=== PATIENT | male | born 1955 | race Caucasian/White ===

== ENCOUNTER 2018-09-07 14:48 | Observation (INO) | payer OTHER ==
[2018-09-07] MEDS ORDERED: solu-MEDROL 125 MG IV ONE (14:50)
[2018-09-07] MEDS ORDERED: DUONEB 0.5-3 MG/3 ml Neb IH ONE ×4 (14:50→16:28)
[2018-09-07] MEDS ORDERED: solu-MEDROL 125 MG ONE (14:57)
[2018-09-07 15:03] LABS: BASOPHIL % 0.4 % (0.0-0.4); Basophil (Absolute #) 0.05 (0-0.4); Eosinophil % 13.4 % (0.00-5.0); Eosinophil (Absolute #) 1.77 (0-0.5); Granulocyte Absolute (ANC) 7.63 (1.4-6.9); Granulocytes % 57.6 % (36.0-66.0); Hematocrit 47.2 % (42-50); Hemoglobin 16.2 gm/dl (12.5-18.0); Lymphocyte (Absolute #) 2.96 (1.0-4.6); Lymphocytes % 22.3 % (24.0-44.0); Mean Cell Volume 91.5 fl (78-100); Mean Corpuscular Hemoglobin 31.4 pg (26-32); Mean Corpuscular Hgb Concent. 34.3 g/dl (32-36); Mean Platelet Volume 8.9 fl (6-9.5); Monocytes % 6.3 % (0.0-12.0); Platelet Count 438 K/mm3 (150-450); Red Blood Count 5.16 M/mm3 (4.1-5.6); Red Cell Distribution Width 13.8 % (11.5-14.0); White Blood Count 13.3 K/mm3 (4.0-10.5)
[2018-09-07 15:08] LABS: INR 0.92 (0.8-3.0); PROTIME 10.4 SECONDS (8.83-12.87)
--- NOTE | 2018-09-07 15:09 | ERPHSYRPT ---
- History of Present Illness Time Seen by Provider: 09/07/18 14:50 Source: patient Exam Limitations: no limitations Physician History: Pt started c/o productive cough, wheezing, chest pain, increasing SOB since yesterday, states, the SOB increased today, denies vomiting, diarrhea, fever, other complaints. Timing/Duration: yesterday Activities at Onset: none Severity of Dyspnea-Max: severe Severity of Dyspnea-Current: severe Possible Cause: occasional episodes Modifying Factors: Improves With: albuterol inhaler Associated Symptoms: constant, cough, chest pain/discomfort, lightheadedness, wheezing, productive cough Allergies/Adverse Reactions: No Known Drug Allergies Allergy (Unverified 12/27/13 19:42) Home Medications: Aspirin 81 mg PO QAM 12/27/13 [History] Diltiazem HCl [Taztia Xt] 120 mg PO QAM 12/27/13 [History] Metoprolol Tartrate 25 mg [Lopressor 25MG Tab] 25 mg PO BID 12/27/13 [ History] Hx Tetanus, Diphtheria Vaccination/Date Given: Yes Hx Influenza Vaccination/Date Given: Yes Hx Pneumococcal Vaccination/Date Given: No - Review of Systems Constitutional: No Symptoms Eyes: No Symptoms Ears, Nose, & Throat: No Symptoms Respiratory: Cough, Dyspnea Cardiac: Chest Pain, No Edema Abdominal/Gastrointestinal: Nausea Skin: No Symptoms Neurological: Dizziness All Other Systems: Reviewed and Negative - Past Medical History Pertinent Past Medical History: Yes Neurological History: No Pertinent History ENT History: No Pertinent History Cardiac History: Hypertension, Myocardial Infarction ([place]) Respiratory History: No Pertinent History Endocrine Medical History: No Pertinent History Musculoskeletal History: No Pertinent History GI Medical History: No Pertinent History History: No Pertinent History Psycho-Social History: No Pertinent History Male Reproductive Disorders: No Pertinent History - Past Surgical History Past Surgical History: Yes Neuro Surgical History: No Pertinent History Cardiac: CABG Respiratory: No Pertinent History Gastrointestinal: No Pertinent History Genitourinary: No Pertinent History Musculoskeletal: Orthopedic Surgery Male Surgical History: No Pertinent History Other Surgical History: bilateral ELBOW SURGERY, rt wrist surgery, back surgery , josseline in back - Social History Smoking Status: Current every day smoker Exposure to second hand smoke: Yes Drug Use: none Patient Lives Alone: No - Nursing Vital Signs Nursing Vital Signs: Initial Vital Signs Temperature 97.7 F 09/07/18 14:49 Pulse Rate 109 H 09/07/18 14:49 Respiratory Rate 20 09/07/18 14:49 Blood Pressure 173/113 09/07/18 14:49 O2 Sat by Pulse Oximetry 94 L 09/07/18 14:49 Pain Scale Pain Intensity 3 - Physical Exam General Appearance: mild distress Eye Exam: eyes nml inspection Ears, Nose, Throat Exam: normal pharynx Neck Exam: normal inspection, non-tender, supple, No carotid bruit, No JVD Respiratory Exam: diminished breath sounds (both base), rhonchi, wheezing ( diffuse, mod. severe, bilateral), No chest tenderness Cardiovascular/Chest Exam: normal heart sounds, normal peripheral pulses, tachycardia, No murmur, No edema, No JVD Abdominal/Gastrointestinal Exam: soft, normal bowel sounds, No tenderness, No distention, No mass, No guarding, No ecchymosis, No pulsatile mass, No organomegaly Neurologic Exam: alert, oriented x 3, cooperative, normal mood/affect Skin Exam: normal color, warm, dry, No rash, No petechiae, No cyanosis Lymphatic Exam: No adenopathy SpO2 Interpretation: normal O2 Delivery: Room Air - Course Nursing assessment & vital signs reviewed: Yes EKG Interpreted by Me: RATE (89/min), NORMAL AXIS, NORMAL INTERVALS, Non- specific ST Changes, Other (frequent PVC-s, RVH pattern) - Radiology Exams Chest X-ray Interpretation: Interpreted by me, Negative, Other (COPD, Emphysema) Ordered Tests: Active Orders 24 hr Category Date 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 Care 09/07/18 14:51 Active EKG-ER Only STAT Care 09/07/18 14:50 Active EKG-ER Only STAT Care 09/07/18 16:58 Active IV Insertion STAT Care 09/07/18 14:50 Active CHEST 2 VIEWS (PA AND LAT) Stat Exams 09/07/18 14:51 Completed CBC W DIFF Stat Lab 09/07/18 14:50 Completed CMP Stat Lab 09/07/18 14:50 Completed D-DIMER QUANTITATION Stat Lab 09/07/18 16:21 Completed Lactic Acid Stat Lab 09/07/18 14:50 Ordered MAGNESIUM Stat Lab 09/07/18 14:50 Completed NT PRO BNP Stat Lab 09/07/18 14:50 Completed PROTIME WITH INR Stat Lab 09/07/18 14:50 Completed PTT Stat Lab 09/07/18 14:50 Completed TROPONIN Q3H Lab 09/07/18 14:50 Completed TROPONIN Q3H Lab 09/07/18 17:02 Completed TROPONIN Q3H Lab 09/07/18 20:00 Ordered TROPONIN Q3H Lab 09/08/18 00:00 Ordered TROPONIN Q3H Lab 09/08/18 03:00 Ordered Peak Expiratory Flow Rate DAILY RT 09/07/18 15:30 Completed Respiratory Therapy Assessment DAILY RT 09/07/18 16:32 Active Medication Summary Discontinued Medications Generic Name Dose Route Start Last Admin Trade Name Freq PRN Reason Stop Dose Admin Albuterol/Ipratropium 3 ml 09/07/18 14:50 09/07/18 15:30 Duoneb 0.5-3 Mg/3 Ml Neb IH 09/07/18 14:51 3 ml STAT ONE Administration Albuterol/Ipratropium Confirm 09/07/18 15:32 Duoneb 0.5-3 Mg/3 Ml Neb Administered 09/07/18 15:33 Dose 3 ml IH .STK-MED ONE Albuterol/Ipratropium 3 ml 09/07/18 16:14 09/07/18 16:29 Duoneb 0.5-3 Mg/3 Ml Neb IH 09/07/18 16:15 3 ml STAT ONE Administration Albuterol/Ipratropium Confirm 09/07/18 16:28 Duoneb 0.5-3 Mg/3 Ml Neb Administered 09/07/18 16:29 Dose 3 ml IH .STK-MED ONE Fentanyl Citrate 75 mcg 09/07/18 17:07 09/07/18 17:15 Sublimaze 100 Mcg/2 Ml IV 09/07/18 17:08 75 mcg STAT ONE Administration Fentanyl Citrate Confirm 09/07/18 17:14 Sublimaze 100 Mcg/2 Ml Administered 09/07/18 17:15 Dose 100 mcg .ROUTE .STK-MED ONE Ketorolac Tromethamine 30 mg 09/07/18 16:14 09/07/18 16:28 Toradol 30 Mg Injection IV 09/07/18 16:15 30 mg STAT ONE Administration Ketorolac Tromethamine Confirm 09/07/18 16:26 Toradol 30 Mg Injection Administered 09/07/18 16:27 Dose 30 mg .ROUTE .STK-MED ONE Methylprednisolone Sodium Succinate 125 mg 09/07/18 14:50 09/07/18 15:02 Solu-Medrol 125 Mg IV 09/07/18 14:51 125 mg STAT ONE Administration Methylprednisolone Sodium Succinate Confirm 09/07/18 14:57 Solu-Medrol 125 Mg Administered 09/07/18 14:58 Dose 125 mg .ROUTE .STK-MED ONE Ondansetron HCl 4 mg 09/07/18 17:07 09/07/18 17:16 Zofran 4 Mg/2 Ml Vial IV 09/07/18 17:08 4 mg STAT ONE Administration Ondansetron HCl Confirm 09/07/18 17:14 Zofran 4 Mg/2 Ml Vial Administered 09/07/18 17:15 Dose 4 mg .ROUTE .STK-MED ONE Lab/Rad Data: Laboratory Result Diagrams 09/07/18 14:50 09/07/18 14:50 Laboratory Results 09/07/18 09/07/18 09/07/18 Range/Units 17:02 16:21 14:50 WBC (4.0-10.5) K/mm3 RBC (4.1-5.6) M/mm3 Hgb (12.5-18.0) gm/dl Hct (42-50) % MCV (78-100) fl MCH (26-32) pg MCHC (32-36) g/dl RDW (11.5-14.0) % Plt Count (150-450) K/mm3 MPV (6-9.5) fl Gran % (36.0-66.0) % Eos # (Auto) (0-0.5) Absolute Lymphs (auto) (1.0-4.6) Absolute Monos (auto) (0.0-1.3) Lymphocytes % (24.0-44.0) % Monocytes % (0.0-12.0) % Eosinophils % (0.00-5.0) % Basophils % (0.0-0.4) % Absolute Granulocytes (1.4-6.9) Basophils # (0-0.4) PT (8.83-12.87) SECONDS INR (0.8-3.0) APTT (24.1-36.1) SECONDS D-Dimer 481 (215-500) ng/mL Sodium (137-145) mmol/L Potassium (3.5-5.1) mmol/L Chloride (98-107) mmol/L Carbon Dioxide (22-30) mmol/L Anion Gap (5-15) MEQ/L BUN (9-20) mg/dL Creatinine (0.66-1.25) mg/dL Estimated GFR ML/MIN Glucose (74-106) mg/dL Calcium (8.4-10.2) mg/dL Magnesium (1.6-2.3) mg/dL Total Bilirubin (0.2-1.3) mg/dL AST (17-59) U/L ALT (0-50) U/L Alkaline Phosphatase (38-126) U/L Troponin I < 0.012 < 0.012 (0.000-0.034) ng/mL NT-Pro-B Natriuret Pep (0-900) pg/mL Serum Total Protein (6.3-8.2) g/dL Albumin (3.5-5.0) g/dL 09/07/18 09/07/18 09/07/18 Range/Units 14:50 14:50 14:50 WBC 13.3 H (4.0-10.5) K/mm3 RBC 5.16 (4.1-5.6) M/mm3 Hgb 16.2 (12.5-18.0) gm/dl Hct 47.2 (42-50) % MCV 91.5 (78-100) fl MCH 31.4 (26-32) pg MCHC 34.3 (32-36) g/dl RDW 13.8 (11.5-14.0) % Plt Count 438 (150-450) K/mm3 MPV 8.9 (6-9.5) fl Gran % 57.6 (36.0-66.0) % Eos # (Auto) 1.77 H (0-0.5) Absolute Lymphs (auto) 2.96 (1.0-4.6) Absolute Monos (auto) 0.84 (0.0-1.3) Lymphocytes % 22.3 L (24.0-44.0) % Monocytes % 6.3 (0.0-12.0) % Eosinophils % 13.4 H (0.00-5.0) % Basophils % 0.4 (0.0-0.4) % Absolute Granulocytes 7.63 H (1.4-6.9) Basophils # 0.05 (0-0.4) PT 10.4 (8.83-12.87) SECONDS INR 0.92 (0.8-3.0) APTT 33.3 (24.1-36.1) SECONDS D-Dimer (215-500) ng/mL Sodium 142 (137-145) mmol/L Potassium 4.6 (3.5-5.1) mmol/L Chloride 105 (98-107) mmol/L Carbon Dioxide 25 (22-30) mmol/L Anion Gap 17.2 H (5-15) MEQ/L BUN 20 (9-20) mg/dL Creatinine 1.00 (0.66-1.25) mg/dL Estimated GFR > 60.0 ML/MIN Glucose 76 (74-106) mg/dL Calcium 10.2 (8.4-10.2) mg/dL Magnesium 1.9 (1.6-2.3) mg/dL Total Bilirubin 0.50 (0.2-1.3) mg/dL AST 30 (17-59) U/L ALT 20 (0-50) U/L Alkaline Phosphatase 96 (38-126) U/L Troponin I (0.000-0.034) ng/mL NT-Pro-B Natriuret Pep 286 (0-900) pg/mL Serum Total Protein 8.3 H (6.3-8.2) g/dL Albumin 4.8 (3.5-5.0) g/dL - Progress Progress: improved Air Movement: good Progress Note: 09/07/18 18:09 Pt states, improved after Toradol, Fentanyl IV, afebrile, stable, no severe SOB or pain, rib pain upon coughing. We reviewed all his results, discussed with Dr Lopez, she agreed to admit him for observation, patient was informed and agreed. Blood Culture(s) Obtained: No Antibiotics given: No Discussed with : John Will see patient in: hospital (observation) Counseled pt/family regarding: lab results, diagnosis, rad results - Departure Departure Disposition: Observation Clinical Impression: COPD (chronic obstructive pulmonary disease) with acute bronchitis Chest pain Qualifiers: Chest pain type: unspecified Qualified Code(s): R07.9 - Chest pain, unspecified Condition: Stable Critical Care Time: No Referrals: JIA ZIMMERMAN [ACTIVE STAFF] - Instructions: Chronic Obstructive Pulmonary Disease
[2018-09-07 15:10] LABS: PTT 33.3 SECONDS (24.1-36.1)
[2018-09-07 15:22] LABS: ALBUMIN 4.8 g/dL (3.5-5.0); ALKALINE PHOSPHATASE 96 U/L (38-126); ANION GAP 17.2 MEQ/L (5-15); BLOOD UREA NITROGEN 20 mg/dL (9-20); CHLORIDE 105 mmol/L (98-107); Calcium 10.2 mg/dL (8.4-10.2); Carbon Dioxide 25 mmol/L (22-30); Glucose 76 mg/dL (74-106); MAGNESIUM 1.9 mg/dL (1.6-2.3); NT PRO BNP 286 pg/mL (0-900); Potassium 4.6 mmol/L (3.5-5.1); SGOT/AST 30 U/L (17-59); SGPT/ALT 20 U/L (0-50); SODIUM 142 mmol/L (137-145); Total Protein 8.3 g/dL (6.3-8.2)
[2018-09-07] MEDS ORDERED: TORAdol 30 mg Injection IV ONE (16:14)
--- NOTE | 2018-09-07 16:18 | XRAY ---
Indication: Cough and short of breath. Comparison: July 07, 2011. PA/lateral chest again hyperinflated and clear. Heart is not enlarged again with CABG surgery. Bony thorax intact again with mild degenerative changes. Impression: Stable nonacute hyperinflated chest with chronic features.
[2018-09-07] MEDS ORDERED: TORAdol 30 mg Injection ONE (16:26)
[2018-09-07] MEDS ORDERED: SUBLIMAZE 100 MCG/2 ML IV ONE (17:07)
[2018-09-07] MEDS ORDERED: Zofran 4 MG/2 ML VIAL IV ONE (17:07)
[2018-09-07] MEDS ORDERED: SUBLIMAZE 100 MCG/2 ML ONE (17:14)
[2018-09-07] MEDS ORDERED: Zofran 4 MG/2 ML VIAL ONE (17:14)
[2018-09-07] MEDS: PROVENTIL 2.5 MG/3 ML NEB IH SCH ×2 (19:39→23:22)
[2018-09-07] MEDS ORDERED: Zofran 4 MG/2 ML VIAL IV PRN (19:55)
[2018-09-07] MEDS: MORPHINE SULFATE 4 MG INJ IV PRN (20:04)
[2018-09-07] MEDS ORDERED: PROVENTIL COMMON CANISTER IH PRN (20:35)
[2018-09-07] MEDS: solu-MEDROL 125 MG IV SCH (23:04)
[2018-09-07] MEDS: Pepcid 20 MG PO SCH (23:04)
[2018-09-08 00:21] LABS: Lactic Acid 2.5 (0.4-2.0)
[2018-09-08] MEDS: MORPHINE SULFATE 4 MG INJ IV PRN (02:38)
[2018-09-08] MEDS: PROVENTIL 2.5 MG/3 ML NEB IH SCH ×6 (02:47→23:38)
[2018-09-08 05:12] LABS: Lactic Acid 2.2 (0.4-2.0)
[2018-09-08 05:25] LABS: Hematocrit 43.9 % (42-50); Hemoglobin 14.7 gm/dl (12.5-18.0); Mean Cell Volume 93.2 fl (78-100); Mean Corpuscular Hemoglobin 31.2 pg (26-32); Mean Corpuscular Hgb Concent. 33.5 g/dl (32-36); Mean Platelet Volume 9.2 fl (6-9.5); Platelet Count 423 K/mm3 (150-450); Red Blood Count 4.71 M/mm3 (4.1-5.6); Red Cell Distribution Width 13.7 % (11.5-14.0); White Blood Count 20.6 K/mm3 (4.0-10.5)
[2018-09-08 05:32] LABS: ANION GAP 16.5 MEQ/L (5-15); BLOOD UREA NITROGEN 28 mg/dL (9-20); CHLORIDE 104 mmol/L (98-107); Calcium 9.3 mg/dL (8.4-10.2); Carbon Dioxide 23 mmol/L (22-30); Creatinine 1 1.11 mg/dL (0.66-1.25); Glucose 188 mg/dL (74-106); Potassium 4.8 mmol/L (3.5-5.1); SODIUM 138 mmol/L (137-145)
[2018-09-08] MEDS: solu-MEDROL 125 MG IV SCH ×3 (06:02→19:03)
[2018-09-08] MEDS: NORCO 5/325 MG PO PRN ×2 (08:57→20:44)
--- NOTE | 2018-09-08 09:31 | PCM.HP ---
History of Present Illness - Chief Complaint Chief Complaint: COPD; Chest Pain History of Present Illness: is a 63 year old male pt of Dr. Schulz in [place] with PMHx COPD and CAD who came to ER c/o increasing SOB x 1d. Apparently has had increased cough and SOB for months, but it worsened yesterday. Has been seeing [employer] [employer] at Dr. Schulz' s office; was found to need supplemental O2 at home but has been waiting for that ([facility]). Pt has also been having R sided CP radiating to his back bilat, 12/28, intermittent. took nitro with some relief. Does have diaphoresis and palpitations with it; denies N/V. Worse with cough. Pt's troponins have been neg x 3. CXR was non acute. He was admitted on IV steroids and does feel better but is still c/o chest pain this morning that is 8 /10. His WBC were 13,000 initially but 20,000 this morning. Pt sees Dr. Herrera. Had CABG in the past and angioplasty on L leg. - Review of Systems Respiratory: Cough, Short Of Breath Cardiac: Chest Pain, Palpitations Psychological: No Anxiety, No Depression, No Suicidal Ideations All Other Systems: Reviewed and Negative Medications & Allergies Home Medications: Home Medication List Aspirin 81 mg PO QAM 12/27/13 [History Confirmed 09/07/18] Metoprolol Tartrate 25 mg [Lopressor 25MG Tab] 25 mg PO DAILY 12/27/13 [ History Confirmed 09/07/18] Albuterol Common Canister [Proventil Common Canister] 2 puffs IH Q4H PRN PRN 09/07/18 [History Confirmed 09/07/18] Budesonide/Formoterol Fumarate [Symbicort 160-4.5 Mcg Inhaler] 1 puff IH BID [History Confirmed 09/07/18] Clopidogrel Bisulfate [Plavix] 75 mg PO DAILY 09/07/18 [History Confirmed ] Losartan Potassium 25 mg PO DAILY 09/07/18 [History Confirmed 09/07/18] Tiotropium [place] [Spiriva Respimat] 1 puff IH BID 09/07/18 [History Confirmed 09/07/18] Allergies/Adverse Reactions: Allergies Allergy/AdvReac Type Severity Reaction Status Date / Time No Known Drug Allergies Allergy Unverified 09/07/18 21:26 - Past Medical History Past Medical History: Yes Neurological History: No Pertinent History ENT History: No Pertinent History Cardiac History: Hypertension, Myocardial Infarction ([place]) Respiratory History: No Pertinent History Endocrine Medical History: No Pertinent History Musculoskelatal History: No Pertinent History GI Medical History: No Pertinent History History: No Pertinent History Pyscho-Social History: No Pertinent History Male Reproductive Disorders: No Pertinent History - Past Surgical History Past Surgical History: Yes Neuro Surgical History: No Pertinent History Cardiac History: CABG Respiratory Surgery: No Pertinent History GI Surgical History: No Pertinent History Genitourinary Surgical Hx: No Pertinent History Musculskeletal Surgical Hx: Orthopedic Surgery Male Surgical History: No Pertinent History Other Surgical History: bilateral ELBOW SURGERY, rt wrist surgery, back surgery , josseline in back - Social History Smoking Status: Current every day smoker How long have you smoked: 45 years Exposure to second hand smoke: Yes Alcohol: Daily Drug Use: none - Physical Exam Vital Signs: Vital Signs - 24 hr Temp Pulse Resp BP Pulse Ox 09/08/18 08:00 98.3 F 93 H 18 141/75 90 L 09/08/18 07:52 89 18 96 09/08/18 03:56 97.4 F 90 18 131/84 96 09/08/18 03:54 110 H 18 92 L 09/08/18 00:00 98.2 F 83 19 140/80 95 09/07/18 23:22 90 18 94 L 09/07/18 21:00 97.7 F 92 H 20 143/87 95 09/07/18 20:37 92 H 20 94 L 09/07/18 18:06 18 143/87 95 09/07/18 17:40 55 L 22 156/83 09/07/18 16:50 55 L 20 156/83 09/07/18 16:32 67 16 95 09/07/18 16:07 70 16 140/114 95 09/07/18 15:40 95 H 18 96 09/07/18 14:49 97.7 F 109 H 20 173/113 95 Oxygen-Last 24 hours O2 Percentage 2 Liters = 28% O2 Percentage 2 Liters = 28% O2 Percentage 2 Liters = 28% O2 Percentage 2 Liters = 28% O2 Percentage 3 Liters = 32% General Appearance: no apparent distress, alert Neurologic Exam: oriented x 3, cooperative Eye Exam: eyes nml inspection Ears, Nose, Throat Exam: moist mucous membranes Respiratory Exam: diminished breath sounds (poor air exchange), prolonged expirations, No crackles/rales, No rhonchi, No wheezing Cardiovascular Exam: regular rate/rhythm, normal heart sounds, No murmur Gastrointestinal/Abdomen Exam: soft, normal bowel sounds, No tenderness, No distention, No mass, No guarding, No rebound Extremity Exam: normal inspection, No pedal edema, No swelling Skin Exam: normal color, warm, dry, No rash Results - Labs Lab/Micro Results: Lab Results-Last 24 Hours 09/07/18 09/07/18 09/07/18 Range/Units 14:50 14:50 14:50 WBC 13.3 H (4.0-10.5) K/mm3 RBC 5.16 (4.1-5.6) M/mm3 Hgb 16.2 (12.5-18.0) gm/dl Hct 47.2 (42-50) % MCV 91.5 (78-100) fl MCH 31.4 (26-32) pg MCHC 34.3 (32-36) g/dl RDW 13.8 (11.5-14.0) % Plt Count 438 (150-450) K/mm3 MPV 8.9 (6-9.5) fl Gran % 57.6 (36.0-66.0) % Eos # (Auto) 1.77 H (0-0.5) Absolute Lymphs (auto) 2.96 (1.0-4.6) Absolute Monos (auto) 0.84 (0.0-1.3) Lymphocytes % 22.3 L (24.0-44.0) % Monocytes % 6.3 (0.0-12.0) % Eosinophils % 13.4 H (0.00-5.0) % Basophils % 0.4 (0.0-0.4) % Absolute Granulocytes 7.63 H (1.4-6.9) Basophils # 0.05 (0-0.4) PT (8.83-12.87) SECONDS INR (0.8-3.0) APTT (24.1-36.1) SECONDS D-Dimer (215-500) ng/mL Sodium 142 (137-145) mmol/L Potassium 4.6 (3.5-5.1) mmol/L Chloride 105 (98-107) mmol/L Carbon Dioxide 25 (22-30) mmol/L Anion Gap 17.2 H (5-15) MEQ/L BUN 20 (9-20) mg/dL Creatinine 1.00 (0.66-1.25) mg/dL Estimated GFR > 60.0 ML/MIN Glucose 76 (74-106) mg/dL Lactic Acid 2.5 H (0.4-2.0) Calcium 10.2 (8.4-10.2) mg/dL Magnesium 1.9 (1.6-2.3) mg/dL Total Bilirubin 0.50 (0.2-1.3) mg/dL AST 30 (17-59) U/L ALT 20 (0-50) U/L Alkaline Phosphatase 96 (38-126) U/L Troponin I (0.000-0.034) ng/mL NT-Pro-B Natriuret Pep 286 (0-900) pg/mL Serum Total Protein 8.3 H (6.3-8.2) g/dL Albumin 4.8 (3.5-5.0) g/dL 09/07/18 09/07/18 09/07/18 Range/Units 14:50 14:50 16:21 WBC (4.0-10.5) K/mm3 RBC (4.1-5.6) M/mm3 Hgb (12.5-18.0) gm/dl Hct (42-50) % MCV (78-100) fl MCH (26-32) pg MCHC (32-36) g/dl RDW (11.5-14.0) % Plt Count (150-450) K/mm3 MPV (6-9.5) fl Gran % (36.0-66.0) % Eos # (Auto) (0-0.5) Absolute Lymphs (auto) (1.0-4.6) Absolute Monos (auto) (0.0-1.3) Lymphocytes % (24.0-44.0) % Monocytes % (0.0-12.0) % Eosinophils % (0.00-5.0) % Basophils % (0.0-0.4) % Absolute Granulocytes (1.4-6.9) Basophils # (0-0.4) PT 10.4 (8.83-12.87) SECONDS INR 0.92 (0.8-3.0) APTT 33.3 (24.1-36.1) SECONDS D-Dimer 481 (215-500) ng/mL Sodium (137-145) mmol/L Potassium (3.5-5.1) mmol/L Chloride (98-107) mmol/L Carbon Dioxide (22-30) mmol/L Anion Gap (5-15) MEQ/L BUN (9-20) mg/dL Creatinine (0.66-1.25) mg/dL Estimated GFR ML/MIN Glucose (74-106) mg/dL Lactic Acid (0.4-2.0) Calcium (8.4-10.2) mg/dL Magnesium (1.6-2.3) mg/dL Total Bilirubin (0.2-1.3) mg/dL AST (17-59) U/L ALT (0-50) U/L Alkaline Phosphatase (38-126) U/L Troponin I < 0.012 (0.000-0.034) ng/mL NT-Pro-B Natriuret Pep (0-900) pg/mL Serum Total Protein (6.3-8.2) g/dL Albumin (3.5-5.0) g/dL 09/07/18 09/07/18 09/08/18 Range/Units 17:02 20:17 05:00 WBC (4.0-10.5) K/mm3 RBC (4.1-5.6) M/mm3 Hgb (12.5-18.0) gm/dl Hct (42-50) % MCV (78-100) fl MCH (26-32) pg MCHC (32-36) g/dl RDW (11.5-14.0) % Plt Count (150-450) K/mm3 MPV (6-9.5) fl Gran % (36.0-66.0) % Eos # (Auto) (0-0.5) Absolute Lymphs (auto) (1.0-4.6) Absolute Monos (auto) (0.0-1.3) Lymphocytes % (24.0-44.0) % Monocytes % (0.0-12.0) % Eosinophils % (0.00-5.0) % Basophils % (0.0-0.4) % Absolute Granulocytes (1.4-6.9) Basophils # (0-0.4) PT (8.83-12.87) SECONDS INR (0.8-3.0) APTT (24.1-36.1) SECONDS D-Dimer (215-500) ng/mL Sodium (137-145) mmol/L Potassium (3.5-5.1) mmol/L Chloride (98-107) mmol/L Carbon Dioxide (22-30) mmol/L Anion Gap (5-15) MEQ/L BUN (9-20) mg/dL Creatinine (0.66-1.25) mg/dL Estimated GFR ML/MIN Glucose (74-106) mg/dL Lactic Acid 2.2 H (0.4-2.0) Calcium (8.4-10.2) mg/dL Magnesium (1.6-2.3) mg/dL Total Bilirubin (0.2-1.3) mg/dL AST (17-59) U/L ALT (0-50) U/L Alkaline Phosphatase (38-126) U/L Troponin I < 0.012 < 0.012 (0.000-0.034) ng/mL NT-Pro-B Natriuret Pep (0-900) pg/mL Serum Total Protein (6.3-8.2) g/dL Albumin (3.5-5.0) g/dL 09/08/18 09/08/18 Range/Units 05:07 05:07 WBC 20.6 H (4.0-10.5) K/mm3 RBC 4.71 (4.1-5.6) M/mm3 Hgb 14.7 (12.5-18.0) gm/dl Hct 43.9 (42-50) % MCV 93.2 (78-100) fl MCH 31.2 (26-32) pg MCHC 33.5 (32-36) g/dl RDW 13.7 (11.5-14.0) % Plt Count 423 (150-450) K/mm3 MPV 9.2 (6-9.5) fl Gran % (36.0-66.0) % Eos # (Auto) (0-0.5) Absolute Lymphs (auto) (1.0-4.6) Absolute Monos (auto) (0.0-1.3) Lymphocytes % (24.0-44.0) % Monocytes % (0.0-12.0) % Eosinophils % (0.00-5.0) % Basophils % (0.0-0.4) % Absolute Granulocytes (1.4-6.9) Basophils # (0-0.4) PT (8.83-12.87) SECONDS INR (0.8-3.0) APTT (24.1-36.1) SECONDS D-Dimer (215-500) ng/mL Sodium 138 (137-145) mmol/L Potassium 4.8 (3.5-5.1) mmol/L Chloride 104 (98-107) mmol/L Carbon Dioxide 23 (22-30) mmol/L Anion Gap 16.5 H (5-15) MEQ/L BUN 28 H (9-20) mg/dL Creatinine 1.11 (0.66-1.25) mg/dL Estimated GFR > 60.0 ML/MIN Glucose 188 H (74-106) mg/dL Lactic Acid (0.4-2.0) Calcium 9.3 (8.4-10.2) mg/dL Magnesium (1.6-2.3) mg/dL Total Bilirubin (0.2-1.3) mg/dL AST (17-59) U/L ALT (0-50) U/L Alkaline Phosphatase (38-126) U/L Troponin I (0.000-0.034) ng/mL NT-Pro-B Natriuret Pep (0-900) pg/mL Serum Total Protein (6.3-8.2) g/dL Albumin (3.5-5.0) g/dL - Radiology Impressions Radiology Exams & Impressions: Radiology Procedures Category Date Time Status CHEST 2 VIEWS (PA AND LAT) Stat Exams 09/07/18 14:51 Completed - Other Procedures and Tests Respiratory Therapy 09/07/18 15:30 Peak Expiratory Flow Rate DAILY 09/07/18 16:32 Respiratory Therapy Assessment DAILY 09/07/18 18:11 Oxygen Nasal Cannula 2 lpm Assessment/Plan (1) COPD exacerbation Current Visit: Yes Status: Acute Assessment & Plan: WIll add antibiotics. I advised he may need to stay several days. On IV steroid 80mg q6h. Code(s): J44.1 - CHRONIC OBSTRUCTIVE PULMONARY DISEASE W (ACUTE) EXACERBATION (2) CAD (coronary artery disease) Current Visit: Yes Status: Chronic Qualifiers: Coronary Disease-Associated Artery/Lesion type: bypass graft [place] vs. transplanted heart: [place] heart Associated angina: with unspecified angina Qualified Code(s): I25.709 - Atherosclerosis of coronary artery bypass graft(s) , unspecified, with unspecified angina pectoris Code(s): I25.10 - ATHSCL HEART DISEASE OF [place] CORONARY ARTERY W/O ANG PCTRS (3) Chest pain Current Visit: Yes Status: Acute Qualifiers: Chest pain type: unspecified Qualified Code(s): R07.9 - Chest pain, unspecified Assessment & Plan: likely related to COPD; continue troponins to r/o [place]. Code(s): R07.9 - CHEST PAIN, UNSPECIFIED
[2018-09-08] MEDS ORDERED: NON-FORMULARY ITEM (Aspirin [Aspirin] 81 MG) PO SCH (10:00)
[2018-09-08] MEDS: ECOTRIN 81 MG PO SCH (10:24)
[2018-09-08] MEDS: PLAVIX 75 MG Tablet PO SCH (10:24)
[2018-09-08] MEDS: Lopressor 25MG Tab PO SCH (10:24)
[2018-09-08] MEDS: Cozaar 50 MG PO SCH (10:24)
[2018-09-08] MEDS: Pepcid 20 MG PO SCH ×2 (10:24→21:40)
[2018-09-08] MEDS: Zithromax 500 MG/ 250 ML NaCl Premix 500 MG/250 ML IVPB IV SCH (10:25)
[2018-09-08] MEDS: ROCEPHIN 1 Gm-D5w 50 ml Bag** 1 G/50 ML IVPB IV SCH (10:25)
[2018-09-08] MEDS: ENOXAPARIN SODIUM SQ SCH (10:25)
[2018-09-08] MEDS: Advair Hfa 115/21 Common canister IH SCH (19:43)
[2018-09-08] MEDS: Spiriva 18 Mcg/Cap Inhaler IH SCH (19:45)
[2018-09-09] MEDS: solu-MEDROL 125 MG IV SCH ×3 (01:07→11:49)
[2018-09-09] MEDS: PROVENTIL 2.5 MG/3 ML NEB IH SCH ×4 (03:09→13:30)
[2018-09-09] MEDS: NORCO 5/325 MG PO PRN (08:30)
[2018-09-09] MEDS: ENOXAPARIN SODIUM SQ SCH (08:31)
[2018-09-09] MEDS: Pepcid 20 MG PO SCH (08:31)
[2018-09-09] MEDS: ECOTRIN 81 MG PO SCH (08:31)
[2018-09-09] MEDS: Cozaar 50 MG PO SCH (08:31)
[2018-09-09] MEDS: PLAVIX 75 MG Tablet PO SCH (08:31)
[2018-09-09] MEDS: Lopressor 25MG Tab PO SCH (08:32)
[2018-09-09] MEDS: ROCEPHIN 1 Gm-D5w 50 ml Bag** 1 G/50 ML IVPB IV SCH (09:35)
[2018-09-09] MEDS: Zithromax 500 MG/ 250 ML NaCl Premix 500 MG/250 ML IVPB IV SCH (10:35)
[2018-09-09] MEDS: Spiriva 18 Mcg/Cap Inhaler IH SCH (10:37)
[2018-09-09] MEDS: Advair Hfa 115/21 Common canister IH SCH (10:37)
[2018-09-09 12:36] VITALS: BP 144/78
--- NOTE | 2018-09-09 12:53 | PCM.DS ---
Discharge Summary Date of Admission: 09/07/18 18:23 Admitting Physician: KARSON HURST Primary Care Provider: PRIYANKA MCFARLAND Allergies Allergies No Known Drug Allergies Allergy (Unverified 09/07/18 21:26) Hospital Summary - Hospital Course Hospital Course: patient was admitted with cough, wheezing, shortness of breath and pleuritic chest wall pain. treated for copd exacerbation, has been qualified for home oxygen. appears to have advanced copd. - Vitals & Intake/Output Vital Signs: Vital Signs Temperature 97.7 F 09/09/18 12:35 Pulse Rate 80 09/09/18 12:35 Respiratory Rate 20 09/09/18 12:35 Blood Pressure 144/78 09/09/18 12:35 O2 Sat by Pulse Oximetry 96 09/09/18 12:35 Oxygen-Last Documented O2 Percentage 3 Liters = 32% Intake & Output: Intake & Output 09/07/18 09/08/18 09/09/18 09/10/18 11:59 11:59 11:59 11:59 Intake Total 1602 3518 Output Total 1500 Balance 1602 2018 Weight 66.8 kg 66.5 kg - Lab Result Diagrams: 09/08/18 05:07 09/08/18 05:07 - Radiology Exams Ordered Rad Exams-Entire Visit: Radiology Procedures Category Date Time Status CHEST 2 VIEWS (PA AND LAT) Stat Exams 09/07/18 14:51 Completed - Procedures and Test Procedures and Tests throughout Hospitalization: Therapy Orders & Screens 09/07/18 15:30 Peak Expiratory Flow Rate DAILY Comment: Reason For Exam: 09/07/18 16:32 Respiratory Therapy Assessment DAILY Comment: 09/07/18 18:11 Oxygen Nasal Cannula 2 lpm Comment: 09/07/18 23:29 RT Screen per Nursing Assess Comment: Protocol Order Physician Instructions: Greater than 3 points order RT Admission Screen Reason For Exam: Triggered on Admission Diagnosis: COPD; Chest Pain Diagnosis: COPD; Chest Pain Pneumonia: No Home O2: Yes: hasn't been delivered yet Asthma: No CHF: No Home CPAP/BIPAP: No Home Nebs/MDI: Yes Total Points: 10 Smoking Cessation Education Comment: Diagnosis: COPD; Chest Pain Smoking Status: Current every day smoker How long have you smoked: 45 years Have you smoked in the past 12 months: Yes Approximately how many cigarettes per day: 1 cigarette per day Do you dip or chew tobacco: No 09/08/18 19:00 Respiratory MDI BID Comment: Diagnosis: COPD; Chest Pain Discharge Exam General Appearance: no apparent distress, alert Respiratory Exam: prolonged expirations, wheezing (mild) Cardiovascular Exam: regular rate/rhythm, normal heart sounds Gastrointestinal/Abdomen Exam: soft, No tenderness, No mass Extremity Exam: normal inspection, normal range of motion Skin Exam: normal color, warm, dry Final Diagnosis/Problem List - Final Discharge Diagnosis/Problem (1) COPD exacerbation Current Visit: Yes Status: Acute Code(s): J44.1 - CHRONIC OBSTRUCTIVE PULMONARY DISEASE W (ACUTE) EXACERBATION (2) Chronic hypoxemic respiratory failure Current Visit: Yes Status: Acute Assessment & Plan: patient qualified for home oxygen during stay (3) Chest pain Current Visit: Yes Status: Acute Code(s): R07.9 - CHEST PAIN, UNSPECIFIED - Discharge Disposition: Home, Self-Care Condition: Stable Prescriptions: New Prednisone 20 mg [Deltasone 20 mg] 20 mg PO UD #18 tablet Levofloxacin [Levaquin] 500 mg PO DAILY #7 tablet Hydrocodone/APAP 5-325 Tab^^^ [[place] 5-325 Tablet^^^] 1 tab PO Q6HPRN PRN # 20 tablet MDD 6 PRN Reason: Pain Continue Metoprolol Tartrate 25 mg [Lopressor 25MG Tab] 25 mg PO DAILY Aspirin 81 mg PO QAM Budesonide/Formoterol Fumarate [Symbicort 160-4.5 Mcg Inhaler] 1 puff IH BID Tiotropium [place] [Spiriva Respimat] 1 puff IH BID Clopidogrel Bisulfate [Plavix] 75 mg PO DAILY Losartan Potassium 25 mg PO DAILY Albuterol Common Canister [Proventil Common Canister] 2 puffs IH Q4H PRN PRN PRN Reason: Shortness Of Breath/Wheezing Follow up with: PRIYANKA MCFARLAND [Primary Care Provider] - 1 Week
[2018-09-09 13:35] VITALS: PULSE 96; O2SAT 94
== END 2018-09-09 14:35 | disposition home or self-care (01) ==
LOC: ED 14:48 → MED SURG 18:23
PROVIDERS: ADMIT Family Medicine; ATTEND Family Medicine
DX: J44.1 Chronic obstructive pulmonary disease with (acute) exacerbation (principal); J96.11 Chronic respiratory failure with hypoxia; R07.9 Chest pain, unspecified; I25.10 Atherosclerotic heart disease of native coronary artery without angina pectoris; I10 Essential (primary) hypertension; Z79.01 Long term (current) use of anticoagulants; Z79.899 Other long term (current) drug therapy; Z95.1 Presence of aortocoronary bypass graft; I25.2 Old myocardial infarction; F17.200 Nicotine dependence, unspecified, uncomplicated
CPT/HCPCS: 36000; 36415; 71046; 80048; 80053; 83605; 83735; 83880; 84484; 85025; 85027; 85379; 85610; 85730; 93005; 93041; 93268; 94150; 94640; 94760; 96374; 96375; 99285; G0378; J0456; J0696; J1650; J1885; J2270; J2405; J2930; J3010; J7609; A9270-GY

== ENCOUNTER 2019-01-08 08:42 | Day surgery (SDC) | payer OTHER ==
--- NOTE | 2019-01-08 07:48 | HP ---
DATE OF SURGERY: 01/08/2019 HISTORY OF PRESENT ILLNESS: The patient is a 63 year-old with no prior colonoscopy. No bloody stools. No change in bowel movements. No pain. Family history negative for colon cancer. Some family history of heart disease and lung cancer. PAST MEDICAL HISTORY: Heart disease. Lung disease. Hypertension. PAST SURGICAL HISTORY: He had triple bypass in the past. He had wrist surgery, elbow surgery, back surgery. He had angioplasty in the past. MEDICATIONS: Losartan, metoprolol, baby aspirin, clopidogrel, Spiriva, Symbicort, Ventolin, Albuterol. ALLERGIES: NKDA. FAMILY HISTORY: Family history negative for colon cancer. Some family history of heart disease and lung cancer. REVIEW OF SYSTEMS: Fourteen systems reviewed pertinent for chronic heart and lung disease. He had myocardial infarction in the past. He had coronary artery bypass graft in the past. No chest pain or palpitations other systems negative or noncontributory as above and per preadmission questionnaire. No current chest pain or palpitations. PHYSICAL EXAMINATION: GENERAL: A chronically ill gentleman in no acute distress. HEENT: Sclerae nonicteric. NECK: No JVD. CHEST: Equal excursion, nonlabored breathing. CVS: Regular rate and rhythm. ABDOMEN: Soft. No peritoneal signs. EXTREMITIES: No significant edema. NEURO: Alert, moving extremities grossly symmetrically. No gross motor deficits noted. RECTAL: Deferred timed to endoscopy exam. IMPRESSION: Need for screening colonoscopy. I feel the patient is a candidate. He was shown the risk sheet, explained the procedure in detail but not limited to bleeding or infection, risk of bowel injury or perforation possibly requiring open procedure, risk of missed or nondiagnosis or incomplete exam possibly requiring barium enema, other studies or procedures, general risk of anesthesia or sedation, risk of bowel prep but not limited to. He understands and agrees to the planned procedure. As he lives in [place] he prefers to be scheduled at [facility], will proceed with outpatient screening colonoscopy.
[~2019-01-08 08:42] MED LIST: Lactated Ringers 1,000 ML IV ONE
[2019-01-08] MEDS: Lactated Ringers 1,000 ML IV SCH ×2 (09:23→10:57)
[2019-01-08] MEDS ORDERED: Lactated Ringers 1,000 ML IV ONE (10:54)
[2019-01-08] MEDS ORDERED: Ketamine HCl 50 MG/ML ONE (11:11)
[2019-01-08] MEDS ORDERED: DIPRIVAN 200 MG/20 ML IV ONE ×2 (11:11→11:26)
[2019-01-08 12:42] VITALS: O2SAT 99
[2019-01-08 12:45] VITALS: BP 149/90; PULSE 85
--- NOTE | 2019-01-08 12:53 | OP ---
SURGERY DATE/TIME: 01/08/2019 1118 PREOPERATIVE DIAGNOSIS: Screening colonoscopy. POSTOPERATIVE DIAGNOSES: 1) Diverticulosis. 2) Adequate but limited bowel prep. PROCEDURE: Colonoscopy to cecum with cold biopsy vague raised hyperplastic lesion versus normal variation of rectal mucosa. SURGEON: Dr. Jed Cruz. ANESTHESIA: MAC. ESTIMATED BLOOD LOSS: Minimal. INDICATIONS: As noted above. Risks and benefits explained in detail but not limited to and consent obtained. DESCRIPTION OF PROCEDURE AND FINDINGS: The patient is taken to the operating room. MAC anesthesia introduced. After official time out and no disagreement with planned procedure, digital rectal exam did not reveal any digitally palpable masses. Video colonoscope inserted and passed up through the tortuous colon around to the cecum. Appendiceal orifice and valve well visualized. Overall prep was adequate. There were several areas of liquidy semi-solid stool limiting the exam for very small lesions. This was suction irrigated as clear as possible but did slightly limit the exam although it was felt the prep was adequate enough that no large polyps, masses or lesions were missed but was limited for very tiny small lesions. The scope is slowly and carefully withdrawn. Again, suction irrigating out as much semi-solid stool as possible. There were no signs of any large polyps, masses or obstructing lesions. He had a tortuous colon. He did have some mild diverticulosis. Scope pulled back to the rectum. There was a vague slightly raised discolored area whether this was just normal variation of the mucosa versus early hyperplastic lesion biopsied with cold biopsy forceps. Good hemostasis noted. Otherwise there were no signs of any large polyps, masses or obstructing lesions. Should the path be benign given the quality of the prep, would suggest five year follow up colonoscope given the quality of the prep. Otherwise final recommendations pending final path. There was no family available to discuss the findings with.
== END 2019-01-08 11:35 | disposition home or self-care (01) ==
LOC: SDC 08:42
PROVIDERS: ATTEND Surgery
DX: Z12.11 Encounter for screening for malignant neoplasm of colon (principal); K57.30 Diverticulosis of large intestine without perforation or abscess without bleeding; K62.9 Disease of anus and rectum, unspecified; I10 Essential (primary) hypertension; Z86.79 Personal history of other diseases of the circulatory system; Z87.09 Personal history of other diseases of the respiratory system; Z79.899 Other long term (current) drug therapy
CPT/HCPCS: 88305; J2704

== ENCOUNTER 2019-01-22 14:52 | Observation (INO) | payer OTHER ==
[2019-01-22] MEDS ORDERED: BABY ASPIRIN 81 MG CHEW PO ONE (14:57)
--- NOTE | 2019-01-22 14:57 | ERPHSYRPT ---
<USAMA FORREST - Last Filed: 01/22/19 16:36> - History of Present Illness Time Seen by Provider: 01/22/19 14:57 Historian: patient Exam Limitations: no limitations Physician History: 63 y/o white male with h/o copd, cad with 3v cabg in 2010, presents with 2 day h /o nonradiating sharp stabbing substernal central cp with associated soa. pt has taken his baby asa and plavix Timing/Duration: day(s) (2) Activities at Onset: none Quality: sharpness, stabbing Location: substernal, central Chest Pain Radiation: no radiation Severity of Pain-Max: moderate Severity of Pain-Current: moderate Modifying Factors: Improves With: aspirin Associated Symptoms: No nausea, No vomiting, No diaphoresis, No syncope Prior Chest Pain/Cardiac Workup: echocardiography, heart attack Nitro Today/Relief: no nitro taken today Aspirin Treatment Today: provided at home Allergies/Adverse Reactions: No Known Drug Allergies Allergy (Verified 01/22/19 15:17) Home Medications: Metoprolol Tartrate 25 mg [Lopressor 25MG Tab] 25 mg PO DAILY 12/27/13 [ History] Albuterol Common Canister [Proventil Common Canister] 2 puffs IH Q4H PRN PRN 09/07/18 [History] Budesonide/Formoterol Fumarate [Symbicort 160-4.5 Mcg Inhaler] 1 puff IH BID [History] Losartan Potassium 25 mg PO DAILY 09/07/18 [History] Tiotropium [place] [Spiriva Respimat] 1 puff IH BID 09/07/18 [History] Albuterol 2.5 mg/3 ml Neb [Proventil 2.5 mg/3 ml Neb] 2.5 mg IH Q4H PRN PRN 12/06/18 [History] Hx Tetanus, Diphtheria Vaccination/Date Given: Yes Hx Influenza Vaccination/Date Given: Yes Hx Pneumococcal Vaccination/Date Given: No - Review of Systems Constitutional: No Symptoms Eyes: No Symptoms Ears, Nose, & Throat: No Symptoms Respiratory: Dyspnea (mild) Cardiac: Chest Pain Abdominal/Gastrointestinal: No Symptoms Genitourinary Symptoms: No Symptoms Musculoskeletal: No Symptoms Skin: No Symptoms Neurological: No Symptoms Psychological: No Symptoms Endocrine: No Symptoms Hematologic/Lymphatic: No Symptoms Immunological/Allergic: No Symptoms All Other Systems: Reviewed and Negative - Past Medical History Pertinent Past Medical History: Yes Neurological History: No Pertinent History ENT History: No Pertinent History Cardiac History: Coronary Artery Disease, Hypertension, Myocardial Infarction ( [place]) Respiratory History: COPD Endocrine Medical History: No Pertinent History Musculoskeletal History: No Pertinent History GI Medical History: No Pertinent History History: No Pertinent History Psycho-Social History: No Pertinent History Male Reproductive Disorders: No Pertinent History - Past Surgical History Past Surgical History: Yes Neuro Surgical History: No Pertinent History Cardiac: CABG, Cardiac Catheterization Respiratory: No Pertinent History Gastrointestinal: No Pertinent History Genitourinary: No Pertinent History Musculoskeletal: Orthopedic Surgery Male Surgical History: No Pertinent History Other Surgical History: bilateral ELBOW SURGERY-"nerves and tendons", rt wrist surgery plate and pins after fx., back surgery, josseline in back, triple bipass 2010 - Social History Smoking Status: Current every day smoker How long have you smoked: 45 years Exposure to second hand smoke: Yes Drug Use: none Patient Lives Alone: No - Nursing Vital Signs Nursing Vital Signs: Initial Vital Signs Temperature 97.6 F 01/22/19 14:53 Pulse Rate 100 H 01/22/19 14:53 Respiratory Rate 18 01/22/19 14:53 Blood Pressure 166/85 01/22/19 14:53 O2 Sat by Pulse Oximetry 98 01/22/19 14:53 Pain Scale Pain Intensity 6 - Physical Exam General Appearance: mild distress, alert, anxiety Eye Exam: PERRL/EOMI, eyes nml inspection Ears, Nose, Throat Exam: normal ENT inspection, moist mucous membranes Neck Exam: normal inspection, non-tender, supple, full range of motion Respiratory Exam: normal breath sounds, chest tenderness, lungs clear, airway intact, No respiratory distress Cardiovascular Exam: regular rate/rhythm, normal heart sounds, normal peripheral pulses Gastrointestinal/Abdomen Exam: soft, normal bowel sounds, No tenderness, No guarding Rectal Exam: not done Back Exam: normal inspection, normal range of motion, CVA tenderness Extremity Exam: normal inspection, normal range of motion, pelvis stable Neurologic Exam: alert, oriented x 3, cooperative, 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-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 nml as tested Skin Exam: normal color, warm, dry Lymphatic Exam: No adenopathy SpO2 Interpretation: normal O2 Delivery: Room Air Ordered Tests: Active Orders 24 hr Category Date Time Status Defensive Fire Control Systems Operator STAT Care 01/22/19 14:57 Active EKG-ER Only STAT Care 01/22/19 14:57 Active IV Insertion STAT Care 01/22/19 14:57 Active Pulse Oximetry (ED) STAT Care 01/22/19 14:57 Active CHEST 1 VIEW (PORTABLE) Stat Exams 01/22/19 16:39 Completed CBC W DIFF Stat Lab 01/22/19 15:10 Completed CMP Stat Lab 01/22/19 15:10 Completed D-DIMER QUANTITATION Stat Lab 01/22/19 15:10 Completed NT PRO BNP Stat Lab 01/22/19 15:10 Completed PROTIME WITH INR Stat Lab 01/22/19 15:10 Completed TROPONIN Q3H Lab 01/22/19 15:10 Completed TROPONIN Q3H Lab 01/22/19 18:25 Completed TROPONIN Q3H Lab 01/22/19 21:00 Ordered TROPONIN Q3H Lab 01/23/19 00:00 Ordered TROPONIN Q3H Lab 01/23/19 03:00 Ordered Medication Summary Discontinued Medications Generic Name Dose Route Start Last Admin Trade Name Freq PRN Reason Stop Dose Admin Aspirin 324 mg 01/22/19 14:57 01/22/19 15:15 Baby Aspirin 81 Mg Chew PO 01/22/19 14:58 324 mg STAT ONE Administration Aspirin Confirm 01/22/19 15:12 Baby Aspirin 81 Mg Chew Administered 01/22/19 15:13 Dose 243 mg .ROUTE .STK-MED ONE Morphine Sulfate 4 mg 01/22/19 15:04 01/22/19 15:14 Morphine Sulfate 4 Mg Inj IV 01/22/19 15:05 4 mg STAT ONE Administration Morphine Sulfate Confirm 01/22/19 15:12 Morphine Sulfate 4 Mg Inj Administered 01/22/19 15:13 Dose 4 mg .ROUTE .STK-MED ONE Morphine Sulfate Confirm 01/22/19 15:39 Morphine Sulfate 4 Mg Inj Administered 01/22/19 15:40 Dose 4 mg .ROUTE .STK-MED ONE Morphine Sulfate 4 mg 01/22/19 15:40 01/22/19 15:42 Morphine Sulfate 4 Mg Inj IV 01/22/19 15:41 4 mg STAT ONE Administration Nitroglycerin 0.4 mg 01/22/19 15:04 01/22/19 15:14 Nitrostat 0.4 Mg (Ed) SL 01/22/19 15:05 0.4 mg STAT ONE Administration Nitroglycerin Confirm 01/22/19 15:12 Nitrostat 0.4 Mg (Ed) Administered 01/22/19 15:13 Dose 0.4 mg SL .STK-MED ONE Lab/Rad Data: Laboratory Result Diagrams 01/22/19 15:10 01/22/19 15:10 Laboratory Results 01/22/19 01/22/19 01/22/19 Range/Units 18:25 15:10 15:10 WBC (4.0-10.5) K/mm3 RBC (4.1-5.6) M/mm3 Hgb (12.5-18.0) gm/dl Hct (42-50) % MCV (78-100) fl MCH (26-32) pg MCHC (32-36) g/dl RDW (11.5-14.0) % Plt Count (150-450) K/mm3 MPV (6-9.5) fl Gran % (36.0-66.0) % Eos # (Auto) (0-0.5) Absolute Lymphs (auto) (1.0-4.6) Absolute Monos (auto) (0.0-1.3) Lymphocytes % (24.0-44.0) % Monocytes % (0.0-12.0) % Eosinophils % (0.00-5.0) % Basophils % (0.0-0.4) % Absolute Granulocytes (1.4-6.9) Basophils # (0-0.4) PT 9.7 (8.83-12.87) SECONDS INR 0.86 (0.8-3.0) D-Dimer 373 (215-500) ng/mL Sodium (137-145) mmol/L Potassium (3.5-5.1) mmol/L Chloride (98-107) mmol/L Carbon Dioxide (22-30) mmol/L Anion Gap (5-15) MEQ/L BUN (9-20) mg/dL Creatinine (0.66-1.25) mg/dL Estimated GFR ML/MIN Glucose (74-106) mg/dL Calcium (8.4-10.2) mg/dL Total Bilirubin (0.2-1.3) mg/dL AST (17-59) U/L ALT (0-50) U/L Alkaline Phosphatase (38-126) U/L Troponin I < 0.012 < 0.012 (0.000-0.034) ng/mL NT-Pro-B Natriuret Pep (0-900) pg/mL Serum Total Protein (6.3-8.2) g/dL Albumin (3.5-5.0) g/dL 01/22/19 01/22/19 Range/Units 15:10 15:10 WBC 16.0 H (4.0-10.5) K/mm3 RBC 5.08 (4.1-5.6) M/mm3 Hgb 15.8 (12.5-18.0) gm/dl Hct 45.9 (42-50) % MCV 90.4 (78-100) fl MCH 31.1 (26-32) pg MCHC 34.4 (32-36) g/dl RDW 13.9 (11.5-14.0) % Plt Count 425 (150-450) K/mm3 MPV 9.0 (6-9.5) fl Gran % 73.0 H (36.0-66.0) % Eos # (Auto) 0.34 (0-0.5) Absolute Lymphs (auto) 2.87 (1.0-4.6) Absolute Monos (auto) 1.05 (0.0-1.3) Lymphocytes % 18.0 L (24.0-44.0) % Monocytes % 6.6 (0.0-12.0) % Eosinophils % 2.1 (0.00-5.0) % Basophils % 0.3 (0.0-0.4) % Absolute Granulocytes 11.67 H (1.4-6.9) Basophils # 0.05 (0-0.4) PT (8.83-12.87) SECONDS INR (0.8-3.0) D-Dimer (215-500) ng/mL Sodium 141 (137-145) mmol/L Potassium 4.3 (3.5-5.1) mmol/L Chloride 106 (98-107) mmol/L Carbon Dioxide 27 (22-30) mmol/L Anion Gap 12.7 (5-15) MEQ/L BUN 15 (9-20) mg/dL Creatinine 0.86 (0.66-1.25) mg/dL Estimated GFR > 60.0 ML/MIN Glucose 117 H (74-106) mg/dL Calcium 9.5 (8.4-10.2) mg/dL Total Bilirubin 0.40 (0.2-1.3) mg/dL AST 26 (17-59) U/L ALT 17 (0-50) U/L Alkaline Phosphatase 89 (38-126) U/L Troponin I (0.000-0.034) ng/mL NT-Pro-B Natriuret Pep 182 (0-900) pg/mL Serum Total Protein 8.0 (6.3-8.2) g/dL Albumin 4.4 (3.5-5.0) g/dL - Progress Progress: improved Air Movement: good Progress Note: 01/22/19 16:[address] martinez. reviewed pt hx, condition and pending lab xray studies with him. he accepts pt in transfer of care. Blood Culture(s) Obtained: No Antibiotics given: No - Departure Clinical Impression: Essential hypertension Chest pain Qualifiers: Chest pain type: unspecified Qualified Code(s): R07.9 - Chest pain, unspecified Leukocytosis, unspecified Qualifiers: Leukocytosis type: unspecified Qualified Code(s): D72.829 - Elevated white blood cell count, unspecified Condition: Fair Referrals: PRIYANKA MCFARLAND [Primary Care Provider] - <MILTON MARTINEZ - Last Filed: 01/22/19 20:04> - Course Nursing assessment & vital signs reviewed: Yes - Radiology Exams Chest X-ray Interpretation: No Pneumonia, No Pneumothorax, Nml Heart Size, No Infiltrates, Nml Mediastinum, Other (per radiologist interpretation: Chest remains clear. Heart enlarging and a CABG surgery. Bony thorax intact. No new /acute findings.) - Progress Progress Note: 01/22/19 20:00 Patient is still having chest pain, but has remained in sinus rhythm throughout his time in the emergency department. Discussed with : Silvino (@ 20:00, spoke with Dr Cueva, hospitalist. Dr Cueva accepted the patient for observation to [facility] to telemetry) - Departure Departure Disposition: Observation (to [facility] to telemetry) Critical Care Time: No
[2019-01-22] MEDS ORDERED: MORPHINE SULFATE 4 MG INJ IV ONE ×3 (15:04→20:00)
[2019-01-22] MEDS ORDERED: Nitrostat 0.4 MG (ED) SL ONE ×2 (15:04→15:12)
[2019-01-22] MEDS ORDERED: MORPHINE SULFATE 4 MG INJ ONE ×3 (15:12→20:02)
[2019-01-22] MEDS ORDERED: BABY ASPIRIN 81 MG CHEW ONE (15:12)
[2019-01-22 15:25] LABS: Absolute Neutrophil Ct (ANC) 11.67 (1.4-6.9); BASOPHIL % 0.3 % (0.0-0.4); Basophil (Absolute #) 0.05 (0-0.4); Eosinophil % 2.1 % (0.00-5.0); Eosinophil (Absolute #) 0.34 (0-0.5); Hematocrit 45.9 % (42-50); Hemoglobin 15.8 gm/dl (12.5-18.0); Lymphocyte (Absolute #) 2.87 (1.0-4.6); Mean Cell Volume 90.4 fl (78-100); Mean Corpuscular Hemoglobin 31.1 pg (26-32); Mean Corpuscular Hgb Concent. 34.4 g/dl (32-36); Monocyte (Absolute #) 1.05 (0.0-1.3); Monocytes % 6.6 % (0.0-12.0); Platelet Count 425 K/mm3 (150-450); Red Blood Count 5.08 M/mm3 (4.1-5.6); Red Cell Distribution Width 13.9 % (11.5-14.0)
[2019-01-22 15:27] LABS: INR 0.86 (0.8-3.0); PROTIME 9.7 SECONDS (8.83-12.87)
[2019-01-22 15:40] LABS: ALBUMIN 4.4 g/dL (3.5-5.0); ALKALINE PHOSPHATASE 89 U/L (38-126); ANION GAP 12.7 MEQ/L (5-15); BLOOD UREA NITROGEN 15 mg/dL (9-20); CHLORIDE 106 mmol/L (98-107); Calcium 9.5 mg/dL (8.4-10.2); Carbon Dioxide 27 mmol/L (22-30); Creatinine 1 0.86 mg/dL (0.66-1.25); Glucose 117 mg/dL (74-106); NT PRO BNP 182 pg/mL (0-900); Potassium 4.3 mmol/L (3.5-5.1); SGOT/AST 26 U/L (17-59); SGPT/ALT 17 U/L (0-50); SODIUM 141 mmol/L (137-145)
--- NOTE | 2019-01-22 17:17 | XRAY ---
Indication: Chest pain. Comparison: September 07, 2018. Portable chest remains clear. Heart is not enlarged again with CABG surgery. Bony thorax intact. No new/acute findings.
[2019-01-22] MEDS ORDERED: Zofran 4 MG/2 ML VIAL IV PRN (20:45)
[2019-01-22] MEDS ORDERED: TYLENOL 325 MG PO PRN (20:45)
[2019-01-22] MEDS: Sodium Chloride 0.9% 1000 ML 1,000 ML IV SCH (22:27)
[2019-01-22] MEDS: Pepcid 20 MG PO SCH (22:28)
[2019-01-22] MEDS ORDERED: APRESOLINE 20 MG/ML INJ IV PRN (23:34)
[2019-01-22] MEDS ORDERED: APRESOLINE 20 MG/ML INJ ONE (23:36)
[2019-01-22] MEDS: SUBLIMAZE 100 MCG/2 ML IV PRN (23:47)
[2019-01-23 02:44] LABS: Absolute Neutrophil Ct (ANC) 6.53 (1.4-6.9); BASOPHIL % 0.4 % (0.0-0.4); Basophil (Absolute #) 0.04 (0-0.4); Eosinophil % 3.5 % (0.00-5.0); Eosinophil (Absolute #) 0.38 (0-0.5); Hematocrit 44.3 % (42-50); Hemoglobin 14.9 gm/dl (12.5-18.0); Lymphocyte (Absolute #) 2.91 (1.0-4.6); Lymphocytes % 26.9 % (24.0-44.0); Mean Corpuscular Hemoglobin 30.6 pg (26-32); Mean Corpuscular Hgb Concent. 33.6 g/dl (32-36); Mean Platelet Volume 8.7 fl (6-9.5); Monocyte (Absolute #) 0.96 (0.0-1.3); Monocytes % 8.9 % (0.0-12.0); Neutrophil % 60.3 % (36.0-66.0); Platelet Count 364 K/mm3 (150-450); Red Blood Count 4.87 M/mm3 (4.1-5.6); White Blood Count 10.8 K/mm3 (4.0-10.5)
[2019-01-23 02:56] LABS: ANION GAP 11.9 MEQ/L (5-15); BLOOD UREA NITROGEN 19 mg/dL (9-20); CHLORIDE 110 mmol/L (98-107); Calcium 9.1 mg/dL (8.4-10.2); Carbon Dioxide 23 mmol/L (22-30); Creatinine 1 0.95 mg/dL (0.66-1.25); Glucose 102 mg/dL (74-106); SODIUM 141 mmol/L (137-145)
[2019-01-23] MEDS: SUBLIMAZE 100 MCG/2 ML IV PRN ×2 (02:57→08:23)
--- NOTE | 2019-01-23 09:12 | PCM.HP ---
History of Present Illness - Chief Complaint Chief Complaint: CP r/o History of Present Illness: is a 63 year old male pt of Dr. Schulz with CAD (CABG in 2010) and COPD who came to ER c/o about 1.5d of L sided chest pain. Pain was 10/10, burning and sharp, constant, worse with breathing. He did have SOB with it, some palpitations, no nausea, some diaphoresis. Pain meds in the hospital make it better. Pt sees Dr. Herrera, he thinks maybe last seen about 6 mo ago. He cannot remember his last stress test or echocardiogram. Pt has had increased cough recently and thinks he may have pulled a muscle in his chest. He is currently having 9/10 chest pain with some subjective SOB. Pt wears O2 at night. - Review of Systems Respiratory: Cough, Short Of Breath Cardiac: Chest Pain, Palpitations All Other Systems: Reviewed and Negative Medications & Allergies Home Medications: Home Medication List Metoprolol Tartrate 25 mg [Lopressor 25MG Tab] 25 mg PO DAILY 12/27/13 [ History Confirmed 01/22/19] Albuterol Common Canister [Proventil Common Canister] 2 puffs IH Q4H PRN PRN 09/07/18 [History Confirmed 01/22/19] Budesonide/Formoterol Fumarate [Symbicort 160-4.5 Mcg Inhaler] 1 puff IH BID [History Confirmed 01/22/19] Losartan Potassium 25 mg PO DAILY 09/07/18 [History Confirmed 01/22/19] Tiotropium [place] [Spiriva Respimat] 1 puff IH BID 09/07/18 [History Confirmed 01/22/19] Albuterol 2.5 mg/3 ml Neb [Proventil 2.5 mg/3 ml Neb] 2.5 mg IH Q4H PRN PRN 12/06/18 [History Confirmed 01/22/19] Aspirin 81 mg PO QAM #0 01/08/19 [Rx Confirmed 01/22/19] Clopidogrel Bisulfate [Plavix] 75 mg PO DAILY #0 01/08/19 [Rx Confirmed 01/22/19 ] Allergies/Adverse Reactions: Allergies Allergy/AdvReac Type Severity Reaction Status Date / Time No Known Drug Allergies Allergy Verified 01/22/19 15:17 - Past Medical History Past Medical History: Yes Neurological History: No Pertinent History ENT History: No Pertinent History Cardiac History: Coronary Artery Disease, Hypertension, Myocardial Infarction ( [place]) Respiratory History: COPD Endocrine Medical History: No Pertinent History Musculoskelatal History: No Pertinent History GI Medical History: No Pertinent History History: No Pertinent History Pyscho-Social History: No Pertinent History Male Reproductive Disorders: No Pertinent History - Past Surgical History Past Surgical History: Yes Neuro Surgical History: No Pertinent History Cardiac History: CABG, Cardiac Catheterization Respiratory Surgery: No Pertinent History GI Surgical History: No Pertinent History Genitourinary Surgical Hx: No Pertinent History Musculskeletal Surgical Hx: Orthopedic Surgery Male Surgical History: No Pertinent History Other Surgical History: bilateral ELBOW SURGERY-"nerves and tendons", rt wrist surgery plate and pins after fx., back surgery, josseline in back, triple bipass 2010 - Social History Smoking Status: Current every day smoker How long have you smoked: 45 years Exposure to second hand smoke: Yes Alcohol: Occasionally Drug Use: none - Physical Exam Vital Signs: Vital Signs - 24 hr Temp Pulse Pulse Resp BP Pulse Ox 01/23/19 08:12 98.1 F 107 H 18 157/96 97 01/23/19 05:12 96 H 18 144/85 96 01/23/19 02:18 95 H 158/89 01/23/19 00:00 98.5 F 93 H 18 186/107 96 01/22/19 22:47 98.9 F 52 L 20 167/100 96 01/22/19 22:34 98.9 F 52 L 20 167/100 96 01/22/19 20:40 83 18 175/113 97 01/22/19 19:44 70 24 170/101 97 01/22/19 17:23 94 H 16 192/120 96 01/22/19 16:42 94 H 18 167/107 98 01/22/19 16:26 96 01/22/19 15:52 89 18 151/98 95 01/22/19 14:53 97.6 F 103 H 100 H 18 166/85 96 General Appearance: no apparent distress, alert Neurologic Exam: oriented x 3, cooperative Eye Exam: eyes nml inspection Ears, Nose, Throat Exam: moist mucous membranes Neck Exam: normal inspection, non-tender, No lymphadenopathy Respiratory Exam: normal breath sounds, lungs clear, prolonged expirations, other (L chest is tender to palpation), No crackles/rales, No rhonchi, No wheezing Cardiovascular Exam: normal heart sounds, irregular, No murmur Gastrointestinal/Abdomen Exam: soft, normal bowel sounds, No tenderness, No distention, No mass, No guarding, No rebound Back Exam: normal inspection, No rash Extremity Exam: normal inspection, No pedal edema, No swelling Skin Exam: normal color, warm, dry, No rash Results - Labs Lab/Micro Results: Lab Results-Last 24 Hours 01/22/19 01/22/19 01/22/19 Range/Units 15:10 15:10 15:10 WBC 16.0 H (4.0-10.5) K/mm3 RBC 5.08 (4.1-5.6) M/mm3 Hgb 15.8 (12.5-18.0) gm/dl Hct 45.9 (42-50) % MCV 90.4 (78-100) fl MCH 31.1 (26-32) pg MCHC 34.4 (32-36) g/dl RDW 13.9 (11.5-14.0) % Plt Count 425 (150-450) K/mm3 MPV 9.0 (6-9.5) fl Gran % 73.0 H (36.0-66.0) % Eos # (Auto) 0.34 (0-0.5) Absolute Lymphs (auto) 2.87 (1.0-4.6) Absolute Monos (auto) 1.05 (0.0-1.3) Lymphocytes % 18.0 L (24.0-44.0) % Monocytes % 6.6 (0.0-12.0) % Eosinophils % 2.1 (0.00-5.0) % Basophils % 0.3 (0.0-0.4) % Absolute Granulocytes 11.67 H (1.4-6.9) Basophils # 0.05 (0-0.4) PT 9.7 (8.83-12.87) SECONDS INR 0.86 (0.8-3.0) D-Dimer 373 (215-500) ng/mL Sodium 141 (137-145) mmol/L Potassium 4.3 (3.5-5.1) mmol/L Chloride 106 (98-107) mmol/L Carbon Dioxide 27 (22-30) mmol/L Anion Gap 12.7 (5-15) MEQ/L BUN 15 (9-20) mg/dL Creatinine 0.86 (0.66-1.25) mg/dL Estimated GFR > 60.0 ML/MIN Glucose 117 H (74-106) mg/dL Calcium 9.5 (8.4-10.2) mg/dL Total Bilirubin 0.40 (0.2-1.3) mg/dL AST 26 (17-59) U/L ALT 17 (0-50) U/L Alkaline Phosphatase 89 (38-126) U/L Troponin I (0.000-0.034) ng/mL NT-Pro-B Natriuret Pep 182 (0-900) pg/mL Serum Total Protein 8.0 (6.3-8.2) g/dL Albumin 4.4 (3.5-5.0) g/dL 01/22/19 01/22/19 01/22/19 Range/Units 15:10 18:25 21:09 WBC (4.0-10.5) K/mm3 RBC (4.1-5.6) M/mm3 Hgb (12.5-18.0) gm/dl Hct (42-50) % MCV (78-100) fl MCH (26-32) pg MCHC (32-36) g/dl RDW (11.5-14.0) % Plt Count (150-450) K/mm3 MPV (6-9.5) fl Gran % (36.0-66.0) % Eos # (Auto) (0-0.5) Absolute Lymphs (auto) (1.0-4.6) Absolute Monos (auto) (0.0-1.3) Lymphocytes % (24.0-44.0) % Monocytes % (0.0-12.0) % Eosinophils % (0.00-5.0) % Basophils % (0.0-0.4) % Absolute Granulocytes (1.4-6.9) Basophils # (0-0.4) PT (8.83-12.87) SECONDS INR (0.8-3.0) D-Dimer (215-500) ng/mL Sodium (137-145) mmol/L Potassium (3.5-5.1) mmol/L Chloride (98-107) mmol/L Carbon Dioxide (22-30) mmol/L Anion Gap (5-15) MEQ/L BUN (9-20) mg/dL Creatinine (0.66-1.25) mg/dL Estimated GFR ML/MIN Glucose (74-106) mg/dL Calcium (8.4-10.2) mg/dL Total Bilirubin (0.2-1.3) mg/dL AST (17-59) U/L ALT (0-50) U/L Alkaline Phosphatase (38-126) U/L Troponin I < 0.012 < 0.012 < 0.012 (0.000-0.034) ng/mL NT-Pro-B Natriuret Pep (0-900) pg/mL Serum Total Protein (6.3-8.2) g/dL Albumin (3.5-5.0) g/dL 01/23/19 01/23/19 01/23/19 Range/Units 00:00 02:41 02:41 WBC 10.8 H (4.0-10.5) K/mm3 RBC 4.87 (4.1-5.6) M/mm3 Hgb 14.9 (12.5-18.0) gm/dl Hct 44.3 (42-50) % MCV 91.0 (78-100) fl MCH 30.6 (26-32) pg MCHC 33.6 (32-36) g/dl RDW 14.0 (11.5-14.0) % Plt Count 364 (150-450) K/mm3 MPV 8.7 (6-9.5) fl Gran % 60.3 (36.0-66.0) % Eos # (Auto) 0.38 (0-0.5) Absolute Lymphs (auto) 2.91 (1.0-4.6) Absolute Monos (auto) 0.96 (0.0-1.3) Lymphocytes % 26.9 (24.0-44.0) % Monocytes % 8.9 (0.0-12.0) % Eosinophils % 3.5 (0.00-5.0) % Basophils % 0.4 (0.0-0.4) % Absolute Granulocytes 6.53 (1.4-6.9) Basophils # 0.04 (0-0.4) PT (8.83-12.87) SECONDS INR (0.8-3.0) D-Dimer (215-500) ng/mL Sodium (137-145) mmol/L Potassium (3.5-5.1) mmol/L Chloride (98-107) mmol/L Carbon Dioxide (22-30) mmol/L Anion Gap (5-15) MEQ/L BUN (9-20) mg/dL Creatinine (0.66-1.25) mg/dL Estimated GFR ML/MIN Glucose (74-106) mg/dL Calcium (8.4-10.2) mg/dL Total Bilirubin (0.2-1.3) mg/dL AST (17-59) U/L ALT (0-50) U/L Alkaline Phosphatase (38-126) U/L Troponin I < 0.012 < 0.012 (0.000-0.034) ng/mL NT-Pro-B Natriuret Pep (0-900) pg/mL Serum Total Protein (6.3-8.2) g/dL Albumin (3.5-5.0) g/dL 01/23/19 Range/Units 02:41 WBC (4.0-10.5) K/mm3 RBC (4.1-5.6) M/mm3 Hgb (12.5-18.0) gm/dl Hct (42-50) % MCV (78-100) fl MCH (26-32) pg MCHC (32-36) g/dl RDW (11.5-14.0) % Plt Count (150-450) K/mm3 MPV (6-9.5) fl Gran % (36.0-66.0) % Eos # (Auto) (0-0.5) Absolute Lymphs (auto) (1.0-4.6) Absolute Monos (auto) (0.0-1.3) Lymphocytes % (24.0-44.0) % Monocytes % (0.0-12.0) % Eosinophils % (0.00-5.0) % Basophils % (0.0-0.4) % Absolute Granulocytes (1.4-6.9) Basophils # (0-0.4) PT (8.83-12.87) SECONDS INR (0.8-3.0) D-Dimer (215-500) ng/mL Sodium 141 (137-145) mmol/L Potassium 4.0 (3.5-5.1) mmol/L Chloride 110 H (98-107) mmol/L Carbon Dioxide 23 (22-30) mmol/L Anion Gap 11.9 (5-15) MEQ/L BUN 19 (9-20) mg/dL Creatinine 0.95 (0.66-1.25) mg/dL Estimated GFR > 60.0 ML/MIN Glucose 102 (74-106) mg/dL Calcium 9.1 (8.4-10.2) mg/dL Total Bilirubin (0.2-1.3) mg/dL AST (17-59) U/L ALT (0-50) U/L Alkaline Phosphatase (38-126) U/L Troponin I (0.000-0.034) ng/mL NT-Pro-B Natriuret Pep (0-900) pg/mL Serum Total Protein (6.3-8.2) g/dL Albumin (3.5-5.0) g/dL - Radiology Impressions Radiology Exams & Impressions: Radiology Procedures Category Date Time Status CHEST 1 VIEW (PORTABLE) Stat Exams 01/22/19 16:39 Completed - Other Procedures and Tests Respiratory Therapy 01/22/19 20:45 EKG Q8HX2 01/22/19 22:58 Smoking Cessation Education ONCE Assessment/Plan (1) Chest pain Current Visit: Yes Status: Acute Qualifiers: Chest pain type: unspecified Qualified Code(s): R07.9 - Chest pain, unspecified Assessment & Plan: His troponins have been negative x 5. EKG was nonacute, does have PVCs on all his EKGs. Would plan for pt to f/u with Dr. Herrera outpatient after this hospitalization. Pt will need stress test. Will do echo today. However, I suspect that this current chest pain is musculoskeletal. Will try lidoderm patch and will give dose of steroid po. Code(s): R07.9 - CHEST PAIN, UNSPECIFIED (2) COPD exacerbation Current Visit: No Status: Acute Assessment & Plan: Will start rocephin and zithromax. Code(s): J44.1 - CHRONIC OBSTRUCTIVE PULMONARY DISEASE W (ACUTE) EXACERBATION (3) Essential hypertension Current Visit: Yes Status: Chronic Assessment & Plan: Elevated BP here - will restart home meds and observe. He may need to stay overnight again to observe. Code(s): I10 - ESSENTIAL (PRIMARY) HYPERTENSION (4) Chronic hypoxemic respiratory failure Current Visit: No Status: Chronic (5) CAD (coronary artery disease) Current Visit: No Status: Chronic Qualifiers: Coronary Disease-Associated Artery/Lesion type: bypass graft [place] vs. transplanted heart: [place] heart Associated angina: with unspecified angina Qualified Code(s): I25.709 - Atherosclerosis of coronary artery bypass graft(s) , unspecified, with unspecified angina pectoris Code(s): I25.10 - ATHSCL HEART DISEASE OF [place] CORONARY ARTERY W/O ANG PCTRS
[2019-01-23] MEDS ORDERED: DELTASONE 20 MG PO ONE (09:16)
[2019-01-23] MEDS: Sodium Chloride 0.9% 1000 ML 1,000 ML IV SCH ×2 (09:21→21:18)
[2019-01-23] MEDS ORDERED: PROVENTIL COMMON CANISTER IH PRN (09:49)
[2019-01-23] MEDS ORDERED: PROVENTIL 2.5 MG/3 ML NEB IH PRN (09:49)
[2019-01-23] MEDS ORDERED: Cozaar 50 MG PO SCH (10:00)
[2019-01-23] MEDS ORDERED: Lidoderm Patch 5% TOP SCH (10:00)
[2019-01-23] MEDS ORDERED: Lopressor 25MG Tab PO SCH (10:00)
[2019-01-23] MEDS ORDERED: Advair Hfa 115/21 Common canister IH SCH (10:00)
[2019-01-23] MEDS ORDERED: PLAVIX 75 MG Tablet PO SCH (10:00)
[2019-01-23] MEDS ORDERED: ECOTRIN 81 MG PO SCH (10:00)
[2019-01-23] MEDS ORDERED: FLUZONE QUAD 2019-2020 SYRINGE IM ONE (10:00)
[2019-01-23] MEDS ORDERED: ROCEPHIN 1 Gm-D5w 50 ml Bag** 1 G/50 ML IVPB IV SCH (10:00)
[2019-01-23] MEDS ORDERED: NON-FORMULARY ITEM (Aspirin [Aspirin] 81 MG) PO SCH (10:00)
[2019-01-23] MEDS ORDERED: Zithromax 500 MG/ 250 ML NaCl Premix 500 MG/250 ML IVPB IV SCH (10:00)
[2019-01-23] MEDS ORDERED: TIOTROPIUM BROMIDE IH SCH (10:00)
[2019-01-23] MEDS ORDERED: ENOXAPARIN SODIUM SQ SCH (10:00)
[2019-01-23] MEDS ORDERED: NON-FORMULARY ITEM (Budesonide/Formoterol Fumarate [Symbicort 160-4.5 Mcg Inhaler] 1 PUFF) IH SCH (10:00)
[2019-01-23] MEDS: Advair Hfa 230/21 Mcg COMMON CANISTER IH SCH ×2 (10:45→19:55)
[2019-01-23] MEDS: Spiriva 18 Mcg/Cap Inhaler IH SCH (10:58)
[2019-01-23] MEDS: Pepcid 20 MG PO SCH ×2 (11:03→21:18)
[2019-01-24] MEDS: Spiriva 18 Mcg/Cap Inhaler IH SCH (07:24)
[2019-01-24] MEDS: Advair Hfa 230/21 Mcg COMMON CANISTER IH SCH (07:24)
[2019-01-24 07:56] VITALS: BP 140/82; PULSE 82; O2SAT 93
--- NOTE | 2019-01-24 08:59 | PCM.DS ---
Discharge Summary Date of Admission: 01/22/19 20:43 Admitting Physician: LEE HURD Primary Care Provider: PRIYANKA MCFARLAND Allergies Allergies No Known Drug Allergies Allergy (Verified 01/22/19 15:17) Hospital Summary - Hospital Course Hospital Course: patient has a known history of CAD with previous CABG, follows with Dr Herrera and sees Dr Mcfarland in [facility]. he was admitted with chest pain, worse with cough or deep inspiration, started 2-3 days prior to admission. sharp and stabbing nature, OH was ruled out. he has known copd and has nebulizer equipment at home. always has a cough and wheezing he states. treated for copd exacerbation with prednisone and abx, with improvement of symptoms. scheduled for OP stress test in 2 days and will f/u with Dr Herrera. - Vitals & Intake/Output Vital Signs: Vital Signs Temperature 97.6 F 01/24/19 07:55 Pulse Rate 82 01/24/19 07:55 Respiratory Rate 18 01/24/19 07:55 Blood Pressure 140/82 01/24/19 07:55 O2 Sat by Pulse Oximetry 93 L 01/24/19 07:55 Intake & Output: Intake & Output 01/21/19 01/22/19 01/23/19 01/24/19 11:59 11:59 11:59 11:59 Intake Total 1751 4090 Output Total 750 Balance 1001 4090 Weight 67.4 kg 99.7 kg - Lab Result Diagrams: 01/23/19 02:41 01/23/19 02:41 - Radiology Exams Ordered Rad Exams-Entire Visit: Radiology Procedures Category Date Time Status CHEST 1 VIEW (PORTABLE) Stat Exams 01/22/19 16:39 Completed ECHO W/2D AND DOPPLER [US] Routine Exams 01/23/19 11:44 Taken - Procedures and Test Procedures and Tests throughout Hospitalization: Therapy Orders & Screens 01/22/19 20:45 EKG Q8HX2 Comment: 01/23/19 09:14 STRESS TEST [Schedule Outpt Stress Test] Routine Comment: Diagnosis: CP r/o Schedule Outpt Stress Test: Cardiolyte Stress Test Cardiolite Stress Test: Cardiolite Lexiscan 01/23/19 11:36 Respiratory Therapy Assessment DAILY Comment: Diagnosis: CP r/o 01/23/19 11:42 Peak Expiratory Flow Rate ONCE Comment: Reason For Exam: Diagnosis: CP r/o Discharge Exam General Appearance: no apparent distress, alert Respiratory Exam: normal breath sounds, lungs clear, No respiratory distress Cardiovascular Exam: regular rate/rhythm, normal heart sounds, other ( sternotomy incision well healed scar) Gastrointestinal/Abdomen Exam: soft, No tenderness, No mass Extremity Exam: normal inspection, normal range of motion Skin Exam: normal color, warm, dry Final Diagnosis/Problem List - Final Discharge Diagnosis/Problem (1) Chest pain Current Visit: Yes Status: Acute Assessment & Plan: OH ruled out, seems pleuritic. should resolve with copd exac treatment. improved on current treatment. Code(s): R07.9 - CHEST PAIN, UNSPECIFIED (2) COPD exacerbation Current Visit: No Status: Acute Code(s): J44.1 - CHRONIC OBSTRUCTIVE PULMONARY DISEASE W (ACUTE) EXACERBATION (3) CAD (coronary artery disease) Current Visit: No Status: Chronic Code(s): I25.10 - ATHSCL HEART DISEASE OF [place] CORONARY ARTERY W/O ANG PCTRS (4) Chronic hypoxemic respiratory failure Current Visit: No Status: Chronic - Discharge Disposition: Home, Self-Care Condition: Good Prescriptions: New Losartan Potassium 50 mg [Cozaar 50 MG] 50 mg PO DAILY #30 tablet Prednisone 20 mg [Deltasone 20 mg] 20 mg PO UD #18 tablet Doxycycline Hyclate 100 mg PO BID #14 tablet Continue Metoprolol Tartrate 25 mg [Lopressor 25MG Tab] 25 mg PO DAILY Budesonide/Formoterol Fumarate [Symbicort 160-4.5 Mcg Inhaler] 1 puff IH BID Tiotropium [place] [Spiriva Respimat] 1 puff IH BID Albuterol Common Canister [Proventil Common Canister] 2 puffs IH Q4H PRN PRN PRN Reason: Shortness Of Breath/Wheezing Albuterol 2.5 mg/3 ml Neb [Proventil 2.5 mg/3 ml Neb] 2.5 mg IH Q4H PRN PRN PRN Reason: Shortness Of Breath Aspirin 81 mg PO QAM #0 Clopidogrel Bisulfate [Plavix] 75 mg PO DAILY #0 Discontinued Losartan Potassium 25 mg PO DAILY Follow up with: LEE HURD MD [ACTIVE STAFF] - 1 Week ANN MARIE HERRERA [ACTIVE STAFF] - 1 Week
[2019-01-24] MEDS ORDERED: FLUZONE QUAD 2019-2020 SYRINGE IM ONE (09:35)
== END 2019-01-24 10:03 | disposition home or self-care (01) ==
LOC: ED 14:52 → MED SURG 20:43
PROVIDERS: ADMIT Family Medicine; ATTEND Family Medicine
DX: R07.9 Chest pain, unspecified (principal); I25.10 Atherosclerotic heart disease of native coronary artery without angina pectoris; J44.1 Chronic obstructive pulmonary disease with (acute) exacerbation; J96.11 Chronic respiratory failure with hypoxia; I10 Essential (primary) hypertension; I25.2 Old myocardial infarction; F17.200 Nicotine dependence, unspecified, uncomplicated; Z79.01 Long term (current) use of anticoagulants; Z95.1 Presence of aortocoronary bypass graft; Z79.899 Other long term (current) drug therapy
CPT/HCPCS: 36000; 36415; 71045; 80048; 80053; 83880; 84484; 85025; 85379; 85610; 90686; 93005; 93041; 93306; 94150; 94640; 94760; 96374; 96376; 99285; J0360; J0456; J0696; J1650; J2270; J3010; A9270-GY

== ENCOUNTER 2019-02-13 16:09 | Emergency (ER) | payer OTHER ==
--- NOTE | 2019-02-13 16:26 | ERPHSYRPT ---
<USAMA FORREST - Last Filed: 02/13/19 19:07> - History of Present Illness Time Seen by Provider: 02/13/19 16:20 Historian: patient Exam Limitations: no limitations Patient Subjective Stated Complaint: Chest pain Triage Nursing Assessment: Patient ambulated into ED and transferred to bed per self. Patient complains of chest pain sharp dull all day. Patient's heart tones noted to be bounding and tachy. Patient's states his pain is in his chest and goes down left arm. Patient's lungs clear a/p isis. No edema noted. Physician History: 63 y/o white male with h/o cadz, copd, recurrent cp, and htn on metoprolol and losartan. he presents with central, sharp nonradiating cp. not resolved with ntg but now dull. pt took his medications today including plavix and asa. pt recently underwent a chemical stress test. no acute issue per pt. pt does have an appt with his foam cutting supervisor dr. veloz tomorrow for an echocardiogram. nuclear medicine report reveals ejection fraction decreased to 36% from 42%. no evidence of acute ischemic changes. Timing/Duration: today Activities at Onset: none Quality: dullness, sharpness Location: substernal, central Chest Pain Radiation: no radiation Severity of Pain-Max: mild Severity of Pain-Current: mild Associated Symptoms: No nausea, No vomiting, No palpitations, No abdominal pain , No shortness of breath, No cough, No diaphoresis, No syncope Prior Chest Pain/Cardiac Workup: stress test, recently seen/treated, recent hospitalization Nitro Today/Relief: 0.4 mg x 1, provided at home Aspirin Treatment Today: 81 mg x 1, provided at home Allergies/Adverse Reactions: No Known Drug Allergies Allergy (Verified 02/13/19 16:13) Home Medications: Metoprolol Tartrate 25 mg [Lopressor 25MG Tab] 25 mg PO DAILY 12/27/13 [ History] Albuterol Common Canister [Proventil Common Canister] 2 puffs IH Q4H PRN PRN 09/07/18 [History] Budesonide/Formoterol Fumarate [Symbicort 160-4.5 Mcg Inhaler] 1 puff IH BID [History] Tiotropium [place] [Spiriva Respimat] 1 puff IH BID 09/07/18 [History] Albuterol 2.5 mg/3 ml Neb [Proventil 2.5 mg/3 ml Neb] 2.5 mg IH Q4H PRN PRN 12/06/18 [History] Hx Tetanus, Diphtheria Vaccination/Date Given: Yes Hx Influenza Vaccination/Date Given: Yes Hx Pneumococcal Vaccination/Date Given: Yes Immunizations Up to Date: Yes - Review of Systems Constitutional: No Symptoms Eyes: No Symptoms Ears, Nose, & Throat: No Symptoms Respiratory: No Symptoms Cardiac: Chest Pain Abdominal/Gastrointestinal: No Symptoms Genitourinary Symptoms: No Symptoms Musculoskeletal: No Symptoms Skin: No Symptoms Neurological: No Symptoms Psychological: No Symptoms Endocrine: No Symptoms Hematologic/Lymphatic: No Symptoms Immunological/Allergic: No Symptoms All Other Systems: Reviewed and Negative - Past Medical History Pertinent Past Medical History: Yes Neurological History: No Pertinent History ENT History: No Pertinent History Cardiac History: Coronary Artery Disease, Hypertension, Myocardial Infarction ( [place]) Respiratory History: COPD Endocrine Medical History: No Pertinent History Musculoskeletal History: No Pertinent History GI Medical History: No Pertinent History History: No Pertinent History Psycho-Social History: No Pertinent History Male Reproductive Disorders: No Pertinent History - Past Surgical History Past Surgical History: Yes Neuro Surgical History: No Pertinent History Cardiac: CABG, Cardiac Catheterization Respiratory: No Pertinent History Gastrointestinal: No Pertinent History Genitourinary: No Pertinent History Musculoskeletal: Orthopedic Surgery Male Surgical History: No Pertinent History Other Surgical History: bilateral ELBOW SURGERY-"nerves and tendons", rt wrist surgery plate and pins after fx., back surgery, josseline in back, triple bipass 2010 - Social History Smoking Status: Current every day smoker How long have you smoked: years Exposure to second hand smoke: Yes Drug Use: none Patient Lives Alone: Yes - Nursing Vital Signs Nursing Vital Signs: Initial Vital Signs Temperature 98.1 F 02/13/19 16:13 Pulse Rate 108 H 02/13/19 16:13 Respiratory Rate 18 02/13/19 16:13 Blood Pressure 128/94 02/13/19 16:13 O2 Sat by Pulse Oximetry 98 02/13/19 16:13 Pain Scale Pain Intensity 5 - Physical Exam General Appearance: no apparent distress, alert, anxiety Eye Exam: PERRL/EOMI, eyes nml inspection Ears, Nose, Throat Exam: normal ENT inspection, moist mucous membranes Neck Exam: normal inspection, non-tender, supple, full range of motion Respiratory Exam: normal breath sounds, lungs clear, airway intact, No chest tenderness, No respiratory distress Cardiovascular Exam: regular rate/rhythm, normal heart sounds, normal peripheral pulses Gastrointestinal/Abdomen Exam: soft, normal bowel sounds, No tenderness Rectal Exam: not done Back Exam: normal inspection, normal range of motion, No CVA tenderness, No vertebral tenderness Extremity Exam: normal inspection, normal range of motion, pelvis stable Neurologic Exam: alert, oriented x 3, cooperative, piercing artist II-XII nml as tested Skin Exam: normal color, warm, dry Lymphatic Exam: No adenopathy SpO2 Interpretation: normal SpO2: 98 O2 Delivery: Room Air - Course EKG Interpreted by Me: RATE (115. ), Sinus Tach, NORMAL AXIS, NORMAL INTERVALS, NORMAL QRS, Other (when compared to ekg dated 01/23/19, new tachycardia) Ordered Tests: Active Orders 24 hr Category Date Time Status EKG-ER Only STAT Care 02/13/19 16:37 Active EKG-ER Only STAT Care 02/13/19 19:30 Active IV Insertion STAT Care 02/13/19 16:37 Active Pulse Oximetry (ED) STAT Care 02/13/19 16:37 Active CHEST 1 VIEW (PORTABLE) Stat Exams 02/13/19 18:48 Completed CBC W DIFF Stat Lab 02/13/19 16:30 Completed CMP Stat Lab 02/13/19 16:30 Completed PROTIME WITH INR Stat Lab 02/13/19 16:30 Completed TROPONIN Q3H Lab 02/13/19 16:30 Completed TROPONIN Q3H Lab 02/13/19 19:49 Completed Medication Summary Discontinued Medications Generic Name Dose Route Start Last Admin Trade Name Freq PRN Reason Stop Dose Admin Hydromorphone HCl 1 mg 02/13/19 20:33 02/13/19 20:39 Hydromorphone 1 Mg/Ml Ampule IV 02/13/19 20:34 1 mg STAT ONE Administration Hydromorphone HCl Confirm 02/13/19 20:37 Hydromorphone 1 Mg/Ml Ampule Administered 02/13/19 20:38 Dose 1 mg .ROUTE .STK-MED ONE Morphine Sulfate 4 mg 02/13/19 16:37 02/13/19 16:50 Morphine Sulfate 4 Mg Inj IV 02/13/19 16:38 4 mg STAT ONE Administration Morphine Sulfate Confirm 02/13/19 16:43 Morphine Sulfate 4 Mg Inj Administered 02/13/19 16:44 Dose 4 mg .ROUTE .STK-MED ONE Morphine Sulfate 4 mg 02/13/19 18:20 02/13/19 18:30 Morphine Sulfate 4 Mg Inj IV 02/13/19 18:21 4 mg STAT ONE Administration Morphine Sulfate Confirm 02/13/19 18:36 Morphine Sulfate 4 Mg Inj Administered 02/13/19 18:37 Dose 4 mg .ROUTE .STK-MED ONE Lab/Rad Data: Laboratory Result Diagrams 02/13/19 16:30 02/13/19 16:30 Laboratory Results 02/13/19 02/13/19 02/13/19 Range/Units 19:49 16:30 16:30 WBC (4.0-10.5) K/mm3 RBC (4.1-5.6) M/mm3 Hgb (12.5-18.0) gm/dl Hct (42-50) % MCV (78-100) fl MCH (26-32) pg MCHC (32-36) g/dl RDW (11.5-14.0) % Plt Count (150-450) K/mm3 MPV (6-9.5) fl Gran % (36.0-66.0) % Eos # (Auto) (0-0.5) Absolute Lymphs (auto) (1.0-4.6) Absolute Monos (auto) (0.0-1.3) Lymphocytes % (24.0-44.0) % Monocytes % (0.0-12.0) % Eosinophils % (0.00-5.0) % Basophils % (0.0-0.4) % Absolute Granulocytes (1.4-6.9) Basophils # (0-0.4) PT 10.5 (8.83-12.87) SECONDS INR 0.93 (0.8-3.0) Sodium (137-145) mmol/L Potassium (3.5-5.1) mmol/L Chloride (98-107) mmol/L Carbon Dioxide (22-30) mmol/L Anion Gap (5-15) MEQ/L BUN (9-20) mg/dL Creatinine (0.66-1.25) mg/dL Estimated GFR ML/MIN Glucose (74-106) mg/dL Calcium (8.4-10.2) mg/dL Total Bilirubin (0.2-1.3) mg/dL AST (17-59) U/L ALT (0-50) U/L Alkaline Phosphatase (38-126) U/L Troponin I < 0.012 < 0.012 (0.000-0.034) ng/mL Serum Total Protein (6.3-8.2) g/dL Albumin (3.5-5.0) g/dL 02/13/19 02/13/19 Range/Units 16:30 16:30 WBC 10.2 (4.0-10.5) K/mm3 RBC 5.07 (4.1-5.6) M/mm3 Hgb 15.9 (12.5-18.0) gm/dl Hct 45.1 (42-50) % MCV 89.0 (78-100) fl MCH 31.4 (26-32) pg MCHC 35.3 (32-36) g/dl RDW 13.9 (11.5-14.0) % Plt Count 499 H (150-450) K/mm3 MPV 9.4 (6-9.5) fl Gran % 60.7 (36.0-66.0) % Eos # (Auto) 0.44 (0-0.5) Absolute Lymphs (auto) 2.71 (1.0-4.6) Absolute Monos (auto) 0.80 (0.0-1.3) Lymphocytes % 26.6 (24.0-44.0) % Monocytes % 7.9 (0.0-12.0) % Eosinophils % 4.3 (0.00-5.0) % Basophils % 0.5 (0.0-0.4) % Absolute Granulocytes 6.19 (1.4-6.9) Basophils # 0.05 (0-0.4) PT (8.83-12.87) SECONDS INR (0.8-3.0) Sodium 143 (137-145) mmol/L Potassium 4.3 (3.5-5.1) mmol/L Chloride 106 (98-107) mmol/L Carbon Dioxide 25 (22-30) mmol/L Anion Gap 16.5 H (5-15) MEQ/L BUN 12 (9-20) mg/dL Creatinine 0.87 (0.66-1.25) mg/dL Estimated GFR > 60.0 ML/MIN Glucose 121 H (74-106) mg/dL Calcium 10.1 (8.4-10.2) mg/dL Total Bilirubin 0.40 (0.2-1.3) mg/dL AST 26 (17-59) U/L ALT 17 (0-50) U/L Alkaline Phosphatase 95 (38-126) U/L Troponin I (0.000-0.034) ng/mL Serum Total Protein 7.9 (6.3-8.2) g/dL Albumin 4.4 (3.5-5.0) g/dL - Progress Progress: improved Air Movement: good Progress Note: 02/13/19 18:38 pt states cp nearly resolved.. pain only in left shoulder. 02/13/19 19:06 transfer of care to dr. turner. i reviewed pt and pending tests with him. he accepts 02/13/19 19:07 - Departure Clinical Impression: Chest pain Qualifiers: Chest pain type: unspecified Qualified Code(s): R07.9 - Chest pain, unspecified Condition: Fair Referrals: SARAN SAHU NP [Primary Care Provider] - <ALICIA TURNER - Last Filed: 02/14/19 10:40> - Progress Progress Note: patient reevaluated. He states his left shoulder pain remained 8/10 in severity and is radiating down into the left hand at this time after multiple doses of morphine in his home nitroglycerin. He states this does feel similar to his previous heart attack. His new EKG has inverted the T wave in V3 leading to T-wave inversions in the entire anteroseptal precordial leads and otherwise remains without acute ST segment elevations or depressions concerning for ischemia. At this point he is high risk despite having a stress test 2 weeks ago. I have spoken with his foam cutting supervisor who agrees the patient should be transferred for admission overnight for additional monitoring, pain control , chest pain rule out and evaluation with echocardiogram in the morning. The patient agrees with this plan. He has now had one nitroglycerin home, 2 doses of morphine in the emergency department and one dose of Dilaudid for myself here without much relief. With the minor dynamic changes on EKG this is the safest plan. Patient remained hemodynamically stable during his time in the emergency department. 02/13/19 20:34 02/14/19 00:43 - Departure Departure Disposition: Transfer Critical Care Time: No
[2019-02-13] MEDS ORDERED: MORPHINE SULFATE 4 MG INJ IV ONE ×2 (16:37→18:20)
[2019-02-13] MEDS ORDERED: MORPHINE SULFATE 4 MG INJ ONE ×2 (16:43→18:36)
[2019-02-13 16:46] LABS: Absolute Neutrophil Ct (ANC) 6.19 (1.4-6.9); BASOPHIL % 0.5 % (0.0-0.4); Basophil (Absolute #) 0.05 (0-0.4); Eosinophil % 4.3 % (0.00-5.0); Eosinophil (Absolute #) 0.44 (0-0.5); Hematocrit 45.1 % (42-50); Hemoglobin 15.9 gm/dl (12.5-18.0); Lymphocyte (Absolute #) 2.71 (1.0-4.6); Lymphocytes % 26.6 % (24.0-44.0); Mean Corpuscular Hemoglobin 31.4 pg (26-32); Mean Corpuscular Hgb Concent. 35.3 g/dl (32-36); Mean Platelet Volume 9.4 fl (6-9.5); Monocytes % 7.9 % (0.0-12.0); Neutrophil % 60.7 % (36.0-66.0); Platelet Count 499 K/mm3 (150-450); Red Blood Count 5.07 M/mm3 (4.1-5.6); Red Cell Distribution Width 13.9 % (11.5-14.0); White Blood Count 10.2 K/mm3 (4.0-10.5)
[2019-02-13 16:48] LABS: INR 0.93 (0.8-3.0); PROTIME 10.5 SECONDS (8.83-12.87)
[2019-02-13 16:52] LABS: ALBUMIN 4.4 g/dL (3.5-5.0); ALKALINE PHOSPHATASE 95 U/L (38-126); ANION GAP 16.5 MEQ/L (5-15); BLOOD UREA NITROGEN 12 mg/dL (9-20); CHLORIDE 106 mmol/L (98-107); Calcium 10.1 mg/dL (8.4-10.2); Carbon Dioxide 25 mmol/L (22-30); Creatinine 1 0.87 mg/dL (0.66-1.25); Glucose 121 mg/dL (74-106); Potassium 4.3 mmol/L (3.5-5.1); SGOT/AST 26 U/L (17-59); SGPT/ALT 17 U/L (0-50); SODIUM 143 mmol/L (137-145); Total Protein 7.9 g/dL (6.3-8.2)
[2019-02-13] MEDS ORDERED: Hydromorphone 1 mg/ml Ampule IV ONE (20:33)
[2019-02-13] MEDS ORDERED: Hydromorphone 1 mg/ml Ampule ONE (20:37)
[2019-02-13 21:23] VITALS: BP 148/84; PULSE 80; O2SAT 97
--- NOTE | 2019-02-14 09:27 | XRAY ---
Indication: Left chest pain. Comparison: January 22, 2019. Portable chest again demonstrates minimal bibasilar fibrosis/scarring. No focal infiltrate, consolidation, or large effusion. Heart and mediastinal structures within normal limits again with CABG surgery. Bony thorax intact. Impression: Nonacute chest with chronic features.
== END 2019-02-13 21:35 | disposition short-term general hospital (02) ==
LOC: ED 16:09
DX: R07.89 Other chest pain (principal); J44.9 Chronic obstructive pulmonary disease, unspecified; I10 Essential (primary) hypertension; Z79.899 Other long term (current) drug therapy; I25.2 Old myocardial infarction
CPT/HCPCS: 36000; 36415; 71045; 80053; 84484; 85025; 85610; 93005; 94760; 96374; 96375; 96376; 99285; J1170; J2270

== ENCOUNTER 2019-05-14 11:31 | Observation (INO) | payer OTHER ==
[2019-05-14] MEDS ORDERED: TORAdol 30 mg Injection IV ONE (11:45)
[2019-05-14] MEDS ORDERED: TYLENOL 325 MG PO STA (11:47)
[2019-05-14] MEDS ORDERED: DECADRON 10MG INJ. IV ONE (11:48)
[2019-05-14] MEDS ORDERED: DECADRON 10MG INJ. ONE (11:51)
[2019-05-14] MEDS ORDERED: TORAdol 30 mg Injection ONE (11:51)
[2019-05-14] MEDS ORDERED: TYLENOL 325 MG ONE (11:51)
--- NOTE | 2019-05-14 11:55 | ERPHSYRPT ---
- History of Present Illness Time Seen by Provider: 05/14/19 11:40 Source: patient Exam Limitations: no limitations Patient Subjective Stated Complaint: back pain Triage Nursing Assessment: Patient brought back to ED via w/c and transferred self to bed. Patient A+O X3. Patient's skin pink, warm and dry. Patient complains of back pain that radiates down left down after lifting a washer yesterday. Patient complains of pain 10/10 constant sharp pain. No visible injuries or brusing noted. Physician History: Patient is a 64-year-old male who presents to our ED with complaints of back pain. Patient has a history of chronic back pain as well as back surgery. Patient reports that yesterday he was lifting a washer when he developed acute onset low back pain. Pain immediately radiated to his left lower extremity. No associated bowel bladder dysfunction. No saddle anesthesia. Pain tends to radiate down his left lower extremity. Pain described as an ache. Pain worse with movement and palpation. Pain improved with rest. No blunt trauma. No lower extremity numbness weakness or tingling. Patient voices no other complaints at this time. Timing/Duration: yesterday Method of Injury: lifting Quality: radiating, aching Back Pain Location: lumbar spine Back Pain Radiation: feet Severity of Pain-Max: severe Severity of Pain-Current: severe Modifying Factors: Improves With: movement Associated Symptoms: lower back pain, No fever, No sweating, No urinary incontinence, No loss of bowel control, No nausea, No vomiting, No problems urinating, No dizziness, No numbness in legs/feet, No muscle spasms Previous symptoms: same symptoms as today Allergies/Adverse Reactions: No Known Drug Allergies Allergy (Verified 05/14/19 11:40) Home Medications: Metoprolol Tartrate 25 mg [Lopressor 25MG Tab] 25 mg PO DAILY 12/27/13 [ History] Albuterol Common Canister [Ventolin Common Canister] 2 puffs IH Q4H PRN PRN 09/07/18 [History] Budesonide/Formoterol Fumarate [Symbicort 160-4.5 Mcg Inhaler] 1 puff IH BID [History] Tiotropium [employer] [place] [Spiriva Respimat] 1 puff IH BID 09/07/18 [History] Albuterol 2.5 mg/3 ml Neb [Proventil 2.5 mg/3 ml Neb] 2.5 mg IH Q4H PRN PRN 12/06/18 [History] Hx Tetanus, Diphtheria Vaccination/Date Given: No Hx Influenza Vaccination/Date Given: Yes Hx Pneumococcal Vaccination/Date Given: Yes Immunizations Up to Date: Yes - Review of Systems Constitutional: No Fever, No Chills Eyes: No Symptoms Ears, Nose, & Throat: No Symptoms Respiratory: No Symptoms, No Cough, No Dyspnea Cardiac: No Symptoms, No Chest Pain, No Edema, No Syncope Abdominal/Gastrointestinal: No Symptoms, No Abdominal Pain, No Nausea, No Vomiting, No Diarrhea Genitourinary Symptoms: No Symptoms, No Dysuria Musculoskeletal: Back Pain, No Neck Pain, No Joint Redness, No Joint Pain Skin: No Symptoms, No Rash Neurological: No Symptoms, No Dizziness, No Focal Weakness, No Sensory Changes Psychological: No Symptoms Endocrine: No Symptoms All Other Systems: Reviewed and Negative - Past Medical History Pertinent Past Medical History: Yes Neurological History: No Pertinent History ENT History: No Pertinent History Cardiac History: Coronary Artery Disease, Hypertension, Myocardial Infarction ( [place]) Respiratory History: COPD Endocrine Medical History: No Pertinent History Musculoskeletal History: No Pertinent History GI Medical History: No Pertinent History History: No Pertinent History Psycho-Social History: No Pertinent History Male Reproductive Disorders: No Pertinent History - Past Surgical History Past Surgical History: Yes Neuro Surgical History: No Pertinent History Cardiac: CABG, Cardiac Catheterization Respiratory: No Pertinent History Gastrointestinal: No Pertinent History Genitourinary: No Pertinent History Musculoskeletal: Orthopedic Surgery Male Surgical History: No Pertinent History Other Surgical History: bilateral ELBOW SURGERY-"nerves and tendons", rt wrist surgery plate and pins after fx., back surgery, josseline in back, triple bipass 2010 - Social History Smoking Status: Former smoker How long have you smoked: years Exposure to second hand smoke: Yes Drug Use: none Patient Lives Alone: Yes - Nursing Vital Signs Nursing Vital Signs: Initial Vital Signs Temperature 97.9 F 05/14/19 11:41 Pulse Rate 71 05/14/19 11:41 Respiratory Rate 05/14/19 11:41 Blood Pressure 176/137 05/14/19 11:41 O2 Sat by Pulse Oximetry 97 05/14/19 11:41 Pain Scale Pain Intensity 7 - Physical Exam General Appearance: no apparent distress, mild distress (Patient appears uncomfortable due to low back pain.), alert Eye Exam: PERRL/EOMI, eyes nml inspection Ears, Nose, Throat Exam: normal ENT inspection Neck Exam: normal inspection, non-tender, supple, full range of motion, No meningismus, No midline tenderness Respiratory Exam: normal breath sounds, lungs clear, No respiratory distress Cardiovascular Exam: regular rate/rhythm, normal heart sounds Gastrointestinal Exam: soft, No tenderness, No mass Back Exam: muscle spasm, No normal range of motion, No CVA tenderness, No vertebral tenderness Extremity Exam: normal inspection, normal range of motion, No calf tenderness, No pedal edema Neurologic Exam: alert, oriented x 3, cooperative, safety and health manager II-XII nml as tested, normal mood/affect, nml station & gait, sensation nml, No motor deficits Skin Exam: normal color, warm, dry, No rash SpO2 Interpretation: normal SpO2: 97 O2 Delivery: Room Air - Radiology Exams L-Spine X-ray Interpretation: Teleradiologist Report (Chronic changes. No new acute findings.) Ordered Tests: Active Orders 24 hr Category Date Time Status IV Insertion STAT Care 05/14/19 11:47 Active LUMBAR LIMITED (2 OR 3 VIEWS) Stat Exams 05/14/19 12:14 Completed Transfer Order Routine Transfer 05/14/19 Ordered Medication Summary Discontinued Medications Generic Name Dose Route Start Last Admin Trade Name Freq PRN Reason Stop Dose Admin Acetaminophen 975 mg 05/14/19 11:47 05/14/19 11:52 Tylenol 325 Mg PO 05/14/19 11:48 975 mg STAT STA Administration Acetaminophen Confirm 05/14/19 11:51 Tylenol 325 Mg Administered 05/14/19 11:52 Dose 975 mg .ROUTE .STK-MED ONE Dexamethasone Sodium Phosphate 10 mg 05/14/19 11:48 05/14/19 11:54 Decadron 10mg Inj. IV 05/14/19 11:49 10 mg STAT ONE Administration Dexamethasone Sodium Phosphate Confirm 05/14/19 11:51 Decadron 10mg Inj. Administered 05/14/19 11:52 Dose 10 mg .ROUTE .STK-MED ONE Hydromorphone HCl 0.5 mg 05/14/19 14:31 05/14/19 14:44 Hydromorphone 1 Mg/Ml Ampule IV 05/14/19 14:32 0.5 mg STAT ONE Administration Hydromorphone HCl Confirm 05/14/19 14:39 Hydromorphone 1 Mg/Ml Ampule Administered 05/14/19 14:40 Dose 1 mg .ROUTE .STK-MED ONE Ketorolac Tromethamine 30 mg 05/14/19 11:45 05/14/19 11:54 Toradol 30 Mg Injection IV 05/14/19 11:46 30 mg STAT ONE Administration Ketorolac Tromethamine Confirm 05/14/19 11:51 Toradol 30 Mg Injection Administered 05/14/19 11:52 Dose 30 mg .ROUTE .STK-MED ONE Morphine Sulfate 4 mg 05/14/19 12:28 05/14/19 12:30 Morphine Sulfate 4 Mg Inj IV 05/14/19 12:29 4 mg STAT ONE Administration Morphine Sulfate Confirm 05/14/19 12:29 Morphine Sulfate 4 Mg Inj Administered 05/14/19 12:30 Dose 4 mg .ROUTE .STK-MED ONE - Progress Progress Note: 05/14/19 15:13 Patient reassessed. Pain improved somewhat but not resolved. Patient still uncomfortable. Dose of Dilaudid ordered. Case discussed with Dr. Mckeon covering Dr. Solano who accepts admission to observation. Per Dr. Mckeon patient to have 300 mg of Neurontin every 6 hours as well as Robaxin 500 mg every 6 hours. Patient will have a contrast MRI per Dr. Mckeon request. Plan of care discussed with patient. He agrees to admission to [facility] for further evaluation and treatment. Discussed with : Jeffrey Will see patient in: hospital (observation) Counseled pt/family regarding: lab results, diagnosis, rad results - Departure Departure Disposition: Observation Clinical Impression: Back pain, Sciatica, Lumbosacral strain Condition: Stable Critical Care Time: No Referrals: SARAN SAHU, [employer] [Primary Care Provider] -
[2019-05-14] MEDS ORDERED: MORPHINE SULFATE 4 MG INJ IV ONE (12:28)
[2019-05-14] MEDS ORDERED: MORPHINE SULFATE 4 MG INJ ONE (12:29)
--- NOTE | 2019-05-14 12:29 | XRAY ---
Indication: Low back pain. Comparison: CT lumbar spine December 27, 2013. 3 views of the lumbar spine unchanged again demonstrating L4-S1 fusion with intact bilateral posterior hardware, T12-L2 endplate spurring, T12-L3/L5-S1 disc space narrowing, and dextrorotoscoliosis centered at the thoracolumbar junction. No new/acute findings.
[2019-05-14] MEDS ORDERED: Hydromorphone 1 mg/ml Ampule IV ONE (14:31)
[2019-05-14] MEDS ORDERED: Hydromorphone 1 mg/ml Ampule ONE (14:39)
[2019-05-14] MEDS: Robaxin 500 MG PO PRN ×2 (16:25→22:46)
[2019-05-14] MEDS ORDERED: PROVENTIL 2.5 MG/3 ML NEB IH PRN (16:35)
[2019-05-14] MEDS ORDERED: NEURONTIN 300 MG PO SCH (17:00)
[2019-05-14] MEDS ORDERED: NEURONTIN 300 MG PO ONE (17:48)
[2019-05-14] MEDS: DILAUDID 2 MG INJECTION IV ONE (18:11)
[2019-05-14 18:26] LABS: Absolute Neutrophil Ct (ANC) 9.08 (1.4-6.9); BASOPHIL % 0.1 % (0.0-0.4); Basophil (Absolute #) 0.01 (0-0.4); Eosinophil % 0.1 % (0.00-5.0); Eosinophil (Absolute #) 0.01 (0-0.5); Hematocrit 43.5 % (42-50); Hemoglobin 14.5 gm/dl (12.5-18.0); Lymphocyte (Absolute #) 0.47 (1.0-4.6); Lymphocytes % 4.9 % (24.0-44.0); Mean Cell Volume 90.8 fl (78-100); Mean Corpuscular Hemoglobin 30.3 pg (26-32); Mean Corpuscular Hgb Concent. 33.3 g/dl (32-36); Mean Platelet Volume 9.5 fl (7.5-11.0); Monocyte (Absolute #) 0.06 (0.0-1.3); Monocytes % 0.6 % (0.0-12.0); Neutrophil % 94.3 % (36.0-66.0); Platelet Count 357 K/mm3 (150-450); Red Blood Count 4.79 M/mm3 (4.1-5.6); Red Cell Distribution Width 13.5 % (11.5-14.0); White Blood Count 9.6 K/mm3 (4.0-10.5)
[2019-05-14 19:04] LABS: ALBUMIN 4.3 g/dL (3.5-5.0); ALKALINE PHOSPHATASE 99 U/L (38-126); ANION GAP 11.4 MEQ/L (5-15); BLOOD UREA NITROGEN 14 mg/dL (9-20); CHLORIDE 106 mmol/L (98-107); Calcium 9.4 mg/dL (8.4-10.2); Carbon Dioxide 25 mmol/L (22-30); Creatinine 1 0.93 mg/dL (0.66-1.25); SGOT/AST 25 U/L (17-59); SGPT/ALT 14 U/L (0-50); SODIUM 139 mmol/L (137-145); TSH, 3RD Generation 0.232 mIU/L (0.47-4.68); Total Protein 7.7 g/dL (6.3-8.2)
[2019-05-14] MEDS: PROVENTIL 2.5 MG/3 ML NEB IH SCH (19:19)
[2019-05-14] MEDS: Advair Hfa 115/21 Common canister IH SCH (19:20)
[2019-05-14] MEDS: DILAUDID 2 MG INJECTION IV PRN (22:18)
[2019-05-14] MEDS ORDERED: Tums EX 750 MG PO PRN (22:31)
[2019-05-15] MEDS: NEURONTIN 300 MG PO SCH ×7 (00:01→23:35)
[2019-05-15] MEDS ORDERED: Spiriva 18 Mcg/Cap Inhaler IH ONE (01:02)
[2019-05-15] MEDS: PROVENTIL 2.5 MG/3 ML NEB IH SCH ×4 (01:06→18:55)
[2019-05-15] MEDS: DILAUDID 2 MG INJECTION IV PRN ×4 (04:42→23:36)
[2019-05-15 05:11] LABS: Appearance SLIGHTLY CLOUDY (CLEAR); Bilirubin NEGATIVE (NEGATIVE); Blood NEGATIVE Ery/ul (0-5); Glucose 150 mg/dL (NEGATIVE); Ketones NEGATIVE (NEGATIVE); Leukocyte Esterase NEGATIVE (NEGATIVE); Mucus SLIGHT /HPF (NEGATIVE); Nitrite NEGATIVE (NEGATIVE); Protein,Urine Dip 100 (Negative); Specific Gravity 1.027 (1.005-1.025); Urobilinogen NEGATIVE mg/dL (0-1)
[2019-05-15 05:50] LABS: Slide Review 1 YES
[2019-05-15] MEDS ORDERED: Tums EX 750 MG PO PRN (06:52)
[2019-05-15] MEDS: Advair Hfa 115/21 Common canister IH SCH ×2 (07:01→18:57)
[2019-05-15] MEDS ORDERED: VENTOLIN COMMON CANISTER IH PRN (07:02)
[2019-05-15] MEDS ORDERED: Nitrostat 0.4 MG Tablet SL PRN (07:02)
[2019-05-15] MEDS: Spiriva 18 Mcg/Cap Inhaler IH SCH (07:03)
[2019-05-15] MEDS: Ranexa 500 MG PO SCH ×2 (09:38→21:26)
[2019-05-15] MEDS: Cozaar 50 MG PO SCH (09:38)
[2019-05-15] MEDS: ECOTRIN 81 MG PO SCH (09:39)
[2019-05-15] MEDS: Robaxin 500 MG PO PRN ×2 (09:39→21:26)
[2019-05-15] MEDS: Lopressor 25MG Tab PO SCH (09:40)
[2019-05-15] MEDS: PLAVIX 75 MG Tablet PO SCH (09:41)
[2019-05-15] MEDS ORDERED: NON-FORMULARY ITEM (Budesonide/Formoterol Fumarate [Symbicort 160-4.5 Mcg Inhaler] 1 PUFF) IH SCH (10:00)
[2019-05-15] MEDS ORDERED: NON-FORMULARY ITEM (Aspirin [Aspirin] 81 MG) PO SCH (10:00)
[2019-05-15] MEDS: OXYCODONE-ACETAMINOPHEN 10-325 PO PRN (11:46)
[2019-05-15] MEDS: DILAUDID 2 MG INJECTION IV ONE (13:30)
--- NOTE | 2019-05-15 15:30 | XRAY ---
Indication: Low back pain. Lifting injury. Sagittal and axial MRI lumbar spine performed using pre-and post T1 and T2 weighted sequences. 14 cc Dotarem contrast used. Comparison: None Lumbar radiograph one day earlier documents 5 lumbar vertebral segments. Sagittal MRI images demonstrates normal lumbar lordosis with mild double curvature scoliosis. Mild multilevel degenerative disc desiccation signal with T12-L3/L5-S1 disc space narrowing. Minimal anterior L1-L2 opposing endplate degenerative discogenic signal changes, Modic type II. Bilateral posterior L4-S1 pedicle screws/hardware produces ferromagnetic artifact. No acute fracture, subluxation, or abnormal bone marrow signal. Conus medullaris terminates at the thoracolumbar junction. Sagittal images demonstrates left T12-L1 foraminal stenosis due to broad-based disc bulge. No focal central disc herniation or spinal canal stenosis. Axial images at the L1-L2 level demonstrates minimal annular disc bulge greater towards the left minimally effacing the thecal sac and producing left foraminal narrowing. No central disc herniation or canal stenosis. Facets are symmetric. At the L2-L3 level, there is also minimal annular disc bulge greater towards the left minimally effacing the thecal sac. Finding also produces foraminal narrowing left greater than right. No central disc herniation or canal stenosis. Moderate bilateral degenerative facet hypertrophy, left greater than right further effaces the thecal sac. Remaining L3-L4-L5-S1 levels negative for disc herniation, spinal canal, or foraminal stenosis. Mild/moderate bilateral degenerative facet hypertrophy. Postcontrast images are negative for abnormal enhancing intra or extra-axial mass/lesion. No abnormal bone marrow enhancement either. Impression: 1. T12-L3 degenerative disc disease detailed level by level. 2. Negative disc herniation or spinal canal stenosis. 3. L4-S1 posterior fusion surgery with ferromagnetic artifact from spinal hardware. 4. Negative contrasted exam. 5. Incidental double curvature scoliosis.
[2019-05-15] MEDS: Nicoderm CQ 21 MG TOP SCH (17:39)
--- NOTE | 2019-05-15 19:51 | PCM.HP ---
History of Present Illness - Chief Complaint Chief Complaint: acute back pain History of Present Illness: is a 64 year old male who presented to ER with severe LBP radiating into left leg and sole of foot with left leg weakness. Chronic LBP S/P remote Lumbar fusion surgery(?1990) at [facility]. States acute pain started the day after he moved a washing machine. - Review of Systems Eyes: No Symptoms Ears, Nose, & Throat: No Symptoms Respiratory: Other (smoker 1/2ppd or less trying to quit) Cardiac: Chest Pain Abdominal/Gastrointestinal: No Symptoms Genitourinary Symptoms: No Symptoms Musculoskeletal: Back Pain (see HPI) Skin: No Symptoms Neurological: Gait Changes, Parasthesia (left leg and foot/toes), Other ( headache, dizziness or seizures) Psychological: No Symptoms Endocrine: No Symptoms Hematologic/Lymphatic: No Symptoms Medications & Allergies Home Medications: Home Medication List Metoprolol Tartrate 25 mg [Lopressor 25MG Tab] 25 mg PO DAILY 12/27/13 [ History Confirmed 05/14/19] Albuterol Common Canister [Ventolin Common Canister] 2 puffs IH Q4H PRN PRN 09/07/18 [History Confirmed 05/14/19] Budesonide/Formoterol Fumarate [Symbicort 160-4.5 Mcg Inhaler] 1 puff IH BID [History Confirmed 05/14/19] Tiotropium [place] [Spiriva Respimat] 1 puff IH QAM 09/07/18 [History Confirmed 05/14/19] Albuterol 2.5 mg/3 ml Neb [Proventil 2.5 mg/3 ml Neb] 2.5 mg IH Q4H PRN PRN 12/06/18 [History Confirmed 05/14/19] Aspirin 81 mg PO QAM #0 01/08/19 [Rx Confirmed 05/14/19] Clopidogrel Bisulfate [Plavix] 75 mg PO DAILY #0 01/08/19 [Rx Confirmed 05/14/19 ] Losartan Potassium 50 mg PO DAILY 05/14/19 [History Confirmed 05/14/19] Nitroglycerin 0.4 mg PO Q5MIN PRN MR X 3 PRN 05/14/19 [History Confirmed ] Ranolazine [Ranolazine ER] 500 mg PO BID 05/14/19 [History Confirmed 05/14/19] Allergies/Adverse Reactions: Allergies Allergy/AdvReac Type Severity Reaction Status Date / Time No Known Drug Allergies Allergy Verified 05/14/19 11:40 - Past Medical History Past Medical History: Yes Neurological History: No Pertinent History ENT History: No Pertinent History Cardiac History: Arrhythmia, Coronary Artery Disease, Hypertension, Myocardial Infarction ([place]) Respiratory History: COPD, Emphysema Endocrine Medical History: No Pertinent History Musculoskelatal History: Degenerative Disk Disease (lumbar fusion 1990) GI Medical History: No Pertinent History History: No Pertinent History Pyscho-Social History: No Pertinent History Male Reproductive Disorders: No Pertinent History - Past Surgical History Past Surgical History: Yes Neuro Surgical History: No Pertinent History Cardiac History: CABG, Cardiac Catheterization, Vascular Surgery Respiratory Surgery: No Pertinent History GI Surgical History: No Pertinent History Genitourinary Surgical Hx: No Pertinent History Musculskeletal Surgical Hx: Orthopedic Surgery Male Surgical History: No Pertinent History Other Surgical History: bilateral ELBOW SURGERY-"nerves and tendons", rt wrist surgery plate and pins after fx., back surgery, josseline in back, triple bipass 2010 ; angioplasty left leg - Social History Smoking Status: Current every day smoker (<1/2 ppd) How long have you smoked: years Exposure to second hand smoke: No Alcohol: Occasionally Drug Use: none - Physical Exam Vital Signs: Vital Signs - 24 hr Temp Pulse Resp BP Pulse Ox 05/15/19 18:59 71 19 95 05/15/19 16:00 98.3 F 83 18 128/84 96 05/15/19 11:50 90 18 138/74 94 L 05/15/19 07:26 98.1 F 99 H 18 139/80 96 05/15/19 07:00 99 H 20 96 05/15/19 04:00 97.4 F 90 18 158/97 97 05/15/19 01:06 97 H 22 96 05/15/19 00:00 97.6 F 101 H 18 142/81 96 General Appearance: moderate distress, thin Neurologic Exam: alert, oriented x 3, cooperative, motor weakness (left zle), abnormal gait (due to pain and weakness LLE) Eye Exam: PERRL/EOMI, eyes nml inspection Ears, Nose, Throat Exam: normal ENT inspection Neck Exam: normal inspection Respiratory Exam: diminished breath sounds (bases,no rales no ronchi no wheeze) Cardiovascular Exam: regular rate/rhythm (with ectopy) Gastrointestinal/Abdomen Exam: soft, normal bowel sounds Rectal Exam: deferred Back Exam: decreased range of motion, muscle spasm, other (pelvic tilt with compensatory "S" curve.) Extremity Exam: other (no edema or cyanosis) Skin Exam: normal color, warm, dry Results - Labs Lab/Micro Results: Lab Results-Last 24 Hours 05/14/19 05/14/19 05/15/19 Range/Units 18:00 Unknown 05:00 Thyroxine (T4) 5.62 (5.53-10.96) ug/dL Urine Color YELLOW (YELLOW) Urine Appearance SLIGHTLY CLOUDY (CLEAR) Urine pH 6.0 (5-6) Ur Specific [place] 1.027 (1.005-1.025) Urine Protein 100 (Negative) Urine Ketones NEGATIVE (NEGATIVE) Urine Blood NEGATIVE (0-5) Cirilo/ul Urine Nitrite NEGATIVE (NEGATIVE) Urine Bilirubin NEGATIVE (NEGATIVE) Urine Urobilinogen NEGATIVE (0-1) mg/dL Ur Leukocyte Esterase NEGATIVE (NEGATIVE) Urine WBC (Auto) 3-5 (0-5) /HPF Urine RBC (Auto) NONE (0-2) /HPF Urine Mucus (Auto) SLIGHT (NEGATIVE) /HPF Urine Culture Reflexed NO (NO) Urine Glucose 150 (NEGATIVE) mg/dL Slides for Path Review YES - Radiology Impressions Radiology Exams & Impressions: Radiology Procedures Category Date Time Status LUMBAR LIMITED (2 OR 3 VIEWS) Stat Exams 05/14/19 12:14 Completed MRI L-SPINE WITH CONTRAST [MRI] Stat Exams 05/15/19 15:42 Completed - Other Procedures and Tests Respiratory Therapy 05/14/19 19:30 Peak Expiratory Flow Rate ONCE 05/15/19 07:00 Respiratory Therapy Assessment DAILY Assessment/Plan (1) Sciatica Current Visit: Yes Status: Acute Qualifiers: Laterality: left Qualified Code(s): M54.32 - Sciatica, left side Code(s): M54.30 - SCIATICA, UNSPECIFIED SIDE (2) Lumbosacral strain Current Visit: Yes Status: Acute Assessment & Plan: moved a washing machine day prior to onset of acute pain Code(s): S39.012A - STRAIN OF MUSCLE, FASCIA AND TENDON OF LOWER BACK, INIT (3) History of lumbar fusion Current Visit: Yes Status: Acute Assessment & Plan: 1990 Code(s): Z98.1 - ARTHRODESIS STATUS (4) CAD (coronary artery disease) Current Visit: Yes Status: Acute Assessment & Plan: followed by Dr Herrera Code(s): I25.10 - ATHSCL HEART DISEASE OF [place] CORONARY ARTERY W/O ANG PCTRS (5) Hyperthyroidism determined by thyroid function test Current Visit: Yes Status: Acute Assessment & Plan: new diagnosis this admission Code(s): E05.90 - THYROTOXICOSIS, UNSP WITHOUT THYROTOXIC CRISIS OR STORM; R94.6 - ABNORMAL RESULTS OF THYROID FUNCTION STUDIES (6) COPD (chronic obstructive pulmonary disease) Current Visit: Yes Status: Acute
[2019-05-16] MEDS: PROVENTIL 2.5 MG/3 ML NEB IH SCH ×4 (05:02→19:09)
[2019-05-16] MEDS: NEURONTIN 300 MG PO SCH ×3 (06:01→16:50)
[2019-05-16] MEDS: Spiriva 18 Mcg/Cap Inhaler IH SCH (07:16)
[2019-05-16] MEDS: Advair Hfa 115/21 Common canister IH SCH ×2 (07:17→19:10)
[2019-05-16] MEDS: DILAUDID 2 MG INJECTION IV PRN ×3 (07:30→19:59)
--- NOTE | 2019-05-16 08:18 | CONS ---
CONSULT DATE: 05/15/2019 BRIEF HISTORY: This is a 64 year-old male with history of coronary artery disease status post previous coronary artery bypass surgery and also history of peripheral vascular disease who was seen because of PVC's. The patient was admitted for back pain apparently after lifting a washing machine. While being monitored was noted to have PVC's some in bigeminy. His TSH is mildly depressed. He currently denies any chest pains. No significant shortness of breath. He has had previous myocardial infarction involving the left anterior descending. CARDIAC RISK FACTORS: Negative for diabetes. History of hypertension. He smokes. He has hyperlipidemia. FAMILY HISTORY: Positive for coronary artery disease. Father from heart attack at age 47. PAST SURGICAL HISTORY: Coronary artery bypass surgery. Elbow surgery. Back surgery. CURRENT MEDICATIONS: Albuterol inhaler, aspirin, Plavix, Advair, Neurontin, losartan, Ranexa, Spiriva, metoprolol. REVIEW OF SYSTEMS: BOOK AUTHOR: No history of stroke or seizures. RESPIRATORY: He has intermittent coughing spells and also history of pneumonia. GI: He has history of peptic ulcer disorder with intermittent heartburn. : Negative for dysuria or hematuria. PERIPHERAL VASCULAR: He has history of intermittent claudication of the left leg and has had intervention to the left iliac artery. MUSCULOSKELETAL: He has some degenerative joint disorder. HEMATOLOGY: No blood dyscrasia. ENDOCRINE: His TSH is depressed. 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 He is and has two children. PHYSICAL EXAMINATION: His blood pressure is 142/81 with heart rate 90, respirations about 14. GENERAL: The patient is a middle aged male who is alert, oriented, who is not in any form of distress. HEENT: Unremarkable. NECK: No significant JVD or carotid bruit. CHEST: The breath sounds are clear. He has a well healed sternotomy scar. CARDIAC: Heart tones are normal. There is audible rub. The rhythm is regular. ABDOMEN: Soft with normal bowel sounds. No bruit. EXTREMITIES: No edema with decreased distal pulses on the left side. LAB DATA AND DIAGNOSTIC TESTS: The rhythm strip showed normal sinus rhythm with some PVC's. Laboratory data: CBC showed hemoglobin 14.5, PLT 357,000. The creatinine is 0.93. Serum electrolytes are normal. TSH 0.23. ASSESSMENT AND PLAN: The patient is known to have: 1) Coronary artery disease status post previous coronary artery bypass surgery currently angina free. Continue medical therapy. 2) PVC's that is chronic. No sustained tachyarrhythmia. 3) Hypertension. 4) Continued tobacco usage. The patient has been counseled several times to quit smoking. 5) Hyperlipidemia. Continue with statin therapy. 6) Peripheral vascular disease. 7) Acute lumbar pain.
[2019-05-16 08:46] LABS: Prostate Specific Antigen 2.14 ng/mL (<=4.50)
[2019-05-16] MEDS: Cozaar 50 MG PO SCH (09:42)
[2019-05-16] MEDS: ECOTRIN 81 MG PO SCH (09:42)
[2019-05-16] MEDS: Lopressor 25MG Tab PO SCH (09:42)
[2019-05-16] MEDS: Ranexa 500 MG PO SCH ×2 (09:42→21:19)
[2019-05-16] MEDS: PLAVIX 75 MG Tablet PO SCH (09:42)
--- NOTE | 2019-05-16 16:34 | XRAY ---
Indication: Left side weakness 4 days. Multiple contiguous axial images obtained through the head without contrast. Comparison: None Normal appearing brain parenchyma, ventricles, and bony calvarium. Visualized paranasal sinuses and mastoid air cells are clear. Impression: Normal CT head without contrast exam.
--- NOTE | 2019-05-16 16:48 | PCM.NOTE ---
Date and Time: 05/16/19 1640 Patient has been walking with difficulty since admission,states he took a shower and pain worsened to 10/10 left buttock into leg like a stocking down leg and into sole of left foot.He denies any other weakness in extremities.States he feels very unsteady even when using cane . He is left handed but on exam today he has weakness in left jigman and arm. He is unaware of TIAs or stroke in the past.Denies any new symptoms.Percocet is giving releif of pain down to a 2-3 level if laying still. .Is having some anxiety from not smoking, due to change nicotene patch. Has been on Wellbutrin in the past for smoke cessation and it helped. Subjective Assessment: see note written in date/time section Objective Exam General Appearance: mild distress, anxiety (mild) Neurologic Exam: alert, oriented x 3, cooperative, entry specialists II-XII nml as tested, motor deficits (left side dominant - jigman left=4/5,right=5/5,unable to maintain left arm outstreched against pressure,strength right UE=5/5), motor weakness ( LLE), abnormal gait (due to pain and weakness left leg and foot), other (speech is clear and mentation is normal) Skin Exam: normal color, warm, dry Eye Exam: PERRL, EOMI, eyes nml inspection Respiratory Exam: normal breath sounds Cardiovascular Exam: normal heart sounds (regular,rate 92) Back Exam: muscle spasm, other (see MRI lumbar spine reviewed with patient) OBJECTIVE DATA Vital Signs: Vital Signs - 24 hr Temp Pulse Resp BP Pulse Ox 05/16/19 16:00 98.1 F 58 L 18 108/56 97 05/16/19 12:30 72 18 95 05/16/19 12:00 97.9 F 70 18 126/76 95 05/16/19 08:00 98.2 F 86 18 136/92 96 05/16/19 07:22 59 L 18 96 05/16/19 04:00 97.7 F 95 H 18 143/86 97 05/16/19 00:00 97.7 F 85 19 128/75 96 05/15/19 20:00 97.7 F 60 18 134/71 96 05/15/19 18:59 71 19 95 Pain Assessment - Last Documented Pain Intensity 8 Pain Scale Used 0-10 Pain Scale Intake and Output: Intake & Output 05/14/19 05/15/19 05/16/19 05/17/19 11:59 11:59 11:59 11:59 Intake Total 1999 2019 480 Output Total 500 Balance 1500 2019 480 Weight 68.039 kg 67.4 kg Lab Results: Lab Results-Last 24 Hours 05/14/19 05/15/19 Range/Units 18:00 04:45 Prostate Specific Ag 2.14 (<=4.50) ng/mL Free PSA 14 % Thyroid Peroxidase Ab 0.4 (0.0-9.0) IU/mL Radiology Exams: Radiology Procedures Category Date Time Status HEAD WITHOUT CONTRAST [CT] Routine Exams 05/16/19 16:20 Completed MRI L-SPINE WITH CONTRAST [MRI] Stat Exams 05/15/19 15:42 Completed Multi-Disciplinary Progress Notes: Multi-Disciplinary Progress Notes 05/16/19 09:47 Physical Therapy Note by Dhara Guajardo SUBJECTIVE: PATIENT REPORTS CONTINUED PAIN LOW BACK AND INTO LEFT LE. STATES GOING TO SCHEDULE CONSULT WITH DR. TENORIO. HAS ALREADY BEEN UP AND WALKED IN HIS ROOM (TO DOOR AND BACK 10X). PAIN WITH STANDING BUT ABLE TO WALK WITH USE OF SBQC THOUGH STILL FEELS SHAKY. TREATMENT: PERFORMED EXERCISES FOR CORE STABILIZATION IN SUPINE. PERFORMED 7 REPS PPT, PPT WITH MARCHING, PPT WITH ALTERNATE ARMS, PPT WITH HEEL SLIDE, AND ISOMETRIC HIP ADDUCTION IN HOOKLYING. NOTED MOST INCREASE PAIN WITH HEEL SLIDE WHEN LEFT HIP IN FULL EXTENSION. THIS WOULD BE CONSISTENT WITH NEURAL TENSION INVOLVING UPPER LUMBAR NERVE ROOTS L1-3. OFFERED TO GET UP AND WALK BUT PATIENT STATES HAS ALREADY DONE THAT AND IS TIRED. ALSO OFFERED TO GET ICE PACK BUT DECLINED. PROVIDED PATIENT WITH WRITTEN, ILLUSTRATED HOME EXERCISES. Initialized on 05/16/19 09:47 - END OF NOTE 05/15/19 17:45 Physical Therapy Note by Christine Ball PT. REPORTS CONT. L LBP AND PN L POSTERIOR LE TO FOOT. STATES PN INCREASE W/ WB ON L LE. FAMILY BROUGHT PT A SBQC WHICH HE HAS USED BEFORE. ADJUSTED CANE TO FIT PROPERLY AND GAIT WAS MORE STABLE W/ USE OF A.D. PT. PERFORMED STANDING / X 5 TO ADDRESS DISC BULGING. ALSO PERFORMED PPTS. PT. RECEIVED MANUAL HAMSTRING AND PIRIFORMIS STRETCHING WELL. PN NOTED W/ PIRIFORMIS STRETCH. PT ADVISED TO PERFORM PPTS AND STANDING / IN ROOM. ALSO ADVISED TO USE CALL LIGHT WHEN HE GETS UP D/T EFFECT OF PN MEDS AND L LE PN POSSIBLY CAUSING GAIT INSTABILITY. CHRISTINE BALL, PT Initialized on 05/15/19 17:45 - END OF NOTE Assessment/Plan (1) Sciatica Current Visit: Yes Status: Acute Qualifiers: Laterality: left Qualified Code(s): M54.32 - Sciatica, left side Code(s): M54.30 - SCIATICA, UNSPECIFIED SIDE (2) Lumbosacral strain Current Visit: Yes Status: Acute Code(s): S39.012A - STRAIN OF MUSCLE, FASCIA AND TENDON OF LOWER BACK, INIT (3) History of lumbar fusion Current Visit: Yes Status: Acute Code(s): Z98.1 - ARTHRODESIS STATUS (4) CAD (coronary artery disease) Current Visit: Yes Status: Chronic Qualifiers: Coronary Disease-Associated Artery/Lesion type: bypass graft Associated angina: without angina Code(s): I25.10 - ATHSCL HEART DISEASE OF [place] CORONARY ARTERY W/O ANG PCTRS (5) Hyperthyroidism determined by thyroid function test Current Visit: Yes Status: Acute Assessment & Plan: tachycardia mild,PVCs-multiple Code(s): E05.90 - THYROTOXICOSIS, UNSP WITHOUT THYROTOXIC CRISIS OR STORM; R94.6 - ABNORMAL RESULTS OF THYROID FUNCTION STUDIES (6) COPD (chronic obstructive pulmonary disease) Current Visit: Yes Status: Acute (7) Current every day smoker Current Visit: Yes Status: Acute Assessment & Plan: is on nicotene patch still anxious,restart Wellbutrin Code(s): F17.200 - NICOTINE DEPENDENCE, UNSPECIFIED, UNCOMPLICATED
[2019-05-16] MEDS: OXYCODONE-ACETAMINOPHEN 10-325 PO PRN (16:49)
[2019-05-16] MEDS: Nicoderm CQ 21 MG TOP SCH (16:50)
[2019-05-16] MEDS: Robaxin 500 MG PO PRN (21:19)
[2019-05-17] MEDS: NEURONTIN 300 MG PO SCH ×4 (00:14→17:36)
[2019-05-17] MEDS: PROVENTIL 2.5 MG/3 ML NEB IH SCH ×3 (00:49→12:58)
[2019-05-17] MEDS: Advair Hfa 115/21 Common canister IH SCH (06:36)
[2019-05-17] MEDS: Spiriva 18 Mcg/Cap Inhaler IH SCH (06:37)
[2019-05-17] MEDS: DILAUDID 2 MG INJECTION IV PRN ×3 (07:25→17:39)
--- NOTE | 2019-05-17 09:02 | PCM.NOTE ---
Date and Time: 05/17/19 0857 Subjective Assessment: Pt wasn't having pain when lying in bed but when he got up to the bathroom he had 7/10 pain. Gets numbness in L great toe with plantar flexion. 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 hip flexion 3/5 on L, 5/5 on R) Skin Exam: normal color, warm, dry, No rash Eye Exam: eyes nml inspection Ears, Nose, Throat Exam: moist mucous membranes Neck Exam: normal inspection Respiratory Exam: normal breath sounds, lungs clear, No crackles/rales, No rhonchi, No wheezing Cardiovascular Exam: normal heart sounds, irregular, No murmur Gastrointestinal/Abdomen Exam: soft, normal bowel sounds, No tenderness, No distention, No mass, No guarding, No rebound Extremity Exam: No pedal edema, No swelling OBJECTIVE DATA Vital Signs: Vital Signs - 24 hr Temp Pulse Resp BP Pulse Ox 05/17/19 06:47 98.5 F 72 18 132/83 94 L 05/17/19 06:38 82 18 94 L 05/17/19 04:00 98.0 F 86 19 135/80 98 05/17/19 00:49 98 H 16 94 L 05/16/19 23:49 98.1 F 92 H 17 125/61 98 05/16/19 20:00 97.9 F 84 18 120/66 97 05/16/19 19:11 89 18 94 L 05/16/19 16:00 98.1 F 58 L 18 108/56 97 05/16/19 12:30 72 18 95 05/16/19 12:00 97.9 F 70 18 126/76 95 Pain Assessment - Last Documented Pain Intensity 5 Pain Scale Used 0-10 Pain Scale Intake and Output: Intake & Output 05/14/19 05/15/19 05/16/19 05/17/19 11:59 11:59 11:59 11:59 Intake Total 1999 2019 1879 Output Total 500 Balance 1500 2019 1879 Weight 68.039 kg 67.4 kg Lab Results: Lab Results-Last 24 Hours 05/15/19 Range/Units 04:45 Thyroid Peroxidase Ab 0.4 (0.0-9.0) IU/mL Radiology Exams: Radiology Procedures Category Date Time Status HEAD WITHOUT CONTRAST [CT] Routine Exams 05/16/19 16:20 Completed MRI BRAIN W & W/O CONTRAST [MRI] Routine Exams 05/17/19 07:54 Ordered MRI L-SPINE WITH CONTRAST [MRI] Stat Exams 05/15/19 15:42 Completed Multi-Disciplinary Progress Notes: Multi-Disciplinary Progress Notes 05/16/19 09:47 Physical Therapy Note by Dhara Guajardo SUBJECTIVE: PATIENT REPORTS CONTINUED PAIN LOW BACK AND INTO LEFT LE. STATES GOING TO SCHEDULE CONSULT WITH DR. TENORIO. HAS ALREADY BEEN UP AND WALKED IN HIS ROOM (TO DOOR AND BACK 10X). PAIN WITH STANDING BUT ABLE TO WALK WITH USE OF SBQC THOUGH STILL FEELS SHAKY. TREATMENT: PERFORMED EXERCISES FOR CORE STABILIZATION IN SUPINE. PERFORMED 7 REPS PPT, PPT WITH MARCHING, PPT WITH ALTERNATE ARMS, PPT WITH HEEL SLIDE, AND ISOMETRIC HIP ADDUCTION IN HOOKLYING. NOTED MOST INCREASE PAIN WITH HEEL SLIDE WHEN LEFT HIP IN FULL EXTENSION. THIS WOULD BE CONSISTENT WITH NEURAL TENSION INVOLVING UPPER LUMBAR NERVE ROOTS L1-3. OFFERED TO GET UP AND WALK BUT PATIENT STATES HAS ALREADY DONE THAT AND IS TIRED. ALSO OFFERED TO GET ICE PACK BUT DECLINED. PROVIDED PATIENT WITH WRITTEN, ILLUSTRATED HOME EXERCISES. Initialized on 05/16/19 09:47 - END OF NOTE Assessment/Plan (1) Sciatica Current Visit: Yes Status: Acute Qualifiers: Laterality: left Qualified Code(s): M54.32 - Sciatica, left side Assessment & Plan: Improved. He has f/u scheduled in [address] Kumar; his information has already been faxed to neurosurgery for f/u with them. Code(s): M54.30 - SCIATICA, UNSPECIFIED SIDE (2) Lumbosacral strain Current Visit: Yes Status: Acute Code(s): S39.012A - STRAIN OF MUSCLE, FASCIA AND TENDON OF LOWER BACK, INIT (3) Hyperthyroidism determined by thyroid function test Current Visit: Yes Status: Acute Code(s): E05.90 - THYROTOXICOSIS, UNSP WITHOUT THYROTOXIC CRISIS OR STORM; R94.6 - ABNORMAL RESULTS OF THYROID FUNCTION STUDIES (4) CAD (coronary artery disease) Current Visit: Yes Status: Chronic Qualifiers: Coronary Disease-Associated Artery/Lesion type: bypass graft Associated angina: without angina Assessment & Plan: has f/u with Dr. Herrera. Code(s): I25.10 - ATHSCL HEART DISEASE OF [place] CORONARY ARTERY W/O ANG PCTRS (5) COPD (chronic obstructive pulmonary disease) Current Visit: Yes Status: Acute
--- NOTE | 2019-05-17 10:12 | XRAY ---
Exam: MRI of the brain without and with 10 ML's of IV contrast (Dotarem). Comparison: CT of the head without IV contrast from 05/16/2019. Indication: 64-year-old male with left-sided weakness for 4 days. Technique: Multiplanar, multisequence MRI images of the brain were obtained without and with IV contrast, per routine. Findings: The ventricles appear of unremarkable size and configuration. No focal mass effect or midline shift is seen. There is no evidence of acute intracranial hemorrhage or abnormal extra-axial fluid collection. No abnormal enhancing mass lesions are seen on the postcontrast imaging sequences. Flow voids within the major arteries of the [place] appear unremarkable. There is some tortuosity of the basilar artery. There is some subtle periventricular and subcortical white matter changes, likely due to mild chronic microvascular disease. The diffusion weighted images reveal no focal areas of restricted diffusion to suggest an acute or subacute infarct. The cortical sulci appear unremarkable. The visualized sinuses, orbits, and mastoids appear unremarkable. Impression: 1. I see no focal areas of restricted diffusion on the diffusion-weighted diffusion-weighted images to suggest an acute or subacute infarct. 2. Incidental minor chronic microvascular ischemic changes are seen. 3. No other acute intracranial process is seen.
[2019-05-17] MEDS: Lopressor 25MG Tab PO SCH (10:36)
[2019-05-17] MEDS: Ranexa 500 MG PO SCH (10:36)
[2019-05-17] MEDS: Cozaar 50 MG PO SCH (10:36)
[2019-05-17] MEDS: ECOTRIN 81 MG PO SCH (10:36)
[2019-05-17] MEDS: PLAVIX 75 MG Tablet PO SCH (10:36)
[2019-05-17 15:43] VITALS: BP 144/85; PULSE 82; O2SAT 96
--- NOTE | 2019-05-17 17:13 | PCM.DS ---
Discharge Summary Date of Admission: 05/14/19 15:28 Admitting Physician: LIVE KUMAR DO Consults: Consults on Case 05/15/19 09:25 Consult Cardiology ROUTINE 05/16/19 16:20 Tele-Health Consult ROUTINE Primary Care Provider: SARAN SAHU Allergies Allergies No Known Drug Allergies Allergy (Verified 05/14/19 11:40) Hospital Summary - Hospital Course Hospital Course: Pt is a 64 yo male with CAD who was admitted with low back pain radiating down to the L foot. Had back surgery >20 yrs ago. His imaging was negative for acute change. He did have an UE and LE weakness and teleneurology was consulted. They suggested MRI of the brain, which was nonacute. His back pain has improved with less radiation to the foot and his UE weakness appears to have resolved. His insurance benefit stops covering his hospitalization this afternoon, so he will be discharged to home on percocet 10mg 1 po TID #21 no refills (INSPECT appropriate today 05/17/19). His information has been faxed to neurosurgery so he can f/u with them. Dr. Herrera was consulted during this stay and will see the pt in f/u. Pt has appt with Dr. Kumar in 1 week. - Vitals & Intake/Output Vital Signs: Vital Signs Temperature 98.4 F 05/17/19 15:42 Pulse Rate 82 05/17/19 15:42 Respiratory Rate 18 05/17/19 15:42 Blood Pressure 144/85 05/17/19 15:42 O2 Sat by Pulse Oximetry 96 05/17/19 15:42 Intake & Output: Intake & Output 05/15/19 05/16/19 05/17/19 05/18/19 11:59 11:59 11:59 11:59 Intake Total 1999 2019 2420 960 Output Total 500 Balance 1499 2019 2419 960 Weight 67.4 kg - Lab Result Diagrams: 05/14/19 18:00 05/14/19 18:00 - Radiology Exams Ordered Rad Exams-Entire Visit: Radiology Procedures Category Date Time Status HEAD WITHOUT CONTRAST [CT] Routine Exams 05/16/19 16:20 Completed MRI BRAIN W & W/O CONTRAST [MRI] Routine Exams 05/17/19 07:54 Completed - Procedures and Test Procedures and Tests throughout Hospitalization: Therapy Orders & Screens 05/14/19 16:37 Oxygen NASAL CANNULA 3 lpm Comment: Diagnosis: acute back pain 05/14/19 18:21 OT Screen per Nursing Assess ONCE Comment: Protocol Order Physician Instructions: Greater than 3 points order OT Admission Screening Reason For Exam: Triggered on Admission Diagnosis: acute back pain Open Wound/Cellutlitis/Pressure Ulcers: No Acute Fx/ORIF/Change in wt bearing status: Yes: severe LLE weakness Severe MUSCULOSKELETAL pain: Yes: LLE ADL Dysfunction: Yes Acute CVA w/Hemiparesis/Hemiplegia: No Decreased Functional Mobility/Strength: No Sprain/Strain: No Acute Post-op Mobility Dysfunction: No Total Points: 13 RT Screen per Nursing Assess ONCE Comment: Protocol Order Physician Instructions: Greater than 3 points order RT Admission Screen Reason For Exam: Triggered on Admission Diagnosis: acute back pain Diagnosis: acute back pain Pneumonia: No Home O2: Yes Asthma: No CHF: No Home CPAP/BIPAP: No Home Nebs/MDI: Yes Total Points: 10 05/14/19 19:30 Peak Expiratory Flow Rate ONCE Comment: Reason For Exam: Diagnosis: acute back pain 05/15/19 07:00 Respiratory Therapy Assessment DAILY Comment: Diagnosis: acute back pain 05/15/19 09:42 PT Eval & Treat (MD Order) ROUTINE Reason for Eval:: ACUTE BACK PAIN Diagnosis: acute back pain 05/17/19 09:04 EKG ROUTINE Comment: arrhythmia on auscultation Diagnosis: acute back pain Discharge Exam General Appearance: no apparent distress, alert, other (exam done this morning) Neurologic Exam: oriented x 3, cooperative, normal mood/affect, other (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: 3/5 on L, 5/5 on R) Eye Exam: eyes nml inspection Ears, Nose, Throat Exam: moist mucous membranes Neck Exam: normal inspection Respiratory Exam: normal breath sounds, lungs clear, No respiratory distress, No crackles/rales, No rhonchi, No wheezing Cardiovascular Exam: normal heart sounds, irregular, No murmur Gastrointestinal/Abdomen Exam: soft, normal bowel sounds, No tenderness, No distention, No mass, No guarding, No rebound Extremity Exam: normal inspection, No swelling, No tenderness Skin Exam: normal color, warm, dry, No rash Final Diagnosis/Problem List - Final Discharge Diagnosis/Problem (1) Sciatica Current Visit: Yes Status: Acute Assessment & Plan: f/u with neurosurgery and Dr. Baird. Home on percocet TID prn #21 no rf. Code(s): M54.30 - SCIATICA, UNSPECIFIED SIDE (2) Lumbosacral strain Current Visit: Yes Status: Acute Code(s): S39.012A - STRAIN OF MUSCLE, FASCIA AND TENDON OF LOWER BACK, INIT (3) Hyperthyroidism determined by thyroid function test Current Visit: Yes Status: Acute Code(s): E05.90 - THYROTOXICOSIS, UNSP WITHOUT THYROTOXIC CRISIS OR STORM; R94.6 - ABNORMAL RESULTS OF THYROID FUNCTION STUDIES (4) CAD (coronary artery disease) Current Visit: Yes Status: Chronic Assessment & Plan: f/u with Dr. Herrera. Code(s): I25.10 - ATHSCL HEART DISEASE OF [place] CORONARY ARTERY W/O ANG PCTRS (5) COPD (chronic obstructive pulmonary disease) Current Visit: Yes Status: Acute (6) Arrhythmia Current Visit: Yes Status: Acute Assessment & Plan: on exam this morning; PVCs on EKG. Code(s): I49.9 - CARDIAC ARRHYTHMIA, UNSPECIFIED - Discharge Disposition: Home, Self-Care Condition: Stable Prescriptions: New [place]apentin [Neurontin] 600 mg PO Q6H #30 tablet Nicotine 21 mg [Nicoderm CQ 21 MG] 21 mg TOP Q24H #7 patch Oxycodone / APAP 10/325 mg [Oxycodone-Acetaminophen 10-325] 1 tab PO TID PRN PRN #21 tablet MDD 3 PRN Reason: Pain Methocarbamol 500 mg [Robaxin 500 MG] 500 mg PO QID PRN PRN #28 tablet PRN Reason: Muscle Spasms Bupropion HCl 150 mg Sr [Wellbutrin SR 150 MG] 75 mg PO BID #14 tablet.sa Continue Metoprolol Tartrate 25 mg [Lopressor 25MG Tab] 25 mg PO DAILY Budesonide/Formoterol Fumarate [Symbicort 160-4.5 Mcg Inhaler] 1 puff IH BID Tiotropium [place] [Spiriva Respimat] 1 puff IH QAM Albuterol Common Canister [Ventolin Common Canister] 2 puffs IH Q4H PRN PRN PRN Reason: Shortness Of Breath/Wheezing Albuterol 2.5 mg/3 ml Neb [Proventil 2.5 mg/3 ml Neb] 2.5 mg IH Q4H PRN PRN PRN Reason: Shortness Of Breath Aspirin 81 mg PO QAM #0 Clopidogrel Bisulfate [Plavix] 75 mg PO DAILY #0 Nitroglycerin 0.4 mg PO Q5MIN PRN MR X 3 PRN PRN Reason: angina Ranolazine [Ranolazine ER] 500 mg PO BID Losartan Potassium 50 mg PO DAILY Additional Instructions: DR TENORIO'S OFFICE WILL CONTACT PATIENT AFTER RECORDS ARE RECEIVED. Follow up with: ANN MARIE HERRERA [ACTIVE STAFF] - 06/01/19 1:45 pm HARPER TENORIO [NON-STAFF PHY W/O PRIVILEGES] - 1 Week LIVE KUMAR DO [ACTIVE STAFF] - 05/25/19 1:40 pm
[2019-05-17] MEDS: Nicoderm CQ 21 MG TOP SCH (17:37)
[2019-05-17] MEDS ORDERED: Wellbutrin SR 150 MG PO SCH (22:00)
== END 2019-05-17 18:10 | disposition home or self-care (01) ==
LOC: ED 11:31 → MED SURG 15:28
PROVIDERS: ADMIT Family Medicine; ATTEND Family Medicine
DX: M54.40 Lumbago with sciatica, unspecified side (principal); R53.1 Weakness; I25.10 Atherosclerotic heart disease of native coronary artery without angina pectoris; I10 Essential (primary) hypertension; E78.5 Hyperlipidemia, unspecified; I49.3 Ventricular premature depolarization; Z72.0 Tobacco use; Z98.1 Arthrodesis status; R20.2 Paresthesia of skin; I73.9 Peripheral vascular disease, unspecified; S39.012A Strain of muscle, fascia and tendon of lower back, initial encounter; E05.90 Thyrotoxicosis, unspecified without thyrotoxic crisis or storm; J44.9 Chronic obstructive pulmonary disease, unspecified; I49.9 Cardiac arrhythmia, unspecified; I25.2 Old myocardial infarction; Z79.899 Other long term (current) drug therapy; Z79.01 Long term (current) use of anticoagulants; Z95.1 Presence of aortocoronary bypass graft
CPT/HCPCS: 36000; 36415; 70450; 70553; 72100; 72149; 80053; 81001; 82607; 84153; 84154; 84436; 84443; 85025; 85652; 86376; 93005; 93268; 94150; 94640; 94760; 94762; 96374; 96375; 97014; 97110; 97161; 99285; G0378; Q3014; J1100; J1170; J1885; J2270; J7609; A9270-GY; G0283-GP

== ENCOUNTER 2019-06-30 12:38 | Emergency (ER) | payer OTHER ==
[2019-06-30] MEDS ORDERED: Norflex 60 MG/2 ML IM ONE (12:51)
[2019-06-30] MEDS ORDERED: TORAdol 30 mg Injection IM ONE (12:51)
[2019-06-30 13:00] VITALS: BP 174/96; PULSE 101; O2SAT 100
[2019-06-30] MEDS ORDERED: TORAdol 30 mg Injection ONE (13:01)
[2019-06-30] MEDS ORDERED: Norflex 60 MG/2 ML ONE (13:01)
--- NOTE | 2019-06-30 13:09 | ERPHSYRPT ---
- History of Present Illness Time Seen by Provider: 06/30/19 13:06 Source: patient Patient Subjective Stated Complaint: back pain Triage Nursing Assessment: Patient brought back to ED via w/c and transferred self to bed. Patient A+O x3. Patient's skin pink, warm and dry. Patient complains of left sided back pain that occasional goes down left leg. Patient states pain is constant aching with intermittent sharp pain 10/10. Patient denies injury to area. Patient has hx of chronic back pain. No visible injuries or bruising noted. Physician History: back pain since yesterday. Patient complains of left sided back pain that occasional goes down left leg. Patient states pain is constant aching with intermittent sharp pain 10/10. Patient denies injury to area. Patient has hx of chronic back pain. No visible injuries or bruising noted. Timing/Duration: yesterday Method of Injury: unknown Quality: radiating Back Pain Location: lumbar spine Back Pain Radiation: lower legs Severity of Pain-Max: severe Severity of Pain-Current: severe Modifying Factors: Improves With: nothing Associated Symptoms: denies symptoms Previous symptoms: same symptoms as today Allergies/Adverse Reactions: No Known Drug Allergies Allergy (Verified 06/30/19 12:51) Home Medications: Metoprolol Tartrate 25 mg [Lopressor 25MG Tab] 25 mg PO DAILY 12/27/13 [ History] Albuterol Common Canister [Ventolin Common Canister] 2 puffs IH Q4H PRN PRN 09/07/18 [History] Budesonide/Formoterol Fumarate [Symbicort 160-4.5 Mcg Inhaler] 1 puff IH BID [History] Tiotropium [place] [Spiriva Respimat] 1 puff IH QAM 09/07/18 [History] Albuterol 2.5 mg/3 ml Neb [Proventil 2.5 mg/3 ml Neb] 2.5 mg IH Q4H PRN PRN 12/06/18 [History] Losartan Potassium 50 mg PO DAILY 05/14/19 [History] Nitroglycerin 0.4 mg PO Q5MIN PRN MR X 3 PRN 05/14/19 [History] Ranolazine [Ranolazine ER] 500 mg PO BID 05/14/19 [History] Hx Tetanus, Diphtheria Vaccination/Date Given: No Hx Influenza Vaccination/Date Given: Yes Hx Pneumococcal Vaccination/Date Given: Yes Immunizations Up to Date: Yes Travel Risk - International Travel Have you traveled outside of the country in past 3 weeks: No Have you or anyone close to you been diagnosed with or: No Do your reside in a community with a known COVID-19 case?: Yes If Yes where:: [facility] - Coronavirus Screening Has patient experienced Coronavirus symptoms: No - Review of Systems Constitutional: No Fever, No Chills Eyes: No Symptoms Ears, Nose, & Throat: No Symptoms Respiratory: No Cough, No Dyspnea Cardiac: No Chest Pain, No Edema, No Syncope Abdominal/Gastrointestinal: No Abdominal Pain, No Nausea, No Vomiting, No Diarrhea Genitourinary Symptoms: No Dysuria Musculoskeletal: Back Pain, No Neck Pain Skin: No Rash Neurological: No Dizziness, No Focal Weakness, No Sensory Changes Psychological: No Symptoms Endocrine: No Symptoms All Other Systems: Reviewed and Negative - Past Medical History Pertinent Past Medical History: Yes Neurological History: No Pertinent History ENT History: No Pertinent History Cardiac History: Arrhythmia, Coronary Artery Disease, Hypertension, Myocardial Infarction ([place]) Respiratory History: COPD, Emphysema Endocrine Medical History: No Pertinent History Musculoskeletal History: Degenerative Disk Disease GI Medical History: No Pertinent History History: No Pertinent History Psycho-Social History: No Pertinent History Male Reproductive Disorders: No Pertinent History - Past Surgical History Past Surgical History: Yes Neuro Surgical History: No Pertinent History Cardiac: CABG, Cardiac Catheterization, Vascular Surgery Respiratory: No Pertinent History Gastrointestinal: No Pertinent History Genitourinary: No Pertinent History Musculoskeletal: Orthopedic Surgery Male Surgical History: No Pertinent History Other Surgical History: bilateral ELBOW SURGERY-"nerves and tendons", rt wrist surgery plate and pins after fx., back surgery, josseline in back, triple bipass 2010 ; angioplasty left leg - Social History Smoking Status: Former smoker How long have you smoked: years Exposure to second hand smoke: No Drug Use: none Patient Lives Alone: Yes - Nursing Vital Signs Nursing Vital Signs: Initial Vital Signs Temperature 98.0 F 06/30/19 12:51 Pulse Rate 101 H 06/30/19 12:51 Respiratory Rate 18 06/30/19 12:51 Blood Pressure 174/96 06/30/19 12:51 O2 Sat by Pulse Oximetry 100 06/30/19 12:51 Pain Scale Pain Intensity 10 - Physical Exam General Appearance: no apparent distress, alert Eye Exam: PERRL/EOMI, eyes nml inspection Neck Exam: normal inspection, non-tender, supple, full range of motion, No meningismus, No midline tenderness Respiratory Exam: normal breath sounds, lungs clear, No respiratory distress Cardiovascular Exam: regular rate/rhythm, normal heart sounds Gastrointestinal Exam: soft, No tenderness, No mass Extremity Exam: normal inspection, normal range of motion, No calf tenderness, No pedal edema Neurologic Exam: alert, oriented x 3, cooperative, protection officer II-XII nml as tested, normal mood/affect, nml station & gait, sensation nml, No motor deficits Skin Exam: normal color, warm, dry, No rash SpO2: 100 - Course Nursing assessment & vital signs reviewed: Yes - Radiology Exams L-Spine X-ray Interpretation: Reviewed by me, Negative Ordered Tests: Active Orders 24 hr Category Date Time Status LUMBAR COMPLETE (MIN 4 VIEWS) Stat Exams 06/30/19 12:51 Taken Medication Summary Discontinued Medications Generic Name Dose Route Start Last Admin Trade Name Sary PRN Reason Stop Dose Admin Ketorolac Tromethamine 60 mg 06/30/19 12:51 06/30/19 13:02 Toradol 30 Mg Injection IM 06/30/19 12:52 60 mg STAT ONE Administration Ketorolac Tromethamine Confirm 06/30/19 13:01 Toradol 30 Mg Injection Administered 06/30/19 13:02 Dose 60 mg .ROUTE .STK-MED ONE Orphenadrine Citrate 60 mg 06/30/19 12:51 06/30/19 13:02 Norflex 60 Mg/2 Ml IM 06/30/19 12:52 60 mg STAT ONE Administration Orphenadrine Citrate Confirm 06/30/19 13:01 Norflex 60 Mg/2 Ml Administered 06/30/19 13:02 Dose 60 mg .ROUTE .STK-MED ONE - Progress Progress: improved, pain not gone completely Counseled pt/family regarding: diagnosis, need for follow-up, rad results - Departure Departure Disposition: Home Clinical Impression: Lumbosacral strain Qualifiers: Encounter type: initial encounter Qualified Code(s): S39.012A - Strain of muscle, fascia and tendon of lower back, initial encounter Sciatica Qualifiers: Laterality: left Qualified Code(s): M54.32 - Sciatica, left side Condition: Stable Critical Care Time: No Referrals: SARAN SAHU, [employer] [Primary Care Provider] - Instructions: Sciatica (DC), Low Back Pain (DC) Additional Instructions: Discharge/Care Plan OBED MARK was seen on 06/30/19 in the Emergency Room. The patient was counseled regarding Diagnosis,Lab results, Imaging studies, need for follow up and when to return to the Emergency Room. Prescriptions given: Discharge Note I have spoken with the patient and/or caregivers. I have explained the patient' s condition, diagnosis and treatment plan based on the information available to me at this time. I have answered the patient's and/or caregiver's questions and addressed any concerns. The patient and/or caregivers have as good understanding of the patient's diagnosis, condition and treatment plan as can be expected at this point. The vital signs have been stable. The patient's condition is stable and appropriate for discharge from the emergency department. The patient will pursue further outpatient evaluation with the primary care physician or other designated or consulting physician as outlined in the discharge instructions. The patient and/or caregivers are agreeable to this plan of care and follow-up instructions have been explained in detail. The patient and/or caregivers have received these instruction. The patient/and or caregivers are aware that any significant change in condition or worsening of symptoms should prompt an immediate return to this or the closest emergency department or call 911. OBED MARK was seen on 06/30/19 n the Emergency Room. At that time you were treated for an emergent condition, during your visit Laboratory, Radiology and/or other procedures may have been ordered. It is very important that you follow-up with your Primary Care Physician SARAN SAHU within the next 24-48 hours to review your Emergency Room visit and the final results of testing that was ordered. Some test results such as Urine Cultures, Blood Cultures, and other cultures if ordered will not be finalized for 24-48 hours. If you do not have a Primary Care Provider please call the medical records department at [phone] ext [phone] to obtain a copy of your results or you may sign into our patient portal to obtain these results by visiting us @ [email or web address] and completing the following steps: 1. Click on the Patient Portal link 2. Click the Patient Self Enrollment Link to complete the enrollment form and entering your 3. Once the enrollment form is completed you will receive an email with a temporary ID and password at the email address you provided. 4. Next choose a user name and password. Your user name must be at least 4 characters long and your password must be at least 4 characters long. 5. Choose a security question from the list and provide your answer to the question. If you already have signed into the Health Portal you may access your Health Care Information 11/10 by the following steps: 1. Login to our website @ [email or web address] 2. Enter your original user name and password. FAQS The [facility] Health Portal is an online tool that contains your Lab Results, Radiology Reports, Visit History, Discharge Instructions and Health Summary Lab and Radiology Results will not be available for 72 hours on the portal. The Portal is a secure site, passwords are encryted and URLs are re-written so they cannot be copied and pasted. You and authorized family members are the only ones who can access your Portal. Also there is a timeout feature that protects your information if you leave the Portal page open. If you have technical difficulty please use the Contact Us link on the page this will allow you to submit any questions you have regarding the Portal or you may contact the Medical Record Department at [phone] ext [phone]. Prescriptions: Naproxen 375 mg [Naprosyn 375 mg] 375 mg PO Q8H #30 tablet Orphenadrine Citrate 100 mg [Norflex 100 MG Tablet] 100 mg PO BID #20 tab
--- NOTE | 2019-06-30 20:32 | XRAY ---
Indication: Low back pain. No known injury. Comparison: May 14, 2019. 5 view lumbar spine unchanged demonstrating L4-S1 fusion with intact bilateral posterior hardware, T12-L2 endplate spurring, T12-L3/L5/S1 disc space narrowing, dextrorotoscoliosis, and mild scattered vascular calcifications. No new/acute findings.
== END 2019-06-30 13:35 | disposition home or self-care (01) ==
LOC: ED 12:38
DX: S39.012A Strain of muscle, fascia and tendon of lower back, initial encounter (principal); M54.32 Sciatica, left side
CPT/HCPCS: 72110; 96372; 99284; J1885; J2360

== ENCOUNTER 2019-08-16 15:40 | Emergency (ER) | payer OTHER ==
--- NOTE | 2019-08-16 16:09 | ERPHSYRPT ---
- History of Present Illness Time Seen by Provider: 08/16/19 15:55 Source: patient, family Exam Limitations: no limitations Patient Subjective Stated Complaint: Pt states that he woke up this morning and stood up and his right leg gave out and he has pain in the lower right back just aove his buttock, the pain radiates all the way down his right leg Triage Nursing Assessment: Pt drove himself to the ER but states that he does have a friend that will come and get him, pt appears to be in significant pain and is unable to get comfortable and is leaning more to the left while sitting in the bed, hypertensive, has a hx of back pain but this is new per the pt, pulses normal, pt rates pain as 10/10, denies any injury Physician History: This is a 64-year-old white male who has chronic back pain issues. He has had surgeries in the past and has metal in his spine. Patient does not have a pain specialist. He is not on any pain medication at this time. Patient did not have an injury. Patient complains of waking up this morning and having pain in his back and his right leg gave out. Patient has a history of recurrent sciatica. Usually is on the left side but today his symptoms were the same but on the right side. Patient has no chest pain is not short of breath. She has no known drug allergies. Patient states that he does have a ride home. Patient states that he has not recently done any excessive activity lifting or work. Timing/Duration: today Method of Injury: other (No injury) Quality: radiating, sharp, stabbing (Right lower back) Back Pain Location: lumbar spine Back Pain Radiation: buttocks, upper legs Severity of Pain-Max: moderate Severity of Pain-Current: moderate Modifying Factors: Improves With: movement Associated Symptoms: lower back pain, muscle spasms, No urinary incontinence, No loss of bowel control, No problems urinating, No numbness in legs/feet, No weakness, No sensory/motor loss, No tingling in legs/feet Previous symptoms: same symptoms as today Allergies/Adverse Reactions: No Known Drug Allergies Allergy (Verified 08/16/19 15:52) Home Medications: Metoprolol Tartrate 25 mg [Lopressor 25MG Tab] 25 mg PO DAILY 12/27/13 [ History] Albuterol Common Canister [Ventolin Common Canister] 2 puffs IH Q4H PRN PRN 09/07/18 [History] Budesonide/Formoterol Fumarate [Symbicort 160-4.5 Mcg Inhaler] 1 puff IH BID [History] Tiotropium [place] [Spiriva Respimat] 1 puff IH QAM 09/07/18 [History] Albuterol 2.5 mg/3 ml Neb [Proventil 2.5 mg/3 ml Neb] 2.5 mg IH Q4H PRN PRN 12/06/18 [History] Losartan Potassium 50 mg PO DAILY 05/14/19 [History] Nitroglycerin 0.4 mg PO Q5MIN PRN MR X 3 PRN 05/14/19 [History] Ranolazine [Ranolazine ER] 500 mg PO BID 05/14/19 [History] Hx Tetanus, Diphtheria Vaccination/Date Given: No Hx Influenza Vaccination/Date Given: Yes Hx Pneumococcal Vaccination/Date Given: Yes Travel Risk - International Travel Have you traveled outside of the country in past 3 weeks: No Have you or anyone close to you been diagnosed with or: No Do your reside in a community with a known COVID-19 case?: Yes If Yes where:: lane - Coronavirus Screening Has patient experienced Coronavirus symptoms: No - Review of Systems Constitutional: No Symptoms Eyes: No Symptoms Ears, Nose, & Throat: No Symptoms Respiratory: No Symptoms Cardiac: No Symptoms Abdominal/Gastrointestinal: No Symptoms Genitourinary Symptoms: No Symptoms Musculoskeletal: Back Pain, No Injury Skin: No Symptoms Neurological: No Symptoms, No Parasthesia Psychological: No Symptoms Endocrine: No Symptoms Hematologic/Lymphatic: No Symptoms Immunological/Allergic: No Symptoms All Other Systems: Reviewed and Negative - Past Medical History Pertinent Past Medical History: Yes Neurological History: No Pertinent History ENT History: No Pertinent History Cardiac History: Arrhythmia, Coronary Artery Disease, Hypertension, Myocardial Infarction ([place]) Respiratory History: COPD, Emphysema Endocrine Medical History: No Pertinent History Musculoskeletal History: Degenerative Disk Disease GI Medical History: No Pertinent History History: No Pertinent History Psycho-Social History: No Pertinent History Male Reproductive Disorders: No Pertinent History - Past Surgical History Past Surgical History: Yes Neuro Surgical History: No Pertinent History Cardiac: CABG, Cardiac Catheterization, Vascular Surgery Respiratory: No Pertinent History Gastrointestinal: No Pertinent History Genitourinary: No Pertinent History Musculoskeletal: Orthopedic Surgery Male Surgical History: No Pertinent History Other Surgical History: bilateral ELBOW SURGERY-"nerves and tendons", rt wrist surgery plate and pins after fx., back surgery, josseline in back, triple bipass 2010 ; angioplasty left leg - Social History Smoking Status: Current every day smoker How long have you smoked: years Exposure to second hand smoke: Yes Drug Use: none Patient Lives Alone: Yes - Nursing Vital Signs Nursing Vital Signs: Initial Vital Signs Temperature 97.7 F 08/16/19 15:44 Pulse Rate 108 H 08/16/19 15:44 Blood Pressure 178/113 08/16/19 15:44 O2 Sat by Pulse Oximetry 97 08/16/19 15:44 Pain Scale Pain Intensity [Right Lower 10 Posterior Distal Back] Pain Intensity 10 - Physical Exam General Appearance: mild distress, alert, anxiety, thin Eye Exam: PERRL/EOMI, eyes nml inspection Ears, Nose, Throat Exam: normal ENT inspection, moist mucous membranes Neck Exam: normal inspection, non-tender, supple, full range of motion Respiratory Exam: normal breath sounds, lungs clear, airway intact, No chest tenderness, No respiratory distress Cardiovascular Exam: regular rate/rhythm, normal heart sounds, normal peripheral pulses Gastrointestinal Exam: soft, normal bowel sounds, No tenderness Rectal Exam: not done Back Exam: normal inspection, decreased range of motion, muscle spasm, No CVA tenderness, No vertebral tenderness Extremity Exam: normal inspection, normal range of motion, pelvis stable Neurologic Exam: alert, oriented x 3, cooperative, accounting tutor II-XII nml as tested, normal mood/affect, nml cerebellar function, sensation nml Skin Exam: normal color, warm, dry Lymphatic Exam: No adenopathy SpO2 Interpretation: normal SpO2: 97 O2 Delivery: Room Air - Course Nursing assessment & vital signs reviewed: Yes - Progress Progress: unchanged Counseled pt/family regarding: diagnosis, need for follow-up - Departure Departure Disposition: Home Clinical Impression: Back pain, Sciatica Condition: Stable Critical Care Time: No Referrals: SARAN SAHU NP [Primary Care Provider] - Additional Instructions: Follow-up with your primary care doctor for further pain management issues Prescriptions: Carisoprodol 350 mg [Soma 350 mg] 350 mg PO Q8H PRN PRN #10 tablet PRN Reason: Muscle Spasms Oxycodone HCl/Acetaminophen [Percocet 5-325 mg Tablet] 1 each PO Q8H PRN PRN # 10 tablet MDD 3 PRN Reason: Pain Prednisone 10 mg [Deltasone 10 mg] 10 mg PO TID #12 tablet
[2019-08-16] MEDS ORDERED: Hydromorphone 1 mg/ml Ampule IM ONE (16:12)
[2019-08-16] MEDS ORDERED: ZOFRAN ODT 4 MG PO ONE (16:12)
[2019-08-16] MEDS ORDERED: solu-MEDROL 125 MG IM ONE (16:13)
[2019-08-16] MEDS ORDERED: ZOFRAN ODT 4 MG ONE (16:17)
[2019-08-16] MEDS ORDERED: Hydromorphone 1 mg/ml Ampule ONE (16:18)
[2019-08-16] MEDS ORDERED: solu-MEDROL 125 MG ONE (16:18)
[2019-08-16 16:53] VITALS: BP 178/84; PULSE 89; O2SAT 98
== END 2019-08-16 16:53 | disposition home or self-care (01) ==
LOC: ED 15:40
DX: M54.41 Lumbago with sciatica, right side (principal); M62.830 Muscle spasm of back; I25.810 Atherosclerosis of coronary artery bypass graft(s) without angina pectoris; I10 Essential (primary) hypertension; I25.2 Old myocardial infarction; J44.9 Chronic obstructive pulmonary disease, unspecified; Z72.0 Tobacco use
CPT/HCPCS: 96372; 99284; J1170; J2930; Q0162

== ENCOUNTER 2019-11-03 21:50 | Emergency (ER) | payer OTHER ==
[2019-11-03] MEDS ORDERED: MORPHINE SULFATE 4 MG INJ ONE (22:25)
[2019-11-03] MEDS ORDERED: Zofran 4 MG/2 ML VIAL ONE (22:25)
[2019-11-03] MEDS ORDERED: Zofran 4 MG/2 ML VIAL IV ONE (22:28)
[2019-11-03] MEDS ORDERED: MORPHINE SULFATE 4 MG INJ IV ONE (22:28)
--- NOTE | 2019-11-03 22:36 | ERPHSYRPT ---
- History of Present Illness Time Seen by Provider: 11/03/19 22:20 Source: patient Exam Limitations: no limitations Patient Subjective Stated Complaint: c/o lt groin pain, status post angioplasty on 11/01/19 Triage Nursing Assessment: c/o lt groin pain, status post angioplasty on 11/01/19. Pt has small rash noted to insertion area of lt groin, small knot noted. Pt rates pain a 10 on 0-10 scale. pt has good pedal pulses bilat. Few expiratory wheezes noted ant. Physician History: 64 years old male with history of coronary artery disease status post CABG, hypertension, hyperlipidemia, COPD, peripheral vascular disease with recent bilateral lower extremity stenting at [facility] presented in the ER with severe sharp shooting pain left groin at area of wire insertion with this small swelling around. Pain is aggravated with movements at hip and palpation and no significant relieving factors. He is not taking anything for pain. He denies any pain on the right groin. Patient reports earlier there was more swelling and redness which is improved now. Denies any discoloration of left lower extremity, cold clamminess or pain in left leg/foot Timing/Duration: today, gradual onset, worse Severity: severe Modifying Factors: Improves With: movement Associated Symptoms: rash Allergies/Adverse Reactions: No Known Drug Allergies Allergy (Verified 11/03/19 22:05) Home Medications: Metoprolol Tartrate 25 mg [Lopressor 25MG Tab] 25 mg PO DAILY 12/27/13 [History] Albuterol Common Canister [Ventolin Common Canister] 2 puffs IH Q4H PRN PRN 09/07/18 [History] Budesonide/Formoterol Fumarate [Symbicort 160-4.5 Mcg Inhaler] 1 puff IH BID 09/07/18 [History] Albuterol 2.5 mg/3 ml Neb [Proventil 2.5 mg/3 ml Neb] 2.5 mg IH Q4H PRN PRN 12/06/18 [History] Losartan Potassium 50 mg PO DAILY 05/14/19 [History] Nitroglycerin 0.4 mg PO Q5MIN PRN MR X 3 PRN 05/14/19 [History] Ranolazine [Ranolazine ER] 500 mg PO BID 05/14/19 [History] Potassium Chloride 10 meq PO DAILY 11/03/19 [History] Hx Tetanus, Diphtheria Vaccination/Date Given: Yes Hx Influenza Vaccination/Date Given: Yes Hx Pneumococcal Vaccination/Date Given: Yes Immunizations Up to Date: Yes Travel Risk - International Travel Have you traveled outside of the country in past 3 weeks: No - Coronavirus Screening Are you exhibiting any of the following symptoms?: No - Review of Systems Constitutional: No Symptoms Eyes: No Symptoms Ears, Nose, & Throat: No Symptoms Respiratory: No Symptoms Cardiac: No Symptoms Abdominal/Gastrointestinal: No Symptoms Genitourinary Symptoms: No Symptoms Skin: Rash, Skin Lesions Neurological: No Symptoms Psychological: No Symptoms Endocrine: No Symptoms Hematologic/Lymphatic: No Symptoms Immunological/Allergic: No Symptoms - Past Medical History Pertinent Past Medical History: Yes Neurological History: No Pertinent History ENT History: No Pertinent History Cardiac History: Arrhythmia, Coronary Artery Disease, Hypertension, Myocardial Infarction ([place]) Respiratory History: COPD, Emphysema Endocrine Medical History: No Pertinent History Musculoskeletal History: Degenerative Disk Disease GI Medical History: No Pertinent History History: No Pertinent History Psycho-Social History: No Pertinent History Male Reproductive Disorders: No Pertinent History - Past Surgical History Past Surgical History: Yes Neuro Surgical History: No Pertinent History Cardiac: CABG, Cardiac Catheterization, Vascular Surgery Respiratory: No Pertinent History Gastrointestinal: No Pertinent History Genitourinary: No Pertinent History Musculoskeletal: Orthopedic Surgery Male Surgical History: No Pertinent History Other Surgical History: bilateral ELBOW SURGERY-"nerves and tendons", rt wrist surgery plate and pins after fx., back surgery, josseline in back, triple bipass 2010; angioplasty left leg x3, stents to rt leg. - Social History Smoking Status: Current every day smoker How long have you smoked: 45 yrs Exposure to second hand smoke: Yes Drug Use: none Patient Lives Alone: Yes - Nursing Vital Signs Nursing Vital Signs: Initial Vital Signs Temperature 98.2 F 11/03/19 21:56 Pulse Rate 114 H 11/03/19 21:56 Respiratory Rate 22 11/03/19 21:56 Blood Pressure 129/113 11/03/19 21:56 O2 Sat by Pulse Oximetry 98 11/03/19 21:56 Pain Scale Pain Intensity 10 - Physical Exam General Appearance: mild distress, alert Eye Exam: eyes nml inspection Ears, Nose, Throat Exam: normal ENT inspection Neck Exam: normal inspection, supple, full range of motion Respiratory Exam: wheezing Cardiovascular Exam: normal heart sounds, tachycardia Gastrointestinal/Abdomen Exam: soft, normal bowel sounds Male Genitalia Exam: normal genitalia, other (Left groin at area of wire insertion 1 cm knot/swelling firm, no increased temperature. Tender to touch. No fluctuation. No pulsatile mass. Bilateral dorsalis pedis well palpable. Normal /symmetrical temperature with cap refill less than 3 seconds.) Back Exam: normal inspection Extremity Exam: normal inspection, normal range of motion, pelvis stable Neurologic Exam: alert, oriented x 3, cooperative Skin Exam: normal color SpO2 Interpretation: normal SpO2: 98 O2 Delivery: Room Air Ordered Tests: Medication Summary Discontinued Medications Generic Name Dose Route Start Last Admin Trade Name Sary PRN Reason Stop Dose Admin Morphine Sulfate Confirm 11/03/19 22:25 Morphine Sulfate 4 Mg Inj Administered 11/03/19 22:26 Dose 4 mg .ROUTE .STK-MED ONE Morphine Sulfate 4 mg 11/03/19 22:28 11/03/19 22:33 Morphine Sulfate 4 Mg Inj IV 11/03/19 22:29 4 mg STAT ONE Administration Ondansetron HCl Confirm 11/03/19 22:25 Zofran 4 Mg/2 Ml Vial Administered 11/03/19 22:26 Dose 4 mg .ROUTE .STK-MED ONE Ondansetron HCl 4 mg 11/03/19 22:28 11/03/19 22:33 Zofran 4 Mg/2 Ml Vial IV 11/03/19 22:29 4 mg STAT ONE Administration - Progress Progress: improved Progress Note: 64 years old is evaluated for severe pain in the left groin at the area of wire insertion. I did not appreciate any pulsatile mass, fluctuating/abscess but does have 1 cm not which could be a small hematoma collection underneath it. No swelling or redness around. Good pulse distally. Good cap refill. Do not think needs ultrasound or any other work-up. Does not have fever or chills. No hernia appreciated. Patient is given morphine and on reevaluation his pain is better. I would give him some pain medications like [place] to go home and recommended outpatient follow-up with his primary batteryman who did intervention. Discussed signs symptoms of worsening needing return to ER which he seems understanding. 11/03/19 22:47 Counseled pt/family regarding: diagnosis, need for follow-up - Departure Departure Disposition: Home Clinical Impression: Postoperative pain, acute, groin Qualifiers: Laterality: left Qualified Code(s): R10.32 - Left lower quadrant pain Condition: Stable Critical Care Time: No Referrals: LIVE HARVEY DO [Primary Care Provider] - Follow Up with PCP/3 days Additional Instructions: Follow-up with your primary batteryman who put stents in legs in 2 days. Take pain medications as needed. Return to ER for increasing pain swelling redness, pain in the left lower extremity, numbness, color change or coldness, fever or chills. Prescriptions: Hydrocodone/APAP 5-325 Tab^^^ [[place] 5-325 Tablet^^^] 1 tab PO Q6HPRN PRN #10 tablet MDD 6 PRN Reason: Pain
[2019-11-03] MEDS ORDERED: OXYCODONE-ACETAMINOPHEN 10-325 PO STA (23:06)
[2019-11-03] MEDS ORDERED: OXYCODONE-ACETAMINOPHEN 10-325 ONE (23:10)
[2019-11-03 23:19] VITALS: BP 151/106; PULSE 103; O2SAT 96
== END 2019-11-03 23:31 | disposition home or self-care (01) ==
LOC: ED 21:50
DX: R10.32 Left lower quadrant pain (principal); I25.10 Atherosclerotic heart disease of native coronary artery without angina pectoris; I10 Essential (primary) hypertension; J44.9 Chronic obstructive pulmonary disease, unspecified; I73.9 Peripheral vascular disease, unspecified; Z79.899 Other long term (current) drug therapy; Z95.1 Presence of aortocoronary bypass graft; Z98.61 Coronary angioplasty status
CPT/HCPCS: 36000; 96374; 96375; 99284; J2270; J2405; A9270-GY

== ENCOUNTER 2020-04-24 11:38 | Observation (INO) | payer OTHER ==
--- NOTE | 2020-04-24 12:00 | ERPHSYRPT ---
- History of Present Illness Time Seen by Provider: 04/24/20 11:50 Source: patient Exam Limitations: no limitations Patient Subjective Stated Complaint: cough, fever Triage Nursing Assessment: pt to ED c/o cough and fever x couple days. states temp was 101 lat night and has had no medication to treat fevers. reports pain in chest after coughing 12/28. states "usually I get pna and it just hits me out of nowhere, I dont normally have symptoms." denies COVID exposure. temp on arrival 98.4 orally. lung sounds clear and eeual bilaterally, heart sounds clear. Physician History: Patient is a 64-year-old male presents to our emergency department for evaluation of cough and fever. Symptoms started 2 days ago. Patient states he had a temperature of 101 at home. However he did not take any antipyretics. Patient states he is experiencing some substernal chest pain. Pain worse with cough. Pain rated 10 out of 10. No associated nausea or vomiting. He is mildly diaphoretic. No diarrhea. No rash. Symptoms are mild to moderate in intensity. No specific worsening improving factors. Patient voices no other co mplaints or concerns at this time. Timing/Duration: yesterday (2 days) Severity: moderate Modifying Factors: Improves With: nothing Associated Symptoms: cough, fever Allergies/Adverse Reactions: No Known Drug Allergies Allergy (Verified 04/24/20 11:53) Home Medications: Metoprolol Tartrate 25 mg [Lopressor 25MG Tab] 25 mg PO DAILY 12/27/13 [History] Albuterol Common Canister [Ventolin Common Canister] 2 puffs IH Q4H PRN PRN 09/07/18 [History] Budesonide/Formoterol Fumarate [Symbicort 160-4.5 Mcg Inhaler] 1 puff IH BID 09/07/18 [History] Albuterol 2.5 mg/3 ml Neb [Proventil 2.5 mg/3 ml Neb] 2.5 mg IH Q4H PRN PRN 12/06/18 [History] Losartan Potassium 50 mg PO DAILY 05/14/19 [History] Nitroglycerin 0.4 mg PO Q5MIN PRN MR X 3 PRN 05/14/19 [History] Ranolazine [Ranolazine ER] 500 mg PO BID 05/14/19 [History] Potassium Chloride 10 meq PO DAILY 11/03/19 [History] Hx Tetanus, Diphtheria Vaccination/Date Given: Yes Hx Influenza Vaccination/Date Given: Yes Hx Pneumococcal Vaccination/Date Given: Yes Immunizations Up to Date: Yes Travel Risk - International Travel Have you traveled outside of the country in past 3 weeks: No - Coronavirus Screening Are you exhibiting any of the following symptoms?: Yes Symptoms: Fever, Cough: New Onset Close contact with a COVID-19 positive Pt in past 14-21 Days: No - Review of Systems Constitutional: No Symptoms, No Fever, No Chills Eyes: No Symptoms Ears, Nose, & Throat: No Symptoms Respiratory: No Symptoms, No Cough, No Dyspnea Cardiac: No Symptoms, No Chest Pain, No Edema, No Syncope Abdominal/Gastrointestinal: No Symptoms, No Abdominal Pain, No Nausea, No Vomiting, No Diarrhea Genitourinary Symptoms: No Symptoms, No Dysuria Musculoskeletal: No Symptoms, No Back Pain, No Neck Pain Skin: No Symptoms, No Rash Neurological: No Symptoms, No Dizziness, No Focal Weakness, No Sensory Changes Psychological: No Symptoms Endocrine: No Symptoms Hematologic/Lymphatic: No Symptoms Immunological/Allergic: No Symptoms All Other Systems: Reviewed and Negative - Past Medical History Pertinent Past Medical History: Yes Neurological History: No Pertinent History ENT History: No Pertinent History Cardiac History: Arrhythmia, Coronary Artery Disease, Hypertension, Myocardial Infarction ([place]) Respiratory History: COPD, Emphysema Endocrine Medical History: No Pertinent History Musculoskeletal History: Degenerative Disk Disease GI Medical History: No Pertinent History History: No Pertinent History Psycho-Social History: No Pertinent History Male Reproductive Disorders: No Pertinent History - Past Surgical History Past Surgical History: Yes Neuro Surgical History: No Pertinent History Cardiac: CABG, Cardiac Catheterization, Vascular Surgery Respiratory: No Pertinent History Gastrointestinal: No Pertinent History Genitourinary: No Pertinent History Musculoskeletal: Orthopedic Surgery Male Surgical History: No Pertinent History Other Surgical History: bilateral ELBOW SURGERY-"nerves and tendons", rt wrist surgery plate and pins after fx., back surgery, josseline in back, triple bipass 2010; angioplasty left leg x3, stents to rt leg. - Social History Smoking Status: Current every day smoker How long have you smoked: 45 yrs Exposure to second hand smoke: Yes Drug Use: none Patient Lives Alone: Yes - Nursing Vital Signs Nursing Vital Signs: Initial Vital Signs Temperature 98.4 F 04/24/20 11:45 Pulse Rate 98 H 04/24/20 11:45 Respiratory Rate 19 04/24/20 11:45 Blood Pressure 205/102 04/24/20 11:45 O2 Sat by Pulse Oximetry 98 04/24/20 11:45 Pain Scale Pain Intensity 8 - Physical Exam General Appearance: no apparent distress, alert, other (Patient mildly diaphoretic.) Eye Exam: PERRL/EOMI, eyes nml inspection Ears, Nose, Throat Exam: normal ENT inspection, TMs normal, pharynx normal, moist mucous membranes Neck Exam: normal inspection, non-tender, supple, full range of motion Respiratory Exam: normal breath sounds, lungs clear, No respiratory distress Cardiovascular Exam: regular rate/rhythm, normal heart sounds, normal peripheral pulses Gastrointestinal/Abdomen Exam: soft, normal bowel sounds, No tenderness, No mass Back Exam: normal inspection, normal range of motion, No CVA tenderness, No wili tebral tenderness Extremity Exam: normal inspection, normal range of motion, pelvis stable Neurologic Exam: alert, oriented x 3, cooperative, normal mood/affect, nml cerebellar function, nml station & gait, sensation nml, No motor deficits Skin Exam: normal color, warm, dry, No rash Lymphatic Exam: No adenopathy SpO2 Interpretation: normal SpO2: 98 O2 Delivery: Room Air - Course Nursing assessment & vital signs reviewed: Yes EKG Interpreted by Me: RATE (100), Sinus Rhythm, NORMAL AXIS, NORMAL INTERVALS - Radiology Exams Chest X-ray Interpretation: Teleradiologist Report (Minimal bilateral fibro sis/scarring. Lungs are otherwise clear. Bony thorax intact.) - CT Exams Chest CT Interpretation: Tele-radiologist Report (Negative pulmonary embolus. Again pulmonary emphysema and CABG surgery changes observed. No new or acute cardiopulmonary abnormalities.) Ordered Tests: Active Orders 24 hr Category Date Time Status Oracle Architect STAT Care 04/24/20 12:01 Active EKG-ER Only STAT Care 04/24/20 12:00 Active IV Insertion STAT Care 04/24/20 12:00 Active Pulse Oximetry (ED) STAT Care 04/24/20 12:00 Active CHEST 1 VIEW (PORTABLE) Stat Exams 04/24/20 12:01 Completed CHEST WITH CONTRAST [CT] Stat Exams 04/24/20 12:47 Completed CBC W DIFF Stat Lab 04/24/20 12:10 Completed CMP Stat Lab 04/24/20 12:10 Completed D-DIMER QUANTITATIVE Stat Lab 04/24/20 12:10 Completed INFLUENZA A+B JUANA Stat Lab 04/24/20 14:15 Received Lactic Acid Stat Lab 04/24/20 12:00 Completed MAGNESIUM Stat Lab 04/24/20 12:10 Completed NT PRO BNP Stat Lab 04/24/20 12:10 Completed TROPONIN Q3H Lab 04/24/20 12:10 Completed TROPONIN Q3H Lab 04/24/20 15:15 Ordered TROPONIN Q3H Lab 04/24/20 18:15 Ordered TROPONIN Q3H Lab 04/24/20 21:15 Ordered TROPONIN Q3H Lab 04/25/20 00:15 Ordered UA W/RFX UR CULTURE Stat Lab 04/24/20 12:01 Completed Transfer Order Routine Transfer 04/24/20 Ordered Medication Summary Discontinued Medications Generic Name Dose Route Start Last Admin Trade Name Freq PRN Reason Stop Dose Admin Aspirin 324 mg 04/24/20 14:25 Baby Aspirin 81 Mg Chew PO 04/24/20 14:26 STAT ONE Morphine Sulfate 2 mg 04/24/20 13:03 04/24/20 13:18 Morphine Sulfate 2 Mg Inj IV 04/24/20 13:04 2 mg STAT ONE Administration Morphine Sulfate Confirm 04/24/20 13:15 Morphine Sulfate 2 Mg Inj Administered 04/24/20 13:16 Dose 2 mg .ROUTE .STK-MED ONE Morphine Sulfate 2 mg 04/24/20 14:25 Morphine Sulfate 2 Mg Inj IV 04/24/20 14:26 STAT ONE Ondansetron HCl 4 mg 04/24/20 13:03 04/24/20 13:17 Zofran 4 Mg/2 Ml Vial IV 04/24/20 13:04 4 mg STAT ONE Administration Ondansetron HCl Confirm 04/24/20 13:15 Zofran 4 Mg/2 Ml Vial Administered 04/24/20 13:16 Dose 4 mg .ROUTE .STK-MED ONE Lab/Rad Data: Laboratory Result Diagrams 04/24/20 12:10 04/24/20 12:10 Laboratory Results 04/24/20 04/24/20 04/24/20 Range/Units 12:37 12:10 12:10 WBC (4.0-10.5) K/mm3 RBC (4.1-5.6) M/mm3 Hgb (12.5-18.0) gm/dl Hct (42-50) % MCV (78-100) fl MCH (26-32) pg MCHC (32-36) g/dl RDW (11.5-14.0) % Plt Count (150-450) K/mm3 MPV (7.5-11.0) fl Gran % (36.0-66.0) % Eos # (Auto) (0-0.5) Absolute Lymphs (auto) (1.0-4.6) Absolute Monos (auto) (0.0-1.3) Lymphocytes % (24.0-44.0) % Monocytes % (0.0-12.0) % Eosinophils % (0.00-5.0) % Basophils % (0.0-0.4) % Absolute Granulocytes (1.4-6.9) Basophils # (0-0.4) D-Dimer 547 H* (215-500) ng/mL Sodium (137-145) mmol/L Potassium (3.5-5.1) mmol/L Chloride (98-107) mmol/L Carbon Dioxide (22-30) mmol/L Anion Gap (5-15) MEQ/L BUN (9-20) mg/dL Creatinine (0.66-1.25) mg/dL Estimated GFR ML/MIN Glucose (74-106) mg/dL Lactic Acid (0.4-2.0) Calcium (8.4-10.2) mg/dL Magnesium (1.6-2.3) mg/dL Total Bilirubin (0.2-1.3) mg/dL AST (17-59) U/L ALT (0-50) U/L Alkaline Phosphatase (38-126) U/L Troponin I < 0.012 (0.000-0.034) ng/mL NT-Pro-B Natriuret Pep (0-900) pg/mL Serum Total Protein (6.3-8.2) g/dL Albumin (3.5-5.0) g/dL Urine Color (YELLOW) Urine Appearance (CLEAR) Urine pH (5-6) Ur Specific [place] (1.005-1.025) Urine Protein (Negative) Urine Ketones (NEGATIVE) Urine Blood (0-5) Cirilo/ul Urine Nitrite (NEGATIVE) Urine Bilirubin (NEGATIVE) Urine Urobilinogen (0-1) mg/dL Ur Leukocyte Esterase (NEGATIVE) Urine WBC (Auto) (0-5) /HPF Urine RBC (Auto) (0-2) /HPF U Epithel Cells (Auto) (FEW) /HPF Urine Bacteria (Auto) (NEGATIVE) /HPF Urine Culture Reflexed (NO) Urine Glucose (NEGATIVE) mg/dL SARS-CoV-2 (PCR) NEGATIVE (NEGATIVE) 04/24/20 04/24/20 04/24/20 Range/Units 12:10 12:10 12:01 WBC 11.4 H (4.0-10.5) K/mm3 RBC 5.29 (4.1-5.6) M/mm3 Hgb 15.8 (12.5-18.0) gm/dl Hct 47.6 (42-50) % MCV 90.0 (78-100) fl MCH 29.9 (26-32) pg MCHC 33.2 (32-36) g/dl RDW 14.2 H (11.5-14.0) % Plt Count 470 H (150-450) K/mm3 MPV 9.0 (7.5-11.0) fl Gran % 65.0 (36.0-66.0) % Eos # (Auto) 1.12 H (0-0.5) Absolute Lymphs (auto) 1.88 (1.0-4.6) Absolute Monos (auto) 0.95 (0.0-1.3) Lymphocytes % 16.5 L (24.0-44.0) % Monocytes % 8.3 (0.0-12.0) % Eosinophils % 9.8 H (0.00-5.0) % Basophils % 0.4 (0.0-0.4) % Absolute Granulocytes 7.42 H (1.4-6.9) Basophils # 0.04 (0-0.4) D-Dimer (215-500) ng/mL Sodium 138 (137-145) mmol/L Potassium 4.4 (3.5-5.1) mmol/L Chloride 103 (98-107) mmol/L Carbon Dioxide 29 (22-30) mmol/L Anion Gap 10.8 (5-15) MEQ/L BUN 14 (9-20) mg/dL Creatinine 1.07 (0.66-1.25) mg/dL Estimated GFR > 60.0 ML/MIN Glucose 115 H (74-106) mg/dL Lactic Acid (0.4-2.0) Calcium 9.8 (8.4-10.2) mg/dL Magnesium 1.9 (1.6-2.3) mg/dL Total Bilirubin 0.60 (0.2-1.3) mg/dL AST 20 (17-59) U/L ALT 14 (0-50) U/L Alkaline Phosphatase 127 H (38-126) U/L Troponin I (0.000-0.034) ng/mL NT-Pro-B Natriuret Pep 137 (0-900) pg/mL Serum Total Protein 8.1 (6.3-8.2) g/dL Albumin 4.4 (3.5-5.0) g/dL Urine Color STRAW (YELLOW) Urine Appearance CLEAR (CLEAR) Urine pH 7.0 (5-6) Ur Specific [place] 1.008 (1.005-1.025) Urine Protein NEGATIVE (Negative) Urine Ketones NEGATIVE (NEGATIVE) Urine Blood NEGATIVE (0-5) Cirilo/ul Urine Nitrite NEGATIVE (NEGATIVE) Urine Bilirubin NEGATIVE (NEGATIVE) Urine Urobilinogen NEGATIVE (0-1) mg/dL Ur Leukocyte Esterase NEGATIVE (NEGATIVE) Urine WBC (Auto) NONE (0-5) /HPF Urine RBC (Auto) NONE (0-2) /HPF U Epithel Cells (Auto) NONE (FEW) /HPF Urine Bacteria (Auto) NONE (NEGATIVE) /HPF Urine Culture Reflexed NO (NO) Urine Glucose NEGATIVE (NEGATIVE) mg/dL SARS-CoV-2 (PCR) (NEGATIVE) 04/24/20 Range/Units 12:00 WBC (4.0-10.5) K/mm3 RBC (4.1-5.6) M/mm3 Hgb (12.5-18.0) gm/dl Hct (42-50) % MCV (78-100) fl MCH (26-32) pg MCHC (32-36) g/dl RDW (11.5-14.0) % Plt Count (150-450) K/mm3 MPV (7.5-11.0) fl Gran % (36.0-66.0) % Eos # (Auto) (0-0.5) Absolute Lymphs (auto) (1.0-4.6) Absolute Monos (auto) (0.0-1.3) Lymphocytes % (24.0-44.0) % Monocytes % (0.0-12.0) % Eosinophils % (0.00-5.0) % Basophils % (0.0-0.4) % Absolute Granulocytes (1.4-6.9) Basophils # (0-0.4) D-Dimer (215-500) ng/mL Sodium (137-145) mmol/L Potassium (3.5-5.1) mmol/L Chloride (98-107) mmol/L Carbon Dioxide (22-30) mmol/L Anion Gap (5-15) MEQ/L BUN (9-20) mg/dL Creatinine (0.66-1.25) mg/dL Estimated GFR ML/MIN Glucose (74-106) mg/dL Lactic Acid 1.4 (0.4-2.0) Calcium (8.4-10.2) mg/dL Magnesium (1.6-2.3) mg/dL Total Bilirubin (0.2-1.3) mg/dL AST (17-59) U/L ALT (0-50) U/L Alkaline Phosphatase (38-126) U/L Troponin I (0.000-0.034) ng/mL NT-Pro-B Natriuret Pep (0-900) pg/mL Serum Total Protein (6.3-8.2) g/dL Albumin (3.5-5.0) g/dL Urine Color (YELLOW) Urine Appearance (CLEAR) Urine pH (5-6) Ur Specific [place] (1.005-1.025) Urine Protein (Negative) Urine Ketones (NEGATIVE) Urine Blood (0-5) Cirilo/ul Urine Nitrite (NEGATIVE) Urine Bilirubin (NEGATIVE) Urine Urobilinogen (0-1) mg/dL Ur Leukocyte Esterase (NEGATIVE) Urine WBC (Auto) (0-5) /HPF Urine RBC (Auto) (0-2) /HPF U Epithel Cells (Auto) (FEW) /HPF Urine Bacteria (Auto) (NEGATIVE) /HPF Urine Culture Reflexed (NO) Urine Glucose (NEGATIVE) mg/dL SARS-CoV-2 (PCR) (NEGATIVE) - Progress Progress: improved Progress Note: 04/24/20 14:29 Patient reassessed. Pain improved. Vitals stable. Initial troponin negative. D-dimer positive. CTA chest negative for PE. Patient states that chest pain worse with exertion. In light of patient's history of CABG we will admit for cardiac rule out. Case discussed with Dr. Biard covering Dr. Mckeon. Dr. Baird accepts admission to observation. Plan of care discussed with patient. He agrees to admission to [facility] for further evaluation and treatment. Patient voices no other complaints concerns at this time. Patient received a dose of aspirin and nitroglycerin paste from our ED. 04/24/20 14:30 Discussed with .: Eboni Will see patient in: hospital (observation) Counseled pt/family regarding: lab results, diagnosis, rad results - Departure Departure Disposition: In-patient Admission Clinical Impression: ACS (acute coronary syndrome), Chest pain, SOB (shortness of breath), Thrombocytosis Condition: Stable Critical Care Time: No Referrals: LIVE HARVEY DO [Primary Care Provider] -
[2020-04-24 12:21] LABS: Absolute Neutrophil Ct (ANC) 7.42 (1.4-6.9); BASOPHIL % 0.4 % (0.0-0.4); Basophil (Absolute #) 0.04 (0-0.4); Eosinophil % 9.8 % (0.00-5.0); Eosinophil (Absolute #) 1.12 (0-0.5); Hematocrit 47.6 % (42-50); Hemoglobin 15.8 gm/dl (12.5-18.0); Lymphocyte (Absolute #) 1.88 (1.0-4.6); Lymphocytes % 16.5 % (24.0-44.0); Mean Corpuscular Hemoglobin 29.9 pg (26-32); Mean Corpuscular Hgb Concent. 33.2 g/dl (32-36); Monocyte (Absolute #) 0.95 (0.0-1.3); Monocytes % 8.3 % (0.0-12.0); Platelet Count 470 K/mm3 (150-450); Red Blood Count 5.29 M/mm3 (4.1-5.6); Red Cell Distribution Width 14.2 % (11.5-14.0); White Blood Count 11.4 K/mm3 (4.0-10.5)
--- NOTE | 2020-04-24 12:27 | XRAY ---
Indication: Chest pain. Short of breath. Comparison: February 13, 2019. Portable chest unchanged again demonstrating minimal scattered bilateral fibrosis/scarring and CABG surgery. Remaining heart and lungs unremarkable. Bony thorax intact. No new/acute findings.
[2020-04-24 12:32] LABS: ALBUMIN 4.4 g/dL (3.5-5.0); ALKALINE PHOSPHATASE 127 U/L (38-126); ANION GAP 10.8 MEQ/L (5-15); BLOOD UREA NITROGEN 14 mg/dL (9-20); CHLORIDE 103 mmol/L (98-107); Calcium 9.8 mg/dL (8.4-10.2); Carbon Dioxide 29 mmol/L (22-30); Creatinine 1 1.07 mg/dL (0.66-1.25); EST GLOMERULAR FILTRATION RATE > 60.0 ML/MIN; Glucose 115 mg/dL (74-106); MAGNESIUM 1.9 mg/dL (1.6-2.3); NT PRO BNP 137 pg/mL (0-900); Potassium 4.4 mmol/L (3.5-5.1); SGOT/AST 20 U/L (17-59); SGPT/ALT 14 U/L (0-50); SODIUM 138 mmol/L (137-145); Total Protein 8.1 g/dL (6.3-8.2)
[2020-04-24 13:00] LABS: Appearance CLEAR (CLEAR); Bilirubin NEGATIVE (NEGATIVE); Blood NEGATIVE Ery/ul (0-5); Glucose NEGATIVE (NEGATIVE); Ketones NEGATIVE (NEGATIVE); Leukocyte Esterase NEGATIVE (NEGATIVE); Nitrite NEGATIVE (NEGATIVE); Protein,Urine Dip NEGATIVE (Negative); Specific Gravity 1.008 (1.005-1.025); Urobilinogen NEGATIVE mg/dL (0-1)
[2020-04-24] MEDS ORDERED: MORPHINE SULFATE 2 MG INJ IV ONE ×2 (13:03→14:25)
[2020-04-24] MEDS ORDERED: Zofran 4 MG/2 ML VIAL IV ONE (13:03)
[2020-04-24] MEDS ORDERED: Zofran 4 MG/2 ML VIAL ONE (13:15)
[2020-04-24] MEDS ORDERED: MORPHINE SULFATE 2 MG INJ ONE ×2 (13:15→14:31)
--- NOTE | 2020-04-24 13:31 | XRAY ---
Indication: Short of breath, chest pain, and elevated d-dimer. Multiple contiguous axial images obtained through the chest using 80 cc Isovue 370 contrast and PE protocol. Comparison: December 27, 2013. There is good opacification of the pulmonary arteries to include the lobar and segmental branches. No pulmonary embolus. Heart is not enlarged again with CABG surgery. Aorta is normal in course and caliber. No pathologic mediastinal/hilar lymphadenopathy. Lungs again demonstrates mild diffuse pulmonary emphysema with minimal scattered bilateral fibrosis/scarring. No suspicious pulmonary mass, infiltrate, or effusion. Bony thorax intact again with mild degenerative changes throughout the spine and sternotomy wires. Limited upper abdomen including adrenal glands are unremarkable. Impression: 1. Negative pulmonary embolus. 2. Again pulmonary emphysema and CABG surgery. 3. No new or acute cardiopulmonary abnormalities.
[2020-04-24] MEDS ORDERED: BABY ASPIRIN 81 MG CHEW PO ONE (14:25)
[2020-04-24] MEDS ORDERED: NITRO-BID 2% UD PACKETS TOP ONE (14:26)
[2020-04-24] MEDS ORDERED: NITRO-BID 2% UD PACKETS ONE (14:30)
[2020-04-24] MEDS ORDERED: BABY ASPIRIN 81 MG CHEW ONE (14:30)
[2020-04-24 14:49] LABS: INFLUENZA A NEGATIVE (NEGATIVE); INFLUENZA B NEGATIVE (NEGATIVE)
[2020-04-24] MEDS ORDERED: TYLENOL 325 MG PO PRN (15:19)
[2020-04-24] MEDS ORDERED: Zofran 4 MG/2 ML VIAL IV PRN (15:19)
[2020-04-24] MEDS ORDERED: MILK OF MAGNESIA 30 ML PO PRN (15:19)
[2020-04-24] MEDS ORDERED: MAALOX ES 30 ML UNIT DOSE PO PRN (15:19)
[2020-04-24] MEDS ORDERED: Senokot-S Tablet PO PRN (15:19)
[2020-04-24] MEDS ORDERED: Nitrostat 0.4 MG Tablet SL PRN (16:40)
[2020-04-24] MEDS ORDERED: NON-FORMULARY ITEM (Gabapentin [Gabapentin] 600 MG) PO SCH (17:00)
[2020-04-24] MEDS: MORPHINE SULFATE 4 MG INJ IV PRN ×2 (17:08→21:01)
[2020-04-24] MEDS: NEURONTIN 300 MG PO SCH ×2 (17:12→21:01)
[2020-04-24] MEDS: Nicoderm CQ 21 MG TOP SCH (17:14)
[2020-04-24] MEDS: Advair Hfa 115/21 Common canister IH SCH (19:59)
[2020-04-24] MEDS: PROVENTIL 2.5 MG/3 ML NEB IH SCH (19:59)
[2020-04-24] MEDS: Ranexa 500 MG PO SCH (21:01)
[2020-04-25 00:59] LABS: Risk Ratio 4.7
[2020-04-25] MEDS: MORPHINE SULFATE 4 MG INJ IV PRN ×3 (05:09→13:40)
[2020-04-25] MEDS: Sodium Chloride 0.9% 10 ML FLUSH Syringe IV SCH ×3 (05:10→22:11)
[2020-04-25] MEDS: PROVENTIL 2.5 MG/3 ML NEB IH SCH ×4 (05:44→18:37)
[2020-04-25] MEDS: Advair Hfa 115/21 Common canister IH SCH ×2 (06:16→18:37)
[2020-04-25] MEDS: Spiriva 18 Mcg/Cap Inhaler IH SCH (06:21)
[2020-04-25] MEDS: Ranexa 500 MG PO SCH ×2 (09:20→22:05)
[2020-04-25] MEDS: NEURONTIN 300 MG PO SCH ×4 (09:21→22:05)
[2020-04-25] MEDS ORDERED: ECOTRIN 81 MG PO SCH (10:00)
[2020-04-25] MEDS ORDERED: PLAVIX 75 MG Tablet PO SCH (10:00)
[2020-04-25] MEDS ORDERED: NON-FORMULARY ITEM (Aspirin [Aspirin] 81 MG) PO SCH (10:00)
[2020-04-25] MEDS ORDERED: NON-FORMULARY ITEM (Potassium Chloride [Potassium Chloride] 10 MEQ) PO SCH (10:00)
[2020-04-25] MEDS ORDERED: Cozaar 50 MG PO SCH (10:00)
[2020-04-25] MEDS ORDERED: Klor Con 10 MEQ PO SCH (10:00)
[2020-04-25] MEDS ORDERED: Wellbutrin SR 150 MG PO SCH (10:00)
[2020-04-25] MEDS ORDERED: Lopressor 25MG Tab PO SCH (10:00)
--- NOTE | 2020-04-25 14:11 | PCM.HP ---
History of Present Illness - Chief Complaint Chief Complaint: ACS History of Present Illness: is a 64 year old male. Patient presented to ER with chest pain 12/28 and has had fever and cough productive of cream colored mucus. Medications & Allergies Home Medications: Home Medication List Metoprolol Tartrate 25 mg [Lopressor 25MG Tab] 25 mg PO DAILY 12/27/13 [History Confirmed 04/24/20] Albuterol Common Canister [Ventolin Common Canister] 2 puffs IH Q4H PRN PRN 09/07/18 [History Confirmed 04/24/20] Budesonide/Formoterol Fumarate [Symbicort 160-4.5 Mcg Inhaler] 1 puff IH BID 09/07/18 [History Confirmed 04/24/20] Albuterol 2.5 mg/3 ml Neb [Proventil 2.5 mg/3 ml Neb] 2.5 mg IH UD 12/06/18 [History Confirmed 04/24/20] Aspirin 81 mg PO QAM #0 01/08/19 [Rx Confirmed 04/24/20] Clopidogrel Bisulfate [Plavix] 75 mg PO DAILY #0 01/08/19 [Rx Confirmed 04/24/20] Losartan Potassium 50 mg PO DAILY 05/14/19 [History Confirmed 04/24/20] Nitroglycerin 0.4 mg PO Q5MIN PRN MR X 3 PRN 05/14/19 [History Confirmed 04/24/20] Ranolazine [Ranolazine ER] 500 mg PO BID 05/14/19 [History Confirmed 04/24/20] Nicotine 21 mg [Nicoderm CQ 21 MG] 21 mg TOP Q24H #7 patch 05/17/19 [Rx Confirmed 04/24/20] Potassium Chloride 10 meq PO DAILY 11/03/19 [History Confirmed 04/24/20] Albuterol/Ipratropium 3ml Neb* [DUONEB 0.5-3 MG/3 ml Neb] 3 ml IH QID 04/24/20 [History Confirmed 04/24/20] Bupropion HCl 150 mg Sr [Wellbutrin SR 150 MG] 150 mg PO DAILY 04/24/20 [History Confirmed 04/24/20] Fluticasone/Vilanterol [Breo Ellipta 100-25 Mcg INH] 2 puff IH QAM 04/24/20 [History Confirmed 04/24/20] Gabapentin 600 mg PO QID 04/24/20 [History Confirmed 04/24/20] Allergies/Adverse Reactions: Allergies Allergy/AdvReac Type Severity Reaction Status Date / Time No Known Drug Allergies Allergy Verified 04/24/20 11:53 - Past Medical History Past Medical History: Yes Neurological History: No Pertinent History ENT History: No Pertinent History Cardiac History: Arrhythmia, Coronary Artery Disease, Hypertension, Myocardial Infarction ([place]) Respiratory History: COPD, Emphysema, Pneumonia Endocrine Medical History: No Pertinent History Musculoskelatal History: Degenerative Disk Disease GI Medical History: No Pertinent History History: No Pertinent History Pyscho-Social History: No Pertinent History Male Reproductive Disorders: No Pertinent History - Past Surgical History Past Surgical History: Yes Neuro Surgical History: No Pertinent History Cardiac History: CABG, Cardiac Catheterization, Vascular Surgery Respiratory Surgery: No Pertinent History GI Surgical History: No Pertinent History Genitourinary Surgical Hx: No Pertinent History Musculskeletal Surgical Hx: Orthopedic Surgery Male Surgical History: No Pertinent History Other Surgical History: bilateral ELBOW SURGERY-"nerves and tendons", rt wrist surgery plate and pins after fx., back surgery, josseline in back, triple bipass 2010; angioplasty left leg x3, stents to rt leg. - Social History Smoking Status: Current every day smoker How long have you smoked: "About 45" Exposure to second hand smoke: Yes Alcohol: Daily Drug Use: none - Physical Exam Vital Signs: Vital Signs - 24 hr Temp Pulse Resp BP Pulse Ox 04/25/20 13:26 84 18 94 L 04/25/20 12:00 98.4 F 82 14 156/88 95 04/25/20 09:30 93 L 04/25/20 07:54 97.9 F 89 18 142/93 94 L 04/25/20 06:45 89 18 96 04/25/20 04:00 97.7 F 89 18 132/84 91 L 04/24/20 23:50 98.4 F 90 18 138/89 94 L 04/24/20 20:00 78 18 92 L 04/24/20 18:48 98.3 F 79 18 147/79 95 04/24/20 16:23 98.7 F 70 15 162/96 96 04/24/20 16:20 68 18 93 L 04/24/20 14:31 98 Oxygen-Last 24 hours Oxygen Flowrate (L/min)-RT 3 Results - Labs Lab/Micro Results: Lab Results-Last 24 Hours 04/24/20 04/24/20 04/24/20 Range/Units 14:15 15:22 18:10 Troponin I < 0.012 < 0.012 (0.000-0.034) ng/mL Triglycerides (30-150) mg/dL Cholesterol (50-200) mg/dL LDL Cholesterol (30-100) mg/dL HDL Cholesterol (40-60) mg/dL Heart Disease Risk Ratio Influenza Type A Ag NEGATIVE (NEGATIVE) Influenza Type B Ag NEGATIVE (NEGATIVE) 04/24/20 04/25/20 04/25/20 Range/Units 21:20 00:30 00:30 Troponin I < 0.012 < 0.012 (0.000-0.034) ng/mL Triglycerides 191 H (30-150) mg/dL Cholesterol 197 (50-200) mg/dL LDL Cholesterol 111 H (30-100) mg/dL HDL Cholesterol 42 (40-60) mg/dL Heart Disease Risk Ratio 4.7 Influenza Type A Ag (NEGATIVE) Influenza Type B Ag (NEGATIVE) - Radiology Impressions Radiology Exams & Impressions: Radiology Procedures Category Date Time Status CHEST 1 VIEW (PORTABLE) Stat Exams 04/24/20 12:01 Completed CHEST WITH CONTRAST [CT] Stat Exams 04/24/20 12:47 Completed - Other Procedures and Tests Respiratory Therapy 04/24/20 16:19 Respiratory Therapy Assessment DAILY 04/24/20 16:20 Oxygen NASAL CANNULA 3 lpm 04/26/20 05:00 EKG ONCE 04/27/20 05:00 EKG ONCE
[2020-04-25] MEDS ORDERED: Zithromax 500 MG/ 250 ML NaCl Premix 500 MG/250 ML IVPB IV SCH (17:00)
[2020-04-25] MEDS: solu-MEDROL 125 MG IV SCH ×2 (17:28→22:05)
[2020-04-25] MEDS: Nicoderm CQ 21 MG TOP SCH (17:29)
[2020-04-25] MEDS: Norco 10/325 MG Tablet PO PRN ×2 (17:34→22:05)
[2020-04-26] MEDS: PROVENTIL 2.5 MG/3 ML NEB IH SCH ×2 (00:32→06:27)
[2020-04-26] MEDS ORDERED: PROVENTIL 2.5 MG/3 ML NEB IH PRN (00:38)
[2020-04-26] MEDS: Norco 10/325 MG Tablet PO PRN ×2 (02:06→06:10)
[2020-04-26] MEDS: solu-MEDROL 125 MG IV SCH (05:15)
[2020-04-26] MEDS: Sodium Chloride 0.9% 10 ML FLUSH Syringe IV SCH (05:16)
[2020-04-26 06:16] LABS: ALBUMIN 4.5 g/dL (3.5-5.0); ALKALINE PHOSPHATASE 122 U/L (38-126); ANION GAP 14.1 MEQ/L (5-15); BLOOD UREA NITROGEN 23 mg/dL (9-20); CHLORIDE 100 mmol/L (98-107); Carbon Dioxide 25 mmol/L (22-30); Creatinine 1 1.16 mg/dL (0.66-1.25); EST GLOMERULAR FILTRATION RATE > 60.0 ML/MIN; Glucose 195 mg/dL (74-106); Potassium 4.9 mmol/L (3.5-5.1); SGOT/AST 24 U/L (17-59); SGPT/ALT 16 U/L (0-50); SODIUM 134 mmol/L (137-145); Total Protein 8.2 g/dL (6.3-8.2)
[2020-04-26] MEDS: Advair Hfa 115/21 Common canister IH SCH (06:29)
[2020-04-26] MEDS: Spiriva 18 Mcg/Cap Inhaler IH SCH (06:30)
[2020-04-26 06:40] VITALS: O2SAT 89
[2020-04-26 07:32] VITALS: BP 123/82; PULSE 94
--- NOTE | 2020-04-26 08:30 | PCM.DS ---
Discharge Summary Date of Admission: 04/24/20 15:15 Admitting Physician: FRANCOISE DE LA ROSA MD Primary Care Provider: LIVE HARVEY DO Allergies Allergies No Known Drug Allergies Allergy (Verified 04/24/20 11:53) Hospital Summary - Hospital Course Hospital Course: Pt is 64 yo male pt admitted through ER for SOB, COPD exacerbation. Has been on IV zithromax and steroids (80mg q8h). Is feeling much better today. Has been up walking. Has been on 3L NC most of the day; at home he's on oxygen mainly at night. Will discharge to home to finish 2 more days of zithromax and also po steroid. F/u wtih pcp in 1 wk. - Vitals & Intake/Output Vital Signs: Vital Signs Temperature 97.7 F 04/26/20 07:32 Pulse Rate 94 H 04/26/20 07:32 Respiratory Rate 26 H 04/26/20 07:32 Blood Pressure 123/82 04/26/20 07:32 O2 Sat by Pulse Oximetry 89 L 04/26/20 07:32 Intake & Output: Intake & Output 04/23/20 04/24/20 04/25/20 04/26/20 11:59 11:59 11:59 11:59 Intake Total 0 733 Balance 0 733 Weight 70.08 kg 69.5 kg 71 kg - Lab Result Diagrams: 04/24/20 12:10 04/26/20 05:30 Lab Results-Last 24 Hrs: Lab Results-Last 24 Hours 04/26/20 Range/Units 05:30 Sodium 134 L (137-145) mmol/L Potassium 4.9 (3.5-5.1) mmol/L Chloride 100 (98-107) mmol/L Carbon Dioxide 25 (22-30) mmol/L Anion Gap 14.1 (5-15) MEQ/L BUN 23 H (9-20) mg/dL Creatinine 1.16 (0.66-1.25) mg/dL Estimated GFR > 60.0 ML/MIN Glucose 195 H (74-106) mg/dL Calcium 10.0 (8.4-10.2) mg/dL Total Bilirubin 0.30 (0.2-1.3) mg/dL AST 24 (17-59) U/L ALT 16 (0-50) U/L Alkaline Phosphatase 122 (38-126) U/L Serum Total Protein 8.2 (6.3-8.2) g/dL Albumin 4.5 (3.5-5.0) g/dL - Radiology Exams Ordered Rad Exams-Entire Visit: Radiology Procedures Category Date Time Status CHEST 1 VIEW (PORTABLE) Stat Exams 04/24/20 12:01 Completed CHEST WITH CONTRAST [CT] Stat Exams 04/24/20 12:47 Completed - Procedures and Test Procedures and Tests throughout Hospitalization: Therapy Orders & Screens 04/24/20 15:19 EKG Q8HX2,QAMX3,PRN Comment: 04/24/20 16:19 Respiratory Therapy Assessment DAILY Comment: Diagnosis: ACS 04/24/20 16:20 Oxygen NASAL CANNULA 3 lpm Comment: Diagnosis: ACS 04/24/20 16:38 RT Screen per Nursing Assess ONCE Comment: Protocol Order Physician Instructions: Greater than 3 points order RT Admission Screen Reason For Exam: Triggered on Admission Diagnosis: ACS Diagnosis: ACS Home O2: Yes Asthma: No CHF: No Home CPAP/BIPAP: No Home Nebs/MDI: Yes Total Points: 10 Smoking Cessation Education ONCE Comment: Diagnosis: ACS Smoking Status: Current every day smoker How long have you smoked: "About 45" Have you smoked in the past 12 months: Yes Approximately how many cigarettes per day: 3 Do you dip or chew tobacco: No If,Former Smoker,when did you quit: one week ago 04/24/20 20:51 EKG ONCE Comment: Diagnosis: ACS 04/25/20 05:00 EKG ONCE Comment: Diagnosis: ACS 04/26/20 05:00 EKG ONCE Comment: Diagnosis: ACS 04/27/20 05:00 EKG ONCE Comment: Diagnosis: ACS Discharge Exam General Appearance: no apparent distress, alert (eating breakfast) Neurologic Exam: oriented x 3, cooperative, normal mood/affect Eye Exam: eyes nml inspection Neck Exam: normal inspection, non-tender, No lymphadenopathy Respiratory Exam: lungs clear, diminished breath sounds (good air exchange), No crackles/rales, No rhonchi, No wheezing Cardiovascular Exam: regular rate/rhythm, normal heart sounds, No murmur Gastrointestinal/Abdomen Exam: soft, normal bowel sounds, No tenderness, No distention, No mass, No guarding, No rebound Extremity Exam: normal inspection, No pedal edema, No swelling Skin Exam: normal color, warm, dry, No rash Final Diagnosis/Problem List - Final Discharge Diagnosis/Problem (1) COPD exacerbation Current Visit: No Status: Acute Assessment & Plan: Doing much better. Home on po zithromax and steroid. f/u with PCP in 1 wk. Code(s): J44.1 - CHRONIC OBSTRUCTIVE PULMONARY DISEASE W (ACUTE) EXACERBATION (2) Chronic hypoxemic respiratory failure Current Visit: No Status: Chronic - Discharge Disposition: Home, Self-Care Condition: Good Prescriptions: New Prednisone 20 mg [Deltasone 20 mg] 20 mg PO DAILY 7 Days #17 tablet Azithromycin 250 mg [Zithromax 250 MG TABLET] 250 mg PO DAILY #3 tablet Continue Metoprolol Tartrate 25 mg [Lopressor 25MG Tab] 25 mg PO DAILY Budesonide/Formoterol Fumarate [Symbicort 160-4.5 Mcg Inhaler] 1 puff IH BID Albuterol Common Canister [Ventolin Common Canister] 2 puffs IH Q4H PRN PRN PRN Reason: Shortness Of Breath/Wheezing Albuterol 2.5 mg/3 ml Neb [Proventil 2.5 mg/3 ml Neb] 2.5 mg IH UD Aspirin 81 mg PO QAM #0 Clopidogrel Bisulfate [Plavix] 75 mg PO DAILY #0 Nitroglycerin 0.4 mg PO Q5MIN PRN MR X 3 PRN PRN Reason: angina Ranolazine [Ranolazine ER] 500 mg PO BID Losartan Potassium 50 mg PO DAILY Nicotine 21 mg [Nicoderm CQ 21 MG] 21 mg TOP Q24H #7 patch Potassium Chloride 10 meq PO DAILY Fluticasone/Vilanterol [Breo Ellipta 100-25 Mcg INH] 2 puff IH QAM Albuterol/Ipratropium 3ml Neb* [DUONEB 0.5-3 MG/3 ml Neb] 3 ml IH QID Bupropion HCl 150 mg Sr [Wellbutrin SR 150 MG] 150 mg PO DAILY Gabapentin 600 mg PO QID Instructions: Chest Pain That Is Not Caused by the Heart (DC) Follow up with: LIVE HARVEY DO [Primary Care Provider] -
[2020-04-26] MEDS ORDERED: Zithromax 500 MG/ 250 ML NaCl Premix 500 MG/250 ML IVPB IV SCH (10:00)
== END 2020-04-26 08:46 | disposition home or self-care (01) ==
LOC: ED 11:38 → MED SURG 15:15
PROVIDERS: ADMIT Family Medicine; ATTEND Family Medicine
DX: J44.1 Chronic obstructive pulmonary disease with (acute) exacerbation (principal); J96.11 Chronic respiratory failure with hypoxia; R50.9 Fever, unspecified; R07.9 Chest pain, unspecified; Z79.899 Other long term (current) drug therapy; I10 Essential (primary) hypertension; Z95.1 Presence of aortocoronary bypass graft; Z79.01 Long term (current) use of anticoagulants; Z86.79 Personal history of other diseases of the circulatory system
CPT/HCPCS: 36000; 36415; 71045; 71260; 80053; 80061; 81001; 83605; 83721; 83735; 83880; 84484; 85025; 85379; 87400; 93005; 93041; 93268; 94640; 94760; 96374; 96375; 96376; 99285; G0378; U0003; J0456; J2270; J2405; J2930; J7609; A9270-GY

== ENCOUNTER 2020-05-21 10:42 | Day surgery (SDC) | payer OTHER ==
[2020-05-21] MEDS ORDERED: Depo-Medrol 40 MG/ML IM ONE (10:43)
[2020-05-21] MEDS ORDERED: LIDOCAINE HCL 2% 100 MG/5 ML IJ ONE (10:43)
[2020-05-21] MEDS ORDERED: Ketamine HCl 50 MG/ML ONE (13:09)
[2020-05-21] MEDS ORDERED: DIPRIVAN 200 MG/20 ML IV ONE (13:09)
[2020-05-21] MEDS ORDERED: Lactated Ringers 1,000 ML IV ONE (15:05)
--- NOTE | 2020-05-21 15:12 | XRAY ---
Indication: Bilateral L4-S1 MBB. Intraoperative fluoroscopy provided for 27 seconds. 3 digital spot images submitted for interpretation demonstrates posterior needle tips projecting over the expected left and right L4-S1 nerve roots. Correlate with intraoperative findings/report. Incidental bilateral L4-S1 posterior spinal fusion hardware.
--- NOTE | 2020-05-21 15:27 | XRAY ---
27 seconds fluoroscopy time in surgery for bilateral L4-S1 MBB.
== END 2020-05-21 13:37 | disposition home or self-care (01) ==
LOC: SDC-PAIN 10:42
PROVIDERS: ATTEND Psychiatry & Neurology Pain Medicine
DX: M47.816 Spondylosis without myelopathy or radiculopathy, lumbar region (principal); I10 Essential (primary) hypertension; I25.10 Atherosclerotic heart disease of native coronary artery without angina pectoris; J44.9 Chronic obstructive pulmonary disease, unspecified; M19.90 Unspecified osteoarthritis, unspecified site; G47.30 Sleep apnea, unspecified; M41.9 Scoliosis, unspecified; Z79.899 Other long term (current) drug therapy
CPT/HCPCS: 64493; 64494; 72020; 77002; J1030; J2704

== ENCOUNTER 2020-07-02 10:30 | Day surgery (SDC) | payer OTHER ==
[2020-07-02] MEDS ORDERED: BUPIVACAINE 0.5% VIAL IJ ONE (10:31)
[2020-07-02] MEDS ORDERED: DIPRIVAN 200 MG/20 ML IV ONE (13:00)
--- NOTE | 2020-07-02 13:39 | XRAY ---
Indication: Bilateral L4-S1 MBB. Intraoperative fluoroscopy provided for 14 seconds. Single digital spot image submitted for interpretation demonstrates posterior needle tips projecting over the expected left and right L4-S1 nerve roots. Correlate with intraoperative findings/report. Incidental bilateral posterior L4-S1 fusion hardware.
--- NOTE | 2020-07-02 13:52 | XRAY ---
14 seconds fluoroscopy time in surgery for bilateral L4-S1 MBB.
[2020-07-02] MEDS ORDERED: Lactated Ringers 1,000 ML IV ONE (16:11)
== END 2020-07-02 13:25 | disposition home or self-care (01) ==
LOC: SDC-PAIN 10:30
PROVIDERS: ATTEND Psychiatry & Neurology Pain Medicine
DX: M47.816 Spondylosis without myelopathy or radiculopathy, lumbar region (principal); I10 Essential (primary) hypertension; J44.9 Chronic obstructive pulmonary disease, unspecified; G47.30 Sleep apnea, unspecified; Z79.899 Other long term (current) drug therapy
CPT/HCPCS: 64493; 64494; 72100; 77002; J2704

== ENCOUNTER 2020-12-31 12:58 | Day surgery (SDC) | payer OTHER ==
[2020-12-31] MEDS ORDERED: Depo-Medrol 40 MG/ML IM ONE (12:59)
[2020-12-31] MEDS ORDERED: BUPIVACAINE 0.5% VIAL IJ ONE (12:59)
[2020-12-31] MEDS ORDERED: DIPRIVAN 200 MG/20 ML IV ONE (14:49)
--- NOTE | 2020-12-31 15:15 | XRAY ---
Indication: Left SI joint injection. Intraoperative fluoroscopy provided for 13 seconds. 2 digital spot images submitted for interpretation demonstrates posterior needle tip projecting over the inferior left SI joint. Correlate with intraoperative findings/report. Incidental partially visualized posterior lumbosacral junction spinal fusion hardware.
[2020-12-31] MEDS ORDERED: Lactated Ringers 1,000 ML IV ONE (15:29)
--- NOTE | 2020-12-31 17:02 | XRAY ---
13 seconds fluoroscopy time in surgery for injection of the left SI joint.
== END 2020-12-31 15:20 | disposition home or self-care (01) ==
LOC: SDC-PAIN 12:58
PROVIDERS: ATTEND Psychiatry & Neurology Pain Medicine
DX: M46.1 Sacroiliitis, not elsewhere classified (principal); Z79.899 Other long term (current) drug therapy
CPT/HCPCS: 27096; 72020; 77002; J1030; J2704; G0260

== ENCOUNTER 2021-02-11 09:31 | Observation (INO) | payer OTHER ==
[2021-02-11] MEDS ORDERED: DUONEB 0.5-3 MG/3 ml Neb IH ONE ×2 (09:50→10:01)
[2021-02-11] MEDS ORDERED: solu-MEDROL 125 MG, Sterile H2O 10 ml 2 ML IV ONE ×2 (09:50)
[2021-02-11] MEDS ORDERED: Zofran 4 MG/2 ML VIAL IV ONE (09:51)
[2021-02-11] MEDS ORDERED: MORPHINE SULFATE 4 MG INJ IV ONE ×2 (09:51→13:19)
[2021-02-11] MEDS ORDERED: BABY ASPIRIN 81 MG CHEW PO ONE (09:51)
[2021-02-11] MEDS ORDERED: Zofran 4 MG/2 ML VIAL ONE (09:54)
[2021-02-11] MEDS ORDERED: MORPHINE SULFATE 4 MG INJ ONE ×2 (09:54→12:10)
[2021-02-11] MEDS ORDERED: BABY ASPIRIN 81 MG CHEW ONE (09:54)
[2021-02-11] MEDS ORDERED: solu-MEDROL ONE (09:54)
[2021-02-11 10:12] LABS: Absolute Neutrophil Ct (ANC) 5.04 (1.4-6.9); BASOPHIL % 0.3 % (0.0-0.4); Basophil (Absolute #) 0.03 (0-0.4); Eosinophil (Absolute #) 0.83 (0-0.5); Hematocrit 46.8 % (42-50); Hemoglobin 15.4 gm/dl (12.5-18.0); Lymphocyte (Absolute #) 2.29 (1.0-4.6); Lymphocytes % 24.9 % (24.0-44.0); Mean Cell Volume 91.4 fl (78-100); Mean Corpuscular Hemoglobin 30.1 pg (26-32); Mean Corpuscular Hgb Concent. 32.9 g/dl (32-36); Mean Platelet Volume 8.8 fl (7.5-11.0); Monocytes % 10.9 % (0.0-12.0); Neutrophil % 54.9 % (36.0-66.0); Platelet Count 471 K/mm3 (150-450); Red Blood Count 5.12 M/mm3 (4.1-5.6); Red Cell Distribution Width 14.6 % (11.5-14.0); White Blood Count 9.2 K/mm3 (4.0-10.5)
[2021-02-11 10:29] LABS: ALBUMIN 4.5 g/dL (3.5-5.0); ALKALINE PHOSPHATASE 103 U/L (38-126); ANION GAP 16.2 MEQ/L (5-15); BLOOD UREA NITROGEN 15 mg/dL (9-20); CHLORIDE 103 mmol/L (98-107); Calcium 10.3 mg/dL (8.4-10.2); Carbon Dioxide 26 mmol/L (22-30); Creatinine 1 1.05 mg/dL (0.66-1.25); EST GLOMERULAR FILTRATION RATE > 60.0 ML/MIN; Glucose 97 mg/dL (74-106); MAGNESIUM 1.8 mg/dL (1.6-2.3); NT PRO BNP 133 pg/mL (0-900); Potassium 5.1 mmol/L (3.5-5.1); SGOT/AST 23 U/L (17-59); SGPT/ALT 13 U/L (0-50); SODIUM 141 mmol/L (137-145); Total Protein 7.6 g/dL (6.3-8.2)
--- NOTE | 2021-02-11 10:38 | XRAY ---
Indication: Short of breath. Comparison: April 24, 2020. Portable chest again demonstrates pulmonary emphysema without focal infiltrate, consolidation, or large effusion. Heart not enlarged again with CABG. Bony thorax intact again with mild osteopenia and degenerative changes. Impression: Continued nonacute chest with chronic features.
--- NOTE | 2021-02-11 10:43 | ERPHSYRPT ---
- History of Present Illness Time Seen by Provider: 02/11/21 09:50 Source: patient Exam Limitations: no limitations Patient Subjective Stated Complaint: pt here for increase sob with cough, productive yellow sputum, no fever, staes "MY left lung hurts" no fever Triage Nursing Assessment: pt alert, resp labored with excertion, has forceful cough, face mask in place, no edema noted. Physician History: 65 years old male with history of coronary artery disease status post CABG, chronic respiratory failure from COPD on 1 L at nighttime, tobacco abuse, hypertension, hyperlipidemia presented in the ER with chief complaint of worsening shortness of breath and cough productive of clear to yellow sputum moderate in amount for the last 4 days. Patient reports since last night he is having some pain in the left chest and it hurts to take a deep breath. Has been using oxygen and neb treatments at home with no significant relief. Patient has in mild to moderate distress on presentation with oxygen saturation in low 90s, placed on 5 L, feeling better and saturation is around 96%. Patient has taken 2 nitros this morning for left-sided chest pain but still having some discomfort. Timing/Duration: day(s) (4), gradual onset, worse Activities at Onset: activity, rest Severity of Dyspnea-Max: moderate Severity of Dyspnea-Current: moderate Possible Cause: unknown cause Modifying Factors: Improves With: oxygen. Worsens With: coughing, deep breath, exertion Associated Symptoms: cough, chest pain/discomfort, wheezing, painful breathing, productive cough, tightness, No edema, No fever Allergies/Adverse Reactions: No Known Drug Allergies Allergy (Verified 02/11/21 09:49) Home Medications: Metoprolol Tartrate 25 mg [Lopressor 25MG Tab] 25 mg PO DAILY 12/27/13 [History] Albuterol Common Canister [Ventolin Common Canister] 2 puffs IH Q4H PRN PRN 09/07/18 [History] Budesonide/Formoterol Fumarate [Symbicort 160-4.5 Mcg Inhaler] 1 puff IH BID 09/07/18 [History] Albuterol 2.5 mg/3 ml Neb [Proventil 2.5 mg/3 ml Neb] 2.5 mg IH UD 12/06/18 [History] Losartan Potassium 50 mg PO DAILY 05/14/19 [History] Nitroglycerin 0.4 mg PO Q5MIN PRN MR X 3 PRN 05/14/19 [History] Ranolazine [Ranolazine ER] 500 mg PO BID 05/14/19 [History] Potassium Chloride 10 meq PO DAILY 11/03/19 [History] Albuterol/Ipratropium 3ml Neb* [DUONEB 0.5-3 MG/3 ml Neb] 3 ml IH QID 04/24/20 [History] Bupropion HCl 150 mg Sr [Wellbutrin SR 150 MG] 150 mg PO DAILY 04/24/20 [History] Fluticasone/Vilanterol [Breo Ellipta 100-25 Mcg INH] 2 puff IH QAM 04/24/20 [History] Gabapentin 600 mg PO QID 04/24/20 [History] Hx Tetanus, Diphtheria Vaccination/Date Given: Yes Hx Influenza Vaccination/Date Given: Yes Hx Pneumococcal Vaccination/Date Given: Yes Immunizations Up to Date: Yes Travel Risk - International Travel Have you traveled outside of the country in past 3 weeks: No - Coronavirus Screening Are you exhibiting any of the following symptoms?: Yes Symptoms: Shortness of Breath Close contact with a COVID-19 positive Pt in past 14-21 Days: No - Vaccine Status Have you recieved a Covid-19 vaccination: Yes Mobile Designer: Moderna - Vaccination Dates Date of 2cond Vaccination (if applicable): ? Dates if Unknown: ? - Review of Systems Constitutional: No Symptoms Eyes: No Symptoms Ears, Nose, & Throat: No Symptoms Respiratory: Cough, Dyspnea, Dyspnea on Exertion (ANDRADE), Wheezing Cardiac: Chest Pain Abdominal/Gastrointestinal: No Symptoms Genitourinary Symptoms: No Symptoms Musculoskeletal: No Symptoms Neurological: No Symptoms Psychological: No Symptoms Endocrine: No Symptoms Hematologic/Lymphatic: No Symptoms Immunological/Allergic: No Symptoms - Past Medical History Pertinent Past Medical History: Yes Neurological History: No Pertinent History ENT History: No Pertinent History Cardiac History: Arrhythmia, Coronary Artery Disease, Hypertension, Myocardial Infarction ([place]) Respiratory History: COPD, Emphysema, Pneumonia Endocrine Medical History: No Pertinent History Musculoskeletal History: Degenerative Disk Disease GI Medical History: No Pertinent History History: No Pertinent History Psycho-Social History: No Pertinent History Male Reproductive Disorders: No Pertinent History - Past Surgical History Past Surgical History: Yes Neuro Surgical History: No Pertinent History Cardiac: CABG, Cardiac Catheterization, Vascular Surgery Respiratory: No Pertinent History Gastrointestinal: No Pertinent History Genitourinary: No Pertinent History Musculoskeletal: Orthopedic Surgery Male Surgical History: No Pertinent History Other Surgical History: bilateral ELBOW SURGERY-"nerves and tendons", rt wrist surgery plate and pins after fx., back surgery, josseline in back, triple bipass 2010; angioplasty left leg x3, stents to rt leg. - Social History Smoking Status: Current every day smoker How long have you smoked: "About 45" Exposure to second hand smoke: Yes Drug Use: none Patient Lives Alone: No - Nursing Vital Signs Nursing Vital Signs: Initial Vital Signs Temperature 98.2 F 02/11/21 09:31 Pulse Rate 109 H 02/11/21 09:31 Respiratory Rate 24 02/11/21 09:31 Blood Pressure 150/96 02/11/21 09:31 O2 Sat by Pulse Oximetry 97 02/11/21 09:31 Pain Scale Pain Intensity 8 - Physical Exam General Appearance: mild distress, alert, anxiety Eye Exam: PERRL/EOMI, eyes nml inspection Ears, Nose, Throat Exam: hearing grossly normal, pharyngeal erythema Neck Exam: normal inspection, supple, full range of motion Respiratory Exam: diminished breath sounds, accessory muscle use, rhonchi, wheezing Cardiovascular/Chest Exam: normal heart sounds, tachycardia Abdominal/Gastrointestinal Exam: soft, normal bowel sounds, No tenderness Extremity Exam: non-tender, normal range of motion, normal inspection Neurologic Exam: alert, oriented x 3, cooperative Skin Exam: normal color SpO2 Interpretation: O2 applied SpO2: 97 O2 Delivery: Nasal Cannula (5L) - Course EKG Interpreted by Me: RATE (100), Sinus Rhythm, NORMAL AXIS, NORMAL INTERVALS, Non-specific ST Changes, Other (Second EKG time 12:37 PM. Rate 95, sinus rhythm, nonspecific ST and T wave changes. Normal intervals. Normal axis.) Ordered Tests: Active Orders 24 hr Category Date Time Status CBC W DIFF AM.LAB Lab 02/12/21 05:50 Completed CMP AM.LAB Lab 02/12/21 05:50 Completed TROPONIN Q3H Lab 02/11/21 19:20 Completed TROPONIN Q3H Lab 02/11/21 22:52 Completed Medication Summary Discontinued Medications Generic Name Dose Route Start Last Admin Trade Name Freq PRN Reason Stop Dose Admin Acetaminophen 650 mg 02/11/21 15:59 Acetaminophen 325 Mg Tablet PO 03/13/21 15:58 Q4H PRN PRN PAIN AND/OR FEVER Albuterol Sulfate 2 puff 02/11/21 20:40 Albuterol Common Canister Inhaler 03/13/21 20:39 Q4H PRN PRN SHORTNESS OF BREATH/WHEEZING Albuterol/Ipratropium 3 ml 02/11/21 09:50 02/11/21 10:03 Ipratropium/Albuterol Sulfate 3 Ml Ampul.Neb IH 02/11/21 09:51 3 ml STAT ONE Administration Albuterol/Ipratropium Confirm 02/11/21 10:01 Ipratropium/Albuterol Sulfate 3 Ml Ampul.Neb Administered 02/11/21 10:02 Dose 3 ml IH .STK-MED ONE Albuterol/Ipratropium 3 ml 02/11/21 19:00 02/11/21 18:55 Ipratropium/Albuterol Sulfate 3 Ml Ampul.Neb 03/13/21 18:59 3 ml Q6HRT DOLLY Administration Albuterol/Ipratropium 3 ml 02/11/21 23:00 02/12/21 14:19 Ipratropium/Albuterol Sulfate 3 Ml Ampul.Neb 03/13/21 22:59 3 ml Q4HRT DOLLY Administration Aspirin 324 mg 02/11/21 09:51 02/11/21 10:02 Aspirin 81 Mg Tab.Chew PO 02/11/21 09:52 324 mg STAT ONE Administration Aspirin Confirm 02/11/21 09:54 Aspirin 81 Mg Tab.Chew Administered 02/11/21 09:55 Dose 324 mg .ROUTE .STK-MED ONE Aspirin 81 mg 02/12/21 10:00 02/12/21 11:03 Aspirin 81 Mg Tablet.Ec PO 03/14/21 09:59 81 mg QAM DOLLY Administration Bupropion HCl 150 mg 02/12/21 10:00 02/12/21 11:03 Bupropion Hcl 150 Mg Tablet Sr PO 03/14/21 09:59 150 mg DAILY DOLLY Administration Clopidogrel Bisulfate 75 mg 02/12/21 10:00 02/12/21 11:02 Clopidogrel Bisulfate 75 Mg Tablet PO 03/14/21 09:59 75 mg DAILY DOLLY Administration Methylprednisolone Sodium 0 mg 02/11/21 09:50 02/11/21 10:01 Succinate 125 mg/ Sterile IV 02/11/21 09:51 125 mg Water 2 ml STAT ONE Administration Methylprednisolone Sodium 0 mg 02/11/21 18:00 02/12/21 11:05 Succinate 60 mg/ Sterile Water IV 03/13/21 17:59 Not Given 2 ml Q6HT DOLLY Enoxaparin Sodium 40 mg 02/12/21 10:00 02/12/21 09:06 Enoxaparin Sodium 40 Mg/0.4 Ml Syringe SQ 03/14/21 09:59 40 mg DAILY DOLLY Administration Famotidine 20 mg 02/12/21 10:00 02/12/21 09:07 Famotidine 20 Mg/1 Vial IV 03/14/21 09:59 20 mg DAILY DOLLY Administration Fentanyl Citrate 50 mcg 02/11/21 15:33 02/11/21 15:36 Fentanyl Citrate 100 Mcg/2 Ml* Vial IV 02/11/21 15:34 50 mcg STAT ONE Administration Fentanyl Citrate Confirm 02/11/21 15:35 Fentanyl Citrate 100 Mcg/2 Ml* Vial Administered 02/11/21 15:36 Dose 100 mcg .ROUTE .STK-MED ONE Gabapentin 600 mg 02/11/21 22:00 02/12/21 14:32 Gabapentin 300 Mg Capsule PO 03/13/21 21:59 600 mg QID DOLLY Administration Hydromorphone HCl 1 mg 02/12/21 08:35 02/12/21 16:39 Hydromorphone 1 Mg/1ml Inj 1 Mg/Ml Syringe IV 02/17/21 08:34 1 mg Q4H PRN PRN Administration PAIN Hydromorphone HCl 1 mg 02/12/21 10:16 02/12/21 10:28 Hydromorphone 1 Mg/1ml Inj 1 Mg/Ml Syringe IV 02/12/21 10:17 1 mg STAT ONE Administration Hydromorphone HCl 1 mg 02/12/21 14:56 02/12/21 14:59 Hydromorphone 1 Mg/1ml Inj 1 Mg/Ml Syringe IV 02/12/21 14:57 1 mg STAT ONE Administration Ceftriaxone Sodium/Dextrose 2 g in 50 mls @ 100 mls/hr 02/11/21 12:06 02/11/21 13:17 Rocephin 2 Gm-D5w 50ml Bag IV 02/11/21 12:35 Infused STAT STA Infusion Ceftriaxone Sodium/Dextrose Confirm 02/11/21 12:44 Rocephin 2 Gm-D5w 50ml Bag Administered 02/11/21 12:45 Dose 2 g in 50 mls @ ud IV .STK-MED ONE Azithromycin 500 mg in 250 mls @ 250 mls/hr 02/11/21 13:08 02/11/21 13:11 Zithromax 500 Mg/ 250 Ml Nacl Premix IV 02/11/21 14:07 250 mls/hr STAT ONE Administration Azithromycin Confirm 02/11/21 13:09 Zithromax 500 Mg/ 250 Ml Nacl Premix Administered 02/11/21 13:10 Dose 500 mg in 250 mls @ ud IV .STK-MED ONE Azithromycin 500 mg in 250 mls @ 250 mls/hr 02/12/21 10:00 02/12/21 09:09 Zithromax 500 Mg/ 250 Ml Nacl Premix IV 03/14/21 09:59 250 mls/hr Q24H10 DOLLY Administration Ceftriaxone Sodium/Dextrose 1 g in 50 mls @ 100 mls/hr 02/12/21 10:00 02/12/21 09:09 Rocephin 1 Gm-D5w 50 Ml Bag IV 02/15/21 09:59 100 mls/hr Q24H10 DOLLY Administration Ketorolac Tromethamine 30 mg 02/11/21 14:26 02/11/21 14:28 Ketorolac Tromethamine 30 Mg/Ml Inj IV 02/11/21 14:27 30 mg STAT ONE Administration Ketorolac Tromethamine Confirm 02/11/21 14:28 Ketorolac Tromethamine 30 Mg/Ml Inj Administered 02/11/21 14:29 Dose 30 mg .ROUTE .STK-MED ONE Ketorolac Tromethamine 30 mg 02/12/21 10:23 02/12/21 10:28 Ketorolac Tromethamine 30 Mg/Ml Inj IV 02/17/21 10:22 30 mg Q8H PRN PRN Administration PAIN Losartan Potassium 50 mg 02/12/21 10:00 02/12/21 11:03 Losartan Potassium 50 Mg Tablet PO 03/14/21 09:59 50 mg DAILY DOLLY Administration Magnesium Hydroxide 45 ml 02/12/21 11:00 02/12/21 10:42 Mag Hydrx/Alum Hyd/Simeth/Lido 45 Ml Bottle PO 02/12/21 11:01 45 ml STAT ONE Administration Methylprednisolone Sodium Succinate Confirm 02/11/21 09:54 Methylprednis Sod Succ 125 Mg/2 Ml Vial Administered 02/11/21 09:55 Dose 125 mg .ROUTE .STK-MED ONE Methylprednisolone Sodium Succinate Confirm 02/12/21 00:49 Methylprednis Sod Succ 125 Mg/2 Ml Vial Administered 02/12/21 00:50 Dose 125 mg .ROUTE .STK-MED ONE Metoprolol Tartrate 25 mg 02/12/21 10:00 02/12/21 11:03 Metoprolol Tartrate 25 Mg Tab PO 03/14/21 09:59 25 mg DAILY DOLLY Administration Morphine Sulfate 4 mg 02/11/21 09:51 02/11/21 10:01 Morphine Sulfate 4 Mg/Ml Injection IV 02/11/21 09:52 4 mg STAT ONE Administration Morphine Sulfate Confirm 02/11/21 09:54 Morphine Sulfate 4 Mg/Ml Injection Administered 02/11/21 09:55 Dose 4 mg .ROUTE .STK-MED ONE Morphine Sulfate Confirm 02/11/21 12:10 Morphine Sulfate 4 Mg/Ml Injection Administered 02/11/21 12:11 Dose 4 mg .ROUTE .STK-MED ONE Morphine Sulfate 4 mg 02/11/21 13:19 02/11/21 12:30 Morphine Sulfate 4 Mg/Ml Injection IV 02/11/21 13:20 4 mg STAT ONE Administration Morphine Sulfate 4 mg 02/11/21 15:59 02/12/21 08:19 Morphine Sulfate 4 Mg/Ml Injection IV 02/16/21 15:58 4 mg Q4H PRN PRN Administration PAIN Nitroglycerin Confirm 02/11/21 12:44 Nitroglycerin 1 Gm Packet Administered 02/11/21 12:45 Dose 1 gm .ROUTE .STK-MED ONE Nitroglycerin 1 gm 02/11/21 12:46 02/11/21 12:46 Nitroglycerin 1 Gm Packet TOP 02/11/21 12:47 1 gm STAT ONE Administration Nitroglycerin Confirm 02/12/21 08:18 Nitroglycerin 0.4 Mg Tablet Bottle Administered 02/12/21 08:19 Dose 0.4 mg SL .STK-MED ONE Nitroglycerin 0.4 mg 02/12/21 08:20 02/12/21 12:52 Nitroglycerin 0.4 Mg Tablet Bottle SL 03/14/21 08:19 0.4 mg Q5MIN PRN MR X 3 PRN Administration CHEST PAIN Ondansetron HCl 4 mg 02/11/21 09:51 02/11/21 10:01 Ondansetron Hcl 4 Mg/2 Ml Vial IV 02/11/21 09:52 4 mg STAT ONE Administration Ondansetron HCl Confirm 02/11/21 09:54 Ondansetron Hcl 4 Mg/2 Ml Vial Administered 02/11/21 09:55 Dose 4 mg .ROUTE .STK-MED ONE Ondansetron HCl 4 mg 02/11/21 15:59 02/12/21 16:17 Ondansetron Hcl 4 Mg/2 Ml Vial IV 03/13/21 15:58 4 mg Q6H PRN PRN Administration NAUSEA/VOMITING Pantoprazole Sodium 40 mg 02/12/21 10:00 02/12/21 09:07 Pantoprazole 40 Mg Vial IV 03/14/21 09:59 40 mg Q24H10 DOLLY Administration Potassium Chloride 10 meq 02/12/21 10:00 02/12/21 11:03 Potassium Chloride 10 Meq Tablet PO 03/14/21 09:59 10 meq DAILY DOLLY Administration Prednisone 60 mg 02/12/21 10:00 02/12/21 09:06 Prednisone 20 Mg Tablet PO 03/14/21 09:59 60 mg DAILY DOLLY Administration Ranolazine 500 mg 02/11/21 22:00 02/12/21 09:07 Ranolazine 500 Mg Tab.Sr.12h PO 03/13/21 21:59 500 mg Q12HT DOLLY Administration Fluticasone/Salmeterol 2 puff 02/11/21 19:00 02/12/21 06:50 Fluticasone/Salmeterol Common Canister IH 03/13/21 18:59 2 puff BIDRT DOLLY Administration Lab/Rad Data: Laboratory Result Diagrams 02/11/21 09:55 02/11/21 12:55 Laboratory Results 02/11/21 02/11/21 02/11/21 Range/Units 14:28 12:55 12:55 WBC (4.0-10.5) K/mm3 RBC (4.1-5.6) M/mm3 Hgb (12.5-18.0) gm/dl Hct (42-50) % MCV (78-100) fl MCH (26-32) pg MCHC (32-36) g/dl RDW (11.5-14.0) % Plt Count (150-450) K/mm3 MPV (7.5-11.0) fl Gran % (36.0-66.0) % Eos # (Auto) (0-0.5) Absolute Lymphs (auto) (1.0-4.6) Absolute Monos (auto) (0.0-1.3) Lymphocytes % (24.0-44.0) % Monocytes % (0.0-12.0) % Eosinophils % (0.00-5.0) % Basophils % (0.0-0.4) % Absolute Granulocytes (1.4-6.9) Basophils # (0-0.4) D-Dimer (215-500) ng/mL Sodium 138 (137-145) mmol/L Potassium 4.9 (3.5-5.1) mmol/L Chloride 101 (98-107) mmol/L Carbon Dioxide 26 (22-30) mmol/L Anion Gap 16.2 H (5-15) MEQ/L BUN 15 (9-20) mg/dL Creatinine 1.03 (0.66-1.25) mg/dL Estimated GFR > 60.0 ML/MIN Glucose 107 H (74-106) mg/dL Lactic Acid (0.4-2.0) Calcium 9.8 (8.4-10.2) mg/dL Magnesium (1.6-2.3) mg/dL Total Bilirubin (0.2-1.3) mg/dL AST (17-59) U/L ALT (0-50) U/L Alkaline Phosphatase (38-126) U/L Troponin I 0.027 (0.000-0.034) ng/mL NT-Pro-B Natriuret Pep (0-900) pg/mL Serum Total Protein (6.3-8.2) g/dL Albumin (3.5-5.0) g/dL Influenza Type A Ag NEGATIVE (NEGATIVE) Influenza Type B Ag NEGATIVE (NEGATIVE) RSV (PCR) NEGATIVE (Negative) SARS-CoV-2 (PCR) NEGATIVE (NEGATIVE) 02/11/21 02/11/21 02/11/21 Range/Units 12:13 09:55 09:55 WBC (4.0-10.5) K/mm3 RBC (4.1-5.6) M/mm3 Hgb (12.5-18.0) gm/dl Hct (42-50) % MCV (78-100) fl MCH (26-32) pg MCHC (32-36) g/dl RDW (11.5-14.0) % Plt Count (150-450) K/mm3 MPV (7.5-11.0) fl Gran % (36.0-66.0) % Eos # (Auto) (0-0.5) Absolute Lymphs (auto) (1.0-4.6) Absolute Monos (auto) (0.0-1.3) Lymphocytes % (24.0-44.0) % Monocytes % (0.0-12.0) % Eosinophils % (0.00-5.0) % Basophils % (0.0-0.4) % Absolute Granulocytes (1.4-6.9) Basophils # (0-0.4) D-Dimer 555 H* (215-500) ng/mL Sodium (137-145) mmol/L Potassium (3.5-5.1) mmol/L Chloride (98-107) mmol/L Carbon Dioxide (22-30) mmol/L Anion Gap (5-15) MEQ/L BUN (9-20) mg/dL Creatinine (0.66-1.25) mg/dL Estimated GFR ML/MIN Glucose (74-106) mg/dL Lactic Acid 1.8 (0.4-2.0) Calcium (8.4-10.2) mg/dL Magnesium (1.6-2.3) mg/dL Total Bilirubin (0.2-1.3) mg/dL AST (17-59) U/L ALT (0-50) U/L Alkaline Phosphatase (38-126) U/L Troponin I 0.043 H* (0.000-0.034) ng/mL NT-Pro-B Natriuret Pep (0-900) pg/mL Serum Total Protein (6.3-8.2) g/dL Albumin (3.5-5.0) g/dL Influenza Type A Ag (NEGATIVE) Influenza Type B Ag (NEGATIVE) RSV (PCR) (Negative) SARS-CoV-2 (PCR) (NEGATIVE) 02/11/21 02/11/21 02/11/21 Range/Units 09:55 09:55 09:50 WBC 9.2 (4.0-10.5) K/mm3 RBC 5.12 (4.1-5.6) M/mm3 Hgb 15.4 (12.5-18.0) gm/dl Hct 46.8 (42-50) % MCV 91.4 (78-100) fl MCH 30.1 (26-32) pg MCHC 32.9 (32-36) g/dl RDW 14.6 H (11.5-14.0) % Plt Count 471 H (150-450) K/mm3 MPV 8.8 (7.5-11.0) fl Gran % 54.9 (36.0-66.0) % Eos # (Auto) 0.83 H (0-0.5) Absolute Lymphs (auto) 2.29 (1.0-4.6) Absolute Monos (auto) 1.00 (0.0-1.3) Lymphocytes % 24.9 (24.0-44.0) % Monocytes % 10.9 (0.0-12.0) % Eosinophils % 9.0 H (0.00-5.0) % Basophils % 0.3 (0.0-0.4) % Absolute Granulocytes 5.04 (1.4-6.9) Basophils # 0.03 (0-0.4) D-Dimer (215-500) ng/mL Sodium 141 (137-145) mmol/L Potassium 5.1 (3.5-5.1) mmol/L Chloride 103 (98-107) mmol/L Carbon Dioxide 26 (22-30) mmol/L Anion Gap 16.2 H (5-15) MEQ/L BUN 15 (9-20) mg/dL Creatinine 1.05 (0.66-1.25) mg/dL Estimated GFR > 60.0 ML/MIN Glucose 97 (74-106) mg/dL Lactic Acid 1.9 (0.4-2.0) Calcium 10.3 H (8.4-10.2) mg/dL Magnesium 1.8 (1.6-2.3) mg/dL Total Bilirubin 0.70 (0.2-1.3) mg/dL AST 23 (17-59) U/L ALT 13 (0-50) U/L Alkaline Phosphatase 103 (38-126) U/L Troponin I (0.000-0.034) ng/mL NT-Pro-B Natriuret Pep 133 (0-900) pg/mL Serum Total Protein 7.6 (6.3-8.2) g/dL Albumin 4.5 (3.5-5.0) g/dL Influenza Type A Ag (NEGATIVE) Influenza Type B Ag (NEGATIVE) RSV (PCR) (Negative) SARS-CoV-2 (PCR) (NEGATIVE) - Progress Progress: improved Air Movement: good Progress Note: 02/11/21 12:07 65 years old is evaluated for chest pain shortness of breath with worsening cough. Patient was in mild to moderate distress on presentation, initially placed on 5 L and later on on 2.5 L and feeling much better after receiving Solu-Medrol and DuoNeb along with symptomatic treatment for chest pain. EKG did not show any acute ST elevations. Initial troponins mildly elevated 0.043 and also has mild elevation in D-dimer is 555. Elevated troponin could be respiratory related. His chest pain is almost gone. I have discussed with Dr. Villagran, reviewed history, work-up and recommended obtaining second troponin and if improving patient can be kept in here otherwise needs to go to high level of care with cardiology services. 02/11/21 14:12 Second troponin is improved 0.027. Repeat EKG is negative as well. I believe patient has COPD exacerbation and is being admitted. Blood Culture(s) Obtained: Yes Antibiotics given: Yes Discussed with : Caden Will see patient in: hospital (observation) Counseled pt/family regarding: lab results, diagnosis, rad results, smoking c essation - Departure Departure Disposition: Observation Clinical Impression: COPD exacerbation, Precordial chest pain Condition: Stable Critical Care Time: Yes Critical Care Time(excluding separately billable procedures): Critical 30-74 mins
[2021-02-11] MEDS ORDERED: ZITHROMAX IV*** 0 MG in Sodium Chloride 0.9% 250 ML 250 ML IV ONE (12:06)
[2021-02-11] MEDS ORDERED: ROCEPHIN 2 Gm-D5w 50ML BAG** 2 G/50 ML IVPB IV STA (12:06)
[2021-02-11] MEDS ORDERED: ROCEPHIN 2 Gm-D5w 50ML BAG** 2 G/50 ML IVPB IV ONE (12:44)
[2021-02-11] MEDS ORDERED: NITRO-BID 2% UD PACKETS ONE (12:44)
[2021-02-11] MEDS ORDERED: NITRO-BID 2% UD PACKETS TOP ONE (12:46)
--- NOTE | 2021-02-11 12:51 | XRAY ---
Indication: Left chest pain and short of breath. Elevated d-dimer. Multiple contiguous axial images obtained through the chest using 100 cc Isovue 370 contrast and PE protocol. Comparison: April 24, 2020. There is good opacification of the pulmonary arteries to include the lobar and segmental branches. No pulmonary embolus. Heart not enlarged again with CABG surgery. Aorta is mildly arteriosclerotic without aneurysm/dissection. No pathologic mediastinal/hilar lymphadenopathy. Lungs again demonstrates a diffuse pulmonary emphysema with minimal scattered fibrosis/scarring. New bibasilar dependent atelectasis. No infiltrate or effusion. Bony thorax intact again with mild degenerative changes throughout the spine and sternotomy wires. Limited upper abdomen unremarkable. Impression: 1. Continued negative pulmonary embolus. No acute cardiopulmonary abnormalities. 2. Incidental bibasilar dependent atelectasis, pulmonary emphysema, and chronic bony findings.
[2021-02-11] MEDS ORDERED: Zithromax 500 MG/ 250 ML NaCl Premix 500 MG/250 ML IVPB IV ONE ×2 (13:08→13:09)
[2021-02-11 13:33] LABS: ANION GAP 16.2 MEQ/L (5-15); BLOOD UREA NITROGEN 15 mg/dL (9-20); CHLORIDE 101 mmol/L (98-107); Calcium 9.8 mg/dL (8.4-10.2); Carbon Dioxide 26 mmol/L (22-30); Creatinine 1 1.03 mg/dL (0.66-1.25); EST GLOMERULAR FILTRATION RATE > 60.0 ML/MIN; Glucose 107 mg/dL (74-106); Potassium 4.9 mmol/L (3.5-5.1); SODIUM 138 mmol/L (137-145)
[2021-02-11] MEDS ORDERED: TORAdol 30 mg Injection IV ONE (14:26)
[2021-02-11] MEDS ORDERED: TORAdol 30 mg Injection ONE (14:28)
[2021-02-11 15:21] LABS: INFLUENZA A NEGATIVE (NEGATIVE); INFLUENZA B NEGATIVE (NEGATIVE); RESPIRATORY SYNCTIAL VIRUS NEGATIVE (Negative); SARS-CoV-2 Xpert Express NEGATIVE (NEGATIVE)
[2021-02-11] MEDS ORDERED: SUBLIMAZE 100 MCG/2 ML IV ONE (15:33)
[2021-02-11] MEDS ORDERED: SUBLIMAZE 100 MCG/2 ML ONE (15:35)
[2021-02-11] MEDS ORDERED: Zofran 4 MG/2 ML VIAL IV PRN (15:59)
[2021-02-11] MEDS ORDERED: TYLENOL 325 MG PO PRN (15:59)
[2021-02-11] MEDS: MORPHINE SULFATE 4 MG INJ IV PRN (18:53)
[2021-02-11] MEDS: solu-MEDROL 60 MG, Sterile H2O 10 ml 2 ML IV SCH ×2 (18:57)
[2021-02-11] MEDS ORDERED: DUONEB 0.5-3 MG/3 ml Neb IH SCH (19:00)
[2021-02-11] MEDS: Advair Hfa 230/21 Mcg COMMON CANISTER IH SCH (19:05)
[2021-02-11] MEDS ORDERED: VENTOLIN COMMON CANISTER IH PRN (20:40)
[2021-02-11] MEDS: Ranexa 500 MG PO SCH (20:59)
[2021-02-11] MEDS: NEURONTIN 300 MG PO SCH (20:59)
[2021-02-11] MEDS: DUONEB 0.5-3 MG/3 ml Neb IH SCH (23:18)
[2021-02-12] MEDS ORDERED: solu-MEDROL ONE (00:49)
[2021-02-12] MEDS: solu-MEDROL 60 MG, Sterile H2O 10 ml 2 ML IV SCH ×4 (00:50→11:05)
[2021-02-12] MEDS: MORPHINE SULFATE 4 MG INJ IV PRN ×2 (02:17→08:19)
[2021-02-12] MEDS: DUONEB 0.5-3 MG/3 ml Neb IH SCH ×4 (03:29→14:19)
[2021-02-12 06:00] LABS: Absolute Neutrophil Ct (ANC) 27.21 (1.4-6.9); BASOPHIL % 0.1 % (0.0-0.4); Basophil (Absolute #) 0.02 (0-0.4); Eosinophil (Absolute #) 0 (0-0.5); Hematocrit 44.4 % (42-50); Hemoglobin 14.6 gm/dl (12.5-18.0); Lymphocyte (Absolute #) 1.03 (1.0-4.6); Lymphocytes % 3.6 % (24.0-44.0); Mean Cell Volume 91.9 fl (78-100); Mean Corpuscular Hemoglobin 30.2 pg (26-32); Mean Corpuscular Hgb Concent. 32.9 g/dl (32-36); Mean Platelet Volume 8.8 fl (7.5-11.0); Monocyte (Absolute #) 0.39 (0.0-1.3); Monocytes % 1.4 % (0.0-12.0); Neutrophil % 94.9 % (36.0-66.0); Platelet Count 486 K/mm3 (150-450); Red Blood Count 4.83 M/mm3 (4.1-5.6); Red Cell Distribution Width 14.2 % (11.5-14.0)
[2021-02-12 06:06] LABS: White Blood Count 28.7 K/mm3 (4.0-10.5)
[2021-02-12 06:24] LABS: ALKALINE PHOSPHATASE 97 U/L (38-126); ANION GAP 16.6 MEQ/L (5-15); BLOOD UREA NITROGEN 31 mg/dL (9-20); CHLORIDE 101 mmol/L (98-107); Calcium 9.7 mg/dL (8.4-10.2); Carbon Dioxide 23 mmol/L (22-30); EST GLOMERULAR FILTRATION RATE > 60.0 ML/MIN; Glucose 189 mg/dL (74-106); Potassium 5.8 mmol/L (3.5-5.1); SGOT/AST 22 U/L (17-59); SGPT/ALT 15 U/L (0-50); SODIUM 135 mmol/L (137-145)
[2021-02-12] MEDS: Advair Hfa 230/21 Mcg COMMON CANISTER IH SCH (06:50)
[2021-02-12 07:39] LABS: BAND 7 % (0.0-2.0); Lymphocytes 8 % (24-44); Monocyte 2 % (0.0-12.0); Neutrophils 83 % (36.-66.); Total Cells Counted 100
[2021-02-12 07:40] LABS: Platelet Estimate NORMAL (NORMAL)
[2021-02-12] MEDS ORDERED: Nitrostat 0.4 MG Tablet SL ONE (08:18)
[2021-02-12] MEDS: Nitrostat 0.4 MG Tablet SL PRN ×6 (08:21→12:52)
[2021-02-12] MEDS: NEURONTIN 300 MG PO SCH ×2 (09:06→14:32)
[2021-02-12] MEDS: Hydromorphone 1 mg/ml Injection IV PRN ×3 (09:07→16:39)
[2021-02-12] MEDS: Ranexa 500 MG PO SCH (09:07)
[2021-02-12] MEDS ORDERED: PROVENTIL 2.5 MG/3 ML NEB IH SCH (09:30)
[2021-02-12] MEDS ORDERED: DELTASONE 20 MG PO SCH (10:00)
[2021-02-12] MEDS ORDERED: ECOTRIN 81 MG PO SCH (10:00)
[2021-02-12] MEDS ORDERED: ENOXAPARIN SODIUM SQ SCH (10:00)
[2021-02-12] MEDS ORDERED: PROTONIX 40 MG IV IV SCH (10:00)
[2021-02-12] MEDS ORDERED: NON-FORMULARY ITEM (Aspirin [Aspirin] 81 MG Tablet) PO SCH (10:00)
[2021-02-12] MEDS ORDERED: PLAVIX 75 MG Tablet PO SCH (10:00)
[2021-02-12] MEDS ORDERED: NON-FORMULARY ITEM (Fluticasone/Vilanterol [Breo Ellipta 100-25 Mcg Inh] 1 EACH Blst.W.Dev IH SCH (10:00)
[2021-02-12] MEDS ORDERED: NON-FORMULARY ITEM (Potassium Chloride [Potassium Chloride] 10 MEQ Tab.Er.Prt) PO SCH (10:00)
[2021-02-12] MEDS ORDERED: Zithromax 500 MG/ 250 ML NaCl Premix 500 MG/250 ML IVPB IV SCH (10:00)
[2021-02-12] MEDS ORDERED: Pepcid 20 MG VIAL IV SCH (10:00)
[2021-02-12] MEDS ORDERED: Klor Con 10 MEQ PO SCH (10:00)
[2021-02-12] MEDS ORDERED: Wellbutrin SR 150 MG PO SCH (10:00)
[2021-02-12] MEDS ORDERED: Cozaar 50 MG PO SCH (10:00)
[2021-02-12] MEDS ORDERED: Lopressor 25MG Tab PO SCH (10:00)
[2021-02-12] MEDS ORDERED: ROCEPHIN 1 Gm-D5w 50 ml Bag** 1 G/50 ML IVPB IV SCH (10:00)
[2021-02-12] MEDS ORDERED: Hydromorphone 1 mg/ml Injection IV ONE ×2 (10:16→14:56)
[2021-02-12] MEDS ORDERED: TORAdol 30 mg Injection IV PRN (10:23)
[2021-02-12] MEDS ORDERED: GI COCKTAIL 45 ML (Maalox/Lidocaine) PO ONE (11:00)
--- NOTE | 2021-02-12 15:35 | PCM.DS ---
Discharge Summary Date of Admission: 02/11/21 15:48 Admitting Physician: TREVOR CABRALES Primary Care Provider: LIVE HARVEY DO Allergies Allergies No Known Drug Allergies Allergy (Verified 02/11/21 09:49) Hospital Summary - Hospital Course Hospital Course: patient was seen and rounded on by Dr Cabrales this morning, he was admitted on 02/11 with cough, shortness of breath and chest pain. He has a history of CAD and PAD, had CABG with Dr Mathew x 3 vessels in 2012 and stent in RLE and bypass to left lower extremity. He has had crushing, substernal chest pain today. has been sharp and pleuritic since admission but now has a constant heaviness in the center of his chest. no improvement with nitro, he responds to dilaudid but pain recurs. troponin was negative this am but now elevated. - Vitals & Intake/Output Vital Signs: Vital Signs Temperature 98.9 F 02/12/21 15:13 Pulse Rate 100 H 02/12/21 15:13 Respiratory Rate 18 02/12/21 15:13 Blood Pressure 152/90 02/12/21 15:13 O2 Sat by Pulse Oximetry 99 02/12/21 15:13 Intake & Output: Intake & Output 02/10/21 02/11/21 02/12/21 02/13/21 11:59 11:59 11:59 11:59 Intake Total 600 500 Output Total 250 Balance 600 250 Weight 65.9 kg 65.9 kg - Lab Result Diagrams: 02/12/21 05:50 02/12/21 05:50 Lab Results-Last 24 Hrs: Lab Results-Last 24 Hours 02/11/21 02/11/21 02/11/21 Range/Units 16:20 19:20 22:52 WBC (4.0-10.5) K/mm3 RBC (4.1-5.6) M/mm3 Hgb (12.5-18.0) gm/dl Hct (42-50) % MCV (78-100) fl MCH (26-32) pg MCHC (32-36) g/dl RDW (11.5-14.0) % Plt Count (150-450) K/mm3 MPV (7.5-11.0) fl Gran % (36.0-66.0) % Eos # (Auto) (0-0.5) Absolute Lymphs (auto) (1.0-4.6) Absolute Monos (auto) (0.0-1.3) Lymphocytes % (24.0-44.0) % Monocytes % (0.0-12.0) % Eosinophils % (0.00-5.0) % Basophils % (0.0-0.4) % Absolute Granulocytes (1.4-6.9) Segmented Neutrophils (36.-66.) % Band Neutrophils (0.0-2.0) % Lymphocytes (Manual) (24-44) % Monocytes (Manual) (0.0-12.0) % Basophils # (0-0.4) Platelet Estimate (NORMAL) RBC Morphology Sodium (137-145) mmol/L Potassium (3.5-5.1) mmol/L Chloride (98-107) mmol/L Carbon Dioxide (22-30) mmol/L Anion Gap (5-15) MEQ/L BUN (9-20) mg/dL Creatinine (0.66-1.25) mg/dL Estimated GFR ML/MIN Glucose (74-106) mg/dL Calcium (8.4-10.2) mg/dL Total Bilirubin (0.2-1.3) mg/dL AST (17-59) U/L ALT (0-50) U/L Alkaline Phosphatase (38-126) U/L Troponin I 0.026 0.018 < 0.012 (0.000-0.034) ng/mL Serum Total Protein (6.3-8.2) g/dL Albumin (3.5-5.0) g/dL Slides for Path Review 02/12/21 02/12/21 02/12/21 Range/Units 05:50 05:50 08:28 WBC 28.7 H* (4.0-10.5) K/mm3 RBC 4.83 (4.1-5.6) M/mm3 Hgb 14.6 (12.5-18.0) gm/dl Hct 44.4 (42-50) % MCV 91.9 (78-100) fl MCH 30.2 (26-32) pg MCHC 32.9 (32-36) g/dl RDW 14.2 H (11.5-14.0) % Plt Count 486 H (150-450) K/mm3 MPV 8.8 (7.5-11.0) fl Gran % 94.9 H (36.0-66.0) % Eos # (Auto) 0 (0-0.5) Absolute Lymphs (auto) 1.03 (1.0-4.6) Absolute Monos (auto) 0.39 (0.0-1.3) Lymphocytes % 3.6 L (24.0-44.0) % Monocytes % 1.4 (0.0-12.0) % Eosinophils % 0.0 (0.00-5.0) % Basophils % 0.1 (0.0-0.4) % Absolute Granulocytes 27.21 H (1.4-6.9) Segmented Neutrophils 83 H (36.-66.) % Band Neutrophils 7 H (0.0-2.0) % Lymphocytes (Manual) 8 L (24-44) % Monocytes (Manual) 2 (0.0-12.0) % Basophils # 0.02 (0-0.4) Platelet Estimate NORMAL (NORMAL) RBC Morphology NORMAL Sodium 135 L (137-145) mmol/L Potassium 5.8 H (3.5-5.1) mmol/L Chloride 101 (98-107) mmol/L Carbon Dioxide 23 (22-30) mmol/L Anion Gap 16.6 H (5-15) MEQ/L BUN 31 H (9-20) mg/dL Creatinine 1.10 (0.66-1.25) mg/dL Estimated GFR > 60.0 ML/MIN Glucose 189 H (74-106) mg/dL Calcium 9.7 (8.4-10.2) mg/dL Total Bilirubin 0.40 (0.2-1.3) mg/dL AST 22 (17-59) U/L ALT 15 (0-50) U/L Alkaline Phosphatase 97 (38-126) U/L Troponin I < 0.012 (0.000-0.034) ng/mL Serum Total Protein 7.0 (6.3-8.2) g/dL Albumin 4.0 (3.5-5.0) g/dL Slides for Path Review BREWMASTER 02/12/21 02/12/21 Range/Units 11:50 13:50 WBC (4.0-10.5) K/mm3 RBC (4.1-5.6) M/mm3 Hgb (12.5-18.0) gm/dl Hct (42-50) % MCV (78-100) fl MCH (26-32) pg MCHC (32-36) g/dl RDW (11.5-14.0) % Plt Count (150-450) K/mm3 MPV (7.5-11.0) fl Gran % (36.0-66.0) % Eos # (Auto) (0-0.5) Absolute Lymphs (auto) (1.0-4.6) Absolute Monos (auto) (0.0-1.3) Lymphocytes % (24.0-44.0) % Monocytes % (0.0-12.0) % Eosinophils % (0.00-5.0) % Basophils % (0.0-0.4) % Absolute Granulocytes (1.4-6.9) Segmented Neutrophils (36.-66.) % Band Neutrophils (0.0-2.0) % Lymphocytes (Manual) (24-44) % Monocytes (Manual) (0.0-12.0) % Basophils # (0-0.4) Platelet Estimate (NORMAL) RBC Morphology Sodium (137-145) mmol/L Potassium (3.5-5.1) mmol/L Chloride (98-107) mmol/L Carbon Dioxide (22-30) mmol/L Anion Gap (5-15) MEQ/L BUN (9-20) mg/dL Creatinine (0.66-1.25) mg/dL Estimated GFR ML/MIN Glucose (74-106) mg/dL Calcium (8.4-10.2) mg/dL Total Bilirubin (0.2-1.3) mg/dL AST (17-59) U/L ALT (0-50) U/L Alkaline Phosphatase (38-126) U/L Troponin I 0.112 H* 0.615 H* (0.000-0.034) ng/mL Serum Total Protein (6.3-8.2) g/dL Albumin (3.5-5.0) g/dL Slides for Path Review - Radiology Exams Ordered Rad Exams-Entire Visit: Radiology Procedures Category Date Time Status CHEST 1 VIEW (PORTABLE) Stat Exams 02/11/21 09:50 Completed CHEST 1 VIEW (PORTABLE) Stat Exams 02/12/21 08:39 Taken CHEST WITH CONTRAST [CT] Stat Exams 02/11/21 11:27 Completed - Procedures and Test Procedures and Tests throughout Hospitalization: Therapy Orders & Screens 02/11/21 10:21 Respiratory Therapy Assessment DAILY Comment: 02/11/21 15:59 Oxygen Nasal Cannula 2 lpm Comment: 02/11/21 18:47 RT Screen per Nursing Assess ONCE Comment: Protocol Order Physician Instructions: Greater than 3 points order RT Admission Screen Reason For Exam: Triggered on Admission Diagnosis: COPD EXAC Diagnosis: COPD EXAC Pneumonia: No Home O2: Yes Asthma: No CHF: No Home CPAP/BIPAP: No Home Nebs/MDI: Yes Total Points: 10 Smoking Cessation Education ONCE Comment: Diagnosis: COPD EXAC Smoking Status: Current every day smoker How long have you smoked: "About 45" Have you smoked in the past 12 months: Yes Approximately how many cigarettes per day: 1/2 ppd Do you dip or chew tobacco: No If,Former Smoker,when did you quit: one week ago 02/11/21 20:43 Respiratory Therapy Assessment DAILY Comment: Diagnosis: COPD EXAC 02/12/21 08:26 EKG ONCE Comment: Diagnosis: COPD EXAC 02/12/21 13:26 EKG ONCE Comment: Diagnosis: COPD EXAC Discharge Exam General Appearance: no apparent distress, alert Respiratory Exam: diminished breath sounds, prolonged expirations Cardiovascular Exam: regular rate/rhythm, normal heart sounds Gastrointestinal/Abdomen Exam: soft, No tenderness, No mass Extremity Exam: normal inspection, normal range of motion Skin Exam: normal color, warm, dry Final Diagnosis/Problem List - Final Discharge Diagnosis/Problem (1) Non-ST elevated myocardial infarction Current Visit: Yes Status: Acute Assessment & Plan: Dr Herrera updated with initial positive troponin then significant increase in last draw, he states if we wish to transfer to contact [facility] hospitalist service. Dr Jacinto Farias accepted patient in transfer at 15:49 to ar [facility]gressive care bed at [facility]. Code(s): I21.4 - NON-ST ELEVATION (NSTEMI) MYOCARDIAL INFARCTION (2) COPD exacerbation Current Visit: Yes Status: Acute Code(s): J44.1 - CHRONIC OBSTRUCTIVE PULMONARY DISEASE W (ACUTE) EXACERBATION - Discharge Disposition: [facility] Condition: Stable Prescriptions: No Action Metoprolol Tartrate 25 mg [Lopressor 25MG Tab] 25 mg PO DAILY Budesonide/Formoterol Fumarate [Symbicort 160-4.5 Mcg Inhaler] 1 puff IH BID Albuterol Common Canister [Ventolin Common Canister] 2 puffs IH Q4H PRN PRN PRN Reason: Shortness Of Breath/Wheezing Albuterol 2.5 mg/3 ml Neb [Proventil 2.5 mg/3 ml Neb] 2.5 mg IH UD Aspirin 81 mg PO QAM #0 Clopidogrel Bisulfate [Plavix] 75 mg PO DAILY #0 Nitroglycerin 0.4 mg PO Q5MIN PRN MR X 3 PRN PRN Reason: angina Ranolazine [Ranolazine ER] 500 mg PO BID Losartan Potassium 50 mg PO DAILY Potassium Chloride 10 meq PO DAILY Fluticasone/Vilanterol [Breo Ellipta 100-25 Mcg INH] 2 puff IH QAM Albuterol/Ipratropium 3ml Neb* [DUONEB 0.5-3 MG/3 ml Neb] 3 ml IH QID Bupropion HCl 150 mg Sr [Wellbutrin SR 150 MG] 150 mg PO DAILY Gabapentin 600 mg PO QID Follow up with: LIVE HARVEY DO [Primary Care Provider] -
[2021-02-12 16:04] VITALS: BP 185/83; PULSE 103
--- NOTE | 2021-02-12 19:08 | XRAY ---
Indication: Chest pain. Comparison: One day earlier. Portable chest less inflated with new minimal bibasilar subsegmental atelectasis. Remaining lungs clear with stable pulmonary emphysema. Heart not enlarged again with CABG. Comment: Preliminary interpretation made by [facility]. No critical discrepancy.
[2021-02-12 20:16] VITALS: O2SAT 97
== END 2021-02-12 16:55 | disposition short-term general hospital (02) ==
LOC: ED 09:31 → MED SURG 15:48
PROVIDERS: ADMIT Family Medicine; ATTEND Family Medicine
DX: I21.4 Non-ST elevation (NSTEMI) myocardial infarction (principal); J44.1 Chronic obstructive pulmonary disease with (acute) exacerbation; R77.8 Other specified abnormalities of plasma proteins; I25.10 Atherosclerotic heart disease of native coronary artery without angina pectoris; I10 Essential (primary) hypertension; I25.2 Old myocardial infarction; F17.200 Nicotine dependence, unspecified, uncomplicated; Z79.899 Other long term (current) drug therapy; Z20.828 Contact with and (suspected) exposure to other viral communicable diseases
CPT/HCPCS: 0241U; 36000; 36415; 71045; 71260; 80048; 80053; 83605; 83735; 83880; 84484; 85025; 85379; 87040; 93005; 93268; 94640; 94760; 96374; 96375; 96376; 99285; 99291; G0378; J0456; J0696; J1170; J1650; J1885; J2270; J2405; J2930; J3010; A9270-GY

== ENCOUNTER 2021-03-05 09:27 | Day surgery (SDC) | payer OTHER ==
[2021-03-05] MEDS ORDERED: BUPIVACAINE 0.5% VIAL IJ ONE (09:28)
[2021-03-05] MEDS ORDERED: Depo-Medrol 40 MG/ML IM ONE (09:28)
[2021-03-05] MEDS ORDERED: DIPRIVAN 200 MG/20 ML IV ONE (11:08)
[2021-03-05] MEDS ORDERED: Lactated Ringers 1,000 ML IV ONE (11:48)
--- NOTE | 2021-03-05 13:38 | XRAY ---
Indication: Left hip injection. Intraoperative fluoroscopy provided for 16 seconds. Single digital spot image submitted for interpretation demonstrates needle tip lateral to the left femur neck. Small amount of contrast injected for needle tip placement. Correlate with intraoperative findings/report.
--- NOTE | 2021-03-05 14:25 | XRAY ---
16 seconds fluoroscopy time in surgery for intra-articular injection of the left hip.
== END 2021-03-05 11:50 | disposition home or self-care (01) ==
LOC: SDC-PAIN 09:27
PROVIDERS: ATTEND Psychiatry & Neurology Pain Medicine
DX: M16.12 Unilateral primary osteoarthritis, left hip (principal); I10 Essential (primary) hypertension
CPT/HCPCS: 20610; 73501; 77002; J1030; J2704; Q9966

== ENCOUNTER 2021-04-29 09:52 | Day surgery (SDC) | payer OTHER ==
[2021-04-29] MEDS ORDERED: BUPIVACAINE 0.5% VIAL IJ ONE (09:53)
[2021-04-29] MEDS ORDERED: Depo-Medrol 40 MG/ML IM ONE (09:53)
[2021-04-29] MEDS ORDERED: DIPRIVAN 200 MG/20 ML IV ONE (12:30)
[2021-04-29] MEDS ORDERED: Lactated Ringers 1,000 ML IV ONE (13:20)
--- NOTE | 2021-04-29 13:32 | XRAY ---
Indication: Left SI joint injection. Intraoperative fluoroscopy provided for 12 seconds. 2 digital spot image submitted for interpretation demonstrate posterior needle tip projecting over the inferior left SI joint. Correlate with intraoperative findings/report. Incidental partially visualized lumbosacral junction fusion hardware.
--- NOTE | 2021-04-29 13:34 | XRAY ---
Indication: Left hip injection. Intraoperative fluoroscopy provided for 20 seconds. Single digital spot image obtained prone submitted for interpretation demonstrate needle tip lateral to the left femur neck. Small amount of contrast injected for needle tip placement. Correlate with intraoperative findings/report.
--- NOTE | 2021-04-29 14:25 | XRAY ---
20 seconds fluoroscopy time in surgery for intra-articular injection of the left hip.
--- NOTE | 2021-04-29 14:35 | XRAY ---
12 seconds fluoroscopy time in surgery for injection of the left SI joint.
== END 2021-04-29 13:00 | disposition home or self-care (01) ==
LOC: SDC-PAIN 09:52
PROVIDERS: ATTEND Psychiatry & Neurology Pain Medicine
DX: M46.1 Sacroiliitis, not elsewhere classified (principal); M16.12 Unilateral primary osteoarthritis, left hip; I10 Essential (primary) hypertension; I25.10 Atherosclerotic heart disease of native coronary artery without angina pectoris; Z79.899 Other long term (current) drug therapy
CPT/HCPCS: 20610; 27096; 72020; 73501; 77002; J1030; J2704; Q9966; G0260

== ENCOUNTER 2022-02-16 18:29 | Observation (INO) | payer OTHER ==
[2022-02-16] MEDS ORDERED: PROVENTIL 2.5 MG/3 ML NEB IH ONE ×2 (19:24→19:40)
[2022-02-16] MEDS ORDERED: solu-MEDROL 125 MG, Sterile H2O 10 ml 2 ML IV ONE ×2 (19:24)
[2022-02-16] MEDS ORDERED: ROCEPHIN 2 Gm-D5w 50ML BAG** 2 G/50 ML IVPB IV STA (19:27)
[2022-02-16] MEDS ORDERED: Zithromax 500 MG/ 250 ML NaCl Premix 500 MG/250 ML IVPB IV STA (19:29)
[2022-02-16] MEDS ORDERED: Sterile H2O 10 ml IJ ONE (19:30)
[2022-02-16] MEDS ORDERED: solu-MEDROL ONE (19:31)
--- NOTE | 2022-02-16 19:34 | ERPHSYRPT ---
- History of Present Illness Time Seen by Provider: 02/16/22 19:31 Source: patient Exam Limitations: no limitations Patient Subjective Stated Complaint: pt here for sob, productive coarse cough thick sputum. skin w/d/p. no edema noted Triage Nursing Assessment: pt alert, resp easy, has coarse cough, skin w/d/p, no edma noted Physician History: Patient is a 66-year-old male with history of COPD current smoker presents to our ED for evaluation of shortness of breath and a productive cough. Symptoms have been progressive over the past day. Patient in mild respiratory distress at this time. Patient denies fever. Symptoms are progressive. Symptoms are moderate in intensity. No specific worsening improving factors. Patient voices no other complaints concerns at this time. Portions of this note were created with voice recognition technology. There may be grammatical, spelling, punctuation or sound alike errors Timing/Duration: yesterday Severity: moderate Modifying Factors: Improves With: nothing Associated Symptoms: shortness of breath, cough, No syncope, No seizure Allergies/Adverse Reactions: No Known Drug Allergies Allergy (Verified 02/16/22 19:11) Home Medications: Metoprolol Tartrate 25 mg [Lopressor 25MG Tab] 25 mg PO DAILY 12/27/13 [History] Albuterol Common Canister [Ventolin Common Canister] 2 puffs IH Q4H PRN PRN 09/07/18 [History] Budesonide/Formoterol Fumarate [Symbicort 160-4.5 Mcg Inhaler] 1 puff IH BID [History] Albuterol 2.5 mg/3 ml Neb [Proventil 2.5 mg/3 ml Neb] 2.5 mg IH UD 12/06/18 [History] Losartan Potassium 50 mg PO DAILY 05/14/19 [History] Nitroglycerin 0.4 mg PO Q5MIN PRN MR X 3 PRN 05/14/19 [History] Ranolazine [Ranolazine ER] 500 mg PO BID 05/14/19 [History] Potassium Chloride 10 meq PO DAILY 11/03/19 [History] Albuterol/Ipratropium 3ml Neb* [DUONEB 0.5-3 MG/3 ml Neb] 3 ml IH QID 04/24/20 [History] Bupropion HCl 150 mg Sr [Wellbutrin SR 150 MG] 150 mg PO DAILY 04/24/20 [History] Fluticasone/Vilanterol [Breo Ellipta 100-25 Mcg INH] 2 puff IH QAM 04/24/20 [History] Gabapentin 600 mg PO QID 04/24/20 [History] Hx Tetanus, Diphtheria Vaccination/Date Given: Yes Hx Influenza Vaccination/Date Given: Yes Hx Pneumococcal Vaccination/Date Given: Yes Immunizations Up to Date: Yes Travel Risk - International Travel Have you traveled outside of the country in past 3 weeks: No - Coronavirus Screening Are you exhibiting any of the following symptoms?: Yes Symptoms: Cough: New Onset, Shortness of Breath Close contact with a COVID-19 positive Pt in past 14-21 Days: No - Vaccine Status Have you recieved a Covid-19 vaccination: Yes Video Intern: Moderna - Vaccination Dates Date of 2cond Vaccination (if applicable): ? Dates if Unknown: ? - Review of Systems Constitutional: No Symptoms, No Fever, No Chills Eyes: No Symptoms Ears, Nose, & Throat: No Symptoms Respiratory: No Symptoms, No Cough, No Dyspnea Cardiac: No Symptoms, No Chest Pain, No Edema, No Syncope Abdominal/Gastrointestinal: No Symptoms, No Abdominal Pain, No Nausea, No Vomiting, No Diarrhea Genitourinary Symptoms: No Symptoms, No Dysuria Musculoskeletal: No Symptoms, No Back Pain, No Neck Pain Skin: No Symptoms, No Rash Neurological: No Symptoms, No Dizziness, No Focal Weakness, No Sensory Changes Psychological: No Symptoms Endocrine: No Symptoms Hematologic/Lymphatic: No Symptoms Immunological/Allergic: No Symptoms All Other Systems: Reviewed and Negative - Past Medical History Pertinent Past Medical History: Yes Neurological History: No Pertinent History ENT History: No Pertinent History Cardiac History: Arrhythmia, Coronary Artery Disease, Hypertension, Myocardial Infarction (NH) Respiratory History: COPD, Emphysema, Pneumonia Endocrine Medical History: No Pertinent History Musculoskeletal History: Degenerative Disk Disease GI Medical History: No Pertinent History History: No Pertinent History Psycho-Social History: No Pertinent History Male Reproductive Disorders: No Pertinent History - Past Surgical History Past Surgical History: Yes Neuro Surgical History: No Pertinent History Cardiac: CABG, Cardiac Catheterization, Vascular Surgery Respiratory: No Pertinent History Gastrointestinal: No Pertinent History Genitourinary: No Pertinent History Musculoskeletal: Orthopedic Surgery Male Surgical History: No Pertinent History Other Surgical History: bilateral ELBOW SURGERY-"nerves and tendons", rt wrist surgery plate and pins after fx., back surgery, josseline in back, triple bipass 2010; angioplasty left leg x3, stents to rt leg. - Social History Smoking Status: Current every day smoker How long have you smoked: "About 45" Exposure to second hand smoke: Yes Drug Use: none Patient Lives Alone: Yes - Nursing Vital Signs Nursing Vital Signs: Initial Vital Signs Temperature 97.6 F 02/16/22 19:00 Pulse Rate 122 H 02/16/22 19:00 Respiratory Rate 24 02/16/22 19:00 Blood Pressure 165/93 02/16/22 19:00 O2 Sat by Pulse Oximetry 94 L 02/16/22 19:00 Pain Scale Pain Intensity 8 - Physical Exam General Appearance: no apparent distress, alert Eye Exam: PERRL/EOMI, eyes nml inspection Ears, Nose, Throat Exam: normal ENT inspection, TMs normal, pharynx normal, moist mucous membranes Neck Exam: normal inspection, non-tender, supple, full range of motion Respiratory Exam: airway intact, diminished breath sounds, rhonchi, wheezing, No respiratory distress Cardiovascular Exam: regular rate/rhythm, normal heart sounds, normal peripheral pulses Gastrointestinal/Abdomen Exam: soft, normal bowel sounds, No tenderness, No mass Back Exam: normal inspection, normal range of motion, No CVA tenderness, No vertebral tenderness Extremity Exam: normal inspection, normal range of motion, pelvis stable Neurologic Exam: alert, oriented x 3, cooperative, normal mood/affect, nml cerebellar function, nml station & gait, sensation nml, No motor deficits Skin Exam: normal color, warm, dry, No rash Lymphatic Exam: No adenopathy SpO2 Interpretation: normal SpO2: 94 O2 Delivery: Room Air - Course Nursing assessment & vital signs reviewed: Yes EKG Interpreted by Me: RATE (90), Sinus Rhythm, NORMAL AXIS, NORMAL INTERVALS - Radiology Exams Chest X-ray Interpretation: Interpreted by me (Hyperinflated lungs. No consolidation or infiltrate. Sternotomy wires normal cardiac silhouette) - CT Exams Chest CT Interpretation: Tele-radiologist Report (No pulmonary embolus. No aortic dissection. Lungs show emphysematous changes. Small hiatal hernia. Overall heart size not enlarged left ventricle appears diffusely thickened.'s minimal peribronchial thickening in the lung bases bilaterally.) Ordered Tests: Active Orders 24 hr Category Date Time Status Mechanical Car Checker STAT Care 02/16/22 19:25 Active EKG-ER Only STAT Care 02/16/22 19:24 Active IV Insertion STAT Care 02/16/22 19:24 Active Pulse Oximetry (ED) STAT Care 02/16/22 19:24 Active CHEST 1 VIEW (PORTABLE) Stat Exams 02/16/22 19:18 Taken CHEST WITH CONTRAST [CT] Stat Exams 02/16/22 20:22 Taken BLOOD CULTURE Stat Lab 02/16/22 19:45 Received CBC W DIFF Stat Lab 02/16/22 19:30 Completed CMP Stat Lab 02/16/22 19:30 Completed D-DIMER QUANTITATIVE Stat Lab 02/16/22 19:30 Completed NT PRO BNP Stat Lab 02/16/22 19:30 Completed TROPONIN Q4H Lab 02/16/22 19:30 Completed TROPONIN Q4H Lab 02/16/22 23:30 Ordered TROPONIN Q4H Lab 02/17/22 03:30 Ordered Respiratory Therapy Assessment DAILY RT 02/16/22 19:48 Active Transfer Order Routine Transfer 02/16/22 Ordered Medication Summary Discontinued Medications Generic Name Dose Route Start Last Admin Trade Name Freq PRN Reason Stop Dose Admin Albuterol Sulfate 2.5 mg 02/16/22 19:24 02/16/22 19:45 Albuterol Sulfate 2.5 Mg/3 Ml Neb IH 02/16/22 19:25 2.5 mg STAT ONE Administration Albuterol Sulfate Confirm 02/16/22 19:40 Albuterol Sulfate 2.5 Mg/3 Ml Neb Administered 02/16/22 19:41 Dose 2.5 mg IH .STK-MED ONE Methylprednisolone Sodium 0 mg 02/16/22 19:24 02/16/22 19:33 Succinate 125 mg/ Sterile IV 02/16/22 19:25 125 mg Water 2 ml STAT ONE Administration Ceftriaxone Sodium/Dextrose 2 g in 50 mls @ 100 mls/hr 02/16/22 19:27 02/16/22 21:33 Rocephin 2 Gm-D5w 50ml Bag IV 02/16/22 19:56 Infused STAT STA Infusion Azithromycin 500 mg in 250 mls @ 250 mls/hr 02/16/22 19:29 02/16/22 20:58 Zithromax 500 Mg/ 250 Ml Nacl Premix IV 02/16/22 20:28 250 mls/hr STAT STA 250 mls/hr Administration Ceftriaxone Sodium/Dextrose Confirm 02/16/22 19:54 Rocephin 2 Gm-D5w 50ml Bag Administered 02/16/22 19:55 Dose 2 g in 50 mls @ ud IV .STK-MED ONE Azithromycin Confirm 02/16/22 20:54 Zithromax 500 Mg/ 250 Ml Nacl Premix Administered 02/16/22 20:55 Dose 500 mg in 250 mls @ ud IV .STK-MED ONE Ketorolac Tromethamine 30 mg 02/16/22 19:38 02/16/22 19:56 Ketorolac Tromethamine 30 Mg/Ml Inj IV 02/16/22 19:39 30 mg STAT ONE Administration Ketorolac Tromethamine Confirm 02/16/22 19:54 Ketorolac Tromethamine 30 Mg/Ml Inj Administered 02/16/22 19:55 Dose 30 mg .ROUTE .STK-MED ONE Methylprednisolone Sodium Succinate Confirm 02/16/22 19:31 Methylprednis Sod Succ 125 Mg/2 Ml Vial Administered 02/16/22 19:32 Dose 125 mg .ROUTE .STK-MED ONE Sterile Water Confirm 02/16/22 19:30 Water For Injection,Sterile 10 Ml Vial Administered 02/16/22 19:31 Dose 10 ml IJ .STK-MED ONE Lab/Rad Data: Laboratory Result Diagrams 02/16/22 19:30 02/16/22 19:30 Laboratory Results 02/16/22 02/16/22 02/16/22 Range/Units 19:30 19:30 19:30 WBC (4.0-10.5) x10^3/uL RBC (4.1-5.6) x10^6/uL Hgb (12.5-18.0) g/dL Hct (42-50) % MCV (78-100) fL MCH (26-32) pg MCHC (32-36) g/dL RDW (11.5-14.0) % Plt Count (150-450) x10^3/uL MPV (7.5-11.0) fL Gran % (36.0-66.0) % Immature Gran % (Auto) (0.00-0.4) % Nucleat RBC Rel Count (0.00-0.1) % Eos # (Auto) (0-0.5) x10^3/uL Immature Gran # (Auto) (0.00-0.03) x10^3u/L Absolute Lymphs (auto) (1.0-4.6) x10^3/uL Absolute Monos (auto) (0.0-1.3) x10^3/uL Absolute Nucleated RBC (0.00-0.01) x10^3u/L Lymphocytes % (24.0-44.0) % Monocytes % (0.0-12.0) % Eosinophils % (0.00-5.0) % Basophils % (0.0-0.4) % Absolute Granulocytes (1.4-6.9) x10^3/uL Basophils # (0-0.4) x10^3/uL D-Dimer 0.64 H* (0.0-0.50) mg/L Sodium 139 (137-145) mmol/L Potassium 3.9 (3.5-5.1) mmol/L Chloride 105 (98-107) mmol/L Carbon Dioxide 23 (22-30) mmol/L Anion Gap 15.6 H (5-15) MEQ/L BUN 13 (9-20) mg/dL Creatinine 1.06 (0.66-1.25) mg/dL Estimated GFR > 60.0 ML/MIN Glucose 99 (74-106) mg/dL Calcium 9.2 (8.4-10.2) mg/dL Total Bilirubin 0.70 (0.2-1.3) mg/dL AST 25 (17-59) U/L ALT 16 (0-50) U/L Alkaline Phosphatase 134 H (38-126) U/L Troponin I < 0.012 (0.000-0.034) ng/mL NT-Pro-B Natriuret Pep 149 (0-900) pg/mL Serum Total Protein 8.4 H (6.3-8.2) g/dL Albumin 4.6 (3.5-5.0) g/dL Influenza Type A Ag (NEGATIVE) Influenza Type B Ag (NEGATIVE) RSV (PCR) (Negative) SARS-CoV-2 (PCR) (NEGATIVE) 02/16/22 02/16/22 Range/Units 19:30 19:25 WBC 11.7 H (4.0-10.5) x10^3/uL RBC 5.19 (4.1-5.6) x10^6/uL Hgb 15.9 (12.5-18.0) g/dL Hct 46.0 (42-50) % MCV 88.6 (78-100) fL MCH 30.6 (26-32) pg MCHC 34.6 (32-36) g/dL RDW 13.3 (11.5-14.0) % Plt Count 443 (150-450) x10^3/uL MPV 8.9 (7.5-11.0) fL Gran % 64.7 (36.0-66.0) % Immature Gran % (Auto) 0.3 (0.00-0.4) % Nucleat RBC Rel Count 0.0 (0.00-0.1) % Eos # (Auto) 0.72 H (0-0.5) x10^3/uL Immature Gran # (Auto) 0.04 H (0.00-0.03) x10^3u/L Absolute Lymphs (auto) 2.40 (1.0-4.6) x10^3/uL Absolute Monos (auto) 0.88 (0.0-1.3) x10^3/uL Absolute Nucleated RBC 0.00 (0.00-0.01) x10^3u/L Lymphocytes % 20.5 L (24.0-44.0) % Monocytes % 7.5 (0.0-12.0) % Eosinophils % 6.1 H (0.00-5.0) % Basophils % 0.9 (0.0-0.4) % Absolute Granulocytes 7.57 H (1.4-6.9) x10^3/uL Basophils # 0.10 (0-0.4) x10^3/uL D-Dimer (0.0-0.50) mg/L Sodium (137-145) mmol/L Potassium (3.5-5.1) mmol/L Chloride (98-107) mmol/L Carbon Dioxide (22-30) mmol/L Anion Gap (5-15) MEQ/L BUN (9-20) mg/dL Creatinine (0.66-1.25) mg/dL Estimated GFR ML/MIN Glucose (74-106) mg/dL Calcium (8.4-10.2) mg/dL Total Bilirubin (0.2-1.3) mg/dL AST (17-59) U/L ALT (0-50) U/L Alkaline Phosphatase (38-126) U/L Troponin I (0.000-0.034) ng/mL NT-Pro-B Natriuret Pep (0-900) pg/mL Serum Total Protein (6.3-8.2) g/dL Albumin (3.5-5.0) g/dL Influenza Type A Ag NEGATIVE (NEGATIVE) Influenza Type B Ag NEGATIVE (NEGATIVE) RSV (PCR) NEGATIVE (Negative) SARS-CoV-2 (PCR) NEGATIVE (NEGATIVE) - Progress Progress: improved Progress Note: Patient reassessed. He is breathing much easier now. D-dimer positive. CTA negative for PE. Chest x-ray negative for acute findings. Chronic features observed. COVID test negative. Provide of patient's ongoing symptoms will admit for COPD exacerbation. Case discussed with Dr. Perez who excepts admission to observation. Plan of care discussed with patient. He agrees to admission [facility] for further evaluation and treatment. Portions of this note were created with voice recognition technology. There may be grammatical, spelling, punctuation or sound alike errors 02/16/22 21:45 Discussed with DrHmia: Sowmya Will see patient in: hospital (observation) Counseled pt/family regarding: lab results - Departure Departure Disposition: Observation Clinical Impression: Leukocytosis, Elevated d-dimer, COPD exacerbation, Respiratory distress, Chest pain, Hiatal hernia, Lung disease, emphysema Condition: Stable Critical Care Time: No Referrals: LIVE HARVEY, [Primary Care Provider] - Follow up/PCP as directed Instructions: Chronic Obstructive Pulmonary Disease
[2022-02-16] MEDS ORDERED: TORAdol 30 mg Injection IV ONE (19:38)
[2022-02-16 19:53] LABS: Absolute Neutrophil Ct (ANC) 7.57 x10^3/uL (1.4-6.9); Eosinophil % 6.1 % (0.00-5.0); Eosinophil (Absolute #) 0.72 x10^3/uL (0-0.5); Hemoglobin 15.9 g/dL (12.5-18.0); Lymphocytes % 20.5 % (24.0-44.0); Mean Cell Volume 88.6 fL (78-100); Mean Corpuscular Hemoglobin 30.6 pg (26-32); Mean Corpuscular Hgb Concent. 34.6 g/dL (32-36); Mean Platelet Volume 8.9 fL (7.5-11.0); Monocyte (Absolute #) 0.88 x10^3/uL (0.0-1.3); Monocytes % 7.5 % (0.0-12.0); Neutrophil % 64.7 % (36.0-66.0); Platelet Count 443 x10^3/uL (150-450); Red Blood Count 5.19 x10^6/uL (4.1-5.6); Red Cell Distribution Width 13.3 % (11.5-14.0); White Blood Count 11.7 x10^3/uL (4.0-10.5)
[2022-02-16] MEDS ORDERED: ROCEPHIN 2 Gm-D5w 50ML BAG** 2 G/50 ML IVPB IV ONE (19:54)
[2022-02-16] MEDS ORDERED: TORAdol 30 mg Injection ONE (19:54)
[2022-02-16 20:05] LABS: INFLUENZA A NEGATIVE (NEGATIVE); INFLUENZA B NEGATIVE (NEGATIVE); RESPIRATORY SYNCTIAL VIRUS NEGATIVE (Negative); SARS-CoV-2 Xpert Express NEGATIVE (NEGATIVE)
[2022-02-16 20:14] LABS: ALBUMIN 4.6 g/dL (3.5-5.0); ALKALINE PHOSPHATASE 134 U/L (38-126); ANION GAP 15.6 MEQ/L (5-15); BLOOD UREA NITROGEN 13 mg/dL (9-20); CHLORIDE 105 mmol/L (98-107); Calcium 9.2 mg/dL (8.4-10.2); Carbon Dioxide 23 mmol/L (22-30); Creatinine 1 1.06 mg/dL (0.66-1.25); EST GLOMERULAR FILTRATION RATE > 60.0 ML/MIN; Glucose 99 mg/dL (74-106); NT PRO BNP 149 pg/mL (0-900); Potassium 3.9 mmol/L (3.5-5.1); SGOT/AST 25 U/L (17-59); SGPT/ALT 16 U/L (0-50); SODIUM 139 mmol/L (137-145); Total Protein 8.4 g/dL (6.3-8.2)
[2022-02-16] MEDS ORDERED: Zithromax 500 MG/ 250 ML NaCl Premix 500 MG/250 ML IVPB IV ONE (20:54)
[2022-02-16] MEDS: PROVENTIL 2.5 MG/3 ML NEB IH SCH (22:57)
[2022-02-16] MEDS ORDERED: Ranexa 500 MG PO ONE (23:16)
[2022-02-16] MEDS ORDERED: NEURONTIN PO ONE (23:17)
[2022-02-16] MEDS ORDERED: NORCO 5/325 MG ONE (23:19)
[2022-02-16] MEDS ORDERED: NORCO 5/325 MG PO PRN (23:29)
[2022-02-17] MEDS ORDERED: Sterile H2O 10 ml IJ ONE (01:51)
[2022-02-17] MEDS ORDERED: solu-MEDROL ONE ×2 (01:51→05:19)
[2022-02-17] MEDS: solu-MEDROL 60 MG, Sterile H2O 10 ml 2 ML IV SCH ×4 (01:53→06:14)
[2022-02-17] MEDS: PROVENTIL 2.5 MG/3 ML NEB IH SCH ×2 (02:43→06:55)
[2022-02-17 04:00] LABS: Hemoglobin 14.7 g/dL (12.5-18.0); Mean Cell Volume 89.4 fL (78-100); Mean Corpuscular Hemoglobin 29.9 pg (26-32); Mean Corpuscular Hgb Concent. 33.4 g/dL (32-36); Mean Platelet Volume 8.9 fL (7.5-11.0); Platelet Count 413 x10^3/uL (150-450); Red Blood Count 4.92 x10^6/uL (4.1-5.6); Red Cell Distribution Width 13.6 % (11.5-14.0); White Blood Count 7.7 x10^3/uL (4.0-10.5)
[2022-02-17 04:16] LABS: ALBUMIN 4.2 g/dL (3.5-5.0); ALKALINE PHOSPHATASE 112 U/L (38-126); ANION GAP 13.7 MEQ/L (5-15); BLOOD UREA NITROGEN 21 mg/dL (9-20); CHLORIDE 106 mmol/L (98-107); Carbon Dioxide 22 mmol/L (22-30); EST GLOMERULAR FILTRATION RATE > 60.0 ML/MIN; Glucose 209 mg/dL (74-106); Potassium 4.2 mmol/L (3.5-5.1); SGOT/AST 25 U/L (17-59); SGPT/ALT 18 U/L (0-50); SODIUM 137 mmol/L (137-145); Total Protein 7.6 g/dL (6.3-8.2)
[2022-02-17 04:19] VITALS: PULSE 97
[2022-02-17 07:30] VITALS: BP 148/75; O2SAT 92
--- NOTE | 2022-02-17 09:37 | XRAY ---
Exam: AP upright portable chest film from 02/16/2022. Comparison: AP upright portable chest film from 02/12/2021. Indication: 66-year-old male with cough. Findings: The metallic necklace encircles the base of the patient's neck. The lung strong appear mildly hyperinflated consistent with an element of COPD. Correlate clinically. The heart size is normal. There is evidence of prior CABG. In addition, I see a cardiac stent projected over the upper left aspect of the heart, as well as adjacent to the superior lateral margin of the aortic knob. No abnormal lymphadenopathy is seen. The prior atelectatic changes at the lung bases have largely resolved. There is a subtle opacity at the lateral left lung base overlying the anterior margin of the left fifth rib which probably relates to the patient's left nipple. No air space infiltrates, vascular congestion, pneumothorax, or pleural fluid is seen. There is mild convexity of the spine to the right of midline near the thoracolumbar junction of the lower margin of the radiograph representing no change. No acute osseous process is seen. Impression: 1. Evidence of prior cardiovascular surgery consistent with CABG. A couple stents are seen to the left of midline as well. 2. Hyperinflated chest consistent with an element of COPD. 3. Prior mild bibasilar subsegmental atelectasis has essentially resolved. 4. No other acute cardiopulmonary disease is seen.
--- NOTE | 2022-02-17 10:17 | XRAY ---
Exam: CT Chest PE protocol from 02/16/2022. CTDI: 23.68 mGy Comparison: CT of the chest with IV contrast from 04/24/2020. Indication: 66-year-old male with elevated d-dimer 0.64; respiratory distress;? Pneumonia; cough and mid chest pain; history of COPD. Technique: Post IV contrast axial images were obtained through the chest using the PE protocol. Automated injection using 100 cc of Isovue 370 contrast was utilized. Reconstructed coronal and sagittal images were created and reviewed. Findings: CT of the chest is performed with IV contrast utilizing a pulmonary embolism protocol. No CT evidence for pulmonary embolism, thoracic aortic aneurysm, or aortic dissection is seen. The heart size is within normal limits without pericardial effusion. However, I note some apparent concentric left ventricular wall hypertrophy. Correlate clinically regarding hypertension. Further evaluation with an echocardiogram, if not already performed, may be helpful. There is evidence of prior CABG and midline sternotomy. No abnormal mediastinal or perihilar lymphadenopathy is seen. No abnormal axillary lymphadenopathy is seen. I note some apparent secretions within the distal thoracic esophageal lumen which may relate to gastroesophageal reflux or delayed esophageal clearance. There is a small stable hiatal hernia. I see some emphysematous changes throughout the lungs. Scant linear atelectasis is seen at the posterior medial right lung base and in the left posterior lung sulcus. There appear to be some intraluminal secretions within the right lower lung bronchus extending into the posterior medial right lower lobe. Although present on the previous study, I believe this has decreased as compared to 02/11/2021. The remainder of the lungs reveal no suspicious air space infiltrates, pulmonary nodules, pneumothorax, or pleural effusion. Most of the thyroid gland has been included on this study except for the most superior aspect. Of that seen, no abnormality is detected. The upper abdomen reveals no significant abnormality of the adrenal glands. No other gross upper abdominal abnormality is seen of that included on this exam. Degenerative changes are again seen within the spine, as well as some convexity of the thoracolumbar junction toward the right. An acute compression fracture or other aggressive bone lesion is not seen. Impression: 1. I see no evidence of acute pulmonary embolus or thoracic aortic dissection. 2. Although the heart size is normal, there appears to be some concentric thickening of the left ventricular myocardium. This may indicate some left ventricular wall hypertrophy. Correlate clinically regarding hypertension. Echocardiogram, if not already performed, may be helpful. 3. Emphysematous changes are again seen throughout the lungs representing no change. Minimal bibasilar linear atelectasis/scarring is seen. 4. There appear to be some secretions within the right lower lobe bronchus which have decreased but not completely cleared since the prior CT study from 02/11/2021. 5. Small hiatal hernia. There is also some intraluminal mottled density within the distal esophageal lumen which could relate to GERD or delayed esophageal clearance.
[2022-02-17] MEDS ORDERED: ROCEPHIN 1 Gm-D5w 50 ml Bag** 1 G/50 ML IVPB IV SCH (22:00)
[2022-02-17] MEDS ORDERED: Zithromax 500 MG/ 250 ML NaCl Premix 500 MG/250 ML IVPB IV SCH (22:00)
[2022-02-17] MEDS ORDERED: NEURONTIN PO ONE (23:15)
--- NOTE | 2022-03-08 18:22 | PCM.SSS ---
History of Present Illness - Chief Complaint Chief Complaint: COPD exacerbation Date: 02/17/22 History of Present Illness: is a 66 year old male. Pt. presented to ER with increasing sob and productive cough for the past several days. pt. with elevated d-dimer and leukocytosis was placed in observation for more aggressive management and further evaluation. - Review of Systems Constitutional: No Fever, No Chills Eyes: No Symptoms Ears, Nose, & Throat: No Symptoms Respiratory: Cough, Short Of Breath, Wheezing Cardiac: No Chest Pain, No Edema, No Syncope Abdominal/Gastrointestinal: No Abdominal Pain, No Nausea, No Vomiting, No Diarrhea Genitourinary Symptoms: No Dysuria Musculoskeletal: No Back Pain, No Neck Pain Skin: No Rash Neurological: No Dizziness, No Focal Weakness, No Sensory Changes Psychological: No Symptoms Endocrine: No Symptoms Hematologic/Lymphatic: No Symptoms Immunological/Allergic: No Symptoms Medications & Allergies Home Medications: Home Medication List Metoprolol Tartrate 25 mg [Lopressor 25MG Tab] 25 mg PO DAILY 12/27/13 [History Confirmed 02/16/22] Albuterol Common Canister [Ventolin Common Canister] 2 puffs IH Q4H PRN PRN 09/07/18 [History Confirmed 02/16/22] Budesonide/Formoterol Fumarate [Symbicort 160-4.5 Mcg Inhaler] 1 puff IH BID 09/07/18 [History Confirmed 02/16/22] Albuterol 2.5 mg/3 ml Neb [Proventil 2.5 mg/3 ml Neb] 2.5 mg IH UD 12/06/18 [History Confirmed 02/16/22] Aspirin 81 mg PO QAM #0 01/08/19 [Rx Confirmed 02/16/22] Clopidogrel Bisulfate [Plavix] 75 mg PO DAILY #0 01/08/19 [Rx Confirmed 02/16/22] Losartan Potassium 50 mg PO DAILY 05/14/19 [History Confirmed 02/16/22] Nitroglycerin 0.4 mg PO Q5MIN PRN MR X 3 PRN 05/14/19 [History Confirmed 02/16/22] Ranolazine [Ranolazine ER] 500 mg PO BID 05/14/19 [History Confirmed 02/16/22] Potassium Chloride 10 meq PO DAILY 11/03/19 [History Confirmed 02/16/22] Albuterol/Ipratropium 3ml Neb* [DUONEB 0.5-3 MG/3 ml Neb] 3 ml IH QID 04/24/20 [History Confirmed 02/16/22] Bupropion HCl 150 mg Sr [Wellbutrin SR 150 MG] 150 mg PO DAILY 04/24/20 [History Confirmed 02/16/22] Fluticasone/Vilanterol [Breo Ellipta 100-25 Mcg INH] 2 puff IH QAM 04/24/20 [History Confirmed 02/16/22] Gabapentin 600 mg PO QID 04/24/20 [History Confirmed 02/16/22] Amox Tr/Potass Clav. 875 mg [Augmentin 875-125 Tablet] 875 mg PO BID 10 Days #20 tablet 02/17/22 [Rx] Azithromycin [Azithromycin 250 mg Pack] 250 mg PO UD #1 packet 02/17/22 [Rx] Prednisone 10 mg [Deltasone 10 mg] 10 mg PO DAILY 4 Days #4 tablet 02/17/22 [Rx] Prednisone 20 mg [Deltasone 20 mg] 20 mg PO DAILY 10 Days #18 tablet 02/17/22 [Rx] Allergies/Adverse Reactions: Allergies Allergy/AdvReac Type Severity Reaction Status Date / Time No Known Drug Allergies Allergy Verified 02/16/22 19:11 - Past Medical History Past Medical History: Yes Neurological History: No Pertinent History ENT History: No Pertinent History Cardiac History: Arrhythmia, Coronary Artery Disease, Hypertension, Myocardial Infarction ([place]) Respiratory History: COPD, Emphysema, Pneumonia Endocrine Medical History: No Pertinent History Musculoskelatal History: Degenerative Disk Disease GI Medical History: No Pertinent History History: No Pertinent History Pyscho-Social History: No Pertinent History Male Reproductive Disorders: No Pertinent History - Past Surgical History Past Surgical History: Yes Neuro Surgical History: No Pertinent History Cardiac History: CABG, Cardiac Catheterization, Vascular Surgery Respiratory Surgery: No Pertinent History GI Surgical History: No Pertinent History Genitourinary Surgical Hx: No Pertinent History Musculskeletal Surgical Hx: Orthopedic Surgery Male Surgical History: No Pertinent History Other Surgical History: bilateral ELBOW SURGERY-"nerves and tendons", rt wrist surgery plate and pins after fx., back surgery, josseline in back, triple bipass 2010; angioplasty left leg x3, stents to rt leg. - Social History Smoking Status: Current every day smoker How long have you smoked: "About 45" Exposure to second hand smoke: Yes Alcohol: Weekly, Daily Drug Use: none - Physical Exam General Appearance: no apparent distress, alert Neurologic Exam: alert, oriented x 3, cooperative, normal mood/affect, nml cerebellar function, nml station & gait, sensation nml, No motor deficits Eye Exam: PERRL/EOMI, eyes nml inspection Ears, Nose, Throat Exam: normal ENT inspection, TMs normal, pharynx normal, moist mucous membranes Neck Exam: normal inspection, non-tender, supple, full range of motion Respiratory Exam: normal breath sounds, lungs clear, prolonged expirations, No respiratory distress Cardiovascular Exam: regular rate/rhythm, normal heart sounds, normal peripheral pulses Gastrointestinal/Abdomen Exam: soft, normal bowel sounds, No tenderness, No mass Back Exam: normal inspection, normal range of motion, No CVA tenderness, No vertebral tenderness Extremity Exam: normal inspection, normal range of motion, pelvis stable Skin Exam: normal color, warm, dry, No rash Lymphatic Exam: No adenopathy Results - Labs Lab/Micro Results: Microbiology 02/16/22 19:45 Blood Culture Gram Stain - Final Blood Not Reportable Blood Culture - Final NO GROWTH 02/16/22 19:35 Blood Culture Gram Stain - Final Blood Not Reportable Blood Culture - Final NO GROWTH Assessment/Plan (1) COPD (chronic obstructive pulmonary disease) with acute bronchitis Status: Acute Code(s): J44.0 - CHR OBSTRUCTIVE PULMON DISEASE WITH (ACUTE) LOWER RESP INFCT; J20.9 - ACUTE BRONCHITIS, UNSPECIFIED (2) COPD exacerbation Status: Acute Code(s): J44.1 - CHRONIC OBSTRUCTIVE PULMONARY DISEASE W (ACUTE) EXACERBATION (3) Chest pain Status: Acute Code(s): R07.9 - CHEST PAIN, UNSPECIFIED (4) Elevated d-dimer Status: Acute Code(s): R79.89 - OTHER SPECIFIED ABNORMAL FINDINGS OF BLOOD CHEMISTRY Hospital Summary - Hospital Course Hospital Course: Pt. admitted and rapidly responded to treatment and felt much better and ready for discharge to home the following am. - Vitals & Intake/Output Vital Signs: Vital Signs Temperature 97.3 F 02/17/22 07:28 Pulse Rate 97 H 02/17/22 07:28 Respiratory Rate 17 02/17/22 07:28 Blood Pressure 148/75 02/17/22 07:28 O2 Sat by Pulse Oximetry 92 L 02/17/22 07:28 - Lab Result Diagrams: 02/17/22 03:53 02/17/22 03:53 Micro Results-Entire Visit: Microbiology 02/16/22 19:45 Blood Culture Gram Stain - Final Blood Not Reportable Blood Culture - Final NO GROWTH 02/16/22 19:35 Blood Culture Gram Stain - Final Blood Not Reportable Blood Culture - Final NO GROWTH - Procedures and Test Procedures and Tests throughout Hospitalization: Therapy Orders & Screens 02/16/22 19:48 Respiratory Therapy Assessment DAILY Comment: 02/16/22 22:58 Oxygen Nasal Cannula 2 lpm Comment: 2L at night Diagnosis: COPD exacerbation - Discharge Discharge Date: 02/17/22 Disposition: Home, Self-Care Condition: Stable Prescriptions: New Amox Tr/Potass Clav. 875 mg [Augmentin 875-125 Tablet] 875 mg PO BID 10 Days #20 tablet Azithromycin [Azithromycin 250 mg Pack] 250 mg PO UD #1 packet Prednisone 10 mg [Deltasone 10 mg] 10 mg PO DAILY 4 Days #4 tablet Prednisone 20 mg [Deltasone 20 mg] 20 mg PO DAILY 10 Days #18 tablet Continue Metoprolol Tartrate 25 mg [Lopressor 25MG Tab] 25 mg PO DAILY Budesonide/Formoterol Fumarate [Symbicort 160-4.5 Mcg Inhaler] 1 puff IH BID Albuterol Common Canister [Ventolin Common Canister] 2 puffs IH Q4H PRN PRN PRN Reason: Shortness Of Breath/Wheezing Albuterol 2.5 mg/3 ml Neb [Proventil 2.5 mg/3 ml Neb] 2.5 mg IH UD Aspirin 81 mg PO QAM #0 Clopidogrel Bisulfate [Plavix] 75 mg PO DAILY #0 Nitroglycerin 0.4 mg PO Q5MIN PRN MR X 3 PRN PRN Reason: angina Ranolazine [Ranolazine ER] 500 mg PO BID Losartan Potassium 50 mg PO DAILY Potassium Chloride 10 meq PO DAILY Fluticasone/Vilanterol [Breo Ellipta 100-25 Mcg INH] 2 puff IH QAM Albuterol/Ipratropium 3ml Neb* [DUONEB 0.5-3 MG/3 ml Neb] 3 ml IH QID Bupropion HCl 150 mg Sr [Wellbutrin SR 150 MG] 150 mg PO DAILY Gabapentin 600 mg PO QID Instructions: Chronic Obstructive Pulmonary Disease (COPD), Including Emphysema Additional Instructions: PT NOTIFED TO FOLLOW UP WITH DR HARVEY TUESDAY AT 1:30 PM Follow up with: LIVE HARVEY DO [Primary Care Provider] - 02/22/22 1:30 pm
== END 2022-02-17 09:54 | disposition home or self-care (01) ==
LOC: ED 18:29 → MED SURG 22:27
PROVIDERS: ADMIT Family Medicine; ATTEND Family Medicine
DX: J20.9 Acute bronchitis, unspecified (principal); J44.1 Chronic obstructive pulmonary disease with (acute) exacerbation; I10 Essential (primary) hypertension; R07.9 Chest pain, unspecified; R79.89 Other specified abnormal findings of blood chemistry; I25.10 Atherosclerotic heart disease of native coronary artery without angina pectoris; Z79.899 Other long term (current) drug therapy; Z20.828 Contact with and (suspected) exposure to other viral communicable diseases; Z72.0 Tobacco use
CPT/HCPCS: 0241U; 36000; 36415; 71045; 71260; 80053; 83880; 84484; 85025; 85027; 85379; 87040; 93005; 93268; 94640; 94760; 96365; 96367; 96374; 96375; 99285; G0378; J0456; J0696; J1885; J2930; J7609; A9270-GY

== ENCOUNTER 2022-05-03 19:46 | Emergency (ER) | payer MEDICAID, OTHER ==
[2022-05-03] MEDS ORDERED: TORAdol 30 mg Injection IM ONE (20:15)
[2022-05-03] MEDS ORDERED: TYLENOL 325 MG PO ONE (20:16)
[2022-05-03] MEDS ORDERED: TORAdol 30 mg Injection ONE (20:17)
[2022-05-03] MEDS ORDERED: TYLENOL 325 MG ONE (20:18)
--- NOTE | 2022-05-03 20:25 | ERPHSYRPT ---
- History of Present Illness Time Seen by Provider: 05/03/22 20:00 Source: patient Patient Subjective Stated Complaint: pt states "I had a corn on my foot and I was picking out it and now it just hurts" Triage Nursing Assessment: pt presents to ED via wheelchair, pt transferred to bed by self from wheelchair, pt here for a "wound" on the 5th digit of R foot, pt has seen Dr. Kumar in March for his wound and was prescribed bactrim and mupirocin ointment which patient has seen completed, pt also was given a referral to see Dr. Lipscomb but has not seen him yet, pt rating 10/10 pain, pt has not taken anything for pain at this time, Physician History: Patient is a 66-year-old male presents to our ED for evaluation of a "painful corn" at the lateral aspect of the fifth toe. Patient has had this lesion for at least a month. No trauma patient was treated with a course of Bactrim. Patient completed his course late March. Patient has been taking his gabapentin but states is not helping his pain. He has not taken any other analgesics. Patient currently scheduled to see Dr. Lipscomb of podiatry next week. Patient states he was picking at the lesion. Patient removed an overlying scab which triggered the intense pain. Pain described as a sharp sensation that is localized. No radiation. No associated fever. No inguinal or popliteal lymphadenopathy. Patient voices no other complaints or concerns at this time. Portions of this note were created with voice recognition technology. There may be grammatical, spelling, punctuation or sound alike errors Timing/Duration: today Severity: moderate Modifying Factors: Improves With: other Associated Symptoms: denies symptoms Allergies/Adverse Reactions: No Known Drug Allergies Allergy (Verified 05/03/22 19:56) Home Medications: Metoprolol Tartrate 25 mg [Lopressor 25MG Tab] 25 mg PO DAILY 12/27/13 [History] Albuterol Common Canister [Ventolin Common Canister] 2 puffs IH Q4H PRN PRN 09/07/18 [History] Budesonide/Formoterol Fumarate [Symbicort 160-4.5 Mcg Inhaler] 1 puff IH BID 09/07/18 [History] Albuterol 2.5 mg/3 ml Neb [Proventil 2.5 mg/3 ml Neb] 2.5 mg IH UD 12/06/18 [History] Losartan Potassium 50 mg PO DAILY 05/14/19 [History] Nitroglycerin 0.4 mg PO Q5MIN PRN MR X 3 PRN 05/14/19 [History] Ranolazine [Ranolazine ER] 500 mg PO BID 05/14/19 [History] Potassium Chloride 10 meq PO DAILY 11/03/19 [History] Albuterol/Ipratropium 3ml Neb* [DUONEB 0.5-3 MG/3 ml Neb] 3 ml IH QID 04/24/20 [History] Bupropion HCl 150 mg Sr [Wellbutrin SR 150 MG] 150 mg PO DAILY 04/24/20 [History] Fluticasone/Vilanterol [Breo Ellipta 100-25 Mcg INH] 2 puff IH QAM 04/24/20 [History] Gabapentin 600 mg PO QID 04/24/20 [History] Hx Tetanus, Diphtheria Vaccination/Date Given: Yes Hx Influenza Vaccination/Date Given: Yes Hx Pneumococcal Vaccination/Date Given: Yes Immunizations Up to Date: Yes Travel Risk - International Travel Have you traveled outside of the country in past 3 weeks: No - Coronavirus Screening Are you exhibiting any of the following symptoms?: No Close contact with a COVID-19 positive Pt in past 14-21 Days: No - Vaccine Status Have you recieved a Covid-19 vaccination: Yes Chronometer Adjuster: Moderna - Vaccination Dates Date of 2cond Vaccination (if applicable): unkn - Review of Systems Constitutional: No Symptoms, No Fever, No Chills Eyes: No Symptoms Ears, Nose, & Throat: No Symptoms Respiratory: No Symptoms, No Cough, No Dyspnea Cardiac: No Symptoms, No Chest Pain, No Edema, No Syncope Abdominal/Gastrointestinal: No Symptoms, No Abdominal Pain, No Nausea, No Vomiting, No Diarrhea Genitourinary Symptoms: No Symptoms, No Dysuria Musculoskeletal: No Symptoms, No Back Pain, No Neck Pain Skin: No Symptoms, No Rash Neurological: No Symptoms, No Dizziness, No Focal Weakness, No Sensory Changes Psychological: No Symptoms Endocrine: No Symptoms Hematologic/Lymphatic: No Symptoms Immunological/Allergic: No Symptoms All Other Systems: Reviewed and Negative - Past Medical History Pertinent Past Medical History: Yes Neurological History: No Pertinent History ENT History: No Pertinent History Cardiac History: Arrhythmia, Coronary Artery Disease, Hypertension, Myocardial Infarction ([place]) Respiratory History: COPD, Emphysema, Pneumonia Endocrine Medical History: No Pertinent History Musculoskeletal History: Degenerative Disk Disease GI Medical History: No Pertinent History History: No Pertinent History Psycho-Social History: No Pertinent History Male Reproductive Disorders: No Pertinent History - Past Surgical History Past Surgical History: Yes Neuro Surgical History: No Pertinent History Cardiac: CABG, Cardiac Catheterization, Vascular Surgery Respiratory: No Pertinent History Gastrointestinal: No Pertinent History Genitourinary: No Pertinent History Musculoskeletal: Orthopedic Surgery Male Surgical History: No Pertinent History Other Surgical History: bilateral ELBOW SURGERY-"nerves and tendons", rt wrist surgery plate and pins after fx., back surgery, josseline in back, triple bipass 2010; angioplasty left leg x3, stents to rt leg. - Social History Smoking Status: Current every day smoker How long have you smoked: "About 45" Exposure to second hand smoke: Yes Drug Use: none Patient Lives Alone: No - Nursing Vital Signs Nursing Vital Signs: Initial Vital Signs Temperature 98.7 F 05/03/22 19:57 Pulse Rate 105 H 05/03/22 19:57 Respiratory Rate 18 05/03/22 19:57 Blood Pressure 158/103 05/03/22 19:57 O2 Sat by Pulse Oximetry 98 05/03/22 19:57 Pain Scale Pain Intensity 10 - Physical Exam General Appearance: no apparent distress, alert Eye Exam: PERRL/EOMI, eyes nml inspection Ears, Nose, Throat Exam: normal ENT inspection, TMs normal, pharynx normal, moist mucous membranes Neck Exam: normal inspection, non-tender, supple, full range of motion Respiratory Exam: normal breath sounds, lungs clear, airway intact, No respiratory distress Cardiovascular Exam: regular rate/rhythm, normal heart sounds, normal peripheral pulses Gastrointestinal/Abdomen Exam: soft, normal bowel sounds, No tenderness, No mass Back Exam: normal inspection, normal range of motion, No CVA tenderness, No vertebral tenderness Extremity Exam: normal inspection, normal range of motion, pelvis stable, other (There is a small lesion approximately 5 x 5 mm at the lateral aspect of the fifth digit. No open or draining lesions. No cellulitis. No lymphangitis. Involved digit neurovascular tact distally. Compartments are soft. Cap refill less than 2 seconds.) Neurologic Exam: alert, oriented x 3, cooperative, normal mood/affect, nml cerebellar function, nml station & gait, sensation nml, No motor deficits Skin Exam: normal color, warm, dry, No rash Lymphatic Exam: No adenopathy SpO2 Interpretation: normal SpO2: 98 O2 Delivery: Room Air - Course Nursing assessment & vital signs reviewed: Yes Ordered Tests: Medication Summary Discontinued Medications Generic Name Dose Route Start Last Admin Trade Name Sary PRN Reason Stop Dose Admin Acetaminophen 975 mg 05/03/22 20:16 Acetaminophen 325 Mg Tablet PO 05/03/22 20:17 STAT ONE Ketorolac Tromethamine 30 mg 05/03/22 20:15 Ketorolac Tromethamine 30 Mg/Ml Inj IM 05/03/22 20:16 STAT ONE - Progress Progress: improved Progress Note: Patient is a 66-year-old male presents to our ED for evaluation of painful lesion to fifth digit. Patient's primary care doctor is currently managing this lesion. Patient completed a course of antibiotics and currently on gabapentin for pain control. Otherwise has not taken any other pain medications. Pain occurred as result of patient picking at the lesion and removing an overlying scab. Patient has a referral to podiatry but has yet to see podiatry. Physical exam shows a lesion. No associated infection. No lymphangitis. Patient's complaint is acute. Complexity of complaint is low. No significant comorbidities to complicate patient's current presentation. Diagnosis made based on history and physical. No imaging or specialty studies ordered. Patient received a dose of Toradol IM and a dose of oral acetaminophen. Patient reassessed. Pain improved. 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 Level of EM service provided was straightforward. Complexity of problems addressed is low. Complexity of data reviewed is not applicable in this case. Time spent during discharge approximately 5 minutes. Discharge diagnoses toe pain and toe lesion. Patient voices no other complaints or concerns at this time. Portions of this note were created with voice recognition technology. There may be grammatical, spelling, punctuation or sound alike errors 05/03/22 20:29 05/03/22 20:35 Counseled pt/family regarding: diagnosis, need for follow-up Medical Desision Making - Diagnostic Testing Diagnostic Testing: Diagnostic tests were ordered,analyzed, and reviewed by me and used in my medical decision making for this patient. Radiologic studies (if ordered) were read by me initially then discussed with the radiologist . - Departure Departure Disposition: Home Clinical Impression: Toe pain, Toe lesion Condition: Stable Critical Care Time: No Referrals: LIVE KUMAR DO [Primary Care Provider] - Follow up/PCP as directed Additional Instructions: Discharge/Care Plan JASOBED RILEY was seen on 05/03/22 in the Emergency Room. The patient was counseled regarding Diagnosis,Lab results, Imaging studies, need for follow up and when to return to the Emergency Room. Prescriptions given: Discharge Note I have spoken with the patient and/or caregivers. I have explained the patient's condition, diagnosis and treatment plan based on the information available to me at this time. I have answered the patient's and/or caregiver's questions and addressed any concerns. The patient and/or caregivers have as good understanding of the patient's diagnosis, condition and treatment plan as can be expected at this point. The vital signs have been stable. The patient's condition is stable and appropriate for discharge from the emergency department. The patient will pursue further outpatient evaluation with the primary care physician or other designated or consulting physician as outlined in the discharge instructions. The patient and/or caregivers are agreeable to this plan of care and follow-up instructions have been explained in detail. The patient and/or caregivers have received these instruction. The patient/and or caregivers are aware that any significant change in condition or worsening of symptoms should prompt an immediate return to this or the closest emergency department or call 911.
[2022-05-03 20:53] VITALS: BP 153/96; PULSE 98; O2SAT 97
== END 2022-05-03 20:53 | disposition home or self-care (01) ==
LOC: ED 19:46
DX: L98.9 Disorder of the skin and subcutaneous tissue, unspecified (principal); M79.674 Pain in right toe(s); I10 Essential (primary) hypertension; Z79.899 Other long term (current) drug therapy; Z72.0 Tobacco use
CPT/HCPCS: 96372; 99283; J1885; A9270-GY

== ENCOUNTER 2022-05-25 10:40 | Day surgery (SDC) | payer MEDICARE ==
[~2022-05-25 10:40] MED LIST changes: -Lactated Ringers 1,000 ML IV ONE; +Marcaine Mpf 0.5% Vial 30 Ml ONE; +XYLOCAINE 1% HCL 20 ML MDV ONE
[2022-05-25] MEDS ORDERED: Lactated Ringers 1,000 ML IV SCH (11:00)
[2022-05-25] MEDS ORDERED: CEFAZOLIN 2 GM-D5W BAG** 2 GM/50 ML ML IV SCH (11:00)
[2022-05-25] MEDS ORDERED: Lactated Ringers 1,000 ML IV ONE (11:05)
[2022-05-25] MEDS ORDERED: CEFAZOLIN 2 GM-D5W BAG** 2 GM/50 ML ML IV ONE (11:05)
[2022-05-25 11:48] LABS: Hematocrit 46.9 % (42-50); Hemoglobin 15.5 g/dL (12.5-18.0); Mean Cell Volume 89.3 fL (78-100); Mean Corpuscular Hemoglobin 29.5 pg (26-32); Mean Platelet Volume 8.4 fL (7.5-11.0); Platelet Count 461 x10^3/uL (150-450); Red Blood Count 5.25 x10^6/uL (4.1-5.6); Red Cell Distribution Width 14.5 % (11.5-14.0); White Blood Count 9.7 x10^3/uL (4.0-10.5)
[2022-05-25] MEDS: TRANDATE 20 MG/4 ML SYRINGE IV PRN ×2 (11:50→12:01)
[2022-05-25 11:57] LABS: ALBUMIN 4.4 g/dL (3.5-5.0); ALKALINE PHOSPHATASE 128 U/L (38-126); BLOOD UREA NITROGEN 18 mg/dL (9-20); CHLORIDE 102 mmol/L (98-107); Calcium 9.2 mg/dL (8.4-10.2); Carbon Dioxide 26 mmol/L (22-30); Creatinine 1 1.04 mg/dL (0.66-1.25); EST GLOMERULAR FILTRATION RATE > 60.0 ML/MIN; Glucose 108 mg/dL (74-106); Potassium 4.2 mmol/L (3.5-5.1); SGOT/AST 24 U/L (17-59); SGPT/ALT 18 U/L (0-50); Total Protein 7.9 g/dL (6.3-8.2)
[2022-05-25 11:59] LABS: SODIUM 137 mmol/L (137-145)
[2022-05-25 12:02] LABS: ANION GAP 13.2 MEQ/L (5-15)
[2022-05-25] MEDS ORDERED: Versed 2 MG/2 ML Injection ONE (14:38)
[2022-05-25] MEDS ORDERED: DIPRIVAN 200 MG/20 ML IV ONE ×3 (14:38→15:05)
[2022-05-25] MEDS ORDERED: MORPHINE SULFATE 10 MG/ML ONE (14:44)
[2022-05-25 16:20] VITALS: BP 113/72; PULSE 71; O2SAT 98
--- NOTE | 2022-05-25 16:45 | XRAY ---
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 Intraoperative fluoroscopy provided for 7 seconds. 4 digital spot images submitted for interpretation demonstrates 5th toe amputation and resection head 5th metatarsal. Correlate with intraoperative findings/report.
--- NOTE | 2022-05-26 09:30 | OP ---
SURGERY DATE/TIME: 05/25/2022 1435 PREOPERATIVE DIAGNOSES: 1) Peripheral vascular disease right foot. 2) Gangrene right fifth digit. 3) Pain right foot. POSTOPERATIVE DIAGNOSES: 1) Peripheral vascular disease right foot. 2) Gangrene right fifth digit. 3) Pain right foot. PROCEDURE: Amputation fifth digit along with partial metatarsal resection. SURGEON: Ruel Garibay DPM. DIRECTOR COST: None. ANESTHESIA: Monitored anesthesia care with preoperative local block. HEMOSTASIS: Pressure dressing. ESTIMATED BLOOD LOSS: Minimal. INJECTABLES: 30 cc of a 1:1 mixture of 1% lidocaine plain and 0.5% bupivacaine plain injected in a mini-Caballero block-type fashion. INDICATION FOR SURGERY: Clark is a very pleasant 67-year-old male who presented to my service with discoloration of his fifth digit and an infection that led directly to the level of bone. The patient has been having pain associated with this for approximately three weeks. He does not remember any specific injury but based on the location this is likely due to a new pair of shoes, based on location this is due to irritation from shoe gear that developed a callous over this area and turned into a wound secondary to his peripheral vascular disease. The patient has an extensive history of intervention of vascular to the bilateral lower extremities with stent placement to the right lower extremity of which is interest. At this time he recently did have some vascular studies demonstrating restricted blood flow however sufficient enough for healing of the amputation. Attempts were made from the conservative modality considering patient's gangrene is not extensive including pentoxifylline and Nitro paste. However, the patient's pain has not been alleviated. The patient has opted to proceed with amputation to the digit. The patient understands that there are no guarantees based on the findings that we will not proceed further at a later date to remove more of his foot secondary to his severely restricted blood flow. Most of the studies that were demonstrated show the blood flow at the dorsal aspect of the foot however do not demonstrate the flow to the toes. Doppler was used in the office and demonstrated very minimal indications of blood flow to the fifth metatarsal past the fifth metatarsal head. At this time the patient understands all risks, complications and benefits of surgical intervention including but not limited to infection, hematoma, seroma, possibility of delayed skin healing and possibility of nonskin healing, possibility need for surgical intervention at a later date and possible failure of surgical intervention. The patient has had plenty of time to ask questions which were answered to the patient's apparent satisfaction. It is with that we decided to proceed. DESCRIPTION OF PROCEDURE AND FINDINGS: The patient is brought into the OR and placed and placed on the OR table in the supine position. At this time monitored anesthesia care was administered until the patient was sedated. At that time a block was performed at the fifth metatarsal consisting of 30 cc of a 1:1 mixture of 1% lidocaine plain and 0.5% bupivacaine plain injected in a mini-Caballero block-type fashion. At this time attention was directed to the right foot after having been prepped and draped in the typical sterile fashion. A lateral racket incision was made extending past the fifth metatarsal head and coming around the fifth digit. From that standpoint the fifth digit was disarticulated. An 18 mm blade on the sagittal saw was then utilized to resect the metatarsal head this was cleansed with copious amounts of sterile saline. 4-0 Monocryl was then utilized to coapt the subcutaneous skin edges and 3-0 Nylon was utilized in a simple interrupted-type fashion the skin edges. Dressing consisting of Betadine, Adaptic, 4x4, Kerlix and ROSELIA were then applied to the right foot with minimal compression. The patient then was reversed from anesthesia and returned to the postoperative anesthesia care unit with vital signs stable and vascular status intact. The patient handled the anesthesia as well as the procedure without significant complication. Postoperative orders as indicated in the patient's discharge chart.
== END 2022-05-25 16:31 | disposition home or self-care (01) ==
LOC: SDC 10:40
PROVIDERS: ATTEND Podiatrist Foot & Ankle Surgery
DX: I73.9 Peripheral vascular disease, unspecified (principal); M79.671 Pain in right foot
CPT/HCPCS: 36415; 73630; 76000; 80053; 85027; J0690; J2250; J2270; J2704

== ENCOUNTER 2022-06-16 07:42 | Emergency (ER) | payer MEDICARE ==
[2022-06-16 07:59] VITALS: PULSE 104
--- NOTE | 2022-06-16 07:59 | ERPHSYRPT ---
- History of Present Illness Time Seen by Provider: 06/16/22 07:59 Source: patient Exam Limitations: no limitations Physician History: This is a 67-year-old white male patient who woke up this morning with right side posterior paraspinous and posterior right side trapezius muscle pain. He is never had anything like this before. He denies chest pain. He denies shortn ess of breath. He does have a cardiac history with cardiac stents and is taking Plavix. He does have chronic back pain issues. He did not suffer any acute trauma. He has not had a fever or cough. Patient went to bed last night feeling fine and woke up with the symptoms. Timing/Duration: today Severity: moderate Modifying Factors: Improves With: movement Associated Symptoms: denies symptoms Allergies/Adverse Reactions: No Known Drug Allergies Allergy (Verified 06/16/22 07:59) Home Medications: Metoprolol Tartrate 25 mg [Lopressor 25MG Tab] 50 mg PO DAILY 12/27/13 [History] Albuterol Common Canister [Ventolin Common Canister] 2 puffs IH Q4H PRN PRN 09/07/18 [History] Budesonide/Formoterol Fumarate [Symbicort 160-4.5 Mcg Inhaler] 1 puff IH BID 09/07/18 [History] Losartan Potassium 50 mg PO DAILY 05/14/19 [History] Nitroglycerin 0.4 mg PO Q5MIN PRN MR X 3 PRN 05/14/19 [History] Ranolazine [Ranolazine ER] 500 mg PO BID 05/14/19 [History] Bupropion HCl 150 mg Sr [Wellbutrin SR 150 MG] 150 mg PO DAILY 04/24/20 [History] Gabapentin 600 mg PO QID 04/24/20 [History] Amlodipine Besylate 5 mg [Norvasc 5 mg] 10 mg PO DAILY 05/20/22 [History] Atorvastatin Calcium 80 mg PO DAILY 05/20/22 [History] Ezetimibe 10 mg [Zetia 10 MG] 10 mg PO HS 05/20/22 [History] Ipratropium Beaver 0.5 mg [Atrovent 0.5MG NEBULE] 1 vial IH QID PRN 05/20/22 [History] Isosorbide Mononitrate [Isosorbide Mononitrate ER] 30 mg PO DAILY 05/20/22 [History] Mupirocin [Bactroban OINTMENT] 1 applic TOP TID 05/20/22 [History] Tiotropium Beaver [Spiriva Respimat] 2 puffs IH DAILY 05/20/22 [History] Hx Tetanus, Diphtheria Vaccination/Date Given: Yes Hx Influenza Vaccination/Date Given: Yes Hx Pneumococcal Vaccination/Date Given: Yes Travel Risk - International Travel Have you traveled outside of the country in past 3 weeks: No - Coronavirus Screening Are you exhibiting any of the following symptoms?: No Close contact with a COVID-19 positive Pt in past 14-21 Days: No - Vaccine Status Have you recieved a Covid-19 vaccination: Yes 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 - Vaccination Dates Date of 2cond Vaccination (if applicable): unkn - Review of Systems Constitutional: No Symptoms Eyes: No Symptoms Ears, Nose, & Throat: No Symptoms Respiratory: No Symptoms Cardiac: No Symptoms Abdominal/Gastrointestinal: No Symptoms Genitourinary Symptoms: No Symptoms Musculoskeletal: Neck Pain (Right posterior paraspinous muscle and posterior right trapezius muscle pain) Skin: No Symptoms Neurological: No Symptoms Psychological: No Symptoms Endocrine: No Symptoms Hematologic/Lymphatic: No Symptoms Immunological/Allergic: No Symptoms All Other Systems: Reviewed and Negative - Past Medical History Pertinent Past Medical History: Yes Neurological History: No Pertinent History ENT History: No Pertinent History Cardiac History: Arrhythmia, Coronary Artery Disease, High Cholesterol, Hypertension, Myocardial Infarction ([place]) Respiratory History: COPD, Emphysema, Pneumonia Endocrine Medical History: No Pertinent History Musculoskeletal History: Degenerative Disk Disease GI Medical History: No Pertinent History History: No Pertinent History Psycho-Social History: No Pertinent History Male Reproductive Disorders: No Pertinent History Other Medical History: oxygen at home. - Past Surgical History Past Surgical History: Yes Neuro Surgical History: No Pertinent History Cardiac: CABG, Cardiac Catheterization, Vascular Surgery Respiratory: No Pertinent History Gastrointestinal: No Pertinent History Genitourinary: No Pertinent History Musculoskeletal: Orthopedic Surgery Male Surgical History: No Pertinent History Other Surgical History: bilateral ELBOW SURGERY-"nerves and tendons", rt wrist surgery plate and pins after fx., back surgery, josseline in back, triple bipass 2010; angioplasty left leg x3, stents to rt leg. - Social History Smoking Status: Current every day smoker How long have you smoked: age 15 Exposure to second hand smoke: Yes Drug Use: none Patient Lives Alone: No - Nursing Vital Signs Nursing Vital Signs: Initial Vital Signs Temperature 97.2 F 06/16/22 07:49 Pulse Rate 104 H 06/16/22 07:49 Blood Pressure 216/122 06/16/22 07:49 O2 Sat by Pulse Oximetry 96 06/16/22 07:49 Pain Scale Pain Intensity 8 - Physical Exam General Appearance: no apparent distress, alert, anxiety Eye Exam: PERRL/EOMI, eyes nml inspection Ears, Nose, Throat Exam: normal ENT inspection, moist mucous membranes Neck Exam: limited range of motion (Secondary to pain in the distribution of the right posterior paraspinous muscle and right posterior trapezius muscle.) Respiratory Exam: normal breath sounds, lungs clear, airway intact, No chest tenderness, No respiratory distress Cardiovascular Exam: regular rate/rhythm, normal heart sounds, normal peripheral pulses Gastrointestinal/Abdomen Exam: soft, normal bowel sounds, No tenderness Rectal Exam: not done Back Exam: normal inspection, normal range of motion, No CVA tenderness, No vertebral tenderness Extremity Exam: normal inspection, normal range of motion, pelvis stable Neurologic Exam: alert, oriented x 3, cooperative, family court justice II-XII nml as tested, normal mood/affect, nml cerebellar function, nml station & gait, sensation nml Skin Exam: normal color, warm, dry Lymphatic Exam: No adenopathy SpO2 Interpretation: normal O2 Delivery: Room Air - Course Nursing assessment & vital signs reviewed: Yes EKG Interpreted by Me: RATE ([id number]), Sinus Tach, Left [place] Deviation, NORMAL INTERVALS, NORMAL QRS, NORMAL ST-T, Other (No acute ischemic changes on today's twelve-lead EKG) Ordered Tests: Active Orders 24 hr Category Date Time Status Forensic Identification Specialist STAT Care 06/16/22 08:05 Active EKG-ER Only STAT Care 06/16/22 08:04 Active Pulse Oximetry (ED) STAT Care 06/16/22 08:04 Active BMP Stat Lab 06/16/22 08:13 Completed CBC W DIFF Stat Lab 06/16/22 08:13 Completed MAG [MAGNESIUM] Stat Lab 06/16/22 08:13 Completed TROPONIN Q4H Lab 06/16/22 08:13 Completed TROPONIN Q4H Lab 06/16/22 08:23 Received TROPONIN Q4H Lab 06/16/22 12:15 Ordered Medication Summary Discontinued Medications Generic Name Dose Route Start Last Admin Trade Name Sary PRBoogie Reason Stop Dose Admin Morphine Sulfate 4 mg 06/16/22 08:06 06/16/22 08:12 Morphine Sulfate 4 Mg/Ml Injection IM 06/16/22 08:07 4 mg STAT ONE Administration Morphine Sulfate Confirm 06/16/22 08:10 Morphine Sulfate 4 Mg/Ml Injection Administered 06/16/22 08:11 Dose 4 mg .ROUTE .STK-MED ONE Ondansetron HCl 4 mg 06/16/22 08:05 06/16/22 08:12 Zofran 4 Mg/Udtablet Orally Disintegrating PO 06/16/22 08:06 4 mg STAT ONE Administration Ondansetron HCl Confirm 06/16/22 08:10 Zofran 4 Mg/Udtablet Orally Disintegrating Administered 06/16/22 08:11 Dose 4 mg .ROUTE .STK-MED ONE Orphenadrine Citrate 60 mg 06/16/22 08:06 06/16/22 08:11 Orphenadrine Citrate 60 Mg/2 Ml Vial IM 06/16/22 08:07 60 mg STAT ONE Administration Orphenadrine Citrate Confirm 06/16/22 08:10 Orphenadrine Citrate 60 Mg/2 Ml Vial Administered 06/16/22 08:11 Dose 60 mg .ROUTE .STK-MED ONE Lab/Rad Data: Laboratory Result Diagrams 06/16/22 08:13 06/16/22 08:13 Laboratory Results 06/16/22 06/16/22 06/16/22 Range/Units 08:13 08:13 08:13 WBC (4.0-10.5) x10^3/uL RBC (4.1-5.6) x10^6/uL Hgb (12.5-18.0) g/dL Hct (42-50) % MCV (78-100) fL MCH (26-32) pg MCHC (32-36) g/dL RDW (11.5-14.0) % Plt Count (150-450) x10^3/uL MPV (7.5-11.0) fL Gran % (36.0-66.0) % Immature Gran % (Auto) (0.00-0.4) % Nucleat RBC Rel Count (0.00-0.1) % Eos # (Auto) (0-0.5) x10^3/uL Immature Gran # (Auto) (0.00-0.03) x10^3u/L Absolute Lymphs (auto) (1.0-4.6) x10^3/uL Absolute Monos (auto) (0.0-1.3) x10^3/uL Absolute Nucleated RBC (0.00-0.01) x10^3u/L Lymphocytes % (24.0-44.0) % Monocytes % (0.0-12.0) % Eosinophils % (0.00-5.0) % Basophils % (0.0-0.4) % Absolute Granulocytes (1.4-6.9) x10^3/uL Basophils # (0-0.4) x10^3/uL Sodium 140 (137-145) mmol/L Potassium 4.5 (3.5-5.1) mmol/L Chloride 104 (98-107) mmol/L Carbon Dioxide 25 (22-30) mmol/L Anion Gap 15.7 H (5-15) MEQ/L BUN 17 (9-20) mg/dL Creatinine 1.10 (0.66-1.25) mg/dL Estimated GFR > 60.0 ML/MIN Glucose 106 (74-106) mg/dL Calcium 9.4 (8.4-10.2) mg/dL Magnesium 2.1 (1.6-2.3) mg/dL Troponin I < 0.012 (0.000-0.034) ng/mL 06/16/22 Range/Units 08:13 WBC 15.2 H (4.0-10.5) x10^3/uL RBC 5.06 (4.1-5.6) x10^6/uL Hgb 15.1 (12.5-18.0) g/dL Hct 45.4 (42-50) % MCV 89.7 (78-100) fL MCH 29.8 (26-32) pg MCHC 33.3 (32-36) g/dL RDW 13.9 (11.5-14.0) % Plt Count 458 H (150-450) x10^3/uL MPV 8.5 (7.5-11.0) fL Gran % 80.5 H (36.0-66.0) % Immature Gran % (Auto) 0.3 (0.00-0.4) % Nucleat RBC Rel Count 0.0 (0.00-0.1) % Eos # (Auto) 0.24 (0-0.5) x10^3/uL Immature Gran # (Auto) 0.05 H (0.00-0.03) x10^3u/L Absolute Lymphs (auto) 1.60 (1.0-4.6) x10^3/uL Absolute Monos (auto) 1.03 (0.0-1.3) x10^3/uL Absolute Nucleated RBC 0.00 (0.00-0.01) x10^3u/L Lymphocytes % 10.5 L (24.0-44.0) % Monocytes % 6.8 (0.0-12.0) % Eosinophils % 1.6 (0.00-5.0) % Basophils % 0.3 (0.0-0.4) % Absolute Granulocytes 12.21 H (1.4-6.9) x10^3/uL Basophils # 0.04 (0-0.4) x10^3/uL Sodium (137-145) mmol/L Potassium (3.5-5.1) mmol/L Chloride (98-107) mmol/L Carbon Dioxide (22-30) mmol/L Anion Gap (5-15) MEQ/L BUN (9-20) mg/dL Creatinine (0.66-1.25) mg/dL Estimated GFR ML/MIN Glucose (74-106) mg/dL Calcium (8.4-10.2) mg/dL Magnesium (1.6-2.3) mg/dL Troponin I (0.000-0.034) ng/mL - Progress Progress: improved, re-examined Progress Note: 06/16/22 09:15 This is a 67-year-old white male patient who is medical issue is 1 of moderate complexity. The work-up and the level of complexity is based on the review of the patient's past medical history, review of the patient's medication list, review of the patient's drug allergy list, history of present illness and physical findings on examination. The work-up included BMP, magnesium, troponin level, twelve-lead EKG. In addition the patient received morphine intramuscularly, orphenadrine intramuscularly, and Zofran 4 mg ODT. This improved his symptoms. I reviewed the results of the lab work-up and interpreted the twelve-lead EKG. The patient's medical issue is muscle skeletal spasm and neck strain. Discharge instructions are to have him fill the prescription for prednisone and orphenadrine. He is also to follow-up with his primary care provider for further evaluation and management. Counseled pt/family regarding: lab results, diagnosis, need for follow-up Medical Desision Making - Discussion of managment Reviewed:: Test results Agreed on:: Treatment plan, need for follow-up - Diagnostic Testing Diagnostic test were ordered, analyzed, and reviewed by me: Yes - Risk of complications The pt has a mod risk of morbidity or mortality based on: Need for prescription drug management - Departure Departure Disposition: Home Clinical Impression: Neck muscle strain, Muscle spasm Condition: Stable Critical Care Time: No Referrals: LIVE HARVEY DO [Primary Care Provider] - Follow up/PCP as directed Additional Instructions: Call your primary care provider today to make arrangements for follow-up appointment within the next 3 to 5 days for further evaluation and management. Take your medication as prescribed. Prescriptions: Prednisone 10 mg [Deltasone 10 mg] 10 mg PO TID #12 tablet Orphenadrine Citrate 100 mg [Norflex 100 MG Tablet] 100 mg PO BID #10 tab
[2022-06-16] MEDS ORDERED: ZOFRAN ODT 4 MG PO ONE (08:05)
[2022-06-16] MEDS ORDERED: Norflex 60 MG/2 ML IM ONE (08:06)
[2022-06-16] MEDS ORDERED: MORPHINE SULFATE 4 MG INJ IM ONE (08:06)
[2022-06-16] MEDS ORDERED: MORPHINE SULFATE 4 MG INJ ONE (08:10)
[2022-06-16] MEDS ORDERED: ZOFRAN ODT 4 MG ONE (08:10)
[2022-06-16] MEDS ORDERED: Norflex 60 MG/2 ML ONE (08:10)
[2022-06-16 08:17] LABS: Absolute Neutrophil Ct (ANC) 12.21 x10^3/uL (1.4-6.9); BASOPHIL % 0.3 % (0.0-0.4); Basophil (Absolute #) 0.04 x10^3/uL (0-0.4); Eosinophil % 1.6 % (0.00-5.0); Eosinophil (Absolute #) 0.24 x10^3/uL (0-0.5); Hematocrit 45.4 % (42-50); Hemoglobin 15.1 g/dL (12.5-18.0); IMMATURE GRAN # 0.05 x10^3u/L (0.00-0.03); IMMATURE GRAN % 0.3 % (0.00-0.4); Lymphocytes % 10.5 % (24.0-44.0); Mean Cell Volume 89.7 fL (78-100); Mean Corpuscular Hemoglobin 29.8 pg (26-32); Mean Corpuscular Hgb Concent. 33.3 g/dL (32-36); Mean Platelet Volume 8.5 fL (7.5-11.0); Monocyte (Absolute #) 1.03 x10^3/uL (0.0-1.3); Monocytes % 6.8 % (0.0-12.0); Neutrophil % 80.5 % (36.0-66.0); Platelet Count 458 x10^3/uL (150-450); Red Blood Count 5.06 x10^6/uL (4.1-5.6); Red Cell Distribution Width 13.9 % (11.5-14.0); White Blood Count 15.2 x10^3/uL (4.0-10.5)
[2022-06-16 08:32] LABS: ANION GAP 15.7 MEQ/L (5-15); BLOOD UREA NITROGEN 17 mg/dL (9-20); CHLORIDE 104 mmol/L (98-107); Calcium 9.4 mg/dL (8.4-10.2); Carbon Dioxide 25 mmol/L (22-30); EST GLOMERULAR FILTRATION RATE > 60.0 ML/MIN; Glucose 106 mg/dL (74-106); Potassium 4.5 mmol/L (3.5-5.1); SODIUM 140 mmol/L (137-145)
[2022-06-16 09:28] VITALS: BP 182/116; O2SAT 97
== END 2022-06-16 09:42 | disposition home or self-care (01) ==
LOC: ED 07:42
DX: S16.1XXA Strain of muscle, fascia and tendon at neck level, initial encounter (principal); M62.838 Other muscle spasm; E78.5 Hyperlipidemia, unspecified; I10 Essential (primary) hypertension; Z79.02 Long term (current) use of antithrombotics/antiplatelets; Z79.899 Other long term (current) drug therapy; Z72.0 Tobacco use
CPT/HCPCS: 36415; 80048; 83735; 84484; 85025; 93005; 93041; 94760; 96372; 99284; J2270; J2360; Q0162

== ENCOUNTER 2022-08-18 20:19 | Emergency (ER) | payer MEDICARE ==
[2022-08-18] MEDS ORDERED: MORPHINE SULFATE 2 MG INJ IV ONE (20:32)
[2022-08-18] MEDS ORDERED: Zofran 4 MG/2 ML VIAL IV ONE (20:32)
[2022-08-18] MEDS ORDERED: BABY ASPIRIN 81 MG CHEW PO ONE (20:32)
[2022-08-18] MEDS ORDERED: BABY ASPIRIN 81 MG CHEW ONE (20:37)
[2022-08-18] MEDS ORDERED: Zofran 4 MG/2 ML VIAL ONE (20:37)
[2022-08-18] MEDS ORDERED: MORPHINE SULFATE 2 MG INJ ONE (20:37)
--- NOTE | 2022-08-18 20:38 | ERPHSYRPT ---
- History of Present Illness Time Seen by Provider: 08/18/22 20:36 Historian: patient Exam Limitations: no limitations Physician History: 67-year-old male presents emergency room with a 1 hour history of severe substernal chest pain without radiation. Patient has a history of triple bypass in 2010 with multiple stents placed since that time with the most recent stent being placed [address] Herrera. Patient reports that he was working on his vehicle when the pain started and has been constant since that time. He rates the pain as a 9 out of 10 in severity described as a burning pressure that is similar to his previous heart attacks. Patient reports nausea with the chest pain but has not had any episodes of vomiting. He does report increased shortness of breath since the chest pain started. He denies any increase in swelling or orthopnea. Patient reports taking 5 nitro without relief at home as well as to 81 mg aspirin prior to arrival. Timing/Duration: today, hour(s) (1), sudden Activities at Onset: activity Quality: burning, pressure Location: substernal Chest Pain Radiation: no radiation Severity of Pain-Max: severe Severity of Pain-Current: severe Modifying Factors: Improves With: morphine. Worsens With: breathing, exertion Associated Symptoms: shortness of breath, cough, No nausea, No vomiting, No abdominal pain, No diaphoresis, No fever, No edema Nitro Today/Relief: provided at home (0.4 x 5 ) Aspirin Treatment Today: 81 mg x 4, provided at home, provided by ED Allergies/Adverse Reactions: No Known Drug Allergies Allergy (Verified 08/18/22 20:46) Home Medications: Metoprolol Tartrate 25 mg [Lopressor 25MG Tab] 50 mg PO DAILY 12/27/13 [History] Albuterol Common Canister [Ventolin Common Canister] 2 puffs IH Q4H PRN PRN 09/07/18 [History] Budesonide/Formoterol Fumarate [Symbicort 160-4.5 Mcg Inhaler] 1 puff IH BID 09/07/18 [History] Losartan Potassium 50 mg PO DAILY 05/14/19 [History] Nitroglycerin 0.4 mg PO Q5MIN PRN MR X 3 PRN 05/14/19 [History] Ranolazine [Ranolazine ER] 500 mg PO BID 05/14/19 [History] Bupropion HCl 150 mg Sr [Wellbutrin SR 150 MG] 150 mg PO DAILY 04/24/20 [History] Gabapentin 600 mg PO QID 04/24/20 [History] Amlodipine Besylate 5 mg [Norvasc 5 mg] 10 mg PO DAILY 05/20/22 [History] Atorvastatin Calcium 80 mg PO DAILY 05/20/22 [History] Ezetimibe 10 mg [Zetia 10 MG] 10 mg PO HS 05/20/22 [History] Ipratropium Cordova 0.5 mg [Atrovent 0.5MG NEBULE] 1 vial IH QID PRN 05/20/22 [History] Isosorbide Mononitrate [Isosorbide Mononitrate ER] 30 mg PO DAILY 05/20/22 [History] Mupirocin [Bactroban OINTMENT] 1 applic TOP TID 05/20/22 [History] Tiotropium [place] [Spiriva Respimat] 2 puffs IH DAILY 05/20/22 [History] Hx Tetanus, Diphtheria Vaccination/Date Given: Yes Hx Influenza Vaccination/Date Given: Yes Hx Pneumococcal Vaccination/Date Given: Yes Travel Risk - Vaccine Status Have you recieved a Covid-19 vaccination: Yes Algorithm Developer: Moderna - Vaccination Dates Date of 2cond Vaccination (if applicable): unkn - Review of Systems Constitutional: No Symptoms Eyes: No Symptoms Ears, Nose, & Throat: No Symptoms Respiratory: Cough, Dyspnea, Dyspnea on Exertion (ANDRADE), No Wheezing Cardiac: Chest Pain, No Edema, No Orthopnea, No PND Abdominal/Gastrointestinal: No Abdominal Pain, No Nausea, No Vomiting, No Diarrhea, No Constipation Genitourinary Symptoms: No Symptoms Musculoskeletal: No Symptoms Skin: No Symptoms Neurological: No Symptoms Psychological: No Symptoms Endocrine: No Symptoms Hematologic/Lymphatic: No Symptoms Immunological/Allergic: No Symptoms All Other Systems: Reviewed and Negative - Past Medical History Pertinent Past Medical History: Yes Neurological History: No Pertinent History ENT History: No Pertinent History Cardiac History: Arrhythmia, Coronary Artery Disease, High Cholesterol, Hypertension, Myocardial Infarction ([place]) Respiratory History: COPD, Emphysema, Pneumonia Endocrine Medical History: No Pertinent History Musculoskeletal History: Degenerative Disk Disease GI Medical History: No Pertinent History History: No Pertinent History Psycho-Social History: No Pertinent History Male Reproductive Disorders: No Pertinent History Other Medical History: oxygen at home. - Past Surgical History Past Surgical History: Yes Neuro Surgical History: No Pertinent History Cardiac: CABG, Cardiac Catheterization, Vascular Surgery Respiratory: No Pertinent History Gastrointestinal: No Pertinent History Genitourinary: No Pertinent History Musculoskeletal: Orthopedic Surgery Male Surgical History: No Pertinent History Other Surgical History: bilateral ELBOW SURGERY-"nerves and tendons", rt wrist surgery plate and pins after fx., back surgery, josseline in back, triple bipass 2010; angioplasty left leg x3, stents to rt leg. - Social History Smoking Status: Current every day smoker How long have you smoked: age 15 Exposure to second hand smoke: Yes Drug Use: none Patient Lives Alone: No - Nursing Vital Signs Nursing Vital Signs: Initial Vital Signs Temperature 98.5 F 08/18/22 20:22 Pulse Rate 101 H 08/18/22 20:22 Respiratory Rate 20 08/18/22 20:22 Blood Pressure 154/96 08/18/22 20:22 O2 Sat by Pulse Oximetry 98 08/18/22 20:22 Pain Scale Pain Intensity 6 - Physical Exam General Appearance: moderate distress, thin Eye Exam: eyes nml inspection Ears, Nose, Throat Exam: normal ENT inspection Neck Exam: normal inspection, supple, full range of motion Respiratory Exam: normal breath sounds, airway intact, diminished breath sounds, No respiratory distress Cardiovascular Exam: normal heart sounds, tachycardia, capillary refill <2 sec, No edema Gastrointestinal/Abdomen Exam: soft, normal bowel sounds, No tenderness, No distention, No guarding, No rebound Back Exam: normal inspection, normal range of motion Extremity Exam: normal inspection, normal range of motion, No swelling, No tenderness Neurologic Exam: alert, oriented x 3, cooperative, normal mood/affect, nml cerebellar function, sensation nml Skin Exam: normal color, warm, dry SpO2 Interpretation: normal O2 Delivery: Room Air - Course Nursing assessment & vital signs reviewed: Yes EKG Interpreted by Me: RATE (98), Sinus Rhythm, NORMAL AXIS, NORMAL INTERVALS, NORMAL QRS, Non-specific ST Changes (discussed w/ Dr. Herrera who feels these are similar to previous) - Radiology Exams Chest X-ray Interpretation: Interpreted by me, No Pneumonia, No Pneumothorax, Other (hyperinflated) Ordered Tests: Active Orders 24 hr Category Date Time Status Gel Coater STAT Care 08/18/22 20:34 Completed EKG-ER Only STAT Care 08/18/22 20:32 Completed IV Insertion STAT Care 08/18/22 20:32 Completed CHEST 1 VIEW (PORTABLE) Stat Exams 08/18/22 20:33 Taken CHEST WITHOUT CONTRAST [CT] Stat Exams 08/18/22 22:09 Taken CBC W DIFF Stat Lab 08/18/22 20:40 Completed CMP Stat Lab 08/18/22 20:40 Completed D-DIMER QUANTITATIVE Stat Lab 08/18/22 20:40 Completed TROPONIN Q4H Lab 08/18/22 20:40 Completed Medication Summary Discontinued Medications Generic Name Dose Route Start Last Admin Trade Name Freq PRN Reason Stop Dose Admin Aspirin 162 mg 08/18/22 20:32 08/18/22 20:42 Aspirin 81 Mg Tab.Chew PO 08/18/22 20:33 162 mg STAT ONE Administration Aspirin Confirm 08/18/22 20:37 Aspirin 81 Mg Tab.Chew Administered 08/18/22 20:38 Dose 162 mg .ROUTE .STK-MED ONE Enoxaparin Sodium 70 mg 08/18/22 21:30 08/18/22 21:31 Enoxaparin Sodium 80 Mg/0.8 Ml Syringe 1 mg/kg (70 mg) 09/17/22 21:29 70 mg SQ Administration Q12H DOLLY Enoxaparin Sodium Confirm 08/18/22 21:31 Enoxaparin Sodium 80 Mg/0.8 Ml Syringe Administered 08/18/22 21:32 Dose 80 mg SQ .STK-MED ONE Nitroglycerin/Dextrose 250 mls @ 1.5 mls/hr 08/18/22 21:12 Ntg 0.2mg/Ml In D5w Glass IV 09/17/22 21:11 .Q24H PRN CHEST PAIN Protocol 5 MCG/MIN Sodium Chloride 1,000 mls @ 999 mls/hr 08/18/22 22:05 08/18/22 22:12 Sodium Chloride 0.9% 1000 Ml IV 08/18/22 23:05 999 mls/hr .Q1H1M STA Administration Sodium Chloride Confirm 08/18/22 22:10 Sodium Chloride 0.9% 1000 Ml Administered 08/18/22 22:11 Dose 1,000 mls @ ud .ROUTE .STK-MED ONE Labetalol HCl 20 mg 08/18/22 22:38 08/18/22 22:39 Labetalol Hcl 20 Mg/4 Ml Disp.Syringe IV 08/18/22 22:39 20 mg STAT ONE Administration Labetalol HCl Confirm 08/18/22 22:38 Labetalol Hcl 20 Mg/4 Ml Disp.Syringe Administered 08/18/22 22:39 Dose 20 mg IV .STK-MED ONE Morphine Sulfate 2 mg 08/18/22 20:32 08/18/22 20:43 Morphine Sulfate 2 Mg/Ml Inj IV 08/18/22 20:33 2 mg STAT ONE Administration Morphine Sulfate Confirm 08/18/22 20:37 Morphine Sulfate 2 Mg/Ml Inj Administered 08/18/22 20:38 Dose 2 mg .ROUTE .STK-MED ONE Morphine Sulfate 4 mg 08/18/22 21:16 08/18/22 21:20 Morphine Sulfate 4 Mg/Ml Injection IV 08/18/22 21:17 4 mg STAT ONE Administration Morphine Sulfate Confirm 08/18/22 21:19 Morphine Sulfate 4 Mg/Ml Injection Administered 08/18/22 21:20 Dose 4 mg .ROUTE .STK-MED ONE Morphine Sulfate 4 mg 08/18/22 22:21 08/18/22 22:34 Morphine Sulfate 4 Mg/Ml Injection IV 08/18/22 22:22 4 mg STAT ONE Administration Morphine Sulfate Confirm 08/18/22 22:33 Morphine Sulfate 4 Mg/Ml Injection Administered 08/18/22 22:34 Dose 4 mg .ROUTE .STK-MED ONE Ondansetron HCl 4 mg 08/18/22 20:32 08/18/22 20:42 Ondansetron Hcl 4 Mg/2 Ml Vial IV 08/18/22 20:33 4 mg STAT ONE Administration Ondansetron HCl Confirm 08/18/22 20:37 Ondansetron Hcl 4 Mg/2 Ml Vial Administered 08/18/22 20:38 Dose 4 mg .ROUTE .STK-MED ONE Lab/Rad Data: Laboratory Result Diagrams 08/18/22 20:40 08/18/22 20:40 Laboratory Results 08/18/22 08/18/22 08/18/22 Range/Units 20:40 20:40 20:40 WBC (4.0-10.5) x10^3/uL RBC (4.1-5.6) x10^6/uL Hgb (12.5-18.0) g/dL Hct (42-50) % MCV (78-100) fL MCH (26-32) pg MCHC (32-36) g/dL RDW (11.5-14.0) % Plt Count (150-450) x10^3/uL MPV (7.5-11.0) fL Gran % (36.0-66.0) % Immature Gran % (Auto) (0.00-0.4) % Nucleat RBC Rel Count (0.00-0.1) % Eos # (Auto) (0-0.5) x10^3/uL Immature Gran # (Auto) (0.00-0.03) x10^3u/L Absolute Lymphs (auto) (1.0-4.6) x10^3/uL Absolute Monos (auto) (0.0-1.3) x10^3/uL Absolute Nucleated RBC (0.00-0.01) x10^3u/L Lymphocytes % (24.0-44.0) % Monocytes % (0.0-12.0) % Eosinophils % (0.00-5.0) % Basophils % (0.0-0.4) % Absolute Granulocytes (1.4-6.9) x10^3/uL Basophils # (0-0.4) x10^3/uL D-Dimer 1.48 H* (0.0-0.50) mg/L Sodium 139 (137-145) mmol/L Potassium 4.2 (3.5-5.1) mmol/L Chloride 105 (98-107) mmol/L Carbon Dioxide 20 L (22-30) mmol/L Anion Gap 17.8 H (5-15) MEQ/L BUN 19 (9-20) mg/dL Creatinine 1.76 H (0.66-1.25) mg/dL Estimated GFR 41.5 ML/MIN Glucose 128 H (74-106) mg/dL Calcium 9.3 (8.4-10.2) mg/dL Total Bilirubin 0.70 (0.2-1.3) mg/dL AST 29 (17-59) U/L ALT 21 (0-50) U/L Alkaline Phosphatase 131 H (38-126) U/L Troponin I 0.046 H* (0.000-0.034) ng/mL Serum Total Protein 8.1 (6.3-8.2) g/dL Albumin 4.4 (3.5-5.0) g/dL 08/18/22 Range/Units 20:40 WBC 16.9 H (4.0-10.5) x10^3/uL RBC 5.21 (4.1-5.6) x10^6/uL Hgb 15.4 (12.5-18.0) g/dL Hct 46.0 (42-50) % MCV 88.3 (78-100) fL MCH 29.6 (26-32) pg MCHC 33.5 (32-36) g/dL RDW 13.7 (11.5-14.0) % Plt Count 409 (150-450) x10^3/uL MPV 8.5 (7.5-11.0) fL Gran % 82.0 H (36.0-66.0) % Immature Gran % (Auto) 0.5 H (0.00-0.4) % Nucleat RBC Rel Count 0.0 (0.00-0.1) % Eos # (Auto) 0.06 (0-0.5) x10^3/uL Immature Gran # (Auto) 0.09 H (0.00-0.03) x10^3u/L Absolute Lymphs (auto) 1.75 (1.0-4.6) x10^3/uL Absolute Monos (auto) 1.09 (0.0-1.3) x10^3/uL Absolute Nucleated RBC 0.00 (0.00-0.01) x10^3u/L Lymphocytes % 10.3 L (24.0-44.0) % Monocytes % 6.4 (0.0-12.0) % Eosinophils % 0.4 (0.00-5.0) % Basophils % 0.4 (0.0-0.4) % Absolute Granulocytes 13.86 H (1.4-6.9) x10^3/uL Basophils # 0.07 (0-0.4) x10^3/uL D-Dimer (0.0-0.50) mg/L Sodium (137-145) mmol/L Potassium (3.5-5.1) mmol/L Chloride (98-107) mmol/L Carbon Dioxide (22-30) mmol/L Anion Gap (5-15) MEQ/L BUN (9-20) mg/dL Creatinine (0.66-1.25) mg/dL Estimated GFR ML/MIN Glucose (74-106) mg/dL Calcium (8.4-10.2) mg/dL Total Bilirubin (0.2-1.3) mg/dL AST (17-59) U/L ALT (0-50) U/L Alkaline Phosphatase (38-126) U/L Troponin I (0.000-0.034) ng/mL Serum Total Protein (6.3-8.2) g/dL Albumin (3.5-5.0) g/dL - Progress Progress: unchanged Air Movement: good Progress Note: I spoke with Dr. Herrera personally about the patient he was familiar with the patient. He reviewed all of the EKGs and compared them to his most recent and felt that there was no significant change in today's EKG findings. He did re commend we continue morphine pushes as needed for pain and to hold off on a nitro drip at this time. He did asked that if his initial troponin came back elevated to start therapeutic Lovenox. He was agreeable to consult on the case and recommended transfer to [facility]. I spoke with Dr. Ted Sosa at 2132 to discuss the case. He accepted the patient for ER to ER transfer so that he could be admitted under the hospitalist service at [facility]. Dr. Sosa did asked that I start IV fluids on this patient prior to his arrival to [facility] emergency room. Patient is noted to have an VALENTINO since his initial troponin came back elevated and we are starting therapeutic Lovenox the decision was made to avoid the use of IV contrast at this time. 08/18/22 23:34 Patient's BP increased to 190s/110s so IV Labetalol 20mg was given w/ good response prior to transport. EMS arrived and patient transferred in stable condition. Blood Culture(s) Obtained: No Antibiotics given: No Discussed with .: Lizzette, Other (Ted Sosa [facility]) Will see patient in: hospital (full admit) Counseled pt/family regarding: lab results, diagnosis, need for follow-up, rad results Medical Desision Making - Discussion of managment Care discussed with:: specialist Reviewed:: Test results, Need for additional workup Agreed on:: Treatment plan, decision to admit Will see patient: in hospital - Diagnostic Testing Diagnostic test were ordered, analyzed, and reviewed by me: Yes Radiological Interpretation: Interpreted by me, Reviewed by me - Risk of complications The pt has a high risk of morbidity or mortality based on: Decision regarding hospitilization or escalation of hosp level of care - Departure Departure Disposition: Transfer ([facility] ER) Clinical Impression: NSTEMI (non-ST elevated myocardial infarction), Elevated d-dimer, VALENTINO (acute kidney injury), CAD (coronary artery disease), History of coronary artery bypass graft x 3, History of coronary angioplasty with insertion of stent, COPD (chronic obstructive pulmonary disease), Leukocytosis, Hypertensive urgency, Chest pain Condition: Fair Critical Care Time: Yes Critical Care Time(excluding separately billable procedures): Critical 30-74 mins Referrals: LIVE HARVEY DO [Primary Care Provider] - Follow up/PCP as directed Instructions: Chronic Obstructive Pulmonary Disease, Chest Pain ([place])
[2022-08-18 20:47] LABS: Absolute Neutrophil Ct (ANC) 13.86 x10^3/uL (1.4-6.9); BASOPHIL % 0.4 % (0.0-0.4); Basophil (Absolute #) 0.07 x10^3/uL (0-0.4); Eosinophil % 0.4 % (0.00-5.0); Eosinophil (Absolute #) 0.06 x10^3/uL (0-0.5); Hemoglobin 15.4 g/dL (12.5-18.0); IMMATURE GRAN # 0.09 x10^3u/L (0.00-0.03); IMMATURE GRAN % 0.5 % (0.00-0.4); Lymphocyte (Absolute #) 1.75 x10^3/uL (1.0-4.6); Lymphocytes % 10.3 % (24.0-44.0); Mean Cell Volume 88.3 fL (78-100); Mean Corpuscular Hemoglobin 29.6 pg (26-32); Mean Corpuscular Hgb Concent. 33.5 g/dL (32-36); Mean Platelet Volume 8.5 fL (7.5-11.0); Monocyte (Absolute #) 1.09 x10^3/uL (0.0-1.3); Monocytes % 6.4 % (0.0-12.0); Platelet Count 409 x10^3/uL (150-450); Red Blood Count 5.21 x10^6/uL (4.1-5.6); Red Cell Distribution Width 13.7 % (11.5-14.0); White Blood Count 16.9 x10^3/uL (4.0-10.5)
[2022-08-18 21:03] LABS: ALBUMIN 4.4 g/dL (3.5-5.0); ANION GAP 17.8 MEQ/L (5-15); BILIRUBIN,TOTAL 0.7 mg/dL (0.2-1.3); Calcium 9.3 mg/dL (8.4-10.2); Creatinine 1 1.76 mg/dL (0.66-1.25); EST GLOMERULAR FILTRATION RATE 41.5 ML/MIN; Potassium 4.2 mmol/L (3.5-5.1); Total Protein 8.1 g/dL (6.3-8.2)
[2022-08-18] MEDS ORDERED: Ntg 0.2MG/Ml in D5W GLASS*** 250 ML IV PRN (21:12)
[2022-08-18] MEDS ORDERED: MORPHINE SULFATE 4 MG INJ IV ONE ×2 (21:16→22:21)
[2022-08-18] MEDS ORDERED: MORPHINE SULFATE 4 MG INJ ONE ×2 (21:19→22:33)
[2022-08-18] MEDS ORDERED: ENOXAPARIN SODIUM SQ SCH (21:30)
[2022-08-18] MEDS ORDERED: ENOXAPARIN SODIUM SQ ONE (21:31)
[2022-08-18] MEDS ORDERED: Sodium Chloride 0.9% 1000 ML 1,000 ML IV STA (22:05)
[2022-08-18] MEDS ORDERED: Sodium Chloride 0.9% 1000 ML 1,000 ML ONE (22:10)
[2022-08-18] MEDS ORDERED: TRANDATE 20 MG/4 ML SYRINGE IV ONE ×2 (22:38)
[2022-08-18 23:22] VITALS: BP 163/109; PULSE 84; O2SAT 97
--- NOTE | 2022-08-19 00:24 | XRAY ---
CLINICAL HISTORY:Chest pain; COMPARISON:Prior CT from 02/17/2022; TECHNIQUES:Contiguous 3.[address] images of the chest were acquired without contrast. Coronal and sagittal reconstructions were obtained; FINDINGS: Mild centrilobular emphysematous changes are seen predominantly in the upper lobes. Few pleural tags are seen in the posterior aspect of both lower lobes. Thin linear areas of scarring are seen in posterobasal segments of both lower lobes. No free or encysted pleural effusion. Heart size is normal, and there is no pericardial effusion. Post median sternotomy status. No pathologically enlarged mediastinal, hilar, or axillary lymph node was identified. There is no definite mass lesion in the chest wall. IMPRESSION: CT appearances are suggestive of chronic obstructive pulmonary disease [COPD]. Stable appearance when compared with the prior study. Electronically Signed by: Zhou Viera MD. (08/18/2022 22:11:02 IMPLEMENTATION SPECIALIST)
--- NOTE | 2022-08-19 08:36 | XRAY ---
Indication: Chest pain. Comparison: February 16, 2022 Portable chest unchanged again hyperinflated and clear. Heart not enlarged again with CABG. Bony thorax intact again with osteopenia. Impression: Continued nonacute hyperinflated chest with chronic features.
== END 2022-08-18 23:01 | disposition short-term general hospital (02) ==
LOC: ED 20:19
DX: I21.4 Non-ST elevation (NSTEMI) myocardial infarction (principal); I25.10 Atherosclerotic heart disease of native coronary artery without angina pectoris; I16.0 Hypertensive urgency; I10 Essential (primary) hypertension; R79.1 Abnormal coagulation profile; N17.9 Acute kidney failure, unspecified; J44.9 Chronic obstructive pulmonary disease, unspecified; D72.829 Elevated white blood cell count, unspecified; R07.9 Chest pain, unspecified; R11.0 Nausea; R06.02 Shortness of breath; E78.5 Hyperlipidemia, unspecified; Z72.0 Tobacco use; Z95.1 Presence of aortocoronary bypass graft; Z95.5 Presence of coronary angioplasty implant and graft; Z79.899 Other long term (current) drug therapy
CPT/HCPCS: 36000; 36415; 71045; 71250; 80053; 84484; 85025; 85379; 93005; 93041; 96372; 96374; 96375; 96376; 99285; 99291; J1650; J2270; J2405; A9270-GY

== ENCOUNTER 2022-08-24 08:12 | Day surgery (SDC) | payer MEDICARE ==
[2022-08-24 08:57] VITALS: O2SAT 96
[2022-08-24] MEDS ORDERED: Lactated Ringers 1,000 ML IV ONE (09:06)
[2022-08-24] MEDS ORDERED: CEFAZOLIN 2 GM-D5W BAG** 2 GM/50 ML ML IV ONE (09:06)
[2022-08-24 09:22] LABS: Hematocrit 39.7 % (42-50); Hemoglobin 13.4 g/dL (12.5-18.0); Mean Cell Volume 87.4 fL (78-100); Mean Corpuscular Hemoglobin 29.5 pg (26-32); Mean Corpuscular Hgb Concent. 33.8 g/dL (32-36); Mean Platelet Volume 9.1 fL (7.5-11.0); Platelet Count 478 x10^3/uL (150-450); Red Blood Count 4.54 x10^6/uL (4.1-5.6); White Blood Count 10.1 x10^3/uL (4.0-10.5)
[2022-08-24] MEDS ORDERED: CEFAZOLIN 2 GM-D5W BAG** 2 GM/50 ML ML IV SCH (09:30)
[2022-08-24] MEDS ORDERED: Lactated Ringers 1,000 ML IV SCH (09:30)
[2022-08-24 09:37] LABS: ALBUMIN 4.1 g/dL (3.5-5.0); ALKALINE PHOSPHATASE 115 U/L (38-126); ANION GAP 15.3 MEQ/L (5-15); BLOOD UREA NITROGEN 27 mg/dL (9-20); CHLORIDE 105 mmol/L (98-107); Calcium 8.9 mg/dL (8.4-10.2); Carbon Dioxide 23 mmol/L (22-30); Creatinine 1 1.17 mg/dL (0.66-1.25); EST GLOMERULAR FILTRATION RATE > 60.0 ML/MIN; Glucose 116 mg/dL (74-106); Potassium 3.8 mmol/L (3.5-5.1); SGOT/AST 33 U/L (17-59); SGPT/ALT 24 U/L (0-50); SODIUM 139 mmol/L (137-145); Total Protein 7.9 g/dL (6.3-8.2)
[2022-08-24 09:38] LABS: INR 0.94 (0.8-3.0); PROTIME 10.3 SECONDS (9.4-12.5); PTT 28.9 SECONDS (25.1-36.5)
[2022-08-24] MEDS ORDERED: VANCOCIN INJECTION IV ONE (10:39)
[2022-08-24 11:42] VITALS: BP 136/78; PULSE 86
--- NOTE | 2022-08-24 20:26 | XRAY ---
Indication: Right 5th metatarsal resection. Intraoperative fluoroscopy provided for 7 seconds. 5 digital spot images submitted for interpretation demonstrates partial excision mid to distal 5th metatarsal. Correlate with intraoperative findings/report.
--- NOTE | 2022-08-25 10:24 | OP ---
SURGERY DATE/TIME: 08/24/2022 1015 PREOPERATIVE DIAGNOSES: 1) Osteomyelitis right foot. 2) Pain right foot. 3) Peripheral vascular disease right foot. 4) Chronic osteomyelitis, right foot fifth metatarsal. POSTOPERATIVE DIAGNOSES: 1) Osteomyelitis right foot. 2) Pain right foot. 3) Peripheral vascular disease right foot. 4) Chronic osteomyelitis, right foot fifth metatarsal. PROCEDURES: 1) Partial fifth metatarsal resection. 2) Abductor digiti minimi muscle flap, right foot. SURGEON: Ruel Garibay DPM. BUDGET COORDINATOR: None. ANESTHESIA: Local. HEMOSTASIS: Pressure dressing. ESTIMATED BLOOD LOSS: Less than 10 cc. MATERIALS: Suturegard, 2-0 Nylon, 3-0 Nylon, 4-0 Monocryl. Vancomycin powder 1 gm. INJECTABLES: 20 cc of 1:1 mixture of 1% lidocaine plain and 0.5% bupivacaine plain injected in a mini-Caballero block-type fashion. INDICATION FOR PROCEDURE: Clark is a very pleasant 67-year-old male who approximately three months ago had a procedure for a fifth toe amputation as well as a fifth metatarsal head amputation. The patient actually healed up pretty well however did have some residual pain which tended to get worse as time went on. The patient does have severe peripheral vascular disease so we did send him back to his vascular surgeon who did not recommend any intervention at that time. MRI was taken showing some residual osteomyelitis and options were discussed with the patient. The patient wished to proceed with the surgical intervention. The patient understands all risks, complications and benefits of surgical intervention at this time including but not limited to infection, hematoma, seroma, possibility of delayed wound healing, nonwound healing and possibility of need for surgical intervention at a later date. No guarantees were provided as to the outcome of surgical intervention. It is with that we decided to proceed. DESCRIPTION OF PROCEDURE AND FINDINGS: The patient is brought into the OR and placed on the OR table in the supine position. At this time under aseptic technique a mini-Caballero block was performed utilizing a combination of 1% lidocaine plain and 0.5% bupivacaine plain injected in a mini-Caballero block type fashion. Following this the right foot was prepped and draped in the typical sterile fashion and lowered onto the surgical field. At this time 15 blade was then utilized to make an incision down to the level of bone at the lateral aspect of the foot this was carried circumferentially hugging the bone to allow for full thickness flaps to be obtained. The fifth metatarsal remnant was then resected utilizing 18 mm sagittal saw this was handed off the field and cultures for pathology were taken at this time. Attention was directed to the wound where copious amounts of sterile saline pulse lavage were utilized to flush the surgical site. Vancomycin powder was then introduced into the medullary cavity of the remaining bone. The abductor digiti minimi muscle was then identified and harvested freeing it from its distal soft tissue attachments. The periosteum of the remaining fifth metatarsal was then captured and the abductor digiti minimi muscle flap was then utilized to cover over the fifth metatarsal bone securing it with trauma sutures of 4-0 Monocryl. Following this 4-0 Monocryl was then utilized to coapt the subcutaneous skin edges in a simple interrupted-type fashion and then 3-0 Nylon was utilized in a horizontal mattress-type fashion to coapt the remaining skin. Suturegard 2.0 was then utilized to relieve tension off of the edges of the surgical site. The patient then did have a dressing applied to his right lower extremity consisting of iodine, Adaptic, 4x4, Kerlix and ROSELIA. The patient handled the operation and was then returned to the preoperative area vital signs stable and vascular status intact. The patient handled the procedure as well as anesthesia without significant complication. Postoperative orders as indicated in the patient's discharge chart.
== END 2022-08-24 11:40 | disposition home or self-care (01) ==
LOC: SDC 08:12
PROVIDERS: ATTEND Podiatrist Foot & Ankle Surgery
DX: M86.671 Other chronic osteomyelitis, right ankle and foot (principal); M86.9 Osteomyelitis, unspecified; M79.671 Pain in right foot; I73.9 Peripheral vascular disease, unspecified
CPT/HCPCS: 15738; 28122; 36415; 73630; 76000; 80053; 85027; 85610; 85730; 87070; J0690; J3370

== ENCOUNTER 2023-02-04 09:34 | Emergency (ER) | payer MEDICARE ==
[2023-02-04 09:54] VITALS: PULSE 92; TEMP 97.3
[2023-02-04 10:31] LABS: Absolute Neutrophil Ct (ANC) 6.78 x10^3/uL (1.4-6.9); BASOPHIL % 0.7 % (0.0-0.4); Basophil (Absolute #) 0.07 x10^3/uL (0-0.4); Eosinophil % 3.4 % (0.00-5.0); Eosinophil (Absolute #) 0.35 x10^3/uL (0-0.5); Hematocrit 48.9 % (42-50); Hemoglobin 16.4 g/dL (12.5-18.0); IMMATURE GRAN # 0.03 x10^3u/L (0.00-0.03); IMMATURE GRAN % 0.3 % (0.00-0.4); Lymphocyte (Absolute #) 1.89 x10^3/uL (1.0-4.6); Lymphocytes % 18.5 % (24.0-44.0); Mean Cell Volume 87.9 fL (78-100); Mean Corpuscular Hemoglobin 29.5 pg (26-32); Mean Corpuscular Hgb Concent. 33.5 g/dL (32-36); Monocyte (Absolute #) 1.08 x10^3/uL (0.0-1.3); Monocytes % 10.6 % (0.0-12.0); Neutrophil % 66.5 % (36.0-66.0); Platelet Count 458 x10^3/uL (150-450); Red Blood Count 5.56 x10^6/uL (4.1-5.6); Red Cell Distribution Width 13.6 % (11.5-14.0); White Blood Count 10.2 x10^3/uL (4.0-10.5)
--- NOTE | 2023-02-04 10:32 | ERPHSYRPT ---
- History of Present Illness Source: patient Exam Limitations: no limitations Patient Subjective Stated Complaint: cough for about a week and a fever earlier in the week Triage Nursing Assessment: Pt brought self to the ER, vitals wnl, rates pain as 8/10 in his lungs, lungs clear, did a nebulizer treatment at home, pulses normal, skin n/w/d, states that he has green/yellow sputum Physician History: 67-year-old male with cough for 1 week. Cough is mild productive and patient states that he has dyspnea at rest and more pronounced upon exertion. Patient states that he has had a fever at home but is afebrile at present. He smokes less than 1 pack a day. Patient has some chest pain with coughing and deep breathing only. Patient denies nausea, vomiting, diarrhea, melena, hematochezia, and melena. Patient's symptoms started with mild coryza. Past medical history includes CABG/MD/stents/hypertension/hyperlipidemia/peripheral stents. Timing/Duration: other (1 week) Cough Quality/Degree: productive cough Possible Cause: occasional episodes Modifying Factors: Improves With: activity, coughing Associated Symptoms: fever, chills, cough, nasal congestion, nasal drainage Allergies/Adverse Reactions: No Known Drug Allergies Allergy (Verified 02/04/23 09:54) Home Medications: Metoprolol Tartrate 25 mg [Lopressor 25MG Tab] 50 mg PO DAILY 12/27/13 [History] Albuterol Common Canister [Ventolin Common Canister] 2 puffs IH Q4H PRN PRN 09/07/18 [History] Budesonide/Formoterol Fumarate [Symbicort 160-4.5 Mcg Inhaler] 1 puff IH BID 09/07/18 [History] Losartan Potassium 50 mg PO DAILY 05/14/19 [History] Nitroglycerin 0.4 mg PO Q5MIN PRN MR X 3 PRN 05/14/19 [History] Ranolazine [Ranolazine ER] 500 mg PO BID 05/14/19 [History] Bupropion HCl 150 mg Sr [Wellbutrin SR 150 MG] 150 mg PO DAILY 04/24/20 [History] Gabapentin 600 mg PO QID 04/24/20 [History] Amlodipine Besylate 5 mg [Norvasc 5 mg] 10 mg PO DAILY 05/20/22 [History] Atorvastatin Calcium 80 mg PO DAILY 05/20/22 [History] Ezetimibe 10 mg [Zetia 10 MG] 10 mg PO HS 05/20/22 [History] Ipratropium Adair 0.5 mg [Atrovent 0.5MG NEBULE] 1 vial IH QID PRN 05/20/22 [History] Isosorbide Mononitrate [Isosorbide Mononitrate ER] 30 mg PO DAILY 05/20/22 [Hist ory] Mupirocin [Bactroban OINTMENT] 1 applic TOP TID 05/20/22 [History] Tiotropium Adair [Spiriva Respimat] 2 puffs IH DAILY 05/20/22 [History] Hx Tetanus, Diphtheria Vaccination/Date Given: Yes Hx Influenza Vaccination/Date Given: Yes Hx Pneumococcal Vaccination/Date Given: Yes Travel Risk - International Travel Have you traveled outside of the country in past 3 weeks: No - Coronavirus Screening Are you exhibiting any of the following symptoms?: Yes Symptoms: Cough: New Onset Close contact with a COVID-19 positive Pt in past 14-21 Days: No - Vaccine Status Have you recieved a Covid-19 vaccination: Yes Lead Systems Architect: Moderna - Vaccination Dates Date of 2cond Vaccination (if applicable): unkn - Review of Systems Constitutional: Fever, Fatigue, Lethargy, Malaise Eyes: No Symptoms Ears, Nose, & Throat: No Symptoms, Nose Congestion, Nose Discharge Respiratory: No Symptoms, Cough, Dyspnea Cardiac: No Symptoms Abdominal/Gastrointestinal: No Symptoms Genitourinary Symptoms: No Symptoms Musculoskeletal: No Symptoms Skin: No Symptoms Neurological: No Symptoms Psychological: No Symptoms Endocrine: No Symptoms Hematologic/Lymphatic: No Symptoms Immunological/Allergic: No Symptoms - Past Medical History Pertinent Past Medical History: Yes Neurological History: No Pertinent History ENT History: No Pertinent History Cardiac History: Arrhythmia, Coronary Artery Disease, High Cholesterol, Hypertension, Myocardial Infarction (MD) Respiratory History: COPD, Emphysema, Pneumonia Endocrine Medical History: No Pertinent History Musculoskeletal History: Degenerative Disk Disease GI Medical History: No Pertinent History History: No Pertinent History Psycho-Social History: No Pertinent History Male Reproductive Disorders: No Pertinent History Other Medical History: oxygen at home at night - Past Surgical History Past Surgical History: Yes Neuro Surgical History: No Pertinent History Cardiac: CABG, Cardiac Catheterization, Vascular Surgery Respiratory: No Pertinent History Gastrointestinal: No Pertinent History Genitourinary: No Pertinent History Musculoskeletal: Orthopedic Surgery Male Surgical History: No Pertinent History Other Surgical History: bilateral ELBOW SURGERY-"nerves and tendons", rt wrist surgery plate and pins after fx., back surgery, josseline in back, triple bipass 2010; angioplasty left leg x3, stents to rt leg. - Social History Smoking Status: Current every day smoker How long have you smoked: 50 years Exposure to second hand smoke: Yes Drug Use: none Patient Lives Alone: Yes - Nursing Vital Signs Nursing Vital Signs: Initial Vital Signs Temperature 97.3 F 02/04/23 09:47 Pulse Rate 92 H 02/04/23 09:47 Blood Pressure 121/92 02/04/23 09:47 O2 Sat by Pulse Oximetry 96 02/04/23 09:47 Pain Scale Pain Intensity 8 Mild hypoxia noted - Physical Exam General Appearance: no apparent distress Eye Exam: PERRL/EOMI, eyes nml inspection Ears, Nose, Throat Exam: normal ENT inspection, TMs normal, pharyngeal erythema (Mild pharyngeal erythema present.) Neck Exam: normal inspection, non-tender, supple, full range of motion, No m eningismus, No mass, No Brudzinski, No Kernig's Respiratory Exam: airway intact, crackles/rales (Mild rales at right base.) Cardiovascular Exam: regular rate/rhythm (Regular rhythm that he feels murmurs rubs) Gastrointestinal/Abdomen Exam: soft (Good bowel sounds soft nontender palpation) Back Exam: normal inspection, normal range of motion Extremity Exam: normal inspection, normal range of motion Neurologic Exam: alert, oriented x 3, cooperative, home assessment nurse II-XII nml as tested, normal mood/affect, nml cerebellar function, nml station & gait, sensation nml Skin Exam: normal color, warm, dry Lymphatic Exam: No adenopathy SpO2 Interpretation: normal SpO2: 97 O2 Delivery: Room Air - Course Nursing assessment & vital signs reviewed: Yes EKG Interpreted by Me: RATE (Normal sinus rhythm/rate 72/normal QT QTc/incomplete right bundle branch block/poor R wave progression/flat T waves/no acute ST segment changes) - Radiology Exams Chest X-ray Interpretation: Reviewed by me (Chest x-ray with left base micronodule.) - CT Exams Chest CT Interpretation: Discussed w/radiologist (CT of the chest demonstrates no acute changes) Ordered Tests: Active Orders 24 hr Category Date Time Status EKG-ER Only STAT Care 02/04/23 12:14 Completed CHEST 1 VIEW (PORTABLE) Stat Exams 02/04/23 10:07 Completed CHEST WITHOUT CONTRAST [CT] Stat Exams 02/04/23 11:21 Completed CBC W DIFF Stat Lab 02/04/23 10:00 Completed CMP Stat Lab 02/04/23 10:00 Completed Lactic Acid Stat Lab 02/04/23 10:06 Completed NT PRO BNPII Stat Lab 02/04/23 10:00 Completed PROTIME WITH INR Stat Lab 02/04/23 10:00 Completed PTT Stat Lab 02/04/23 10:00 Completed TROPONIN Q4H Lab 02/04/23 10:00 Completed TROPONIN Q4H Lab 02/04/23 12:40 Completed Medication Summary Discontinued Medications Generic Name Dose Route Start Last Admin Trade Name Bogdanq PRN Reason Stop Dose Admin Ketorolac Tromethamine 30 mg 02/04/23 12:13 02/04/23 12:23 Ketorolac Tromethamine 30 Mg/Ml Inj IM 02/04/23 12:14 30 mg STAT ONE Administration Ketorolac Tromethamine Confirm 02/04/23 12:21 Ketorolac Tromethamine 30 Mg/Ml Inj Administered 02/04/23 12:22 Dose 30 mg .ROUTE .STK-MED ONE Lab/Rad Data: Laboratory Result Diagrams 02/04/23 10:00 02/04/23 10:00 Laboratory Results 02/04/23 02/04/23 02/04/23 Range/Units 12:40 10:06 10:00 WBC (4.0-10.5) x10^3/uL RBC (4.1-5.6) x10^6/uL Hgb (12.5-18.0) g/dL Hct (42-50) % MCV (78-100) fL MCH (26-32) pg MCHC (32-36) g/dL RDW (11.5-14.0) % Plt Count (150-450) x10^3/uL MPV (7.5-11.0) fL Gran % (36.0-66.0) % Immature Gran % (Auto) (0.00-0.4) % Nucleat RBC Rel Count (0.00-0.1) % Eos # (Auto) (0-0.5) x10^3/uL Immature Gran # (Auto) (0.00-0.03) x10^3u/L Absolute Lymphs (auto) (1.0-4.6) x10^3/uL Absolute Monos (auto) (0.0-1.3) x10^3/uL Absolute Nucleated RBC (0.00-0.01) x10^3u/L Lymphocytes % (24.0-44.0) % Monocytes % (0.0-12.0) % Eosinophils % (0.00-5.0) % Basophils % (0.0-0.4) % Absolute Granulocytes (1.4-6.9) x10^3/uL Basophils # (0-0.4) x10^3/uL PT (9.4-12.5) SECONDS INR (0.8-3.0) APTT (25.1-36.5) SECONDS Sodium (137-145) mmol/L Potassium (3.5-5.1) mmol/L Chloride (98-107) mmol/L Carbon Dioxide (22-30) mmol/L Anion Gap (5-15) MEQ/L BUN (9-20) mg/dL Creatinine (0.66-1.25) mg/dL Estimated GFR ML/MIN Glucose (74-106) mg/dL Lactic Acid 1.7 (0.4-2.0) Calcium (8.4-10.2) mg/dL Total Bilirubin (0.2-1.3) mg/dL AST (17-59) U/L ALT (0-50) U/L Alkaline Phosphatase (38-126) U/L Troponin I < 0.012 (0.000-0.034) ng/mL NT-Pro-B Natriuret Pep (<300) pg/mL Serum Total Protein (6.3-8.2) g/dL Albumin (3.5-5.0) g/dL Influenza Type A Ag NEGATIVE (NEGATIVE) Influenza Type B Ag NEGATIVE (NEGATIVE) RSV (PCR) NEGATIVE (NEGATIVE) SARS-CoV-2 (PCR) NEGATIVE (NEGATIVE) 02/04/23 02/04/23 02/04/23 Range/Units 10:00 10:00 10:00 WBC (4.0-10.5) x10^3/uL RBC (4.1-5.6) x10^6/uL Hgb (12.5-18.0) g/dL Hct (42-50) % MCV (78-100) fL MCH (26-32) pg MCHC (32-36) g/dL RDW (11.5-14.0) % Plt Count (150-450) x10^3/uL MPV (7.5-11.0) fL Gran % (36.0-66.0) % Immature Gran % (Auto) (0.00-0.4) % Nucleat RBC Rel Count (0.00-0.1) % Eos # (Auto) (0-0.5) x10^3/uL Immature Gran # (Auto) (0.00-0.03) x10^3u/L Absolute Lymphs (auto) (1.0-4.6) x10^3/uL Absolute Monos (auto) (0.0-1.3) x10^3/uL Absolute Nucleated RBC (0.00-0.01) x10^3u/L Lymphocytes % (24.0-44.0) % Monocytes % (0.0-12.0) % Eosinophils % (0.00-5.0) % Basophils % (0.0-0.4) % Absolute Granulocytes (1.4-6.9) x10^3/uL Basophils # (0-0.4) x10^3/uL PT 10.3 (9.4-12.5) SECONDS INR 0.94 (0.8-3.0) APTT 29.3 (25.1-36.5) SECONDS Sodium 136 L (137-145) mmol/L Potassium 4.1 (3.5-5.1) mmol/L Chloride 103 (98-107) mmol/L Carbon Dioxide 22 (22-30) mmol/L Anion Gap 15.3 H (5-15) MEQ/L BUN 11 (9-20) mg/dL Creatinine 1.02 (0.66-1.25) mg/dL Estimated GFR 81.6 ML/MIN Glucose 85 (74-106) mg/dL Lactic Acid (0.4-2.0) Calcium 9.5 (8.4-10.2) mg/dL Total Bilirubin 0.40 (0.2-1.3) mg/dL AST 21 (17-59) U/L ALT 14 (0-50) U/L Alkaline Phosphatase 141 H (38-126) U/L Troponin I 0.013 (0.000-0.034) ng/mL NT-Pro-B Natriuret Pep 2000 (<300) pg/mL Serum Total Protein 7.7 (6.3-8.2) g/dL Albumin 4.2 (3.5-5.0) g/dL Influenza Type A Ag (NEGATIVE) Influenza Type B Ag (NEGATIVE) RSV (PCR) (NEGATIVE) SARS-CoV-2 (PCR) (NEGATIVE) 02/04/23 Range/Units 10:00 WBC 10.2 (4.0-10.5) x10^3/uL RBC 5.56 (4.1-5.6) x10^6/uL Hgb 16.4 (12.5-18.0) g/dL Hct 48.9 (42-50) % MCV 87.9 (78-100) fL MCH 29.5 (26-32) pg MCHC 33.5 (32-36) g/dL RDW 13.6 (11.5-14.0) % Plt Count 458 H (150-450) x10^3/uL MPV 9.0 (7.5-11.0) fL Gran % 66.5 H (36.0-66.0) % Immature Gran % (Auto) 0.3 (0.00-0.4) % Nucleat RBC Rel Count 0.0 (0.00-0.1) % Eos # (Auto) 0.35 (0-0.5) x10^3/uL Immature Gran # (Auto) 0.03 (0.00-0.03) x10^3u/L Absolute Lymphs (auto) 1.89 (1.0-4.6) x10^3/uL Absolute Monos (auto) 1.08 (0.0-1.3) x10^3/uL Absolute Nucleated RBC 0.00 (0.00-0.01) x10^3u/L Lymphocytes % 18.5 L (24.0-44.0) % Monocytes % 10.6 (0.0-12.0) % Eosinophils % 3.4 (0.00-5.0) % Basophils % 0.7 (0.0-0.4) % Absolute Granulocytes 6.78 (1.4-6.9) x10^3/uL Basophils # 0.07 (0-0.4) x10^3/uL PT (9.4-12.5) SECONDS INR (0.8-3.0) APTT (25.1-36.5) SECONDS Sodium (137-145) mmol/L Potassium (3.5-5.1) mmol/L Chloride (98-107) mmol/L Carbon Dioxide (22-30) mmol/L Anion Gap (5-15) MEQ/L BUN (9-20) mg/dL Creatinine (0.66-1.25) mg/dL Estimated GFR ML/MIN Glucose (74-106) mg/dL Lactic Acid (0.4-2.0) Calcium (8.4-10.2) mg/dL Total Bilirubin (0.2-1.3) mg/dL AST (17-59) U/L ALT (0-50) U/L Alkaline Phosphatase (38-126) U/L Troponin I (0.000-0.034) ng/mL NT-Pro-B Natriuret Pep (<300) pg/mL Serum Total Protein (6.3-8.2) g/dL Albumin (3.5-5.0) g/dL Influenza Type A Ag (NEGATIVE) Influenza Type B Ag (NEGATIVE) RSV (PCR) (NEGATIVE) SARS-CoV-2 (PCR) (NEGATIVE) - Progress Progress: improved Progress Note: 02/04/23 17:04 Nursing note and vital signs reviewed. No food or housing insecurities noted. All lab results reviewed and shared with patient. Chest x-ray result reviewed and shared with patient. CTA chest reviewed and shared with patient. 02/04/23 17:05 Patient most likely has a viral URI or exacerbation of chronic bronchitis. He does continue to smoke. 02/04/23 17:05 Since patient states that he has COPD and continues to smoke, it was started on Levaquin 500 mg p.o. daily for 5 days. Patient also given Tussionex for cough suppression. Patient is stable at this time with good sats throughout his ER stay and no respiratory difficulties noted. Instructed to follow-up with his family MD and to return to the ER for increasing shortness of breath, chest pain, or temperature greater 100.5.. Smoking cessation is also recommended. Counseled pt/family regarding: lab results, diagnosis, need for follow-up, rad results Medical Desision Making - Diagnostic Testing Diagnostic test were ordered, analyzed, and reviewed by me: Yes Radiological Interpretation: Reviewed by me - Risk of complications The pt has a mod risk of morbidity or mortality based on: Need for prescription drug management - Departure Departure Disposition: Home Clinical Impression: Bronchitis Condition: Stable Critical Care Time: No Referrals: LIVE HARVEY DO [Primary Care Provider] - Follow up/PCP as directed Instructions: Acute Bronchitis, Adult (DC), Cough, Adult (DC) Additional Instructions: Follow-up with your family MD on Tuesday or Tuesday. Start Levaquin once a day for 5 days. Tussionex as needed for cough. Do not drive while taking Tussionex. Quit smoking. Return to ER for worsening cough, increasing shortness of breath, or temperature greater than 100.5. Prescriptions: Hydrocodone/Chlorphen P-Stirex [Hydrocodone-Chlorph ER Susp (TUSSIONEX)] 5 ml PO [id number] PRN 6 Days #60 ml MDD 10 ML PRN Reason: Cough Levofloxacin [Levofloxacin 500 MG Tablet] 500 mg PO DAILY 5 Days #5 tablet
--- NOTE | 2023-02-04 10:40 | XRAY ---
Indication: Cough. Pneumonia. Comparison: August 18, 2022 Portable chest again hyperinflated without focal infiltrate, consolidation, or large effusion. New 6 mm left lung base nodule. Heart not enlarged again with CABG. Bony thorax intact again with osteopenia. Impression: Continued nonacute hyperinflated chest. New left lung base micronodule better evaluated with CT.
[2023-02-04 10:47] LABS: INR 0.94 (0.8-3.0); PROTIME 10.3 SECONDS (9.4-12.5); PTT 29.3 SECONDS (25.1-36.5)
[2023-02-04 10:55] LABS: ALBUMIN 4.2 g/dL (3.5-5.0); ANION GAP 15.3 MEQ/L (5-15); BILIRUBIN,TOTAL 0.4 mg/dL (0.2-1.3); Calcium 9.5 mg/dL (8.4-10.2); Creatinine 1 1.02 mg/dL (0.66-1.25); EST GLOMERULAR FILTRATION RATE 81.6 ML/MIN; Potassium 4.1 mmol/L (3.5-5.1); Total Protein 7.7 g/dL (6.3-8.2)
[2023-02-04 11:08] LABS: INFLUENZA A NEGATIVE (NEGATIVE); INFLUENZA B NEGATIVE (NEGATIVE); RESPIRATORY SYNCTIAL VIRUS NEGATIVE (NEGATIVE); SARS-CoV-2 Xpert Express NEGATIVE (NEGATIVE)
[2023-02-04] MEDS ORDERED: TORAdol 30 mg Injection IM ONE (12:13)
--- NOTE | 2023-02-04 12:20 | XRAY ---
Indication: Cough. Dyspnea. Nonacute same day chest radiograph. Multiple contiguous axial images obtained through the chest without contrast. Comparison: August 18, 2022 Stable mild diffuse centrilobular pulmonary emphysema and mild bibasilar fibrosis/scarring. No suspicious pulmonary mass/nodule, infiltrate, or effusion. Heart not enlarged again with CABG. Aorta again minimally arteriosclerotic without aneurysm. No pathologic mediastinal lymphadenopathy. Bony thorax intact again with osteopenia, mild degenerative changes throughout the spine, and sternotomy wire. Limited upper abdomen including adrenal glands unremarkable. Impression: No change compared prior ER exam. Again chronic findings including pulmonary emphysema, fibrosis/scarring, arteriosclerotic disease, and chronic bony findings. No new/acute findings on this noncontrast exam.
[2023-02-04] MEDS ORDERED: TORAdol 30 mg Injection ONE (12:21)
[2023-02-04 13:38] VITALS: BP 157/118
[2023-02-04 14:02] VITALS: O2SAT 97
== END 2023-02-04 14:00 | disposition home or self-care (01) ==
LOC: ED 09:34
DX: J40 Bronchitis, not specified as acute or chronic (principal); J44.9 Chronic obstructive pulmonary disease, unspecified; R05.1 Acute cough; R07.9 Chest pain, unspecified; E78.5 Hyperlipidemia, unspecified; I10 Essential (primary) hypertension; Z79.891 Long term (current) use of opiate analgesic; Z79.899 Other long term (current) drug therapy; Z72.0 Tobacco use; Z95.1 Presence of aortocoronary bypass graft; I49.9 Cardiac arrhythmia, unspecified
CPT/HCPCS: 0241U; 36415; 71045; 71250; 80053; 83605; 83880; 84484; 85025; 85610; 85730; 93005; 96372; 99284; J1885

== ENCOUNTER 2023-03-08 15:49 | Observation (INO) | payer MEDICARE ==
[2023-03-08 16:51] LABS: Absolute Neutrophil Ct (ANC) 6.83 x10^3/uL (1.4-6.9); BASOPHIL % 0.8 % (0.0-0.4); Basophil (Absolute #) 0.08 x10^3/uL (0-0.4); Eosinophil % 3.1 % (0.00-5.0); Eosinophil (Absolute #) 0.33 x10^3/uL (0-0.5); Hematocrit 48.3 % (42-50); Hemoglobin 16.2 g/dL (12.5-18.0); IMMATURE GRAN # 0.02 x10^3u/L (0.00-0.03); IMMATURE GRAN % 0.2 % (0.00-0.4); Lymphocyte (Absolute #) 2.43 x10^3/uL (1.0-4.6); Lymphocytes % 23.1 % (24.0-44.0); Mean Cell Volume 88.5 fL (78-100); Mean Corpuscular Hemoglobin 29.7 pg (26-32); Mean Corpuscular Hgb Concent. 33.5 g/dL (32-36); Mean Platelet Volume 8.6 fL (7.5-11.0); Monocyte (Absolute #) 0.84 x10^3/uL (0.0-1.3); Neutrophil % 64.8 % (36.0-66.0); Platelet Count 426 x10^3/uL (150-450); Red Blood Count 5.46 x10^6/uL (4.1-5.6); Red Cell Distribution Width 13.8 % (11.5-14.0); White Blood Count 10.5 x10^3/uL (4.0-10.5)
[2023-03-08 17:14] LABS: ALBUMIN 4.3 g/dL (3.5-5.0); ANION GAP 13.7 MEQ/L (5-15); BILIRUBIN,TOTAL 0.4 mg/dL (0.2-1.3); Calcium 9.2 mg/dL (8.4-10.2); Creatinine 1 1.14 mg/dL (0.66-1.25); EST GLOMERULAR FILTRATION RATE 71.4 ML/MIN; Potassium 4.3 mmol/L (3.5-5.1); Total Protein 8.2 g/dL (6.3-8.2)
--- NOTE | 2023-03-08 17:30 | ERPHSYRPT ---
- History of Present Illness Time Seen by Provider: 03/08/23 16:30 Historian: patient Exam Limitations: no limitations Patient Subjective Stated Complaint: chest pain past 2-3 hours Triage Nursing Assessment: Pt c/o substernal chest pain starting approx 2 hours ago. Rates pain a 8 and radiates down right arm and leg. H/o cabg 2010, states had heart attack last year and had one stint. Sees Dr Herrera. C/o shortness of breath especially with exerction. H/o copd states patient. Stat ekg done and handed to Dr Smith. Physician History: Patient 67-year-old male history of COPD coronary artery disease CABG in 2010 [place] last year with 1 stent presents to our ED for evaluation of chest pain and shortness of breath. Symptoms are worse with exertion. Chest pain is primarily substernal but tends to radiate to his right arm. Patient occasionally feels a shooting sensation down into the right leg. Patient symptoms started approximately 2 hours prior to arrival. Patient's forestry aid technician is Dr. Makenzie orlando. Symptoms are intermittent. Symptoms are moderate in intensity. Exertion worsens symptoms. No associated nausea vomiting or diaphoresis. Patient voices no other complaints or concerns at this time. Portions of this note were created with voice recognition technology. There may be grammatical, spelling, punctuation or sound alike errors Timing/Duration: today Activities at Onset: activity Quality: aching Location: substernal Chest Pain Radiation: arm (Radiates to arm and right leg) Severity of Pain-Max: moderate Severity of Pain-Current: mild Associated Symptoms: denies symptoms Prior Chest Pain/Cardiac Workup: cardiac cath Nitro Today/Relief: 0.4 mg x 2 Aspirin Treatment Today: 81 mg x 1 Allergies/Adverse Reactions: No Known Drug Allergies Allergy (Verified 02/04/23 09:54) Home Medications: Metoprolol Tartrate 25 mg [Lopressor 25MG Tab] 50 mg PO DAILY 12/27/13 [History] Albuterol Common Canister [Ventolin Common Canister] 2 puffs IH Q4H PRN PRN 09/07/18 [History] Losartan Potassium 50 mg PO DAILY 05/14/19 [History] Nitroglycerin 0.4 mg PO Q5MIN PRN MR X 3 PRN 02/24/20 [History] Ranolazine [Ranolazine ER] 500 mg PO BID 05/14/19 [History] Bupropion HCl 150 mg Sr [Wellbutrin SR 150 MG] 150 mg PO DAILY 04/24/20 [History] Amlodipine Besylate 5 mg [Norvasc 5 mg] 10 mg PO DAILY 05/20/22 [History] Atorvastatin Calcium 80 mg PO DAILY 05/20/22 [History] Ipratropium [place] 0.5 mg [Atrovent 0.5MG NEBULE] 1 vial IH QID PRN 05/20/22 [History] Tiotropium [place] [Spiriva Respimat] 2 puffs IH DAILY 05/20/22 [History] Hx Tetanus, Diphtheria Vaccination/Date Given: Yes Hx Influenza Vaccination/Date Given: Yes Hx Pneumococcal Vaccination/Date Given: Yes Travel Risk - International Travel Have you traveled outside of the country in past 3 weeks: No - Coronavirus Screening Are you exhibiting any of the following symptoms?: Yes Symptoms: Shortness of Breath - Vaccine Status Have you recieved a Covid-19 vaccination: Yes 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 - Vaccination Dates Date of 2cond Vaccination (if applicable): 2020 - Review of Systems Constitutional: No Symptoms, No Fever, No Chills Eyes: No Symptoms Ears, Nose, & Throat: No Symptoms Respiratory: No Symptoms, No Cough, No Dyspnea Cardiac: No Symptoms, No Chest Pain, No Edema, No Syncope Abdominal/Gastrointestinal: No Symptoms, No Abdominal Pain, No Nausea, No Vomiting, No Diarrhea Genitourinary Symptoms: No Symptoms, No Dysuria Musculoskeletal: No Symptoms, No Back Pain, No Neck Pain Skin: No Symptoms, No Rash Neurological: No Symptoms, No Dizziness, No Focal Weakness, No Sensory Changes Psychological: No Symptoms Endocrine: No Symptoms Hematologic/Lymphatic: No Symptoms Immunological/Allergic: No Symptoms All Other Systems: Reviewed and Negative - Past Medical History Pertinent Past Medical History: Yes Neurological History: No Pertinent History ENT History: No Pertinent History Cardiac History: Arrhythmia, Coronary Artery Disease, High Cholesterol, Hyperte nsion, Myocardial Infarction ([place]) Respiratory History: COPD, Emphysema, Pneumonia Endocrine Medical History: No Pertinent History Musculoskeletal History: Degenerative Disk Disease GI Medical History: No Pertinent History History: No Pertinent History Psycho-Social History: No Pertinent History Male Reproductive Disorders: No Pertinent History Other Medical History: oxygen at home at night - Past Surgical History Past Surgical History: Yes Neuro Surgical History: No Pertinent History Cardiac: CABG, Cardiac Catheterization, Vascular Surgery Respiratory: No Pertinent History Gastrointestinal: No Pertinent History Genitourinary: No Pertinent History Musculoskeletal: Orthopedic Surgery Male Surgical History: No Pertinent History Other Surgical History: bilateral ELBOW SURGERY-"nerves and tendons", rt wrist surgery plate and pins after fx., back surgery, josseline in back, triple bipass 2010; angioplasty left leg x3, stents to rt leg. - Social History Smoking Status: Current every day smoker How long have you smoked: 50 years Exposure to second hand smoke: Yes Drug Use: none Patient Lives Alone: Yes - Nursing Vital Signs Nursing Vital Signs: Initial Vital Signs Temperature 98.5 F 03/08/23 15:57 Pulse Rate 87 03/08/23 15:57 Respiratory Rate 18 03/08/23 15:57 Blood Pressure 166/100 03/08/23 15:57 O2 Sat by Pulse Oximetry 98 03/08/23 15:57 Pain Scale Pain Intensity 6 - Physical Exam General Appearance: no apparent distress, alert Eye Exam: PERRL/EOMI, eyes nml inspection Ears, Nose, Throat Exam: normal ENT inspection, moist mucous membranes Neck Exam: normal inspection, non-tender, supple, full range of motion Respiratory Exam: normal breath sounds, lungs clear, No respiratory distress Cardiovascular Exam: regular rate/rhythm, normal heart sounds, normal peripheral pulses Gastrointestinal/Abdomen Exam: soft, No tenderness, No mass Back Exam: normal inspection, No CVA tenderness, No vertebral tenderness Extremity Exam: normal inspection, normal range of motion Neurologic Exam: alert, oriented x 3, cooperative, normal mood/affect, sensation nml, No motor deficits Skin Exam: normal color, warm, dry Lymphatic Exam: No adenopathy SpO2 Interpretation: normal SpO2: 95 O2 Delivery: Room Air - Course Nursing assessment & vital signs reviewed: Yes EKG Interpreted by Me: RATE, Sinus Rhythm, NORMAL AXIS, NORMAL INTERVALS - CT Exams Chest CT Interpretation: Tele-radiologist Report (Negative PE. Stable emphysema and bibasilar atelectasis/scarring. No new acute findings) Ordered Tests: Active Orders 24 hr Category Date Time Status Manager Telecom STAT Care 03/08/23 16:21 Active EKG-ER Only STAT Care 03/08/23 16:20 Active IV Insertion STAT Care 03/08/23 16:20 Active Pulse Oximetry (ED) STAT Care 03/08/23 16:20 Active CHEST WITH CONTRAST [CT] Stat Exams 03/08/23 17:15 Taken CBC W DIFF Stat Lab 03/08/23 16:45 Completed CMP Stat Lab 03/08/23 16:45 Completed D-DIMER QUANTITATIVE Stat Lab 03/08/23 16:45 Completed NT PRO BNPII Stat Lab 03/08/23 16:45 Completed TROPONIN Q4H Lab 03/08/23 16:45 Completed TROPONIN Q4H Lab 03/08/23 20:20 Completed TROPONIN Q4H Lab 03/09/23 00:30 Ordered Transfer Order Routine Transfer 03/08/23 Ordered Medication Summary Discontinued Medications Generic Name Dose Route Start Last Admin Trade Name Freq PRN Reason Stop Dose Admin Aspirin 324 mg 03/08/23 21:25 Aspirin 81 Mg Tab.Chew PO 03/08/23 21:26 STAT ONE Morphine Sulfate 4 mg 03/08/23 17:34 03/08/23 17:40 Morphine Sulfate 4 Mg/Ml Injection IV 03/08/23 17:35 4 mg STAT ONE Administration Morphine Sulfate Confirm 03/08/23 17:38 Morphine Sulfate 4 Mg/Ml Injection Administered 03/08/23 17:39 Dose 4 mg .ROUTE .STK-MED ONE Morphine Sulfate 2 mg 03/08/23 21:26 Morphine Sulfate 2 Mg/Ml Inj IV 03/08/23 21:27 STAT ONE Nitroglycerin 1 gm 03/08/23 21:26 Nitroglycerin 1 Gm Packet TOP 03/08/23 21:27 STAT ONE Lab/Rad Data: Laboratory Result Diagrams 03/08/23 16:45 03/08/23 16:45 Laboratory Results 03/08/23 03/08/23 03/08/23 Range/Units 20:20 16:45 16:45 WBC (4.0-10.5) x10^3/uL RBC (4.1-5.6) x10^6/uL Hgb (12.5-18.0) g/dL Hct (42-50) % MCV (78-100) fL MCH (26-32) pg MCHC (32-36) g/dL RDW (11.5-14.0) % Plt Count (150-450) x10^3/uL MPV (7.5-11.0) fL Gran % (36.0-66.0) % Immature Gran % (Auto) (0.00-0.4) % Nucleat RBC Rel Count (0.00-0.1) % Eos # (Auto) (0-0.5) x10^3/uL Immature Gran # (Auto) (0.00-0.03) x10^3u/L Absolute Lymphs (auto) (1.0-4.6) x10^3/uL Absolute Monos (auto) (0.0-1.3) x10^3/uL Absolute Nucleated RBC (0.00-0.01) x10^3u/L Lymphocytes % (24.0-44.0) % Monocytes % (0.0-12.0) % Eosinophils % (0.00-5.0) % Basophils % (0.0-0.4) % Absolute Granulocytes (1.4-6.9) x10^3/uL Basophils # (0-0.4) x10^3/uL D-Dimer 0.72 H* (0.0-0.50) mg/L Sodium (137-145) mmol/L Potassium (3.5-5.1) mmol/L Chloride (98-107) mmol/L Carbon Dioxide (22-30) mmol/L Anion Gap (5-15) MEQ/L BUN (9-20) mg/dL Creatinine (0.66-1.25) mg/dL Estimated GFR ML/MIN Glucose (74-106) mg/dL Calcium (8.4-10.2) mg/dL Total Bilirubin (0.2-1.3) mg/dL AST (17-59) U/L ALT (0-50) U/L Alkaline Phosphatase (38-126) U/L Troponin I 0.013 0.012 (0.000-0.034) ng/mL NT-Pro-B Natriuret Pep (<300) pg/mL Serum Total Protein (6.3-8.2) g/dL Albumin (3.5-5.0) g/dL 03/08/23 03/08/23 Range/Units 16:45 16:45 WBC 10.5 (4.0-10.5) x10^3/uL RBC 5.46 (4.1-5.6) x10^6/uL Hgb 16.2 (12.5-18.0) g/dL Hct 48.3 (42-50) % MCV 88.5 (78-100) fL MCH 29.7 (26-32) pg MCHC 33.5 (32-36) g/dL RDW 13.8 (11.5-14.0) % Plt Count 426 (150-450) x10^3/uL MPV 8.6 (7.5-11.0) fL Gran % 64.8 (36.0-66.0) % Immature Gran % (Auto) 0.2 (0.00-0.4) % Nucleat RBC Rel Count 0.0 (0.00-0.1) % Eos # (Auto) 0.33 (0-0.5) x10^3/uL Immature Gran # (Auto) 0.02 (0.00-0.03) x10^3u/L Absolute Lymphs (auto) 2.43 (1.0-4.6) x10^3/uL Absolute Monos (auto) 0.84 (0.0-1.3) x10^3/uL Absolute Nucleated RBC 0.00 (0.00-0.01) x10^3u/L Lymphocytes % 23.1 L (24.0-44.0) % Monocytes % 8.0 (0.0-12.0) % Eosinophils % 3.1 (0.00-5.0) % Basophils % 0.8 (0.0-0.4) % Absolute Granulocytes 6.83 (1.4-6.9) x10^3/uL Basophils # 0.08 (0-0.4) x10^3/uL D-Dimer (0.0-0.50) mg/L Sodium 135 L (137-145) mmol/L Potassium 4.3 (3.5-5.1) mmol/L Chloride 102 (98-107) mmol/L Carbon Dioxide 24 (22-30) mmol/L Anion Gap 13.7 (5-15) MEQ/L BUN 21 H (9-20) mg/dL Creatinine 1.14 (0.66-1.25) mg/dL Estimated GFR 71.4 ML/MIN Glucose 109 H (74-106) mg/dL Calcium 9.2 (8.4-10.2) mg/dL Total Bilirubin 0.40 (0.2-1.3) mg/dL AST 27 (17-59) U/L ALT 23 (0-50) U/L Alkaline Phosphatase 120 (38-126) U/L Troponin I (0.000-0.034) ng/mL NT-Pro-B Natriuret Pep 692 (<300) pg/mL Serum Total Protein 8.2 (6.3-8.2) g/dL Albumin 4.3 (3.5-5.0) g/dL - Progress Progress: improved Air Movement: good Progress Note: 67-year-old male presents to our ED with chest pain. EKG normal sinus rhythm. D-dimer positive. CTA chest negative for PE. CBC CMP nonremarkable. Troponin negative. Patient received nitro and aspirin. Morphine administered for pain control. In light of patient's cardiac risk factors patient admitted for further evaluation and treatment. Plan of care discussed with patient. He agrees to admission to [facility] for further evaluation and treatment. Portions of this note were created with voice recognition technology. There may be grammatical, spelling, punctuation or sound alike errors Complexity problem addressed is moderate acute complicated No critical care time Complexity of data reviewed and analyzed is extensive. Test ordered test reviewed. Results analyzed and correlated clinically. Management discussed with hospitalist Dr. Lara who accepts admission to observation at 9:30 PM. Risk of complication and or risk of morbidity/mortality of patient management is high. Patient requires admission for further evaluation and treatment. Portions of this note were created with voice recognition technology. There may be grammatical, spelling, punctuation or sound alike errors Vital stable. Time spent to admit patient approximately 15 minutes. Plan of care established for shared decision making. Portions of this note were created with voice recognition technology. There may be grammatical, spelling, punctuation or sound alike errors 03/08/23 21:36 Blood Culture(s) Obtained: No Antibiotics given: No Discussed with : Other (Case discussed with Dr. Lara who accepts admission at 9:30 PM) Counseled pt/family regarding: lab results, diagnosis, rad results - Departure Departure Disposition: Observation Clinical Impression: Chest pain, Acute coronary syndrome Condition: Stable Critical Care Time: No Referrals: DOCTOR,NO FAMILY [Primary Care Provider] - Follow up/PCP as directed
[2023-03-08] MEDS ORDERED: MORPHINE SULFATE 4 MG INJ IV ONE (17:34)
[2023-03-08] MEDS ORDERED: MORPHINE SULFATE 4 MG INJ ONE (17:38)
[2023-03-08] MEDS ORDERED: BABY ASPIRIN 81 MG CHEW PO ONE (21:25)
[2023-03-08] MEDS ORDERED: NITRO-BID 2% UD PACKETS TOP ONE (21:26)
[2023-03-08] MEDS ORDERED: MORPHINE SULFATE 2 MG INJ IV ONE (21:26)
[2023-03-08] MEDS ORDERED: BABY ASPIRIN 81 MG CHEW ONE (21:40)
[2023-03-08] MEDS ORDERED: MORPHINE SULFATE 2 MG INJ ONE (21:40)
[2023-03-08] MEDS ORDERED: NITRO-BID 2% UD PACKETS ONE (21:40)
--- NOTE | 2023-03-09 00:38 | PCM.HP ---
History of Present Illness - Chief Complaint Chief Complaint: Chest pain, ACS Date: 03/08/23 History of Present Illness: Mr. Edmond is a 67 year old male with a past medical history significant for hypertension, hyperlipidemia and coronary artery disease status post CABG who presents to the hospital with complaints of R sided chest pain that radiates down the R leg leading to numbness. He was markedly hypertensive on arrival with blood pressures in the 190/110 range. He was recommended for hospital admission due to his chest pain and cardiac history. He is seen in his room, awake/alert. Still with some chest pain and numbness down his R leg. CTA chest was negative. - Review of Systems Constitutional: No Symptoms Ears, Nose, & Throat: No Symptoms Respiratory: No Symptoms, No Cough, No Short Of Breath Cardiac: Chest Pain Abdominal/Gastrointestinal: No Symptoms, No Nausea, No Vomiting Genitourinary Symptoms: No Symptoms Musculoskeletal: No Joint Swelling Skin: No Symptoms Neurological: No Symptoms Psychological: No Symptoms Endocrine: No Symptoms Hematologic/Lymphatic: No Symptoms Medications & Allergies Home Medications: Home Medication List Metoprolol Tartrate 25 mg [Lopressor 25MG Tab] 50 mg PO DAILY 12/27/13 [History Confirmed 03/08/23] Albuterol Common Canister [Ventolin Common Canister] 2 puffs IH Q4H PRN PRN 09/07/18 [History Confirmed 03/08/23] Clopidogrel Bisulfate [Plavix] 75 mg PO DAILY #0 01/08/19 [Rx Confirmed 03/08/23] Losartan Potassium 50 mg PO DAILY 05/14/19 [History Confirmed 03/08/23] Nitroglycerin 0.4 mg PO Q5MIN PRN MR X 3 PRN 05/14/19 [History Confirmed 03/08/23] Bupropion HCl 150 mg Sr [Wellbutrin SR 150 MG] 150 mg PO DAILY 04/24/20 [History Confirmed 03/08/23] Amlodipine Besylate 5 mg [Norvasc 5 mg] 10 mg PO DAILY 05/20/22 [History Confirmed 03/08/23] Atorvastatin Calcium 80 mg PO DAILY 05/20/22 [History Confirmed 03/08/23] Ipratropium [place] 0.5 mg [Atrovent 0.5MG NEBULE] 1 vial IH QID PRN 05/20/22 [History Confirmed 03/08/23] Tiotropium [place] [Spiriva Respimat] 2 puffs IH DAILY 05/20/22 [History Confirmed 03/08/23] Aspirin 81 mg PO DAILY 03/08/23 [History Confirmed 03/08/23] Allergies/Adverse Reactions: Allergies Allergy/AdvReac Type Severity Reaction Status Date / Time No Known Drug Allergies Allergy Verified 02/04/23 09:54 - Past Medical History Past Medical History: Yes Neurological History: No Pertinent History ENT History: No Pertinent History Cardiac History: Arrhythmia, Coronary Artery Disease, High Cholesterol, Hypertension, Myocardial Infarction ([place]) Respiratory History: COPD, Emphysema, Pneumonia Endocrine Medical History: No Pertinent History Musculoskelatal History: Degenerative Disk Disease GI Medical History: No Pertinent History History: No Pertinent History Pyscho-Social History: No Pertinent History Male Reproductive Disorders: No Pertinent History Comment: oxygen at home at night - Past Surgical History Past Surgical History: Yes Neuro Surgical History: No Pertinent History Cardiac History: CABG, Cardiac Catheterization, Vascular Surgery Respiratory Surgery: No Pertinent History GI Surgical History: No Pertinent History Genitourinary Surgical Hx: No Pertinent History Musculskeletal Surgical Hx: Orthopedic Surgery Male Surgical History: No Pertinent History Other Surgical History: bilateral ELBOW SURGERY-"nerves and tendons", rt wrist surgery plate and pins after fx., back surgery, 2 josseline in back, triple bipass 2010; angioplasty left leg x3, stents to rt leg. - Social History Smoking Status: Current every day smoker How long have you smoked: 50 years Exposure to second hand smoke: Yes Alcohol: Occasionally Drug Use: none - Physical Exam Vital Signs: Vital Signs - 24 hr Temp Pulse Resp BP BP Pulse Ox 03/08/23 23:14 98.4 F 64 20 158/103 96 03/08/23 23:10 96 03/08/23 22:00 71 21 159/105 96 03/08/23 21:39 95 03/08/23 21:30 74 21 195/125 03/08/23 21:00 84 15 164/114 96 03/08/23 20:30 76 21 156/113 94 L 03/08/23 20:00 81 25 H 172/118 95 03/08/23 19:30 82 27 H 182/122 12/19/23 19:01 79 25 H 169/101 03/08/23 18:30 83 21 146/99 96 03/08/23 18:00 81 22 161/105 95 03/08/23 17:30 81 21 162/99 03/08/23 17:28 81 23 165/91 97 03/08/23 17:00 79 22 145/94 165/91 97 03/08/23 16:47 95 03/08/23 16:30 88 28 H 149/91 96 03/08/23 16:00 81 16 166/100 03/08/23 15:57 98.5 F 87 18 166/100 98 General Appearance: no apparent distress Neurologic Exam: alert, oriented x 3 Ears, Nose, Throat Exam: normal ENT inspection Neck Exam: non-tender Respiratory Exam: No respiratory distress Cardiovascular Exam: regular rate/rhythm Gastrointestinal/Abdomen Exam: soft Extremity Exam: No pedal edema, No swelling Skin Exam: warm Results - Labs Lab/Micro Results: Lab Results-Last 24 Hours 03/08/23 03/08/23 03/08/23 Range/Units 16:45 16:45 16:45 WBC 10.5 (4.0-10.5) x10^3/uL RBC 5.46 (4.1-5.6) x10^6/uL Hgb 16.2 (12.5-18.0) g/dL Hct 48.3 (42-50) % MCV 88.5 (78-100) fL MCH 29.7 (26-32) pg MCHC 33.5 (32-36) g/dL RDW 13.8 (11.5-14.0) % Plt Count 426 (150-450) x10^3/uL MPV 8.6 (7.5-11.0) fL Gran % 64.8 (36.0-66.0) % Immature Gran % (Auto) 0.2 (0.00-0.4) % Nucleat RBC Rel Count 0.0 (0.00-0.1) % Eos # (Auto) 0.33 (0-0.5) x10^3/uL Immature Gran # (Auto) 0.02 (0.00-0.03) x10^3u/L Absolute Lymphs (auto) 2.43 (1.0-4.6) x10^3/uL Absolute Monos (auto) 0.84 (0.0-1.3) x10^3/uL Absolute Nucleated RBC 0.00 (0.00-0.01) x10^3u/L Lymphocytes % 23.1 L (24.0-44.0) % Monocytes % 8.0 (0.0-12.0) % Eosinophils % 3.1 (0.00-5.0) % Basophils % 0.8 (0.0-0.4) % Absolute Granulocytes 6.83 (1.4-6.9) x10^3/uL Basophils # 0.08 (0-0.4) x10^3/uL D-Dimer 0.72 H* (0.0-0.50) mg/L Sodium 135 L (137-145) mmol/L Potassium 4.3 (3.5-5.1) mmol/L Chloride 102 (98-107) mmol/L Carbon Dioxide 24 (22-30) mmol/L Anion Gap 13.7 (5-15) MEQ/L BUN 21 H (9-20) mg/dL Creatinine 1.14 (0.66-1.25) mg/dL Estimated GFR 71.4 ML/MIN Glucose 109 H (74-106) mg/dL Calcium 9.2 (8.4-10.2) mg/dL Total Bilirubin 0.40 (0.2-1.3) mg/dL AST 27 (17-59) U/L ALT 23 (0-50) U/L Alkaline Phosphatase 120 (38-126) U/L Troponin I (0.000-0.034) ng/mL NT-Pro-B Natriuret Pep 692 (<300) pg/mL Serum Total Protein 8.2 (6.3-8.2) g/dL Albumin 4.3 (3.5-5.0) g/dL 03/08/23 03/08/23 Range/Units 16:45 20:20 WBC (4.0-10.5) x10^3/uL RBC (4.1-5.6) x10^6/uL Hgb (12.5-18.0) g/dL Hct (42-50) % MCV (78-100) fL MCH (26-32) pg MCHC (32-36) g/dL RDW (11.5-14.0) % Plt Count (150-450) x10^3/uL MPV (7.5-11.0) fL Gran % (36.0-66.0) % Immature Gran % (Auto) (0.00-0.4) % Nucleat RBC Rel Count (0.00-0.1) % Eos # (Auto) (0-0.5) x10^3/uL Immature Gran # (Auto) (0.00-0.03) x10^3u/L Absolute Lymphs (auto) (1.0-4.6) x10^3/uL Absolute Monos (auto) (0.0-1.3) x10^3/uL Absolute Nucleated RBC (0.00-0.01) x10^3u/L Lymphocytes % (24.0-44.0) % Monocytes % (0.0-12.0) % Eosinophils % (0.00-5.0) % Basophils % (0.0-0.4) % Absolute Granulocytes (1.4-6.9) x10^3/uL Basophils # (0-0.4) x10^3/uL D-Dimer (0.0-0.50) mg/L Sodium (137-145) mmol/L Potassium (3.5-5.1) mmol/L Chloride (98-107) mmol/L Carbon Dioxide (22-30) mmol/L Anion Gap (5-15) MEQ/L BUN (9-20) mg/dL Creatinine (0.66-1.25) mg/dL Estimated GFR ML/MIN Glucose (74-106) mg/dL Calcium (8.4-10.2) mg/dL Total Bilirubin (0.2-1.3) mg/dL AST (17-59) U/L ALT (0-50) U/L Alkaline Phosphatase (38-126) U/L Troponin I 0.012 0.013 (0.000-0.034) ng/mL NT-Pro-B Natriuret Pep (<300) pg/mL Serum Total Protein (6.3-8.2) g/dL Albumin (3.5-5.0) g/dL - Radiology Impressions Radiology Exams & Impressions: Radiology Procedures Category Date Time Status CHEST WITH CONTRAST [CT] Stat Exams 03/08/23 17:15 Taken Assessment/Plan (1) Chest pain Current Visit: Yes Status: Acute Assessment & Plan: Chest pain - unclear etiology, concerning for possibility of NSTEMI given cardiac history versus dissection versus PE, but CTA chest negative 1. Admit to hospital 2. Trend cardiac enzymes 3. Pain control 4. Watch on telemetry 5. DVT/GI prophylaxis Code(s): R07.9 - CHEST PAIN, UNSPECIFIED (2) Hypertensive urgency Current Visit: Yes Status: Acute Assessment & Plan: Hypertensive urgency likely contributing to chest pain/leg numbness 1. Continue current bp meds 2. Will add Clonidine 0.1mg TID 3. Low salt diet 4. Check renal artery doppler 5. Monitor blood pressure readings Code(s): I16.0 - HYPERTENSIVE URGENCY (3) CAD (coronary artery disease) Current Visit: No Status: Chronic Qualifiers: Coronary Disease-Associated Artery/Lesion type: bypass graft [place] vs. transplanted heart: [place] heart Associated angina: without angina Qualified Code(s): I25.810 - Atherosclerosis of coronary artery bypass graft(s) without angina pectoris Code(s): I25.10 - ATHSCL HEART DISEASE OF [place] CORONARY ARTERY W/O ANG PCTRS Telemedicine Encounter - Telemedicine Encounter Telemedicine Encounter: The entirety of this encounter was performed via Telemedicine"
[2023-03-09] MEDS ORDERED: DEMEROL 25MG SYRINGE IV PRN (00:46)
[2023-03-09] MEDS ORDERED: DEMEROL 50 MG ONE (01:26)
[2023-03-09] MEDS ORDERED: DEMEROL 50 MG IV PRN (01:29)
[2023-03-09 07:26] VITALS: RESP 17
--- NOTE | 2023-03-09 08:42 | XRAY ---
Indication: Pain. Elevated d-dimer. Multiple contiguous axial images obtained through the chest using 80 cc Isovue 370 contrast and PE protocol. Comparison: CT chest without contrast February 04, 2023. Good opacification of the pulmonary arteries to include the lobar and segmental branches. No pulmonary embolus. Heart not enlarged again with CABG. Aorta remains minimally arteriosclerotic without aneurysm/dissection. No pathologic mediastinal/hilar lymphadenopathy. Lungs again demonstrates diffuse pulmonary emphysema with mild bilateral mid to lower lung fibrosis/scarring. No new pulmonary mass/nodule, infiltrate, effusion, or pneumothorax. Bony thorax intact again with osteopenia, mild degenerative changes throughout the spine, and sternotomy wires. Limited upper abdomen unremarkable. Impression: 1. Negative pulmonary embolus. No new/acute cardiopulmonary abnormalities. 2. Again chronic findings including pulmonary emphysema, fibrosis/scarring, arteriosclerotic disease, and chronic bony findings.
[2023-03-09 08:58] LABS: Hematocrit 46.8 % (42-50); Hemoglobin 15.5 g/dL (12.5-18.0); Mean Cell Volume 89.1 fL (78-100); Mean Corpuscular Hemoglobin 29.5 pg (26-32); Mean Corpuscular Hgb Concent. 33.1 g/dL (32-36); Mean Platelet Volume 8.8 fL (7.5-11.0); Platelet Count 431 x10^3/uL (150-450); Red Blood Count 5.25 x10^6/uL (4.1-5.6); Red Cell Distribution Width 14.1 % (11.5-14.0); White Blood Count 9.1 x10^3/uL (4.0-10.5)
[2023-03-09 09:04] LABS: Creatinine 1 1.27 mg/dL (0.66-1.25); EST GLOMERULAR FILTRATION RATE 62.7 ML/MIN; Potassium 4.5 mmol/L (3.5-5.1)
[2023-03-09 09:05] LABS: ALBUMIN 3.9 g/dL (3.5-5.0); ANION GAP 8.5 MEQ/L (5-15); BILIRUBIN,TOTAL 0.3 mg/dL (0.2-1.3); Calcium 8.8 mg/dL (8.4-10.2); Total Protein 7.6 g/dL (6.3-8.2)
--- NOTE | 2023-03-09 09:52 | XRAY ---
Indication: Hypertensive urgency. Two-dimensional sonogram and color Doppler imaging renal arteries performed. Comparison: None Right kidney measures 9.1 x 4.6 x 4.7 cm and sonographically unremarkable. Main renal artery PSV is 32-116 cm/s. Resistive index is 0.57-0.76. Arterial waveforms are negative for tardus parvus. Left kidney measures 9.9 x 5.7 x 3.8 cm and sonographically unremarkable. Main renal artery PSV is 64-83 cm/s. Resistive index is 0.47-0.63. Arterial waveforms are negative for tardus parvus. Impression: Renal artery sonogram is negative for renal artery stenosis bilaterally.
[2023-03-09] MEDS ORDERED: PLAVIX Tablet PO SCH (10:00)
[2023-03-09] MEDS ORDERED: NORVASC 5 MG PO SCH (10:00)
[2023-03-09] MEDS ORDERED: ZOCOR 20MG PO SCH (10:00)
[2023-03-09] MEDS ORDERED: ECOTRIN 81 MG PO SCH (10:00)
[2023-03-09] MEDS ORDERED: CLONIDINE 0.1 MG TABLET PO SCH (10:00)
[2023-03-09] MEDS ORDERED: Lopressor 50 MG PO SCH (10:00)
[2023-03-09] MEDS ORDERED: Cozaar 50 MG PO SCH (10:00)
[2023-03-09] MEDS ORDERED: LIPITOR 40MG PO SCH (10:00)
[2023-03-09 11:55] VITALS: BP 110/65; PULSE 55; TEMP 98.5; O2SAT 94
--- NOTE | 2023-03-09 12:42 | PCM.DS ---
Discharge Summary Date of Admission: 03/08/23 23:07 Date of Discharge: 03/09/23 Admitting Physician: MELYSSA CRANE MD <SHAYLEE CURTIS - Last Filed: 03/09/23 12:36> Date of Admission: 03/08/23 23:07 Date of Discharge: 03/09/23 Admitting Physician: MELYSSA CRANE MD <ANTONIA DUTTON - Last Filed: 03/09/23 20:17> Allergies <SHAYLEE CURTIS - Last Filed: 03/09/23 12:36> <ANTONIA DUTTON - Last Filed: 03/09/23 20:17> Allergies No Known Drug Allergies Allergy (Verified 02/04/23 09:54) Hospital Summary - Hospital Course Hospital Course: Mr. Edmond is a 67 year old male with a past medical history significant for hypertension, hyperlipidemia, and coronary artery disease status post CABG. He presented to the hospital with complaints of R sided chest pain that radiates down the R leg leading to numbness. He was markedly hypertensive on arrival with blood pressures in the 190/110 range. He was recommended for hospital admission due to his chest pain and cardiac history. Still with some chest pain that increases with standing and improves with laying. He also has numbness down his R leg and in his foot. BP has improved since admission. He has a hx of stent placement in BLLE. CTA chest was negative. Trop x [address] Curtis whom does not consult at this facility. He reports chronic angina and paresthesia's of RLLE. He has no EKG changes. Pt was able to walk in room today without any concern. Will have pt f/u with cardiology OP. - Vitals & Intake/Output Vital Signs: Vital Signs Temperature 98.5 F 03/09/23 11:54 Pulse Rate 55 L 03/09/23 11:54 Respiratory Rate 17 03/09/23 11:54 Blood Pressure 110/65 03/09/23 11:54 O2 Sat by Pulse Oximetry 94 L 03/09/23 11:54 Intake & Output: Intake & Output 03/07/23 03/08/23 03/09/23 03/10/23 11:59 11:59 11:59 11:59 Intake Total 240 Balance 240 Weight 68.5 kg - Lab Result Diagrams: 03/09/23 08:40 03/09/23 08:40 Lab Results-Last 24 Hrs: Lab Results-Last 24 Hours 03/08/23 03/08/23 03/08/23 Range/Units 16:45 16:45 16:45 WBC 10.5 (4.0-10.5) x10^3/uL RBC 5.46 (4.1-5.6) x10^6/uL Hgb 16.2 (12.5-18.0) g/dL Hct 48.3 (42-50) % MCV 88.5 (78-100) fL MCH 29.7 (26-32) pg MCHC 33.5 (32-36) g/dL RDW 13.8 (11.5-14.0) % Plt Count 426 (150-450) x10^3/uL MPV 8.6 (7.5-11.0) fL Gran % 64.8 (36.0-66.0) % Immature Gran % (Auto) 0.2 (0.00-0.4) % Nucleat RBC Rel Count 0.0 (0.00-0.1) % Eos # (Auto) 0.33 (0-0.5) x10^3/uL Immature Gran # (Auto) 0.02 (0.00-0.03) x10^3u/L Absolute Lymphs (auto) 2.43 (1.0-4.6) x10^3/uL Absolute Monos (auto) 0.84 (0.0-1.3) x10^3/uL Absolute Nucleated RBC 0.00 (0.00-0.01) x10^3u/L Lymphocytes % 23.1 L (24.0-44.0) % Monocytes % 8.0 (0.0-12.0) % Eosinophils % 3.1 (0.00-5.0) % Basophils % 0.8 (0.0-0.4) % Absolute Granulocytes 6.83 (1.4-6.9) x10^3/uL Basophils # 0.08 (0-0.4) x10^3/uL D-Dimer 0.72 H* (0.0-0.50) mg/L Sodium 135 L (137-145) mmol/L Potassium 4.3 (3.5-5.1) mmol/L Chloride 102 (98-107) mmol/L Carbon Dioxide 24 (22-30) mmol/L Anion Gap 13.7 (5-15) MEQ/L BUN 21 H (9-20) mg/dL Creatinine 1.14 (0.66-1.25) mg/dL Estimated GFR 71.4 ML/MIN Glucose 109 H (74-106) mg/dL Calcium 9.2 (8.4-10.2) mg/dL Total Bilirubin 0.40 (0.2-1.3) mg/dL AST 27 (17-59) U/L ALT 23 (0-50) U/L Alkaline Phosphatase 120 (38-126) U/L Troponin I (0.000-0.034) ng/mL NT-Pro-B Natriuret Pep 692 (<300) pg/mL Serum Total Protein 8.2 (6.3-8.2) g/dL Albumin 4.3 (3.5-5.0) g/dL 03/08/23 03/08/23 03/09/23 Range/Units 16:45 20:20 01:25 WBC (4.0-10.5) x10^3/uL RBC (4.1-5.6) x10^6/uL Hgb (12.5-18.0) g/dL Hct (42-50) % MCV (78-100) fL MCH (26-32) pg MCHC (32-36) g/dL RDW (11.5-14.0) % Plt Count (150-450) x10^3/uL MPV (7.5-11.0) fL Gran % (36.0-66.0) % Immature Gran % (Auto) (0.00-0.4) % Nucleat RBC Rel Count (0.00-0.1) % Eos # (Auto) (0-0.5) x10^3/uL Immature Gran # (Auto) (0.00-0.03) x10^3u/L Absolute Lymphs (auto) (1.0-4.6) x10^3/uL Absolute Monos (auto) (0.0-1.3) x10^3/uL Absolute Nucleated RBC (0.00-0.01) x10^3u/L Lymphocytes % (24.0-44.0) % Monocytes % (0.0-12.0) % Eosinophils % (0.00-5.0) % Basophils % (0.0-0.4) % Absolute Granulocytes (1.4-6.9) x10^3/uL Basophils # (0-0.4) x10^3/uL D-Dimer (0.0-0.50) mg/L Sodium (137-145) mmol/L Potassium (3.5-5.1) mmol/L Chloride (98-107) mmol/L Carbon Dioxide (22-30) mmol/L Anion Gap (5-15) MEQ/L BUN (9-20) mg/dL Creatinine (0.66-1.25) mg/dL Estimated GFR ML/MIN Glucose (74-106) mg/dL Calcium (8.4-10.2) mg/dL Total Bilirubin (0.2-1.3) mg/dL AST (17-59) U/L ALT (0-50) U/L Alkaline Phosphatase (38-126) U/L Troponin I 0.012 0.013 0.015 (0.000-0.034) ng/mL NT-Pro-B Natriuret Pep (<300) pg/mL Serum Total Protein (6.3-8.2) g/dL Albumin (3.5-5.0) g/dL 03/09/23 03/09/23 Range/Units 08:40 08:40 WBC 9.1 (4.0-10.5) x10^3/uL RBC 5.25 (4.1-5.6) x10^6/uL Hgb 15.5 (12.5-18.0) g/dL Hct 46.8 (42-50) % MCV 89.1 (78-100) fL MCH 29.5 (26-32) pg MCHC 33.1 (32-36) g/dL RDW 14.1 H (11.5-14.0) % Plt Count 431 (150-450) x10^3/uL MPV 8.8 (7.5-11.0) fL Gran % (36.0-66.0) % Immature Gran % (Auto) (0.00-0.4) % Nucleat RBC Rel Count (0.00-0.1) % Eos # (Auto) (0-0.5) x10^3/uL Immature Gran # (Auto) (0.00-0.03) x10^3u/L Absolute Lymphs (auto) (1.0-4.6) x10^3/uL Absolute Monos (auto) (0.0-1.3) x10^3/uL Absolute Nucleated RBC (0.00-0.01) x10^3u/L Lymphocytes % (24.0-44.0) % Monocytes % (0.0-12.0) % Eosinophils % (0.00-5.0) % Basophils % (0.0-0.4) % Absolute Granulocytes (1.4-6.9) x10^3/uL Basophils # (0-0.4) x10^3/uL D-Dimer (0.0-0.50) mg/L Sodium 137 (137-145) mmol/L Potassium 4.5 (3.5-5.1) mmol/L Chloride 106 (98-107) mmol/L Carbon Dioxide 27 (22-30) mmol/L Anion Gap 8.5 (5-15) MEQ/L BUN 22 H (9-20) mg/dL Creatinine 1.27 H (0.66-1.25) mg/dL Estimated GFR 62.7 ML/MIN Glucose 103 (74-106) mg/dL Calcium 8.8 (8.4-10.2) mg/dL Total Bilirubin 0.30 (0.2-1.3) mg/dL AST 23 (17-59) U/L ALT 19 (0-50) U/L Alkaline Phosphatase 111 (38-126) U/L Troponin I (0.000-0.034) ng/mL NT-Pro-B Natriuret Pep (<300) pg/mL Serum Total Protein 7.6 (6.3-8.2) g/dL Albumin 3.9 (3.5-5.0) g/dL - Radiology Exams Ordered Rad Exams-Entire Visit: Radiology Procedures Category Date Time Status ARTERIAL ABDOMINAL (RENAL) [US] Routine Exams 03/09/23 00:47 Completed CHEST WITH CONTRAST [CT] Stat Exams 03/08/23 17:15 Completed <SHAYLEE CURTIS - Last Filed: 03/09/23 12:36> - Vitals & Intake/Output Vital Signs: Vital Signs Temperature 98.5 F 03/09/23 11:54 Pulse Rate 55 L 03/09/23 11:54 Respiratory Rate 17 03/09/23 11:54 Blood Pressure 110/65 03/09/23 11:54 O2 Sat by Pulse Oximetry 94 L 03/09/23 11:54 Intake & Output: Intake & Output 03/07/23 03/08/23 03/09/23 03/10/23 11:59 11:59 11:59 11:59 Intake Total 240 240 Balance 240 240 Weight 68.5 kg - Lab Result Diagrams: 03/09/23 08:40 03/09/23 08:40 Lab Results-Last 24 Hrs: Lab Results-Last 24 Hours 03/08/23 03/09/23 03/09/23 Range/Units 20:20 01:25 08:40 WBC 9.1 (4.0-10.5) x10^3/uL RBC 5.25 (4.1-5.6) x10^6/uL Hgb 15.5 (12.5-18.0) g/dL Hct 46.8 (42-50) % MCV 89.1 (78-100) fL MCH 29.5 (26-32) pg MCHC 33.1 (32-36) g/dL RDW 14.1 H (11.5-14.0) % Plt Count 431 (150-450) x10^3/uL MPV 8.8 (7.5-11.0) fL Sodium (137-145) mmol/L Potassium (3.5-5.1) mmol/L Chloride (98-107) mmol/L Carbon Dioxide (22-30) mmol/L Anion Gap (5-15) MEQ/L BUN (9-20) mg/dL Creatinine (0.66-1.25) mg/dL Estimated GFR ML/MIN Glucose (74-106) mg/dL Calcium (8.4-10.2) mg/dL Total Bilirubin (0.2-1.3) mg/dL AST (17-59) U/L ALT (0-50) U/L Alkaline Phosphatase (38-126) U/L Troponin I 0.013 0.015 (0.000-0.034) ng/mL Serum Total Protein (6.3-8.2) g/dL Albumin (3.5-5.0) g/dL 03/09/23 Range/Units 08:40 WBC (4.0-10.5) x10^3/uL RBC (4.1-5.6) x10^6/uL Hgb (12.5-18.0) g/dL Hct (42-50) % MCV (78-100) fL MCH (26-32) pg MCHC (32-36) g/dL RDW (11.5-14.0) % Plt Count (150-450) x10^3/uL MPV (7.5-11.0) fL Sodium 137 (137-145) mmol/L Potassium 4.5 (3.5-5.1) mmol/L Chloride 106 (98-107) mmol/L Carbon Dioxide 27 (22-30) mmol/L Anion Gap 8.5 (5-15) MEQ/L BUN 22 H (9-20) mg/dL Creatinine 1.27 H (0.66-1.25) mg/dL Estimated GFR 62.7 ML/MIN Glucose 103 (74-106) mg/dL Calcium 8.8 (8.4-10.2) mg/dL Total Bilirubin 0.30 (0.2-1.3) mg/dL AST 23 (17-59) U/L ALT 19 (0-50) U/L Alkaline Phosphatase 111 (38-126) U/L Troponin I (0.000-0.034) ng/mL Serum Total Protein 7.6 (6.3-8.2) g/dL Albumin 3.9 (3.5-5.0) g/dL - Radiology Exams Ordered Rad Exams-Entire Visit: Radiology Procedures Category Date Time Status ARTERIAL ABDOMINAL (RENAL) [US] Routine Exams 03/09/23 00:47 Completed CHEST WITH CONTRAST [CT] Stat Exams 03/08/23 17:15 Completed <ANTONIA DUTTON - Last Filed: 03/09/23 20:17> Discharge Exam General Appearance: no apparent distress, alert Neurologic Exam: alert, oriented x 3, cooperative, normal mood/affect, nml cerebellar function, sensation nml, No motor deficits Eye Exam: PERRL, EOMI, eyes nml inspection Ears, Nose, Throat Exam: normal ENT inspection, pharynx normal, moist mucous membranes Neck Exam: normal inspection, non-tender, supple, full range of motion Respiratory Exam: normal breath sounds, lungs clear, No respiratory distress Cardiovascular Exam: regular rate/rhythm, normal heart sounds, normal peripheral pulses Gastrointestinal/Abdomen Exam: soft, No tenderness, No mass Male Genitalia Exam: deferred Rectal Exam: deferred Back Exam: normal inspection, normal range of motion, No CVA tenderness, No vertebral tenderness Extremity Exam: normal inspection, normal range of motion, other (Normal temp BLLE) Skin Exam: normal color, warm, dry <SHAYLEE CURTIS - Last Filed: 03/09/23 12:36> Final Diagnosis/Problem List - Final Discharge Diagnosis/Problem (1) Chest pain Status: Acute Assessment & Plan: - tele - trop x 3 negative - follows Dr. Curtis - reviewed EKG no new changes. - Chest CT negative for new acute findings Code(s): R07.9 - CHEST PAIN, UNSPECIFIED (2) D-dimer, elevated Status: Acute Assessment & Plan: - CT negative for PE - D-Dimer 0.72 Code(s): R79.89 - OTHER SPECIFIED ABNORMAL FINDINGS OF BLOOD CHEMISTRY (3) Hypertensive urgency Status: Acute Assessment & Plan: - resolved since admission - encouraged pt to take meds as prescribed - F/u with PCP and cardiology OP Code(s): I16.0 - HYPERTENSIVE URGENCY (4) CAD (coronary artery disease) Status: Chronic Assessment & Plan: - chronic - follows Dr. Curtis- cardiology - No recent Echo at his facility to review. Code(s): I25.10 - ATHSCL HEART DISEASE OF [place] CORONARY ARTERY W/O ANG PCTRS (5) Smoker Status: Acute Assessment & Plan: - advised cessation Code(s): F17.200 - NICOTINE DEPENDENCE, UNSPECIFIED, UNCOMPLICATED (6) Neuropathy Status: Acute Assessment & Plan: - Pt states he has a know hx of neuropathy and has been on medication in the past. - He explains the laws changed and he had to be taken off the medication. - F/u with PCP for OP options as he may need a CSC if it was Lyrica or gabapentin- as these are controlled meds in [place] - F/u with cardiology for further evaluation of sxs. Code(s): G62.9 - POLYNEUROPATHY, UNSPECIFIED <SHAYLEE CURTIS - Last Filed: 03/09/23 12:36> - Discharge Discharge Date: 03/09/23 <SHAYLEE CURTIS - Last Filed: 03/09/23 12:36> <ANTONIA DUTTON - Last Filed: 03/09/23 20:17> - Discharge Disposition: Home, Self-Care Condition: Stable Prescriptions: Continue Metoprolol Tartrate 25 mg [Lopressor 25MG Tab] 50 mg PO DAILY Albuterol Common Canister [Ventolin Common Canister] 2 puffs IH Q4H PRN PRN PRN Reason: Shortness Of Breath/Wheezing Clopidogrel Bisulfate [Plavix] 75 mg PO DAILY #0 Nitroglycerin 0.4 mg PO Q5MIN PRN MR X 3 PRN PRN Reason: angina Losartan Potassium 50 mg PO DAILY Bupropion HCl 150 mg Sr [Wellbutrin SR 150 MG] 150 mg PO DAILY Amlodipine Besylate 5 mg [Norvasc 5 mg] 10 mg PO DAILY Atorvastatin Calcium 80 mg PO DAILY Tiotropium [place] [Spiriva Respimat] 2 puffs IH DAILY Ipratropium [place] 0.5 mg [Atrovent 0.5MG NEBULE] 1 vial IH QID PRN Aspirin 81 mg PO DAILY Instructions: Chest Pain (DC) Additional Instructions: Follow up with: EDUAR BOURGEOIS [ACTIVE STAFF] - 03/17/23 8:30 am ANN MARIE SINCLAIR [CONSULTING PHYSICIAN] - Call for Appointment (MAKE A FOLLOW- UP APPOINTMENT FOR THE NEXT WEEK) Forms: Discharge Instructions MAYE Encounter - MAYE Encounter Attestation MAYE Encounter Attestation: "DenisepersonalshaniceeenOBED De La Cruz andhavediscussed pertinent aspects of their care with Shaylee Wills agree with the history, physical exam (any modifications based on my personal exam will be noted below), assessment, and plan as outlined in original note. Please see immediately below for my summary of findings and additional assessment and plan along with any meaningful corrections/explanations to the Subjective/Objective portions of the MAYE note will be noted." My portion of the encounter took place via telemedicine. -Patient has chronic angina however this time his symptoms were not relieved with NTG which is why he presented. ACS ruled out. Very elevated blood pressure likely the cause of chest pain which has now improved. Right leg well perfused and warm, with no concern for acute ischemia. Reports history of neuropathy and now has numbness and burning of toes. Needs outpatient follow up with card and PCP for management of his hypertension and neuropathy. <ANTONIA DUTTON - Last Filed: 03/09/23 20:17>
== END 2023-03-09 13:53 | disposition home or self-care (01) ==
LOC: ED 15:49 → MED SURG 23:07
PROVIDERS: ADMIT Internal Medicine Nephrology; ATTEND Internal Medicine Nephrology
DX: R07.9 Chest pain, unspecified (principal); R79.89 Other specified abnormal findings of blood chemistry; I16.0 Hypertensive urgency; I25.10 Atherosclerotic heart disease of native coronary artery without angina pectoris; F17.200 Nicotine dependence, unspecified, uncomplicated; G62.9 Polyneuropathy, unspecified; I10 Essential (primary) hypertension; E78.5 Hyperlipidemia, unspecified; I25.2 Old myocardial infarction; Z79.899 Other long term (current) drug therapy; Z20.828 Contact with and (suspected) exposure to other viral communicable diseases; Z95.0 Presence of cardiac pacemaker
CPT/HCPCS: 36000; 36415; 71260; 80053; 83880; 84484; 85025; 85027; 85379; 93005; 93041; 93268; 93975; 94760; 96374; 99285; J2175; J2270; A9270-GY; G0378

== ENCOUNTER 2023-05-02 14:41 | Emergency (ER) | payer MEDICARE ==
[2023-05-02] MEDS ORDERED: BABY ASPIRIN 81 MG CHEW PO ONE (14:42)
[2023-05-02 14:51] VITALS: RESP 23; TEMP 97.1
[2023-05-02] MEDS ORDERED: Hydromorphone 1 mg/ml Injection ONE (14:54)
[2023-05-02] MEDS ORDERED: Zofran 4 MG/2 ML VIAL ONE (14:54)
[2023-05-02] MEDS ORDERED: BABY ASPIRIN 81 MG CHEW ONE (14:57)
[2023-05-02] MEDS ORDERED: Sodium Chloride 0.9% 1000 ML 1,000 ML IV SCH (15:00)
[2023-05-02 15:10] VITALS: BP 140/96; PULSE 80; O2SAT 97
--- NOTE | 2023-05-02 15:13 | XRAY ---
Indication: Chest pain. Comparison: February 04, 2023 Portable chest unchanged again hyperinflated and clear. Heart not enlarged again with CABG. Bony thorax intact again with osteopenia and mild degenerative changes. No new/acute findings.
[2023-05-02 15:17] LABS: Absolute Neutrophil Ct (ANC) 7.92 x10^3/uL (1.4-6.9); BASOPHIL % 0.4 % (0.0-0.4); Basophil (Absolute #) 0.05 x10^3/uL (0-0.4); Eosinophil % 1.3 % (0.00-5.0); Eosinophil (Absolute #) 0.15 x10^3/uL (0-0.5); Hematocrit 47.9 % (42-50); Hemoglobin 16.2 g/dL (12.5-18.0); IMMATURE GRAN # 0.04 x10^3u/L (0.00-0.03); IMMATURE GRAN % 0.4 % (0.00-0.4); Lymphocyte (Absolute #) 2.28 x10^3/uL (1.0-4.6); Lymphocytes % 20.3 % (24.0-44.0); Mean Cell Volume 89.9 fL (78-100); Mean Corpuscular Hemoglobin 30.4 pg (26-32); Mean Corpuscular Hgb Concent. 33.8 g/dL (32-36); Monocyte (Absolute #) 0.78 x10^3/uL (0.0-1.3); Neutrophil % 70.6 % (36.0-66.0); Platelet Count 438 x10^3/uL (150-450); Red Blood Count 5.33 x10^6/uL (4.1-5.6); White Blood Count 11.2 x10^3/uL (4.0-10.5)
[2023-05-02 15:40] LABS: INR 0.94 (0.8-3.0); PROTIME 10.3 SECONDS (9.4-12.5); PTT 27.1 SECONDS (25.1-36.5)
[2023-05-02 15:42] LABS: ALBUMIN 4.9 g/dL (3.5-5.0); ANION GAP 15.4 MEQ/L (5-15); BILIRUBIN,TOTAL 0.8 mg/dL (0.2-1.3); Calcium 9.4 mg/dL (8.4-10.2); Creatinine 1 1.25 mg/dL (0.66-1.25); D-DIMER QUANTITATIVE 0.78 mg/L (0.0-0.50); EST GLOMERULAR FILTRATION RATE 63.9 ML/MIN; MAGNESIUM 1.9 mg/dL (1.6-2.3); Potassium 3.7 mmol/L (3.5-5.1); Total Protein 8.7 g/dL (6.3-8.2)
[2023-05-02 15:45] LABS: Erythrocyte Sedimentation Rate 37 mm/hr (0-15)
--- NOTE | 2023-05-02 15:56 | ERPHSYRPT ---
- History of Present Illness Time Seen by Provider: 05/02/23 15:05 Historian: patient Exam Limitations: clinical condition Patient Subjective Stated Complaint: C/O Chest pain that started approx one hour prior to coming into the ER right after eating a ham salad rejiwhich Triage Nursing Assessment: Patient is alert and oriented. Restless. Showing s/s of pain. Labored breathing. Skin tone normal. CHENG WNL. NO edema. Physician History: Patient is a 67-year-old white male with longstanding cardiac history including coronary artery bypass grafting in 2010 2-3 other MIs and stent placements. He is followed by Dr. Pollack. 1 hour ago he was eating he laid down and became dizzy and developed chest pain. Substernal chest pain did not radiate was not relieved by 2 nitroglycerin. Timing/Duration: today Quality: pressure, throbbing Location: substernal Chest Pain Radiation: no radiation Severity of Pain-Max: severe Severity of Pain-Current: severe Nitro Today/Relief: 0.4 mg x 3 Aspirin Treatment Today: 81 mg x 1 Allergies/Adverse Reactions: No Known Drug Allergies Allergy (Verified 05/02/23 14:45) Home Medications: Metoprolol Tartrate 25 mg [Lopressor 25MG Tab] 50 mg PO DAILY 12/27/13 [History] Albuterol Common Canister [Ventolin Common Canister] 2 puffs IH Q4H PRN PRN 09/07/18 [History] Losartan Potassium 50 mg PO DAILY 05/14/19 [History] Nitroglycerin 0.4 mg PO Q5MIN PRN MR X 3 PRN 05/14/19 [History] Bupropion HCl 150 mg Sr [Wellbutrin SR 150 MG] 150 mg PO DAILY 04/24/20 [History] Amlodipine Besylate 5 mg [Norvasc 5 mg] 10 mg PO DAILY 05/20/22 [History] Atorvastatin Calcium 80 mg PO DAILY 05/20/22 [History] Ipratropium [place] 0.5 mg [Atrovent 0.5MG NEBULE] 1 vial IH QID PRN 05/20/22 [History] Tiotropium [place] [Spiriva Respimat] 2 puffs IH DAILY 05/20/22 [History] Aspirin 81 mg PO DAILY 03/08/23 [History] Hx Tetanus, Diphtheria Vaccination/Date Given: Yes Hx Influenza Vaccination/Date Given: Yes Hx Pneumococcal Vaccination/Date Given: Yes Immunizations Up to Date: Yes Travel Risk - International Travel Have you traveled outside of the country in past 3 weeks: No - Coronavirus Screening Are you exhibiting any of the following symptoms?: Yes Symptoms: Shortness of Breath Close contact with a COVID-19 positive Pt in past 14-21 Days: No - Vaccine Status Have you recieved a Covid-19 vaccination: Yes 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 - Vaccination Dates Date of 2cond Vaccination (if applicable): 2022 - Review of Systems Constitutional: No Fever, No Chills Eyes: No Symptoms Ears, Nose, & Throat: No Symptoms Respiratory: No Cough, No Dyspnea Cardiac: No Chest Pain, No Edema, No Syncope Abdominal/Gastrointestinal: No Abdominal Pain, No Nausea, No Vomiting, No Diarrhea Genitourinary Symptoms: No Dysuria Musculoskeletal: No Back Pain, No Neck Pain Skin: No Rash Neurological: No Dizziness, No Focal Weakness, No Sensory Changes Psychological: No Symptoms Endocrine: No Symptoms All Other Systems: Reviewed and Negative - Past Medical History Pertinent Past Medical History: Yes Neurological History: No Pertinent History ENT History: No Pertinent History Cardiac History: Arrhythmia, Coronary Artery Disease, High Cholesterol, Hypertension, Myocardial Infarction ([place]) Respiratory History: COPD, Emphysema, Pneumonia Endocrine Medical History: No Pertinent History Musculoskeletal History: Degenerative Disk Disease GI Medical History: No Pertinent History History: No Pertinent History Psycho-Social History: No Pertinent History Male Reproductive Disorders: No Pertinent History Other Medical History: oxygen at home at night, 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 - Social History Smoking Status: Current every day smoker How long have you smoked: 50 years Exposure to second hand smoke: Yes Drug Use: none Patient Lives Alone: Yes - Nursing Vital Signs Nursing Vital Signs: Initial Vital Signs Temperature 97.1 F 05/02/23 14:45 Pulse Rate 75 05/02/23 14:45 Respiratory Rate 23 05/02/23 14:45 Blood Pressure 135/87 05/02/23 14:45 O2 Sat by Pulse Oximetry 99 05/02/23 14:45 Pain Scale Pain Intensity 8 - Physical Exam General Appearance: moderate distress, alert Eye Exam: PERRL/EOMI, eyes nml inspection Ears, Nose, Throat Exam: normal ENT inspection, moist mucous membranes Neck Exam: normal inspection, non-tender, supple, full range of motion Respiratory Exam: normal breath sounds, lungs clear, No respiratory distress Cardiovascular Exam: regular rate/rhythm, normal heart sounds Gastrointestinal/Abdomen Exam: soft, No tenderness, No mass Back Exam: normal inspection, No CVA tenderness, No vertebral tenderness Extremity Exam: normal inspection, normal range of motion Neurologic Exam: alert, oriented x 3, cooperative, normal mood/affect, sensation nml, No motor deficits Skin Exam: normal color, warm, dry SpO2: 97 - Course Nursing assessment & vital signs reviewed: Yes EKG Interpreted by Me: RATE (73), Sinus Rhythm, Other (EKG shows ventricular premature complex issue and there is marked ST depression in V1 through V5. Probable left atrial enlargement and an inferior old posterior infarct acute is possible.) - Radiology Exams Chest X-ray Interpretation: Reviewed by me, Negative Ordered Tests: Active Orders 24 hr Category Date Time Status EKG-ER Only STAT Care 05/02/23 14:52 Completed CHEST 1 VIEW (PORTABLE) Stat Exams 05/02/23 14:53 Completed CBC W DIFF Stat Lab 05/02/23 15:05 Results CMP Stat Lab 05/02/23 15:05 Completed D-DIMER QUANTITATIVE Stat Lab 05/02/23 15:05 Completed Erythrocyte Sedimentation Rate Stat Lab 05/02/23 15:05 Results LIPASE Stat Lab 05/02/23 15:05 Completed Lactic Acid Stat Lab 05/02/23 15:10 Completed MAGNESIUM Stat Lab 05/02/23 15:05 Completed NT PRO BNPII Stat Lab 05/02/23 15:05 Completed PROTIME WITH INR Stat Lab 05/02/23 15:05 Completed PTT Stat Lab 05/02/23 15:05 Completed TROPONIN Q4H Lab 05/02/23 15:05 Received TROPONIN Q4H Lab 05/02/23 19:00 Ordered TROPONIN Q4H Lab 05/02/23 23:00 Ordered UA W/RFX UR CULTURE Stat Lab 05/02/23 14:53 Ordered Medication Summary Discontinued Medications Generic Name Dose Route Start Last Admin Trade Name Sary PRN Reason Stop Dose Admin Aspirin Confirm 05/02/23 14:57 Aspirin 81 Mg Tab.Chew Administered 05/02/23 14:58 Dose 324 mg .ROUTE .STK-MED ONE Hydromorphone HCl Confirm 05/02/23 14:54 Hydromorphone 1 Mg/1ml Inj Administered 05/02/23 14:55 Dose 1 mg .ROUTE .STK-MED ONE Sodium Chloride 1,000 mls @ 50 mls/hr 05/02/23 15:00 Sodium Chloride 0.9% 1000 Ml IV 06/01/23 14:59 .Q20H DOLLY Ondansetron HCl Confirm 05/02/23 14:54 Ondansetron Hcl 4 Mg/2 Ml Vial Administered 05/02/23 14:55 Dose 4 mg .ROUTE .STK-MED ONE Lab/Rad Data: Laboratory Result Diagrams 05/02/23 15:05 05/02/23 15:05 Laboratory Results 05/02/23 05/02/23 05/02/23 Range/Units 15:10 15:05 15:05 WBC (4.0-10.5) x10^3/uL RBC (4.1-5.6) x10^6/uL Hgb (12.5-18.0) g/dL Hct (42-50) % MCV (78-100) fL MCH (26-32) pg MCHC (32-36) g/dL RDW (11.5-14.0) % Plt Count (150-450) x10^3/uL MPV (7.5-11.0) fL Gran % (36.0-66.0) % Immature Gran % (Auto) (0.00-0.4) % Nucleat RBC Rel Count (0.00-0.1) % Eos # (Auto) (0-0.5) x10^3/uL Immature Gran # (Auto) (0.00-0.03) x10^3u/L Absolute Lymphs (auto) (1.0-4.6) x10^3/uL Absolute Monos (auto) (0.0-1.3) x10^3/uL Absolute Nucleated RBC (0.00-0.01) x10^3u/L Lymphocytes % (24.0-44.0) % Monocytes % (0.0-12.0) % Eosinophils % (0.00-5.0) % Basophils % (0.0-0.4) % Absolute Granulocytes (1.4-6.9) x10^3/uL Basophils # (0-0.4) x10^3/uL ESR PT 10.3 (9.4-12.5) SECONDS INR 0.94 (0.8-3.0) APTT 27.1 (25.1-36.5) SECONDS D-Dimer 0.78 H* (0.0-0.50) mg/L Sodium 137 (137-145) mmol/L Potassium 3.7 (3.5-5.1) mmol/L Chloride 103 (98-107) mmol/L Carbon Dioxide 22 (22-30) mmol/L Anion Gap 15.4 H (5-15) MEQ/L BUN 17 (9-20) mg/dL Creatinine 1.25 (0.66-1.25) mg/dL Estimated GFR 63.9 ML/MIN Glucose 104 (74-106) mg/dL Lactic Acid 2.5 H (0.4-2.0) Calcium 9.4 (8.4-10.2) mg/dL Magnesium 1.9 (1.6-2.3) mg/dL Total Bilirubin 0.80 (0.2-1.3) mg/dL AST 29 (17-59) U/L ALT 18 (0-50) U/L Alkaline Phosphatase 134 H (38-126) U/L NT-Pro-B Natriuret Pep 1330 (<300) pg/mL Serum Total Protein 8.7 H (6.3-8.2) g/dL Albumin 4.9 (3.5-5.0) g/dL Lipase 80 (23-300) U/L 05/02/23 Range/Units 15:05 WBC 11.2 H (4.0-10.5) x10^3/uL RBC 5.33 (4.1-5.6) x10^6/uL Hgb 16.2 (12.5-18.0) g/dL Hct 47.9 (42-50) % MCV 89.9 (78-100) fL MCH 30.4 (26-32) pg MCHC 33.8 (32-36) g/dL RDW 14.0 (11.5-14.0) % Plt Count 438 (150-450) x10^3/uL MPV 9.0 (7.5-11.0) fL Gran % 70.6 H (36.0-66.0) % Immature Gran % (Auto) 0.4 (0.00-0.4) % Nucleat RBC Rel Count 0.0 (0.00-0.1) % Eos # (Auto) 0.15 (0-0.5) x10^3/uL Immature Gran # (Auto) 0.04 H (0.00-0.03) x10^3u/L Absolute Lymphs (auto) 2.28 (1.0-4.6) x10^3/uL Absolute Monos (auto) 0.78 (0.0-1.3) x10^3/uL Absolute Nucleated RBC 0.00 (0.00-0.01) x10^3u/L Lymphocytes % 20.3 L (24.0-44.0) % Monocytes % 7.0 (0.0-12.0) % Eosinophils % 1.3 (0.00-5.0) % Basophils % 0.4 (0.0-0.4) % Absolute Granulocytes 7.92 H (1.4-6.9) x10^3/uL Basophils # 0.05 (0-0.4) x10^3/uL ESR Pending PT (9.4-12.5) SECONDS INR (0.8-3.0) APTT (25.1-36.5) SECONDS D-Dimer (0.0-0.50) mg/L Sodium (137-145) mmol/L Potassium (3.5-5.1) mmol/L Chloride (98-107) mmol/L Carbon Dioxide (22-30) mmol/L Anion Gap (5-15) MEQ/L BUN (9-20) mg/dL Creatinine (0.66-1.25) mg/dL Estimated GFR ML/MIN Glucose (74-106) mg/dL Lactic Acid (0.4-2.0) Calcium (8.4-10.2) mg/dL Magnesium (1.6-2.3) mg/dL Total Bilirubin (0.2-1.3) mg/dL AST (17-59) U/L ALT (0-50) U/L Alkaline Phosphatase (38-126) U/L NT-Pro-B Natriuret Pep (<300) pg/mL Serum Total Protein (6.3-8.2) g/dL Albumin (3.5-5.0) g/dL Lipase (23-300) U/L - Progress Progress: improved Air Movement: fair Blood Culture(s) Obtained: No Antibiotics given: No Discussed with Dr.: Other (Dr. Greenberg at [facility] excepted patient in transfer) Medical Desision Making - Discussion of managment Care discussed with:: on-call "doc" (Dr. Greenberg was on-call at [facility] and accepted this patient in transfer) Reviewed:: Test results Agreed on:: Treatment plan, decision to admit Will see patient: in hospital - Diagnostic Testing Diagnostic test were ordered, analyzed, and reviewed by me: Yes Radiological Interpretation: Reviewed by me - Risk of complications The pt has a high risk of morbidity or mortality based on: Drug therapy requiri ng intensive monitoring for toxicity, Decision regarding hospitilization or escalation of hosp level of care - Departure Departure Disposition: Transfer Clinical Impression: Acute myocardial infarction, History of coronary artery bypass graft x 3, History of coronary angioplasty with insertion of stent Condition: Critical Critical Care Time: Yes Critical Care Time(excluding separately billable procedures): Critical 30-74 mins (70) Referrals: EDUAR BOURGEOIS [Primary Care Provider] - Follow up/PCP as directed
== END 2023-05-02 15:09 | disposition short-term general hospital (02) ==
LOC: ED 14:41
DX: I21.3 ST elevation (STEMI) myocardial infarction of unspecified site (principal); Z95.1 Presence of aortocoronary bypass graft; Z95.5 Presence of coronary angioplasty implant and graft; R07.9 Chest pain, unspecified; R42 Dizziness and giddiness; E78.5 Hyperlipidemia, unspecified; I10 Essential (primary) hypertension; Z79.899 Other long term (current) drug therapy; Z72.0 Tobacco use
CPT/HCPCS: 36000; 36415; 71045; 80053; 83605; 83690; 83735; 83880; 84484; 85025; 85379; 85610; 85652; 85730; 93005; 99284; J1170; J2405; A9270-GY

== ENCOUNTER 2023-05-10 11:53 | Emergency (ER) | payer MEDICARE ==
[2023-05-10] MEDS ORDERED: Sodium Chloride 0.9% 1000 ML 1,000 ML ONE (12:01)
[2023-05-10 12:03] VITALS: TEMP 97.1
[2023-05-10 12:18] LABS: Absolute Neutrophil Ct (ANC) 8.71 x10^3/uL (1.4-6.9); BASOPHIL % 0.3 % (0.0-0.4); Basophil (Absolute #) 0.04 x10^3/uL (0-0.4); Eosinophil % 0.9 % (0.00-5.0); Eosinophil (Absolute #) 0.11 x10^3/uL (0-0.5); Hematocrit 51.8 % (42-50); Hemoglobin 17.1 g/dL (12.5-18.0); IMMATURE GRAN # 0.06 x10^3u/L (0.00-0.03); IMMATURE GRAN % 0.5 % (0.00-0.4); Lymphocyte (Absolute #) 2.05 x10^3/uL (1.0-4.6); Lymphocytes % 17.6 % (24.0-44.0); Mean Cell Volume 90.6 fL (78-100); Mean Corpuscular Hemoglobin 29.9 pg (26-32); Neutrophil % 74.7 % (36.0-66.0); Platelet Count 661 x10^3/uL (150-450); Red Blood Count 5.72 x10^6/uL (4.1-5.6); Red Cell Distribution Width 13.7 % (11.5-14.0); White Blood Count 11.7 x10^3/uL (4.0-10.5)
--- NOTE | 2023-05-10 12:28 | XRAY ---
Indication: Short of breath. Comparison: May 02, 2023 Portable chest remains hyperinflated and clear. Heart not enlarged again with CABG. Bony thorax intact with new multiple overlying monitoring devices/leads. Impression: Continued nonacute hyperinflated chest.
[2023-05-10 12:44] LABS: ALBUMIN 4.9 g/dL (3.5-5.0); ANION GAP 21.1 MEQ/L (5-15); BILIRUBIN,TOTAL 1.2 mg/dL (0.2-1.3); Calcium 9.8 mg/dL (8.4-10.2); Creatinine 1 2.39 mg/dL (0.66-1.25); EST GLOMERULAR FILTRATION RATE 29.2 ML/MIN; Potassium 5.1 mmol/L (3.5-5.1)
[2023-05-10] MEDS ORDERED: MORPHINE SULFATE 4 MG INJ ONE ×3 (13:07→22:05)
[2023-05-10] MEDS: MORPHINE SULFATE 4 MG INJ IV ONE ×3 (13:09→22:09)
[2023-05-10] MEDS ORDERED: Zofran 4 MG/2 ML VIAL ONE (13:14)
[2023-05-10] MEDS: Zofran 4 MG/2 ML VIAL IV ONE (13:15)
--- NOTE | 2023-05-10 14:06 | XRAY ---
Indication: Pain. Elevated d-dimer. Multiple contiguous axial images obtained through the chest without contrast as ordered. Comparison: March 08, 2023 Lungs again demonstrates moderate diffuse pulmonary emphysema with minimal fibrosis/scarring. Minimal bibasilar dependent atelectasis. No suspicious pulmonary mass/nodule, infiltrate, effusion, or pneumothorax. Heart is not enlarged again with CABG. Aorta again minimally actress carotid without aneurysm. No pathologic mediastinal lymphadenopathy. Bony thorax intact again with osteopenia, mild degenerative changes of the spine, and sternotomy wires. CT abdomen/pelvis reported separately. Impression: Again pulmonary emphysema, chronic bony findings, and CABG. No new/acute findings on this noncontrast exam.
--- NOTE | 2023-05-10 14:09 | XRAY ---
Indication: Pain. Multiple contiguous axial images obtained through abdomen and pelvis without contrast. Comparison: None CT chest reported separately. Stomach distended with food/fluid. Noncontrasted stomach and bowel loops appear nonobstructed. Appendix not visualized. Left kidney demonstrates nonobstructing punctate calculus. No free fluid/air. Remaining liver, gallbladder, pancreas, spleen, adrenal glands, kidneys, ureters, and bladder are unremarkable for noncontrast exam. Mild scattered aortoiliac calcifications without AAA. Osseous structures intact with osteopenia, minimal/mild degenerative changes throughout spine, mild dextrorotoscoliosis centered at thoracolumbar junction, and L4-S1 fusion with intact posterior hardware. Impression: 1. Nonobstructing left renal punctate calculus, arteriosclerotic disease, and chronic bony findings. 2. Remaining CT abdomen/pelvis without contrast exam is negative.
--- NOTE | 2023-05-10 14:53 | ERPHSYRPT ---
- History of Present Illness Time Seen by Provider: 05/10/23 12:00 Source: patient Exam Limitations: no limitations Patient Subjective Stated Complaint: Ems states "Pt had two stents placed last tuesday by Dr. Childers. He had sudden abdominal pain that started two hours ago and when we had him in the ambulance, he started to desat with a NRB on down to 75 %." Triage Nursing Assessment: Pt presented alert and oriented X 3, skin pwd. Pt able to speak in three to four word sentenes. Pt has a life vest on, tachypniec and grunting. Physician History: 68-year-old male presents to our ED via EMS for evaluation of abdominal pain some shortness of breath. EMS reports patient was desaturating prior to arrival. Patient had 2 stents placed last Tuesday by Dr. Martinez at [facility]. Patient's symptoms are constant. Symptoms are moderate in intensity. No specific worsening or improving factors. Patient denies a history of the same. Patient voices no other complaints or concerns at this time. Portions of this note were created with voice recognition technology. There may be grammatical, spelling, punctuation or sound alike errors Timing/Duration: today Severity: moderate Modifying Factors: Improves With: nothing Associated Symptoms: denies symptoms Allergies/Adverse Reactions: No Known Drug Allergies Allergy (Verified 05/02/23 14:45) Home Medications: Metoprolol Tartrate 25 mg [Lopressor 25MG Tab] 50 mg PO DAILY 12/27/13 [History] Albuterol Common Canister [Ventolin Common Canister] 2 puffs IH Q4H PRN PRN 09/07/18 [History] Nitroglycerin 0.4 mg PO Q5MIN PRN MR X 3 PRN 05/14/19 [History] Atorvastatin Calcium 80 mg PO DAILY 05/20/22 [History] Aspirin 81 mg PO DAILY 03/08/23 [History] Budesonide/Formoterol Fumarate [Budesonide-Formoterol 160-4.5] 1 puff IH DAILY 05/10/23 [History] Dapagliflozin Propanediol [Farxiga] 10 mg PO DAILY 05/10/23 [History] Ezetimibe 10 mg [Zetia 10 MG] 10 mg PO HS 05/10/23 [History] Famotidine [Pepcid] 40 mg PO DAILY 05/10/23 [History] Gabapentin [Neurontin] 600 mg PO QID 05/10/23 [History] Sacubitril/Valsartan [Entresto 24 mg-26 mg Tablet] 1 each PO BID 05/10/23 [History] Spironolactone [Aldactone] 12.5 mg PO DAILY 05/10/23 [History] Ticagrelor [Brilinta] 90 mg PO BID 05/10/23 [History] Hx Tetanus, Diphtheria Vaccination/Date Given: Yes Hx Influenza Vaccination/Date Given: Yes Hx Pneumococcal Vaccination/Date Given: Yes Immunizations Up to Date: No Travel Risk - International Travel Have you traveled outside of the country in past 3 weeks: No - Coronavirus Screening Are you exhibiting any of the following symptoms?: No Close contact with a COVID-19 positive Pt in past 14-21 Days: No - Vaccine Status Have you recieved a Covid-19 vaccination: Yes 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[employer]: [employer] - Vaccination Dates Date of 2cond Vaccination (if applicable): 2022 - Review of Systems Constitutional: No Symptoms, No Fever, No Chills Eyes: No Symptoms Ears, Nose, & Throat: No Symptoms Respiratory: No Symptoms, No Cough, No Dyspnea Cardiac: No Symptoms, No Chest Pain, No Edema, No Syncope Abdominal/Gastrointestinal: No Symptoms, No Abdominal Pain, No Nausea, No Vomiting, No Diarrhea Genitourinary Symptoms: No Symptoms, No Dysuria Musculoskeletal: No Symptoms, No Back Pain, No Neck Pain Skin: No Symptoms, No Rash Neurological: No Symptoms, No Dizziness, No Focal Weakness, No Sensory Changes Psychological: No Symptoms Endocrine: No Symptoms Hematologic/Lymphatic: No Symptoms Immunological/Allergic: No Symptoms All Other Systems: Reviewed and Negative - Past Medical History Pertinent Past Medical History: Yes Neurological History: No Pertinent History ENT History: No Pertinent History Cardiac History: Arrhythmia, Coronary Artery Disease, High Cholesterol, Hypertension, Myocardial Infarction ([place]) Respiratory History: COPD, Emphysema, Pneumonia Endocrine Medical History: No Pertinent History Musculoskeletal History: Degenerative Disk Disease GI Medical History: No Pertinent History History: No Pertinent History Psycho-Social History: No Pertinent History Male Reproductive Disorders: No Pertinent History Other Medical History: oxygen at home at night, clay miller: Dr. Herrera - Past Surgical History Past Surgical History: Yes Neuro Surgical History: No Pertinent History Cardiac: CABG, Cardiac Catheterization, Cardiac Stent, Vascular Surgery Respiratory: No Pertinent History Gastrointestinal: No Pertinent History Genitourinary: No Pertinent History Musculoskeletal: Orthopedic Surgery Male Surgical History: No Pertinent History Other Surgical History: bilateral ELBOW SURGERY-"nerves and tendons", rt wrist surgery plate and pins after fx., back surgery, 2 josseline in back, triple bipass 2010; angioplasty left leg x3, stents to rt leg. cardiac stents (2023) - Social History Smoking Status: Current every day smoker How long have you smoked: 50 years Exposure to second hand smoke: Yes Drug Use: none Patient Lives Alone: Yes - Nursing Vital Signs Nursing Vital Signs: Initial Vital Signs Temperature 97.1 F 05/10/23 11:54 Pulse Rate 111 H 05/10/23 11:54 Respiratory Rate 26 H 05/10/23 11:54 Blood Pressure 132/77 05/10/23 11:54 O2 Sat by Pulse Oximetry 100 05/10/23 11:54 Pain Scale Pain Intensity 9 - Physical Exam General Appearance: no apparent distress, alert Eye Exam: PERRL/EOMI, eyes nml inspection Ears, Nose, Throat Exam: normal ENT inspection, TMs normal, pharynx normal, moist mucous membranes Neck Exam: normal inspection, non-tender, supple, full range of motion Respiratory Exam: normal breath sounds, lungs clear, airway intact, No respiratory distress Cardiovascular Exam: regular rate/rhythm, normal heart sounds, normal peripheral pulses Gastrointestinal/Abdomen Exam: soft, normal bowel sounds, No tenderness, No mass Back Exam: normal inspection, normal range of motion, No CVA tenderness, No vertebral tenderness Extremity Exam: normal inspection, normal range of motion, pelvis stable Neurologic Exam: alert, oriented x 3, cooperative, normal mood/affect, nml cerebellar function, nml station & gait, sensation nml, No motor deficits Skin Exam: normal color, warm, dry, No rash Lymphatic Exam: No adenopathy SpO2 Interpretation: normal SpO2: 94 O2 Delivery: Room Air - Course Nursing assessment & vital signs reviewed: Yes EKG Interpreted by Me: RATE (87), Sinus Rhythm, Right [place] Deviation, NORMAL INTERVALS - CT Exams Chest CT Interpretation: Tele-radiologist Report (Lung emphysema no no acute findings) Ordered Tests: Active Orders 24 hr Category Date Time Status 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 Machine Operator STAT Care 05/10/23 11:55 Completed EKG-ER Only STAT Care 05/10/23 11:54 Completed IV Insertion STAT Care 05/10/23 11:54 Completed Pulse Oximetry (ED) STAT Care 05/10/23 11:54 Completed ABDOMEN AND PELVIS W/0 CONTRAS [CT] Stat Exams 05/10/23 12:59 Completed CHEST 1 VIEW (PORTABLE) Stat Exams 05/10/23 11:55 Completed CHEST WITHOUT CONTRAST [CT] Stat Exams 05/10/23 12:59 Completed CBC W DIFF Stat Lab 05/10/23 12:15 Completed CMP Stat Lab 05/10/23 12:15 Completed D-DIMER QUANTITATIVE Stat Lab 05/10/23 12:15 Completed NT PRO BNPII Stat Lab 05/10/23 12:15 Completed TROPONIN Q4H Lab 05/10/23 12:15 Completed TROPONIN Q4H Lab 05/10/23 15:50 Completed TROPONIN Q4H Lab 05/10/23 20:05 Completed UA W/RFX UR CULTURE Stat Lab 05/10/23 11:55 Ordered Standby STAT RT 05/10/23 12:09 Completed Medication Summary Discontinued Medications Generic Name Dose Route Start Last Admin Trade Name Freq PRN Reason Stop Dose Admin Enoxaparin Sodium 66 mg 05/10/23 16:31 05/10/23 16:34 Enoxaparin Sodium 60 Mg/0.6 Ml Syringe SQ 05/10/23 16:32 66 mg STAT ONE Administration Enoxaparin Sodium Confirm 05/10/23 16:33 Enoxaparin Sodium 80 Mg/0.8 Ml Syringe Administered 05/10/23 16:34 Dose 80 mg SQ .STK-MED ONE Sodium Chloride Confirm 05/10/23 12:01 Sodium Chloride 0.9% 1000 Ml Administered 05/10/23 12:02 Dose 1,000 mls @ ud .ROUTE .STK-MED ONE Morphine Sulfate 4 mg 05/10/23 13:02 05/10/23 13:09 Morphine Sulfate 4 Mg/Ml Injection IV 05/10/23 13:03 4 mg STAT ONE Administration Morphine Sulfate Confirm 05/10/23 13:07 Morphine Sulfate 4 Mg/Ml Injection Administered 05/10/23 13:08 Dose 4 mg .ROUTE .STK-MED ONE Morphine Sulfate 4 mg 05/10/23 16:32 05/10/23 16:34 Morphine Sulfate 4 Mg/Ml Injection IV 05/10/23 16:33 4 mg STAT ONE Administration Morphine Sulfate Confirm 05/10/23 16:33 Morphine Sulfate 4 Mg/Ml Injection Administered 05/10/23 16:34 Dose 4 mg .ROUTE .STK-MED ONE Morphine Sulfate 4 mg 05/10/23 21:59 05/10/23 22:09 Morphine Sulfate 4 Mg/Ml Injection IV 05/10/23 22:00 4 mg STAT ONE Administration Morphine Sulfate Confirm 05/10/23 22:05 Morphine Sulfate 4 Mg/Ml Injection Administered 05/10/23 22:06 Dose 4 mg .ROUTE .STK-MED ONE Ondansetron HCl 4 mg 05/10/23 13:13 05/10/23 13:15 Ondansetron Hcl 4 Mg/2 Ml Vial IV 05/10/23 13:14 4 mg STAT ONE Administration Ondansetron HCl Confirm 05/10/23 13:14 Ondansetron Hcl 4 Mg/2 Ml Vial Administered 05/10/23 13:15 Dose 4 mg .ROUTE .STK-MED ONE Lab/Rad Data: Laboratory Result Diagrams 05/10/23 12:15 05/10/23 12:15 Laboratory Results 05/10/23 05/10/23 05/10/23 Range/Units 20:05 15:50 12:15 WBC (4.0-10.5) x10^3/uL RBC (4.1-5.6) x10^6/uL Hgb (12.5-18.0) g/dL Hct (42-50) % MCV (78-100) fL MCH (26-32) pg MCHC (32-36) g/dL RDW (11.5-14.0) % Plt Count (150-450) x10^3/uL MPV (7.5-11.0) fL Gran % (36.0-66.0) % Immature Gran % (Auto) (0.00-0.4) % Nucleat RBC Rel Count (0.00-0.1) % Eos # (Auto) (0-0.5) x10^3/uL Immature Gran # (Auto) (0.00-0.03) x10^3u/L Absolute Lymphs (auto) (1.0-4.6) x10^3/uL Absolute Monos (auto) (0.0-1.3) x10^3/uL Absolute Nucleated RBC (0.00-0.01) x10^3u/L Lymphocytes % (24.0-44.0) % Monocytes % (0.0-12.0) % Eosinophils % (0.00-5.0) % Basophils % (0.0-0.4) % Absolute Granulocytes (1.4-6.9) x10^3/uL Basophils # (0-0.4) x10^3/uL D-Dimer (0.0-0.50) mg/L Sodium (137-145) mmol/L Potassium (3.5-5.1) mmol/L Chloride (98-107) mmol/L Carbon Dioxide (22-30) mmol/L Anion Gap (5-15) MEQ/L BUN (9-20) mg/dL Creatinine (0.66-1.25) mg/dL Estimated GFR ML/MIN Glucose (74-106) mg/dL Calcium (8.4-10.2) mg/dL Total Bilirubin (0.2-1.3) mg/dL AST (17-59) U/L ALT (0-50) U/L Alkaline Phosphatase (38-126) U/L Troponin I 0.206 H* 0.219 H* 0.341 H* (0.000-0.034) ng/mL NT-Pro-B Natriuret Pep (<300) pg/mL Serum Total Protein (6.3-8.2) g/dL Albumin (3.5-5.0) g/dL 05/10/23 05/10/23 05/10/23 Range/Units 12:15 12:15 12:15 WBC 11.7 H (4.0-10.5) x10^3/uL RBC 5.72 H (4.1-5.6) x10^6/uL Hgb 17.1 (12.5-18.0) g/dL Hct 51.8 H (42-50) % MCV 90.6 (78-100) fL MCH 29.9 (26-32) pg MCHC 33.0 (32-36) g/dL RDW 13.7 (11.5-14.0) % Plt Count 661 H (150-450) x10^3/uL MPV 9.0 (7.5-11.0) fL Gran % 74.7 H (36.0-66.0) % Immature Gran % (Auto) 0.5 H (0.00-0.4) % Nucleat RBC Rel Count 0.0 (0.00-0.1) % Eos # (Auto) 0.11 (0-0.5) x10^3/uL Immature Gran # (Auto) 0.06 H (0.00-0.03) x10^3u/L Absolute Lymphs (auto) 2.05 (1.0-4.6) x10^3/uL Absolute Monos (auto) 0.70 (0.0-1.3) x10^3/uL Absolute Nucleated RBC 0.00 (0.00-0.01) x10^3u/L Lymphocytes % 17.6 L (24.0-44.0) % Monocytes % 6.0 (0.0-12.0) % Eosinophils % 0.9 (0.00-5.0) % Basophils % 0.3 (0.0-0.4) % Absolute Granulocytes 8.71 H (1.4-6.9) x10^3/uL Basophils # 0.04 (0-0.4) x10^3/uL D-Dimer 1.93 H* (0.0-0.50) mg/L Sodium 136 L (137-145) mmol/L Potassium 5.1 (3.5-5.1) mmol/L Chloride 104 (98-107) mmol/L Carbon Dioxide 17 L (22-30) mmol/L Anion Gap 21.1 H (5-15) MEQ/L BUN 43 H (9-20) mg/dL Creatinine 2.39 H (0.66-1.25) mg/dL Estimated GFR 29.2 ML/MIN Glucose 137 H (74-106) mg/dL Calcium 9.8 (8.4-10.2) mg/dL Total Bilirubin 1.20 (0.2-1.3) mg/dL AST 23 (17-59) U/L ALT 21 (0-50) U/L Alkaline Phosphatase 134 H (38-126) U/L Troponin I (0.000-0.034) ng/mL NT-Pro-B Natriuret Pep 1440 (<300) pg/mL Serum Total Protein 9.0 H (6.3-8.2) g/dL Albumin 4.9 (3.5-5.0) g/dL - Progress Progress: improved Progress Note: CT scan performed without contrast due to poor renal function, decreased GFR 05/10/23 14:[address] Martinez clay miller who performed patient's stents. He advised contacting patient's clay miller, . [id number] at [phone]. 05/10/23 15:[address] Chandler hospitalist at [facility]. Patient accepted at 4:29 PM. 05/10/23 16:30 68-year-old male presents to our ED via EMS for evaluation of abdominal pain and hypoxia. Patient initially hypoxic upon arrival to our ED. D-dimer positive. Compromised renal function. Patient not a candidate for CTA. Patient received a dose of Lovenox instead. CT abdomen pelvis shows nephrolithiasis otherwise no acute findings. EKG normal sinus rhythm. CBC is shows a thrombocytosis. CMP reveals an acute renal injury with a BUN of 43 and a creatinine of 2.39. Troponin positive however trending downward. Patient received morphine for pain control. Patient has been stable throughout his ED stay. Patient transferred via rotary blade aircraft to [facility]. Patient agrees to transfer to [facility] for further evaluation and treatment. Portions of this note were created with voice recognition technology. There may be grammatical, spelling, punctuation or sound alike errors Complexity problem addressed is moderate acute complicated No critical care time Complexity of data reviewed and analyzed is extensive. Test ordered test reviewed. Results analyzed and correlated clinically with history and physical examination. Management discussed with clay miller. And hospitalist at [facility] Risk of complication and or risk of morbidity/mortality of patient management is high. Patient requires hospitalization/transfer to higher level of care Vital stable. Time spent to transfer patient is approximately 35 minutes. Plan of care established for shared decision making. No social determinants of health present impede follow-up. 05/10/23 23:[address] Donis Counseled pt/family regarding: lab results, diagnosis, rad results - Departure Departure Disposition: Transfer Clinical Impression: Emphysema lung, Abdominal pain, Leukocytosis, Thrombocytosis, Acute renal injury, Atherosclerosis, Elevated troponin Condition: Stable Critical Care Time: No Referrals: DOCTOR,NO FAMILY [Primary Care Provider] - Follow up/PCP as directed Instructions: Chronic Obstructive Pulmonary Disease Additional Instructions: Discharge/Care Plan OBED MARK ROSEMARY was seen on 05/10/23 in the Emergency Room. The patient was counseled regarding Diagnosis,Lab results, Imaging studies, need for follow up and when to return to the Emergency Room. Prescriptions given: Discharge Note I have spoken with the patient and/or caregivers. I have explained the patient's condition, diagnosis and treatment plan based on the information available to me at this time. I have answered the patient's and/or caregiver's questions and addressed any concerns. The patient and/or caregivers have as good understanding of the patient's diagnosis, condition and treatment plan as can be expected at this point. The vital signs have been stable. The patient's condition is stable and appropriate for discharge from the emergency department. The patient will pursue further outpatient evaluation with the primary care physician or other designated or consulting physician as outlined in the discharge instructions. The patient and/or caregivers are agreeable to this plan of care and follow-up instructions have been explained in detail. The patient and/or caregivers have received these instruction. The patient/and or caregivers are aware that any significant change in condition or worsening of symptoms should prompt an immediate return to this or the closest emergency department or call 911.
[2023-05-10] MEDS ORDERED: ENOXAPARIN SODIUM SQ ONE (16:33)
[2023-05-10] MEDS: ENOXAPARIN SODIUM SQ ONE (16:34)
[2023-05-10 22:50] VITALS: O2SAT 94
[2023-05-10 22:56] VITALS: BP 123/76; PULSE 74; RESP 16
== END 2023-05-10 22:49 | disposition short-term general hospital (02) ==
LOC: ED 11:53
DX: N17.9 Acute kidney failure, unspecified (principal); J43.9 Emphysema, unspecified; R10.9 Unspecified abdominal pain; D72.829 Elevated white blood cell count, unspecified; D75.839 Thrombocytosis, unspecified; I70.90 Unspecified atherosclerosis; R77.8 Other specified abnormalities of plasma proteins; I24.9 Acute ischemic heart disease, unspecified; R09.02 Hypoxemia; E78.5 Hyperlipidemia, unspecified; I10 Essential (primary) hypertension; Z79.84 Long term (current) use of oral hypoglycemic drugs; Z79.02 Long term (current) use of antithrombotics/antiplatelets; Z79.899 Other long term (current) drug therapy; Z72.0 Tobacco use
CPT/HCPCS: 36415; 71045; 71250; 74176; 80053; 83880; 84484; 85025; 85379; 93005; 93041; 94760; 94799; 96372; 96374; 96376; 99285; J1650; J2270; J2405

== ENCOUNTER 2023-05-15 11:09 | Emergency (ER) | payer MEDICARE ==
[2023-05-15 11:31] VITALS: TEMP 99
[2023-05-15] MEDS ORDERED: MORPHINE SULFATE 2 MG INJ ONE (11:44)
[2023-05-15] MEDS ORDERED: MAGNESIUM SULF 2 G/50 ML BAG 2 GM/50 ML PIGGYBACK IV ONE (11:45)
[2023-05-15] MEDS ORDERED: Sodium Chloride 0.9% 1000 ML 1,000 ML ONE (11:45)
[2023-05-15 11:47] LABS: Absolute Neutrophil Ct (ANC) 17.35 x10^3/uL (1.4-6.9); BASOPHIL % 0.3 % (0.0-0.4); Basophil (Absolute #) 0.06 x10^3/uL (0-0.4); Eosinophil % 1.4 % (0.00-5.0); Eosinophil (Absolute #) 0.26 x10^3/uL (0-0.5); Hematocrit 48.5 % (42-50); Hemoglobin 15.9 g/dL (12.5-18.0); IMMATURE GRAN # 0.07 x10^3u/L (0.00-0.03); IMMATURE GRAN % 0.4 % (0.00-0.4); Lymphocyte (Absolute #) 0.61 x10^3/uL (1.0-4.6); Lymphocytes % 3.2 % (24.0-44.0); Mean Cell Volume 90.5 fL (78-100); Mean Corpuscular Hemoglobin 29.7 pg (26-32); Mean Corpuscular Hgb Concent. 32.8 g/dL (32-36); Mean Platelet Volume 9.1 fL (7.5-11.0); Monocyte (Absolute #) 0.67 x10^3/uL (0.0-1.3); Monocytes % 3.5 % (0.0-12.0); Neutrophil % 91.2 % (36.0-66.0); Platelet Count 709 x10^3/uL (150-450); Red Blood Count 5.36 x10^6/uL (4.1-5.6); Red Cell Distribution Width 13.3 % (11.5-14.0)
[2023-05-15] MEDS: MORPHINE SULFATE 2 MG INJ IV ONE (11:47)
[2023-05-15] MEDS: Sodium Chloride 0.9% 1000 ML 1,000 ML IV SCH (11:48)
[2023-05-15] MEDS: MAGNESIUM SULF 2 G/50 ML BAG 2 GM/50 ML PIGGYBACK IV ONE (11:50)
--- NOTE | 2023-05-15 11:51 | ERPHSYRPT ---
- History of Present Illness Time Seen by Provider: 05/15/23 11:30 Patient Subjective Stated Complaint: Abdominal pain Triage Nursing Assessment: Patient brought into ED per w/c and transferred to b ed per self. Patient A+O x 3. Patient's skin pink, warm and dry. Patient complains of abdominal pain that woke him up at 0300 in the ubilicus area and into right lower abdomen 11/28. Patient also complains of N/V and diarrhea. Abdomen soft and round with BS X 4. Patient states he was here 3 days ago for same issue and was sent to [facility]. Patient is also wearing a Life Vest. Physician History: 68yo m presents for abdominal pain that started this AM at 0400. Pt states the pain woke him from sleep, it starts periumbilical and radiates to his RLQ. Pt states he was seen in the ER on 05/10 for the same sx and was transferred to [facility] in [place], does not know what his diagnosis was. Pt states he has been started on new medications recently but is unaware of what they are. Pt also had [address] Martinez in [place], was placed in a continuous life vest (defibrillator) at that time, is not sure what his final diagnosis was at that time. Pt currently denies cp, soa, back pain. Pt does endorse episode of NBNB emesis today, also endorses diarrhea. Timing/Duration: today, hour(s) (7) Activities at Onset: sleep Quality: sharpness, stabbing Abdominal Pain Onset Location: periumbilical Pain Radiation: RLQ Severity of Pain-Max: moderate Severity of Pain-Current: moderate Modifying Factors: Improves With: nothing Associated Symptoms: diarrhea, nausea, vomiting, No back, No chest pain, No diaphoresis, No shortness of breath Previous symptoms: same symptoms as today, recent hospitalization Body Map: 1 - periumbilical pain Allergies/Adverse Reactions: No Known Drug Allergies Allergy (Verified 05/15/23 11:23) Home Medications: Metoprolol Tartrate 25 mg [Lopressor 25MG Tab] 50 mg PO DAILY 12/27/13 [History] Albuterol Common Canister [Ventolin Common Canister] 2 puffs IH Q4H PRN PRN 09/07/18 [History] Nitroglycerin 0.4 mg PO Q5MIN PRN MR X 3 PRN 05/14/19 [History] Atorvastatin Calcium 80 mg PO DAILY 05/20/22 [History] Aspirin 81 mg PO DAILY 03/08/23 [History] Budesonide/Formoterol Fumarate [Budesonide-Formoterol 160-4.5] 1 puff IH DAILY 05/10/23 [History] Dapagliflozin Propanediol [Farxiga] 10 mg PO DAILY 05/10/23 [History] Ezetimibe 10 mg [Zetia 10 MG] 10 mg PO HS 05/10/23 [History] Famotidine [Pepcid] 40 mg PO DAILY 05/10/23 [History] Gabapentin [Neurontin] 600 mg PO QID 05/10/23 [History] Sacubitril/Valsartan [Entresto 24 mg-26 mg Tablet] 1 each PO BID 05/10/23 [History] Spironolactone [Aldactone] 12.5 mg PO DAILY 05/10/23 [History] Ticagrelor [Brilinta] 90 mg PO BID 05/10/23 [History] Hx Tetanus, Diphtheria Vaccination/Date Given: Yes Hx Influenza Vaccination/Date Given: Yes Hx Pneumococcal Vaccination/Date Given: Yes Immunizations Up to Date: Yes Travel Risk - International Travel Have you traveled outside of the country in past 3 weeks: No - Coronavirus Screening Are you exhibiting any of the following symptoms?: No Close contact with a COVID-19 positive Pt in past 14-21 Days: No - Vaccine Status Have you recieved a Covid-19 vaccination: Yes Derrick Builder: Moderna - Vaccination Dates Date of 2cond Vaccination (if applicable): 2022 - Review of Systems Constitutional: No Symptoms Respiratory: No Cough, No Dyspnea, No Wheezing Cardiac: No Chest Pain, No Edema, No Syncope Abdominal/Gastrointestinal: Abdominal Pain, Nausea, Vomiting, Diarrhea, No Hematemesis, No Hematochezia, No Melena Genitourinary Symptoms: No Symptoms - Past Medical History Pertinent Past Medical History: Yes Neurological History: No Pertinent History ENT History: No Pertinent History Cardiac History: Arrhythmia, Coronary Artery Disease, High Cholesterol, Hypertension, Myocardial Infarction (OR) Respiratory History: COPD, Emphysema, Pneumonia Endocrine Medical History: No Pertinent History Musculoskeletal History: Degenerative Disk Disease GI Medical History: No Pertinent History History: No Pertinent History Psycho-Social History: No Pertinent History Male Reproductive Disorders: No Pertinent History Other Medical History: oxygen at home at night, 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 cardiac stents (2023) Life vest - Social History Smoking Status: Current every day smoker How long have you smoked: 50 years Exposure to second hand smoke: Yes Drug Use: none Patient Lives Alone: Yes - Nursing Vital Signs Nursing Vital Signs: Initial Vital Signs Temperature 99.0 F 05/15/23 11:24 Pulse Rate 108 H 05/15/23 11:24 Respiratory Rate 20 05/15/23 11:24 Blood Pressure 142/97 05/15/23 11:24 O2 Sat by Pulse Oximetry 97 05/15/23 11:24 Pain Scale Pain Intensity 5 - Physical Exam General Appearance: no apparent distress, alert, thin Respiratory Exam: normal breath sounds, lungs clear, airway intact, No respiratory distress, No diminished breath sounds, No crackles/rales, No wheezing Cardiovascular Exam: regular rate/rhythm, normal heart sounds, tachycardia Gastrointestinal/Abdomen Exam: soft, normal bowel sounds, tenderness, No distention, No guarding, No rebound SpO2 Interpretation: normal SpO2: 97 O2 Delivery: Room Air - Course EKG Interpreted by Me: RATE (105), Sinus Tach, NORMAL AXIS, prolonged QT interval (qtcb 730), Non-specific ST Changes (no obvious ST elevations or depressions) Ordered Tests: Active Orders 24 hr Category Date Time Status IV Insertion STAT Care 05/15/23 11:36 Active ABDOMEN AND PELVIS W/0 CONTRAS [CT] Stat Exams 05/15/23 12:17 Completed CHEST 1 VIEW (PORTABLE) Stat Exams 05/15/23 13:16 Taken CBC W DIFF Stat Lab 05/15/23 11:35 Completed CMP Stat Lab 05/15/23 11:35 Completed D-DIMER QUANTITATIVE Stat Lab 05/15/23 12:20 Completed LIPASE Stat Lab 05/15/23 11:35 Completed Lactic Acid Stat Lab 05/15/23 13:17 Completed Lactic Acid Stat Lab 05/15/23 16:05 Received TROPONIN Q4H Lab 05/15/23 11:35 Completed TROPONIN Q4H Lab 05/15/23 15:23 Completed TROPONIN Q4H Lab 05/15/23 19:45 Ordered UA W/RFX UR CULTURE Stat Lab 05/15/23 15:31 Completed Medication Summary Generic Name Dose Route Start Last Admin Trade Name Freq PRN Reason Stop Dose Admin Sodium Chloride 1,000 mls @ 100 mls/hr 05/15/23 11:45 05/15/23 14:20 Sodium Chloride 0.9% 1000 Ml IV 06/14/23 11:44 150 mls/hr .Q10H DOLLY Infusion Discontinued Medications Generic Name Dose Route Start Last Admin Trade Name Freq PRN Reason Stop Dose Admin Acetaminophen 1,000 mg 05/15/23 14:00 05/15/23 13:49 Acetaminophen 1,000 Mg/100 Ml Ml IV 05/15/23 14:01 1,000 mg ONCE ONE Administration Hydromorphone HCl 0.5 mg 05/15/23 12:26 05/15/23 12:53 Hydromorphone 1 Mg/1ml Inj IV 05/15/23 12:27 0.5 mg STAT ONE Administration Hydromorphone HCl Confirm 05/15/23 12:52 Hydromorphone 1 Mg/1ml Inj Administered 05/15/23 12:53 Dose 1 mg .ROUTE .STK-MED ONE Magnesium Sulfate/Water 2 gm in 50 mls @ 100 mls/hr 05/15/23 11:38 05/15/23 12:21 Magnesium Sulf 2 G/50 Ml Bag IV 05/15/23 12:07 Infused ONCE ONE Infusion Magnesium Sulfate/Water Confirm 05/15/23 11:45 Magnesium Sulf 2 G/50 Ml Bag Administered 05/15/23 11:46 Dose 2 gm in 50 mls @ ud IV .STK-MED ONE Piperacillin Sod/Tazobactam 100 mls @ 200 mls/hr 05/15/23 13:14 05/15/23 13:20 Sod 3.375 gm/ Sodium Chloride IV 05/15/23 13:43 200 mls/hr STAT ONE Administration Sodium Chloride Confirm 05/15/23 13:19 Sodium Chloride 100ml Mini-Bag Plus Administered 05/15/23 13:20 Dose 100 mls @ ud IV .STK-MED ONE Morphine Sulfate 2 mg 05/15/23 11:36 05/15/23 11:47 Morphine Sulfate 2 Mg/Ml Inj IV 05/15/23 11:37 2 mg STAT ONE Administration Morphine Sulfate Confirm 05/15/23 11:44 Morphine Sulfate 2 Mg/Ml Inj Administered 05/15/23 11:45 Dose 2 mg .ROUTE .STK-MED ONE Ondansetron HCl 4 mg 05/15/23 17:40 05/15/23 17:42 Ondansetron Hcl 4 Mg/2 Ml Vial IV 05/15/23 17:41 Not Given STAT ONE Piperacillin Sod/Tazobactam Sod Confirm 05/15/23 13:18 Piperacillin/Tazobactam Sodium 3.375 Gm Vial Administered 05/15/23 13:19 Dose 3.375 gm IV .STK-MED ONE Scopolamine HBr 1 mg 05/15/23 11:57 05/15/23 11:59 Scopolamine 1.5 Mg Patch TOP 05/15/23 11:58 1 mg STAT ONE Administration Lab/Rad Data: Laboratory Result Diagrams 05/15/23 11:35 05/15/23 11:35 Laboratory Results 05/15/23 05/15/23 05/15/23 Range/Units 15:31 15:23 13:17 WBC (4.0-10.5) x10^3/uL RBC (4.1-5.6) x10^6/uL Hgb (12.5-18.0) g/dL Hct (42-50) % MCV (78-100) fL MCH (26-32) pg MCHC (32-36) g/dL RDW (11.5-14.0) % Plt Count (150-450) x10^3/uL MPV (7.5-11.0) fL Gran % (36.0-66.0) % Immature Gran % (Auto) (0.00-0.4) % Nucleat RBC Rel Count (0.00-0.1) % Eos # (Auto) (0-0.5) x10^3/uL Immature Gran # (Auto) (0.00-0.03) x10^3u/L Absolute Lymphs (auto) (1.0-4.6) x10^3/uL Absolute Monos (auto) (0.0-1.3) x10^3/uL Absolute Nucleated RBC (0.00-0.01) x10^3u/L Lymphocytes % (24.0-44.0) % Monocytes % (0.0-12.0) % Eosinophils % (0.00-5.0) % Basophils % (0.0-0.4) % Absolute Granulocytes (1.4-6.9) x10^3/uL Basophils # (0-0.4) x10^3/uL D-Dimer (0.0-0.50) mg/L Sodium (137-145) mmol/L Potassium (3.5-5.1) mmol/L Chloride (98-107) mmol/L Carbon Dioxide (22-30) mmol/L Anion Gap (5-15) MEQ/L BUN (9-20) mg/dL Creatinine (0.66-1.25) mg/dL Estimated GFR ML/MIN Glucose (74-106) mg/dL Lactic Acid 2.0 (0.4-2.0) Calcium (8.4-10.2) mg/dL Total Bilirubin (0.2-1.3) mg/dL AST (17-59) U/L ALT (0-50) U/L Alkaline Phosphatase (38-126) U/L Troponin I 0.105 H* (0.000-0.034) ng/mL Serum Total Protein (6.3-8.2) g/dL Albumin (3.5-5.0) g/dL Lipase (23-300) U/L Urine Color Dark Yellow (Yellow) Urine Appearance Cloudy A (Clear) Urine pH 5.0 (4.6-8.0) Ur Specific [place] >=1.030 A (1.005-1.030) Urine Protein 100 A (Negative) Urine Glucose (UA) >=1000 A (Negative) mg/dL Urine Ketones Trace A (Negative) Urine Blood Negative (Negative) Urine Nitrite Negative (Negative) Urine Bilirubin Negative (Negative) Urine Urobilinogen 0.2 (0.2) mg/dL Ur Leukocyte Esterase Negative (Negative) U Hyaline Cast (Auto) 20-50 (0-2) /LPF Urine Microscopic RBC 0-2 (0-5) /HPF Urine Microscopic WBC 0-2 (0-5) /HPF Ur Epithelial Cells Rare (None Seen) /HPF Urine Bacteria None Seen (None Seen) /HPF Urine Mucus Many A (NEGATIVE) /HPF Urine Culture Reflexed NO (NO) 05/15/23 05/15/23 05/15/23 Range/Units 12:20 11:35 11:35 WBC (4.0-10.5) x10^3/uL RBC (4.1-5.6) x10^6/uL Hgb (12.5-18.0) g/dL Hct (42-50) % MCV (78-100) fL MCH (26-32) pg MCHC (32-36) g/dL RDW (11.5-14.0) % Plt Count (150-450) x10^3/uL MPV (7.5-11.0) fL Gran % (36.0-66.0) % Immature Gran % (Auto) (0.00-0.4) % Nucleat RBC Rel Count (0.00-0.1) % Eos # (Auto) (0-0.5) x10^3/uL Immature Gran # (Auto) (0.00-0.03) x10^3u/L Absolute Lymphs (auto) (1.0-4.6) x10^3/uL Absolute Monos (auto) (0.0-1.3) x10^3/uL Absolute Nucleated RBC (0.00-0.01) x10^3u/L Lymphocytes % (24.0-44.0) % Monocytes % (0.0-12.0) % Eosinophils % (0.00-5.0) % Basophils % (0.0-0.4) % Absolute Granulocytes (1.4-6.9) x10^3/uL Basophils # (0-0.4) x10^3/uL D-Dimer 1.13 H* (0.0-0.50) mg/L Sodium 136 L (137-145) mmol/L Potassium 4.7 (3.5-5.1) mmol/L Chloride 105 (98-107) mmol/L Carbon Dioxide 18 L (22-30) mmol/L Anion Gap 18.3 H (5-15) MEQ/L BUN 27 H (9-20) mg/dL Creatinine 1.76 H (0.66-1.25) mg/dL Estimated GFR 42.1 ML/MIN Glucose 116 H (74-106) mg/dL Lactic Acid (0.4-2.0) Calcium 9.9 (8.4-10.2) mg/dL Total Bilirubin 1.60 H (0.2-1.3) mg/dL AST 25 (17-59) U/L ALT 20 (0-50) U/L Alkaline Phosphatase 141 H (38-126) U/L Troponin I 0.094 H* (0.000-0.034) ng/mL Serum Total Protein 9.3 H (6.3-8.2) g/dL Albumin 5.1 H (3.5-5.0) g/dL Lipase 60 (23-300) U/L Urine Color (Yellow) Urine Appearance (Clear) Urine pH (4.6-8.0) Ur Specific [place] (1.005-1.030) Urine Protein (Negative) Urine Glucose (UA) (Negative) mg/dL Urine Ketones (Negative) Urine Blood (Negative) Urine Nitrite (Negative) Urine Bilirubin (Negative) Urine Urobilinogen (0.2) mg/dL Ur Leukocyte Esterase (Negative) U Hyaline Cast (Auto) (0-2) /LPF Urine Microscopic RBC (0-5) /HPF Urine Microscopic WBC (0-5) /HPF Ur Epithelial Cells (None Seen) /HPF Urine Bacteria (None Seen) /HPF Urine Mucus (NEGATIVE) /HPF Urine Culture Reflexed (NO) 05/15/23 Range/Units 11:35 WBC 19.0 H (4.0-10.5) x10^3/uL RBC 5.36 (4.1-5.6) x10^6/uL Hgb 15.9 (12.5-18.0) g/dL Hct 48.5 (42-50) % MCV 90.5 (78-100) fL MCH 29.7 (26-32) pg MCHC 32.8 (32-36) g/dL RDW 13.3 (11.5-14.0) % Plt Count 709 H (150-450) x10^3/uL MPV 9.1 (7.5-11.0) fL Gran % 91.2 H (36.0-66.0) % Immature Gran % (Auto) 0.4 (0.00-0.4) % Nucleat RBC Rel Count 0.0 (0.00-0.1) % Eos # (Auto) 0.26 (0-0.5) x10^3/uL Immature Gran # (Auto) 0.07 H (0.00-0.03) x10^3u/L Absolute Lymphs (auto) 0.61 L (1.0-4.6) x10^3/uL Absolute Monos (auto) 0.67 (0.0-1.3) x10^3/uL Absolute Nucleated RBC 0.00 (0.00-0.01) x10^3u/L Lymphocytes % 3.2 L (24.0-44.0) % Monocytes % 3.5 (0.0-12.0) % Eosinophils % 1.4 (0.00-5.0) % Basophils % 0.3 (0.0-0.4) % Absolute Granulocytes 17.35 H (1.4-6.9) x10^3/uL Basophils # 0.06 (0-0.4) x10^3/uL D-Dimer (0.0-0.50) mg/L Sodium (137-145) mmol/L Potassium (3.5-5.1) mmol/L Chloride (98-107) mmol/L Carbon Dioxide (22-30) mmol/L Anion Gap (5-15) MEQ/L BUN (9-20) mg/dL Creatinine (0.66-1.25) mg/dL Estimated GFR ML/MIN Glucose (74-106) mg/dL Lactic Acid (0.4-2.0) Calcium (8.4-10.2) mg/dL Total Bilirubin (0.2-1.3) mg/dL AST (17-59) U/L ALT (0-50) U/L Alkaline Phosphatase (38-126) U/L Troponin I (0.000-0.034) ng/mL Serum Total Protein (6.3-8.2) g/dL Albumin (3.5-5.0) g/dL Lipase (23-300) U/L Urine Color (Yellow) Urine Appearance (Clear) Urine pH (4.6-8.0) Ur Specific [place] (1.005-1.030) Urine Protein (Negative) Urine Glucose (UA) (Negative) mg/dL Urine Ketones (Negative) Urine Blood (Negative) Urine Nitrite (Negative) Urine Bilirubin (Negative) Urine Urobilinogen (0.2) mg/dL Ur Leukocyte Esterase (Negative) U Hyaline Cast (Auto) (0-2) /LPF Urine Microscopic RBC (0-5) /HPF Urine Microscopic WBC (0-5) /HPF Ur Epithelial Cells (None Seen) /HPF Urine Bacteria (None Seen) /HPF Urine Mucus (NEGATIVE) /HPF Urine Culture Reflexed (NO) - Progress Progress: pain not gone completely Progress Note: 05/15/23 12:29 pt still complaining of abdominal pain following 2mg morphine - given additional 0.5mg dilaudid wbc 19k, no obvious source of infection IV fluids running at 100ml/h in setting of likely CHF based on recent admissions and procedures GFR 42, hospital policy recommends avoiding IV contrast in GFR < 50, will perform CT abd/pel w/o contrast Trop elevated 0.094, will order repeat, this is significantly lower than trop at previous ER visit pt still mildly tachycardic 90s, vitals otherwise stable 05/15/23 12:58 d dimer 1.13, at last visit was 1.9, no CTA at this time as pt has poor kidney function, may consider if pt remains tachy or becomes hypoxia 05/15/23 13:12 Pt meeting 2/4 SIRS criteria w/ elevated wbc, tachycardia will avoid high volume fluid resuscitation as pt has CHF and has life vest on lactate ordered will start IV zosyn 05/15/23 14:06 CT abd/pel showed small non-obstructing left kidney stone, otherwise no changes since last imaging still waiting on urine specimen for UA 05/15/23 17:25 troponin increased from 0.094 to 1.015 pt had one episode of emesis w/ black particulate similar to coffee ground emesis [facility], Pt accepted by ER physician Dr Martinez at 17:18 Pt had stents placed by Dr Martinez at [facility] 2wks ago staff organizing transport at this time. 05/15/23 17:41 In setting of NSTEMI w/ new onset coffee ground emesis, will forego PO aspirin at this time to avoid worsening of possible GI bleed 05/15/23 18:07 repeat EKG showed rate 93, qtcb 441, no obvious ischemic ST changes Will see patient in: ED ([facility]) Counseled pt/family regarding: lab results, diagnosis, need for follow-up, rad results Medical Desision Making - Diagnostic Testing Diagnostic test were ordered, analyzed, and reviewed by me: Yes Radiological Interpretation: Reviewed by me, Teleradiologist Report - Risk of complications The pt has a high risk of morbidity or mortality based on: Decision regarding hospitilization or escalation of hosp level of care ([facility], accepted by Dr Martinez) - Departure Departure Disposition: Transfer ([facility]) Clinical Impression: NSTEMI (non-ST elevated myocardial infarction), Coffee ground emesis, Thrombocytosis, Elevated d-dimer, History of coronary angioplasty with insertion of stent, Elevated troponin Elevated white blood cell count, unspecified Qualifiers: Leukocytosis type: unspecified Qualified Code(s): D72.829 - Elevated white blood cell count, unspecified Condition: Stable Critical Care Time: Yes Critical Care Time(excluding separately billable procedures): Critical 30-74 mins Referrals: DOCTOR,NO FAMILY [Primary Care Provider] - Follow up/PCP as directed
[2023-05-15 11:54] LABS: ALBUMIN 5.1 g/dL (3.5-5.0); ANION GAP 18.3 MEQ/L (5-15); BILIRUBIN,TOTAL 1.6 mg/dL (0.2-1.3); Calcium 9.9 mg/dL (8.4-10.2); Creatinine 1 1.76 mg/dL (0.66-1.25); EST GLOMERULAR FILTRATION RATE 42.1 ML/MIN; Potassium 4.7 mmol/L (3.5-5.1); Total Protein 9.3 g/dL (6.3-8.2)
[2023-05-15] MEDS: Transderm Scop 1.5MG Patch TOP ONE (11:59)
[2023-05-15] MEDS ORDERED: Hydromorphone 1 mg/ml Injection ONE (12:52)
[2023-05-15] MEDS: Hydromorphone 1 mg/ml Injection IV ONE (12:53)
[2023-05-15] MEDS ORDERED: PIPERACILLIN/TAZOBACTAM IV ONE (13:18)
[2023-05-15] MEDS ORDERED: Sodium Chloride 100ML MINI-BAG PLUS 100 ML IV ONE (13:19)
[2023-05-15] MEDS: PIPERACILLIN/TAZOBACTAM 3.375 GM in Sodium Chloride 100ML MINI-BAG PLUS 100 ML IV ONE (13:20)
[2023-05-15] MEDS: OFIRMEV IV ONE (13:49)
--- NOTE | 2023-05-15 13:55 | XRAY ---
CLINICAL HISTORY: abd pain TECHNIQUE: An axial CT scan of the abdomen and pelvis without intravenous contrast administration. Multiple reformats were obtained and submitted for interpretation. COMPARISON: Dated: 05/10/2023. FINDINGS: The liver is of average size, with regular contour, and homogeneous texture with no focal lesion that could be detected on a non-contrast basis. No intra hepatic biliary radical dilatation. Both kidneys are of normal size, shape, and parenchymal thickness. Two small left renal calcific foci which could be tiny non-obstructing stones versus small vascular calcifications (stable). No back pressure changes or space-occupying lesions on a non-contrast basis. Unremarkable both ureters. The spleen, pancreas, and adrenal glands are grossly within normal limits. No CT evidence of acute appendicitis. No significant lymph carolin enlargement or ascetic fluid collection. The prostate is of average size and shape. Atheromatous calcifications of the abdominal aorta and its main branches. Normal filling of the urinary bladder with no stones, masses, or diverticula. Bone window settings showed spondylotic changes, lumbar spine scoliosis, and post-operative internal fixation at the lower lumbosacral spine. Lung window settings showed mild atelectatic bands. IMPRESSION: 1. Two small left renal calcific foci which could be tiny non-obstructing stones versus small vascular calcifications (stable). 2. No right renal or ureteric stones. 3. No significant interval changes. Electronically Signed by: Zhou Viera MD. (05/15/2023 13:50:47 EST)
[2023-05-15 15:56] LABS: ADD URINE CULTURE? NO (NO); Appearance Cloudy (Clear); Bacteria None Seen /HPF (None Seen); Bilirubin Negative (Negative); Blood Negative (Negative); Epithelial Cells Rare /HPF (None Seen); Glucose, Urine >=1000 mg/dL (Negative); Hyaline Casts 20-50 /LPF (0-2); Ketones Trace (Negative); Leukocyte Esterase Negative (Negative); Mucus Many /HPF (NEGATIVE); Nitrite Negative (Negative); Protein,Urine Dip 100 (Negative); RBC 0-2 /HPF (0-5); Specific Gravity >=1.030 (1.005-1.030); Urobilinogen 0.2 mg/dL (0.2); WBC 0-2 /HPF (0-5)
[2023-05-15 17:25] VITALS: O2SAT 97
[2023-05-15] MEDS: Zofran 4 MG/2 ML VIAL IV ONE (17:42)
--- NOTE | 2023-05-15 19:13 | XRAY ---
Indication: Tachycardia. Difficulty breathing. Comparison: May 10, 2023 Portable chest unchanged again hyperinflated and clear. Heart not enlarged again with CABG. Bony thorax intact again with multiple overlying monitoring devices/leads. No new/acute findings.
[2023-05-15 19:14] VITALS: BP 111/96; PULSE 112; RESP 25
== END 2023-05-15 19:35 | disposition short-term general hospital (02) ==
LOC: ED 11:09
DX: I21.4 Non-ST elevation (NSTEMI) myocardial infarction (principal); R11.10 Vomiting, unspecified; D75.839 Thrombocytosis, unspecified; R79.1 Abnormal coagulation profile; R77.8 Other specified abnormalities of plasma proteins; D72.829 Elevated white blood cell count, unspecified; Z95.5 Presence of coronary angioplasty implant and graft; R10.33 Periumbilical pain; E78.5 Hyperlipidemia, unspecified; I10 Essential (primary) hypertension; Z79.84 Long term (current) use of oral hypoglycemic drugs; Z79.02 Long term (current) use of antithrombotics/antiplatelets; Z79.899 Other long term (current) drug therapy; Z72.0 Tobacco use
CPT/HCPCS: 36000; 36415; 71045; 74176; 80053; 81001; 83605; 83690; 84484; 85025; 85379; 93005; 96374; 96375; 99285; 99291; J1170; J2270; A9270-GY; J3475

== ENCOUNTER 2023-07-05 11:01 | Day surgery (SDC) | payer MEDICARE ==
[2023-07-05] MEDS ORDERED: Marcaine 0.5%/Epinephrine 10 ML ONE ×2 (11:57→11:58)
[2023-07-05] MEDS: Lactated Ringers 1,000 ML IV SCH (11:57)
[2023-07-05] MEDS: CEFAZOLIN 2 GM-D5W BAG** 2 GM/50 ML ML IV SCH (11:57)
[2023-07-05] MEDS ORDERED: Xylocaine-Mpf 2% 5 Ml Vial ONE ×2 (11:57→12:09)
[2023-07-05] MEDS ORDERED: Naropin 0.5% 30 ML VIAL ONE (12:09)
[2023-07-05 12:13] LABS: Hematocrit 45.3 % (42-50); Hemoglobin 15.1 g/dL (12.5-18.0); Mean Cell Volume 89.3 fL (78-100); Mean Corpuscular Hemoglobin 29.8 pg (26-32); Mean Corpuscular Hgb Concent. 33.3 g/dL (32-36); Mean Platelet Volume 8.7 fL (7.5-11.0); Platelet Count 383 x10^3/uL (150-450); Red Blood Count 5.07 x10^6/uL (4.1-5.6); Red Cell Distribution Width 14.3 % (11.5-14.0); White Blood Count 13.5 x10^3/uL (4.0-10.5)
[2023-07-05 12:14] VITALS: RESP 18
[2023-07-05] MEDS ORDERED: Marcaine Mpf 0.5% Vial 30 Ml ONE (12:59)
[2023-07-05] MEDS ORDERED: Xylocaine 1% Vial 30 ML PF IJ ONE (12:59)
[2023-07-05 13:03] LABS: ALBUMIN 3.9 g/dL (3.5-5.0); ANION GAP 11.1 MEQ/L (5-15); BILIRUBIN,TOTAL 0.4 mg/dL (0.2-1.3); Calcium 9.2 mg/dL (8.4-10.2); Creatinine 1 1.26 mg/dL (0.66-1.25); EST GLOMERULAR FILTRATION RATE 62.9 ML/MIN; Total Protein 7.4 g/dL (6.3-8.2)
[2023-07-05 13:43] VITALS: TEMP 98.5
[2023-07-05 13:46] VITALS: BP 146/90; PULSE 87; O2SAT 98
--- NOTE | 2023-07-06 08:11 | OP ---
SURGERY DATE/TIME: 07/05/2023 1246 PREOPERATIVE DIAGNOSES: 1) Left foot pain. 2) Peripheral vascular disease. 3) Osteomyelitis second and third digits left foot.4) Possible hematogenous spread of osteomyelitis. POSTOPERATIVE DIAGNOSES: 1) Left foot pain. 2) Peripheral vascular disease. 3) Osteomyelitis second and third digits left foot.4) Possible hematogenous spread of osteomyelitis. PROCEDURE: Amputation at metatarsophalangeal joint of digits 2 and 3 left foot. SURGEON: Ruel Garibay DPM. SPICE MIXER: None. HEMOSTASIS: Pressure dressing. ANESTHESIA: Popliteal and saphenous block. See anesthesia report for details. QUANTITATIVE BLOOD LOSS: Approximately 3 cc. MATERIALS: 4-0 Monocryl, 3-0 Nylon. INJECTABLES: See anesthesia report for details. INDICATION FOR SURGERY: Clark is a very pleasant 68-year-old male very well known to my service for a right foot issue in the past that resulted in amputation secondary to osteomyelitis. The patient does have a history of smoking and thought to have history of thromboangiitis obliterans or Buerger's disease. The patient recently had a myocardial infarction and on inspection of his toes to the left lower extremity, his sisters did point out that the toes were black and gangrenous appearing. On presentation to my clinic on follow up, the patient did have some indications of vascular issues for which vascular studies were obtained. However, the left lower extremity there are no residual issues in result of vascular status and if he did have any disease it was mild and he did have palpable pulses biphasic to both the dorsalis pedis and posterior tibial. There were no visible wounds at that time. Decision was made given the patients pain to proceed with an MRI, which was indicative of osteomyelitis to the distal tip of the third digit. On inspection on follow up there was some wound developing on the tip of the toes and some necrosis indicated. The patient at this time wished to proceed with the amputation to the second and third secondary to his pain. We did discuss doing a partial amputation. However, due to the patient's level of pain he requested that we proceeded to perform the amputation to the metatarsophalangeal joint because his pain stopped at the top of the knuckle and he is concerned that the pain would continue to spread. From that standpoint, we were amenable to proceeding. The patient understands all risks, complications and benefits of surgical intervention at this time including but not limited to infection, hematoma, seroma, possibility of delayed wound healing, nonwound healing, possible failure of surgical intervention and need for further surgical intervention at a later date. No guarantees were provided as to the outcome of surgical intervention. Plenty of time was allowed for the patient to ask questions which were answered to his apparent satisfaction. It is at this time we decided to proceed. DESCRIPTION OF PROCEDURE AND FINDINGS: The patient is brought into the OR and placed on the OR table in the supine position. At this time, a block was performed consistent with popliteal and saphenous blocks. See anesthesia report for details. The left lower extremity is prepped and draped in the typical sterile fashion and lowered onto the surgical field. The patient did have some residual pain on prep of the left lower extremity so the decision was made to proceed with a 10 cc block at the level of the metatarsal to the web spaces one and two in order to continue block these areas. The patient as adequately sedated at that time. A fish mouth incision was made at the dorsal and plantar aspect of the second and third digits this was carried down to the level of bone being perpendicular to bone preventing any skiving of the wound edges. At that time this carried circumferentially around the joint and disarticulating both the second and third digits. These were handed off the field for pathologic assessment. Copious amounts of sterile saline were utilized to flush the surgical site. At this time, a 4-0 Monocryl was utilized to coapt the subcutaneous edges of skin and 4-0 Nylon was utilized in a horizontal mattress-type fashion to coapt the skin in an everted-type fashion. Following this, a dressing consisting of Betadine, Adaptic, 4x4, Kerlix, ABD and ROSELIA was applied to the patient's left lower extremity. The patient was then reversed from anesthesia and returned to the postoperative anesthesia care unit with vital signs stable and vascular status intact. The patient handled the anesthesia as well as the procedure without significant complication. Postoperative orders as indicated in the patient's discharge chart.
== END 2023-07-05 14:09 | disposition home or self-care (01) ==
LOC: SDC 11:01
PROVIDERS: ATTEND Podiatrist Foot & Ankle Surgery
DX: M86.9 Osteomyelitis, unspecified (principal); I73.9 Peripheral vascular disease, unspecified; M79.672 Pain in left foot
CPT/HCPCS: 28820; 36415; 80053; 85027; J0690; J2001; J2795

== ENCOUNTER 2024-06-03 21:34 | Emergency (ER) | payer MEDICARE, OTHER ==
[2024-06-03 21:40] VITALS: TEMP 98.4
[2024-06-03] MEDS: BABY ASPIRIN 81 MG CHEW PO ONE (21:59)
[2024-06-03] MEDS ORDERED: Zofran 4 MG/2 ML VIAL ONE (22:00)
[2024-06-03] MEDS ORDERED: MORPHINE SULFATE 4 MG INJ ONE (22:01)
[2024-06-03] MEDS ORDERED: NITRO-BID 2% UD PACKETS ONE (22:01)
[2024-06-03 22:04] LABS: Absolute Neutrophil Ct (ANC) 5.54 x10^3/uL (1.78-5.38); BASOPHIL % 0.9 % (0.2-1.2); Basophil (Absolute #) 0.09 x10^3/uL (0.01-0.08); Eosinophil % 11.1 % (0.8-7.0); Eosinophil (Absolute #) 1.13 x10^3/uL (0.04-0.54); Hematocrit 46.8 % (40.1-51.0); Hemoglobin 15.7 g/dL (13.7-17.5); IMMATURE GRAN # 0.03 x10^3u/L (0.001-0.031); IMMATURE GRAN % 0.3 % (0.001-0.429); Lymphocyte (Absolute #) 2.65 x10^3/uL (1.32-3.57); Mean Cell Volume 88.6 fL (79.0-92.2); Mean Corpuscular Hemoglobin 29.7 pg (25.7-32.2); Mean Corpuscular Hgb Concent. 33.5 g/dL (32.3-36.5); Mean Platelet Volume 9.2 fL (9.4-12.4); Monocyte (Absolute #) 0.75 x10^3/uL (0.30-0.82); Monocytes % 7.4 % (5.3-12.2); Neutrophil % 54.3 % (34.0-67.9); Platelet Count 395 x10^3/uL (163-337); Red Blood Count 5.28 x10^6/uL (4.63-6.08); Red Cell Distribution Width 13.8 % (11.6-14.4); White Blood Count 10.2 x10^3/uL (4.23-9.07)
[2024-06-03] MEDS: MORPHINE SULFATE 4 MG INJ IV ONE (22:08)
[2024-06-03] MEDS: Zofran 4 MG/2 ML VIAL IV ONE (22:08)
[2024-06-03] MEDS: NITRO-BID 2% UD PACKETS TOP ONE (22:09)
[2024-06-03] MEDS ORDERED: DUONEB 0.5-3 MG/3 ml Neb IH ONE (22:10)
--- NOTE | 2024-06-03 22:11 | ERPHSYRPT ---
- History of Present Illness Time Seen by Provider: 06/03/24 21:48 Historian: patient Exam Limitations: no limitations Patient Subjective Stated Complaint: chest pain and sob, found his friend about 30 minutes ago and then the c/p occured Triage Nursing Assessment: Pt brought in by EMS for chest pain and sob. Pt has been having trouble breathing x2 days and went to his friends house to get his nebulizer machine and found his friend in the home. Pt c/o midsternal chest pain that radiates down the right arm. Lungs clear, heart tones reg. Pt has a non-prod cough and states, "I always have the cough". Pt still smokes 1/2 PPD. No edema noted. Pt's O2 sats 98% on rm air, applied 2L n/c for pt comfort. Physician History: 69-year-old male with multiple medical problems including coronary artery diseas e status post stenting/CABG, COPD, tobacco use, hypertension presented in the ER with 2 to 3 days history of increasing cough with some wheezing and shortness of breath. Patient went to his get nebulizer from her friend where he found her in the house almost 30 minutes prior to arrival and started to having left- sided chest pain moderate to severe sharp shooting, nonradiating. Patient is gi tip aspirin and morphine with no significant relief. Patient is tachypneic but not tachycardic, very anxious. Denies any lower extremity swelling. No fever or chills reported. Does have chronic smoker's cough which is a little worse than usual. No known sick contact. Aspirin Treatment Today: 81 mg x 4 Allergies/Adverse Reactions: No Known Drug Allergies Allergy (Verified 06/03/24 21:40) Home Medications: Metoprolol Tartrate 25 mg [Lopressor 25MG Tab] 50 mg PO DAILY 12/27/13 [History] Albuterol Common Canister [Ventolin Common Canister] 2 puffs IH Q4H PRN PRN 09/07/18 [History] Nitroglycerin 0.4 mg PO Q5MIN PRN MR X 3 PRN 05/14/19 [History] Atorvastatin Calcium 80 mg PO DAILY 05/20/22 [History] Aspirin 81 mg PO DAILY 03/08/23 [History] Budesonide/Formoterol Fumarate [Budesonide-Formoterol 160-4.5] 1 puff IH DAILY 05/10/23 [History] Ezetimibe 10 mg [Zetia 10 MG] 10 mg PO HS 05/10/23 [History] Gabapentin [Neurontin] 600 mg PO QID 05/10/23 [History] Amlodipine Besylate 10 mg PO DAILY 07/01/23 [History] Bupropion HCl Xl 150 mg [Wellbutrin XL 150 MG] 150 mg PO DAILY 07/01/23 [History] Clopidogrel Bisulfate [Clopidogrel] 75 mg PO DAILY 07/01/23 [History] Hydrocodone/Acetaminophen [Hydrocodone-Acetamin 10-325 mg] 1 each PO Q6H PRN PRN 07/01/23 [History] Isosorbide Mononitrate [Isosorbide Mononitrate ER] 30 mg PO DAILY 07/01/23 [History] Losartan Potassium 50 mg [Cozaar 50 MG] 50 mg PO DAILY 07/01/23 [History] Pentoxifylline 400 mg PO TID 07/01/23 [History] Ranolazine [Ranolazine ER] 500 mg PO BID 07/01/23 [History] Hx Tetanus, Diphtheria Vaccination/Date Given: Yes Hx Influenza Vaccination/Date Given: Yes Hx Pneumococcal Vaccination/Date Given: Yes Travel Risk - International Travel Have you traveled outside of the country in past 3 weeks: No - Emerging Infectious Disease Are you exhibiting symptoms associated with any current EIDs: Yes Symptoms: Shortness of Breath, Other (Please Comment) Comment: chest pain - Review of Systems Constitutional: No Symptoms Eyes: No Symptoms Ears, Nose, & Throat: No Symptoms Respiratory: Cough, Dyspnea, Dyspnea on Exertion (ANDRADE), Wheezing Cardiac: Chest Pain Abdominal/Gastrointestinal: No Symptoms Genitourinary Symptoms: No Symptoms Musculoskeletal: No Symptoms Psychological: Anxiety Endocrine: No Symptoms Hematologic/Lymphatic: No Symptoms Immunological/Allergic: No Symptoms - Past Medical History Pertinent Past Medical History: Yes Neurological History: No Pertinent History ENT History: No Pertinent History Cardiac History: Arrhythmia, Coronary Artery Disease, High Cholesterol, Hypertension, Myocardial Infarction (AR) Respiratory History: COPD, Emphysema, Pneumonia Endocrine Medical History: No Pertinent History Musculoskeletal History: Degenerative Disk Disease GI Medical History: No Pertinent History History: No Pertinent History Psycho-Social History: No Pertinent History Male Reproductive Disorders: No Pertinent History Other Medical History: treating engineer: Dr. Herrera - Past Surgical History Past Surgical History: Yes Neuro Surgical History: No Pertinent History Cardiac: CABG, Cardiac Catheterization, Cardiac Stent, Vascular Surgery Respiratory: No Pertinent History Gastrointestinal: No Pertinent History Genitourinary: No Pertinent History Musculoskeletal: Orthopedic Surgery Male Surgical History: No Pertinent History Other Surgical History: bilateral ELBOW SURGERY-"nerves and tendons", rt wrist surgery plate and pins after fx., back surgery, 2 josseline in back, triple bypass 2010; angioplasty left leg x3, stents to rt leg. cardiac stents (2023) Life vest - Social History Smoking Status: Current every day smoker How long have you smoked: 54 yrs Exposure to second hand smoke: Yes Drug Use: none - Social Determinants of Health Will the patient participate in the screening: Yes Do you worry about a steady place to live?: No Do you have any problems with any of the following?: No known problems In the past 12 months,have you had to go without utilities?: No Transportation Issues: No Has anyone in your support network made you feel unsafe?: No Have you or anyone in your house had to go w/o enough food: No - Nursing Vital Signs Nursing Vital Signs: Initial Vital Signs Pulse Rate 87 06/03/24 21:31 Respiratory Rate 15 06/03/24 21:31 Blood Pressure 154/100 06/03/24 21:31 O2 Sat by Pulse Oximetry 100 06/03/24 21:31 Pain Scale Pain Intensity 0 - Physical Exam General Appearance: no apparent distress, alert, anxiety Eye Exam: PERRL/EOMI Ears, Nose, Throat Exam: normal ENT inspection Neck Exam: normal inspection, non-tender, supple, full range of motion Respiratory Exam: diminished breath sounds, accessory muscle use, rhonchi, wheezing Cardiovascular Exam: regular rate/rhythm, normal heart sounds Gastrointestinal/Abdomen Exam: soft, normal bowel sounds, No tenderness Extremity Exam: normal inspection, normal range of motion Neurologic Exam: alert, oriented x 3, cooperative, triage assistant II-XII nml as tested Skin Exam: normal color SpO2 Interpretation: normal SpO2: 97 O2 Delivery: Room Air - Course EKG Interpreted by Me: RATE (89), Sinus Rhythm, Right [place] Deviation, Q-wave, Non-specific ST Changes Ordered Tests: Medication Summary Discontinued Medications Generic Name Dose Route Start Last Admin Trade Name Sary PRN Reason Stop Dose Admin Albuterol/Ipratropium 3 ml 06/03/24 21:55 06/03/24 22:13 Ipratropium/Albuterol Sulfate 3 Ml Ampul.Neb IH 06/03/24 21:56 3 ml STAT ONE Administration Albuterol/Ipratropium Confirm 06/03/24 22:10 Ipratropium/Albuterol Sulfate 3 Ml Ampul.Neb Administered 06/03/24 22:11 Dose 3 ml IH .STK-MED ONE Aspirin 324 mg 06/03/24 21:48 06/03/24 21:59 Aspirin 81 Mg Tab.Chew PO 06/03/24 21:49 Not Given STAT ONE Morphine Sulfate Confirm 06/03/24 22:01 Morphine Sulfate 4 Mg/Ml Injection Administered 06/03/24 22:02 Dose 4 mg .ROUTE .STK-MED ONE Morphine Sulfate 4 mg 06/03/24 22:05 06/03/24 22:08 Morphine Sulfate 4 Mg/Ml Injection IV 06/03/24 22:06 4 mg STAT ONE Administration Nitroglycerin 0.5 gm 06/03/24 21:55 06/03/24 22:09 Nitroglycerin 1 Gm Packet TOP 06/03/24 21:56 0.5 gm STAT ONE Administration Nitroglycerin Confirm 06/03/24 22:01 Nitroglycerin 1 Gm Packet Administered 06/03/24 22:02 Dose 1 gm .ROUTE .STK-MED ONE Nitroglycerin 1 gm 06/04/24 00:15 06/04/24 00:23 Nitroglycerin 1 Gm Packet TOP 06/04/24 00:16 1 gm STAT ONE Administration Nitroglycerin Confirm 06/04/24 00:22 Nitroglycerin 1 Gm Packet Administered 06/04/24 00:23 Dose 1 gm .ROUTE .STK-MED ONE Ondansetron HCl 4 mg 06/03/24 22:00 06/03/24 22:08 Ondansetron Hcl 4 Mg/2 Ml Vial IV 06/03/24 22:01 4 mg STAT ONE Administration Ondansetron HCl Confirm 06/03/24 22:00 Ondansetron Hcl 4 Mg/2 Ml Vial Administered 06/03/24 22:01 Dose 4 mg .ROUTE .STK-MED ONE Lab/Rad Data: Laboratory Result Diagrams 06/03/24 21:58 06/03/24 21:58 Laboratory Results 06/04/24 06/04/24 06/04/24 Range/Units 01:29 00:36 00:17 WBC (4.23-9.07) x10^3/uL RBC (4.63-6.08) x10^6/uL Hgb (13.7-17.5) g/dL Hct (40.1-51.0) % MCV (79.0-92.2) fL MCH (25.7-32.2) pg MCHC (32.3-36.5) g/dL RDW (11.6-14.4) % Plt Count (163-337) x10^3/uL MPV (9.4-12.4) fL Gran % (34.0-67.9) % Immature Gran % (Auto) (0.001-0.429) % Nucleat RBC Rel Count (0.00-0.2) % Eos # (Auto) (0.04-0.54) x10^3/uL Immature Gran # (Auto) (0.001-0.031) x10^3u/L Absolute Lymphs (auto) (1.32-3.57) x10^3/uL Absolute Monos (auto) (0.30-0.82) x10^3/uL Absolute Nucleated RBC (0.00-0.012) x10^3u/L Lymphocytes % (21.8-53.1) % Monocytes % (5.3-12.2) % Eosinophils % (0.8-7.0) % Basophils % (0.2-1.2) % Absolute Granulocytes (1.78-5.38) x10^3/uL Basophils # (0.01-0.08) x10^3/uL Sodium (135-145) mmol/L Potassium (3.5-5.1) mmol/L Chloride (98-107) mmol/L Carbon Dioxide (22-30) mmol/L Anion Gap (5-15) MEQ/L BUN (9-20) mg/dL Creatinine (0.66-1.25) mg/dL Estimated GFR ML/MIN Glucose (74-106) mg/dL Lactic Acid 1.0 (0.4-2.0) Calcium (8.4-10.2) mg/dL Magnesium (1.6-2.3) mg/dL Total Bilirubin (0.2-1.3) mg/dL AST (17-59) U/L ALT (0-50) U/L Alkaline Phosphatase (38-126) U/L Creatine Kinase (55-170) U/L Troponin I 0.017 (0.000-0.033) ng/mL NT-Pro-B Natriuret Pep (<300) pg/mL Serum Total Protein (6.3-8.2) g/dL Albumin (3.5-5.0) g/dL Procalcitonin (0.030-0.080) ng/mL Influenza Type A Ag NEGATIVE (NEGATIVE) Influenza Type B Ag NEGATIVE (NEGATIVE) RSV (PCR) NEGATIVE (NEGATIVE) SARS-CoV-2 (PCR) NEGATIVE (NEGATIVE) 06/03/24 06/03/24 06/03/24 Range/Units 22:25 21:58 21:58 WBC (4.23-9.07) x10^3/uL RBC (4.63-6.08) x10^6/uL Hgb (13.7-17.5) g/dL Hct (40.1-51.0) % MCV (79.0-92.2) fL MCH (25.7-32.2) pg MCHC (32.3-36.5) g/dL RDW (11.6-14.4) % Plt Count (163-337) x10^3/uL MPV (9.4-12.4) fL Gran % (34.0-67.9) % Immature Gran % (Auto) (0.001-0.429) % Nucleat RBC Rel Count (0.00-0.2) % Eos # (Auto) (0.04-0.54) x10^3/uL Immature Gran # (Auto) (0.001-0.031) x10^3u/L Absolute Lymphs (auto) (1.32-3.57) x10^3/uL Absolute Monos (auto) (0.30-0.82) x10^3/uL Absolute Nucleated RBC (0.00-0.012) x10^3u/L Lymphocytes % (21.8-53.1) % Monocytes % (5.3-12.2) % Eosinophils % (0.8-7.0) % Basophils % (0.2-1.2) % Absolute Granulocytes (1.78-5.38) x10^3/uL Basophils # (0.01-0.08) x10^3/uL Sodium (135-145) mmol/L Potassium (3.5-5.1) mmol/L Chloride (98-107) mmol/L Carbon Dioxide (22-30) mmol/L Anion Gap (5-15) MEQ/L BUN (9-20) mg/dL Creatinine (0.66-1.25) mg/dL Estimated GFR ML/MIN Glucose (74-106) mg/dL Lactic Acid 2.2 H (0.4-2.0) Calcium (8.4-10.2) mg/dL Magnesium (1.6-2.3) mg/dL Total Bilirubin (0.2-1.3) mg/dL AST (17-59) U/L ALT (0-50) U/L Alkaline Phosphatase (38-126) U/L Creatine Kinase (55-170) U/L Troponin I 0.014 (0.000-0.033) ng/mL NT-Pro-B Natriuret Pep 1780 (<300) pg/mL Serum Total Protein (6.3-8.2) g/dL Albumin (3.5-5.0) g/dL Procalcitonin 0.072 (0.030-0.080) ng/mL Influenza Type A Ag (NEGATIVE) Influenza Type B Ag (NEGATIVE) RSV (PCR) (NEGATIVE) SARS-CoV-2 (PCR) (NEGATIVE) 06/03/24 06/03/24 Range/Units 21:58 21:58 WBC 10.2 H (4.23-9.07) x10^3/uL RBC 5.28 (4.63-6.08) x10^6/uL Hgb 15.7 (13.7-17.5) g/dL Hct 46.8 (40.1-51.0) % MCV 88.6 (79.0-92.2) fL MCH 29.7 (25.7-32.2) pg MCHC 33.5 (32.3-36.5) g/dL RDW 13.8 (11.6-14.4) % Plt Count 395 H (163-337) x10^3/uL MPV 9.2 L (9.4-12.4) fL Gran % 54.3 (34.0-67.9) % Immature Gran % (Auto) 0.3 (0.001-0.429) % Nucleat RBC Rel Count 0.0 (0.00-0.2) % Eos # (Auto) 1.13 H (0.04-0.54) x10^3/uL Immature Gran # (Auto) 0.03 (0.001-0.031) x10^3u/L Absolute Lymphs (auto) 2.65 (1.32-3.57) x10^3/uL Absolute Monos (auto) 0.75 (0.30-0.82) x10^3/uL Absolute Nucleated RBC 0.00 (0.00-0.012) x10^3u/L Lymphocytes % 26.0 (21.8-53.1) % Monocytes % 7.4 (5.3-12.2) % Eosinophils % 11.1 H (0.8-7.0) % Basophils % 0.9 (0.2-1.2) % Absolute Granulocytes 5.54 H (1.78-5.38) x10^3/uL Basophils # 0.09 H (0.01-0.08) x10^3/uL Sodium 143 (135-145) mmol/L Potassium 4.0 (3.5-5.1) mmol/L Chloride 105 (98-107) mmol/L Carbon Dioxide 25 (22-30) mmol/L Anion Gap 16.4 H (5-15) MEQ/L BUN 20 (9-20) mg/dL Creatinine 1.31 H (0.66-1.25) mg/dL Estimated GFR 59.7 ML/MIN Glucose 104 (74-106) mg/dL Lactic Acid (0.4-2.0) Calcium 10.0 (8.4-10.2) mg/dL Magnesium 2.0 (1.6-2.3) mg/dL Total Bilirubin 0.50 (0.2-1.3) mg/dL AST 30 (17-59) U/L ALT 22 (0-50) U/L Alkaline Phosphatase 105 (38-126) U/L Creatine Kinase 64 (55-170) U/L Troponin I (0.000-0.033) ng/mL NT-Pro-B Natriuret Pep (<300) pg/mL Serum Total Protein 7.7 (6.3-8.2) g/dL Albumin 4.6 (3.5-5.0) g/dL Procalcitonin (0.030-0.080) ng/mL Influenza Type A Ag (NEGATIVE) Influenza Type B Ag (NEGATIVE) RSV (PCR) (NEGATIVE) SARS-CoV-2 (PCR) (NEGATIVE) - Progress Progress: re-examined Air Movement: good Progress Note: 06/04/24 00:25 69-year-old with extensive history of CAD, COPD, tobacco use is evaluated in the ER for sudden onset chest pain. Patient is having some shortness of breath and cough for the last few days. Patient was very anxious, placed on 2 L oxygen f or comfort although patient was not hypoxic. He is given morphine 4 mg IV x 2 along with Nitropaste with some improvement in his chest pain. EKG showed sinus rhythm with no acute ST elevations. Chest x-ray is negative for any acute cardiopulmonary findings reviewed by me with pending official report. Has a white count of 10, chemistries with chronic CKD with a stable creatinine of 1.3, lactate of 2.2 and negative initial troponin. BNP of 1780. I believe patient needs further evaluation with trending of cardiac enzymes with his extensive history and possible cardiology evaluation. I have discussed with Dr. Herman hospitalist here at [facility], recommended transfer to facility with inpatient cardiology services. I have discussed with Dr. Oscar ER physician at [facility], reviewed history, workup and patient is accepted for transfer. Complexity of problem addressed: High acuity Complexity of data reviewed/analyzed: Extensive Risk of morbidity/mortality/complication with current condition: High risk Blood Culture(s) Obtained: Yes Antibiotics given: No Discussed with : Other (Dr. HERMAN hospitalist [facility]/Dr. Celestina [facility]) Will see patient in: ED Counseled pt/family regarding: lab results, diagnosis, rad results, smoking cessation Medical Desision Making - Independent Historian Additional History obtained from: [employer]/EMT - Discussion of managment Care discussed with:: on-call "doc" Reviewed:: Test results Agreed on:: Treatment plan Will see patient: in ED - Diagnostic Testing Diagnostic test were ordered, analyzed, and reviewed by me: Yes Radiological Interpretation: Interpreted by me, Reviewed by me - Risk of complications The pt has a mod risk of morbidity or mortality based on: Need for prescription drug management The pt has a high risk of morbidity or mortality based on: Decision regarding hospitilization or escalation of hosp level of care - Departure Departure Disposition: Transfer Clinical Impression: Chest pain, rule out acute myocardial infarction Condition: Stable Critical Care Time: No Referrals: DOCTOR,NO FAMILY [Primary Care Provider] - Follow up/PCP as directed
[2024-06-03] MEDS: DUONEB 0.5-3 MG/3 ml Neb IH ONE (22:13)
[2024-06-03 22:27] LABS: TROPONIN 0.014 ng/mL (0.000-0.033)
[2024-06-03 22:44] LABS: ALBUMIN 4.6 g/dL (3.5-5.0); ANION GAP 16.4 MEQ/L (5-15); BILIRUBIN,TOTAL 0.5 mg/dL (0.2-1.3); Creatinine 1 1.31 mg/dL (0.66-1.25); EST GLOMERULAR FILTRATION RATE 59.7 ML/MIN; Total Protein 7.7 g/dL (6.3-8.2)
[2024-06-04] MEDS ORDERED: NITRO-BID 2% UD PACKETS ONE (00:22)
[2024-06-04] MEDS: NITRO-BID 2% UD PACKETS TOP ONE (00:23)
[2024-06-04 00:55] LABS: INFLUENZA A NEGATIVE (NEGATIVE); INFLUENZA B NEGATIVE (NEGATIVE); RESPIRATORY SYNCTIAL VIRUS NEGATIVE (NEGATIVE); SARS-CoV-2 Xpert Express NEGATIVE (NEGATIVE)
[2024-06-04 02:07] VITALS: BP 138/90; PULSE 71; RESP 10
--- NOTE | 2024-06-04 08:47 | XRAY ---
Indication: Chest pain. Comparison: May 15, 2023 Portable chest again hyperinflated with new minimal bibasilar subsegmental atelectasis/scarring. Remaining heart and lungs unremarkable again with incidental CABG. Bony thorax intact again with osteopenia and degenerative changes. No acute findings.
[2024-06-06 12:03] VITALS: O2SAT 97
== END 2024-06-04 02:54 | disposition short-term general hospital (02) ==
LOC: ED 21:34
DX: R07.9 Chest pain, unspecified (principal); I13.0 Hypertensive heart and chronic kidney disease with heart failure and stage 1 through stage 4 chronic kidney disease, or unspecified chronic kidney disease; I50.9 Heart failure, unspecified; N18.9 Chronic kidney disease, unspecified; R06.02 Shortness of breath; Z79.02 Long term (current) use of antithrombotics/antiplatelets; Z79.899 Other long term (current) drug therapy; Z72.0 Tobacco use
CPT/HCPCS: 0241U; 36415; 71045; 80053; 82550; 83605; 83735; 83880; 84145; 84484; 85025; 87040; 93005; 93041; 94640; 94760; 96374; 96375; 99285; J2270; J2405; A9270-GY

== ENCOUNTER 2024-08-01 17:51 | Emergency (ER) | payer MEDICARE, OTHER ==
[2024-08-01 18:23] VITALS: TEMP 98.9
[2024-08-01] MEDS ORDERED: MORPHINE SULFATE 4 MG INJ ONE ×2 (19:41→22:06)
[2024-08-01] MEDS ORDERED: Zofran 4 MG/2 ML VIAL ONE (19:41)
[2024-08-01] MEDS: Zofran 4 MG/2 ML VIAL IV ONE (19:48)
[2024-08-01] MEDS: MORPHINE SULFATE 4 MG INJ IV ONE ×2 (19:49→22:08)
[2024-08-01 19:56] LABS: Absolute Neutrophil Ct (ANC) 3.97 x10^3/uL (1.78-5.38); BASOPHIL % 0.8 % (0.2-1.2); Basophil (Absolute #) 0.06 x10^3/uL (0.01-0.08); Eosinophil % 8.7 % (0.8-7.0); Eosinophil (Absolute #) 0.65 x10^3/uL (0.04-0.54); Hematocrit 40.3 % (40.1-51.0); Hemoglobin 13.6 g/dL (13.7-17.5); IMMATURE GRAN # 0.01 x10^3u/L (0.001-0.031); IMMATURE GRAN % 0.1 % (0.001-0.429); Lymphocyte (Absolute #) 1.74 x10^3/uL (1.32-3.57); Lymphocytes % 23.3 % (21.8-53.1); Mean Cell Volume 87.6 fL (79.0-92.2); Mean Corpuscular Hemoglobin 29.6 pg (25.7-32.2); Mean Corpuscular Hgb Concent. 33.7 g/dL (32.3-36.5); Mean Platelet Volume 8.9 fL (9.4-12.4); Monocyte (Absolute #) 1.03 x10^3/uL (0.30-0.82); Monocytes % 13.8 % (5.3-12.2); Neutrophil % 53.3 % (34.0-67.9); Platelet Count 457 x10^3/uL (163-337); Red Cell Distribution Width 13.6 % (11.6-14.4); White Blood Count 7.5 x10^3/uL (4.23-9.07)
--- NOTE | 2024-08-01 19:59 | ERPHSYRPT ---
- History of Present Illness Time Seen by Provider: 08/01/24 18:30 Source: patient Exam Limitations: no limitations Patient Subjective Stated Complaint: pt had a heart cath done on Tuesday by Dr. Sharma and is having left sided groin pain that radiates down his leg Triage Nursing Assessment: Pt brought to the ER by his friend, hypertensive, rates pain as 10/10, pulses normal, skin n/wd, denies chest pain, no shortness of breath, left femoral site is healing well with very minimal bruising although the pt states that it is extremely tender, doesn't appear to be in any distress Physician History: 69-year-old male presents to our ED for evaluation of pain to his left proximal femoral area. Patient reports that he had a left femoral artery catheterization procedure performed approximately 5 days ago. Since then the pain has got progressively worse. No interval trauma. No fever. Pain described as a ache that tends to shoot down his leg. Symptoms are moderate to severe in intensity. Patient rates his pain 10 out of 10. No associated chest pain or shortness of breath. No nausea vomiting or diaphoresis. No fever. Patient voices no other complaints or concerns at this time. Portions of this note were created with voice recognition technology. There may be grammatical, spelling, punctuation or sound alike errors Timing/Duration: day(s) (5 days) Severity: moderate Modifying Factors: Improves With: other (Pain worse with palpation.) Associated Symptoms: denies symptoms Allergies/Adverse Reactions: No Known Drug Allergies Allergy (Verified 08/01/24 18:23) Home Medications: Metoprolol Tartrate 25 mg [Lopressor 25MG Tab] 50 mg PO DAILY 12/27/13 [History] Albuterol Common Canister [Ventolin Common Canister] 2 puffs IH Q4H PRN PRN 09/07/18 [History] Nitroglycerin 0.4 mg PO Q5MIN PRN MR X 3 PRN 05/14/19 [History] Atorvastatin Calcium 80 mg PO DAILY 05/20/22 [History] Aspirin 81 mg PO DAILY 03/08/23 [History] Budesonide/Formoterol Fumarate [Budesonide-Formoterol 160-4.5] 1 puff IH DAILY 05/10/23 [History] Ezetimibe 10 mg [Zetia 10 MG] 10 mg PO HS 05/10/23 [History] Gabapentin [Neurontin] 600 mg PO QID 05/10/23 [History] Amlodipine Besylate 10 mg PO DAILY 07/01/23 [History] Bupropion HCl Xl 150 mg [Wellbutrin XL 150 MG] 150 mg PO DAILY 07/01/23 [History] Clopidogrel Bisulfate [Clopidogrel] 75 mg PO DAILY 07/01/23 [History] Hydrocodone/Acetaminophen [Hydrocodone-Acetamin 10-325 mg] 1 each PO Q6H PRN PRN 07/01/23 [History] Isosorbide Mononitrate [Isosorbide Mononitrate ER] 30 mg PO DAILY 07/01/23 [History] Losartan Potassium 50 mg [Cozaar 50 MG] 50 mg PO DAILY 07/01/23 [History] Pentoxifylline 400 mg PO TID 07/01/23 [History] Ranolazine [Ranolazine ER] 500 mg PO BID 07/01/23 [History] Hx Tetanus, Diphtheria Vaccination/Date Given: Yes Hx Influenza Vaccination/Date Given: Yes Hx Pneumococcal Vaccination/Date Given: Yes Travel Risk - International Travel Have you traveled outside of the country in past 3 weeks: No - Emerging Infectious Disease Are you exhibiting symptoms associated with any current EIDs: No Symptoms: Shortness of Breath, Other (Please Comment) Comment: chest pain - Review of Systems Constitutional: No Symptoms, No Fever, No Chills Eyes: No Symptoms Ears, Nose, & Throat: No Symptoms Respiratory: No Symptoms, No Cough, No Dyspnea Cardiac: No Symptoms, No Chest Pain, No Edema, No Syncope Abdominal/Gastrointestinal: No Symptoms, No Abdominal Pain, No Nausea, No Vomiting, No Diarrhea Genitourinary Symptoms: No Symptoms, No Dysuria Musculoskeletal: No Symptoms, No Back Pain, No Neck Pain Skin: No Symptoms, No Rash Neurological: No Symptoms, No Dizziness, No Focal Weakness, No Sensory Changes Psychological: No Symptoms Endocrine: No Symptoms Hematologic/Lymphatic: No Symptoms Immunological/Allergic: No Symptoms All Other Systems: Reviewed and Negative - Past Medical History Pertinent Past Medical History: Yes Neurological History: No Pertinent History ENT History: No Pertinent History Cardiac History: Arrhythmia, Coronary Artery Disease, High Cholesterol, Hypertension, Myocardial Infarction ([place]) Respiratory History: COPD, Emphysema, Pneumonia Endocrine Medical History: No Pertinent History Musculoskeletal History: Degenerative Disk Disease GI Medical History: No Pertinent History History: No Pertinent History Psycho-Social History: No Pertinent History Male Reproductive Disorders: No Pertinent History 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 cardiac stents (2023) Life vest - Social History Smoking Status: Current every day smoker How long have you smoked: 54 yrs Exposure to second hand smoke: Yes Drug Use: none - Social Determinants of Health Will the patient participate in the screening: Yes Do you worry about a steady place to live?: No Do you have any problems with any of the following?: No known problems In the past 12 months,have you had to go without utilities?: No Transportation Issues: No Has anyone in your support network made you feel unsafe?: No Have you or anyone in your house had to go w/o enough food: No - Nursing Vital Signs Nursing Vital Signs: Initial Vital Signs Temperature 98.9 F 08/01/24 18:16 Pulse Rate 105 H 08/01/24 18:16 Blood Pressure 157/87 08/01/24 18:16 O2 Sat by Pulse Oximetry 97 08/01/24 18:16 Pain Scale Pain Intensity 9 - Physical Exam General Appearance: no apparent distress, alert Eye Exam: PERRL/EOMI, eyes nml inspection Ears, Nose, Throat Exam: normal ENT inspection, moist mucous membranes Neck Exam: normal inspection, full range of motion Respiratory Exam: normal breath sounds, lungs clear, airway intact, No respiratory distress Cardiovascular Exam: regular rate/rhythm, normal heart sounds, normal peripheral pulses, other (The involved left lower extremity is neurovascular tact distally compartments are soft cap refill less than 2 seconds.) Gastrointestinal/Abdomen Exam: soft, normal bowel sounds, No tenderness, No mass Back Exam: normal inspection, normal range of motion, No CVA tenderness, No vertebral tenderness Extremity Exam: normal inspection, normal range of motion, pelvis stable Neurologic Exam: alert, oriented x 3, cooperative, normal mood/affect, sensation nml, No motor deficits Skin Exam: normal color, warm, dry, No rash Lymphatic Exam: No adenopathy SpO2 Interpretation: normal SpO2: 99 O2 Delivery: Room Air - Course Nursing assessment & vital signs reviewed: Yes Ordered Tests: Active Orders 24 hr Category Date Time Status IV Insertion STAT Care 08/01/24 19:32 Active CBC W DIFF Stat Lab 08/01/24 19:47 Completed CMP Stat Lab 08/01/24 19:47 Completed Medication Summary Discontinued Medications Generic Name Dose Route Start Last Admin Trade Name Freq PRN Reason Stop Dose Admin Morphine Sulfate 4 mg 08/01/24 19:32 08/01/24 19:49 Morphine Sulfate 4 Mg/Ml Injection IV 08/01/24 19:33 4 mg STAT ONE Administration Morphine Sulfate Confirm 08/01/24 19:41 Morphine Sulfate 4 Mg/Ml Injection Administered 08/01/24 19:42 Dose 4 mg .ROUTE .STK-MED ONE Morphine Sulfate 4 mg 08/01/24 22:04 08/01/24 22:08 Morphine Sulfate 4 Mg/Ml Injection IV 08/01/24 22:05 4 mg STAT ONE Administration Morphine Sulfate Confirm 08/01/24 22:06 Morphine Sulfate 4 Mg/Ml Injection Administered 08/01/24 22:07 Dose 4 mg .ROUTE .STK-MED ONE Ondansetron HCl 4 mg 08/01/24 19:32 08/01/24 19:48 Ondansetron Hcl 4 Mg/2 Ml Vial IV 08/01/24 19:33 4 mg STAT ONE Administration Ondansetron HCl Confirm 08/01/24 19:41 Ondansetron Hcl 4 Mg/2 Ml Vial Administered 08/01/24 19:42 Dose 4 mg .ROUTE .STK-MED ONE Lab/Rad Data: Laboratory Result Diagrams 08/01/24 19:47 08/01/24 19:47 Laboratory Results 08/01/24 08/01/24 Range/Units 19:47 19:47 WBC 7.5 (4.23-9.07) x10^3/uL RBC 4.60 L (4.63-6.08) x10^6/uL Hgb 13.6 L (13.7-17.5) g/dL Hct 40.3 (40.1-51.0) % MCV 87.6 (79.0-92.2) fL MCH 29.6 (25.7-32.2) pg MCHC 33.7 (32.3-36.5) g/dL RDW 13.6 (11.6-14.4) % Plt Count 457 H (163-337) x10^3/uL MPV 8.9 L (9.4-12.4) fL Gran % 53.3 (34.0-67.9) % Immature Gran % (Auto) 0.1 (0.001-0.429) % Nucleat RBC Rel Count 0.0 (0.00-0.2) % Eos # (Auto) 0.65 H (0.04-0.54) x10^3/uL Immature Gran # (Auto) 0.01 (0.001-0.031) x10^3u/L Absolute Lymphs (auto) 1.74 (1.32-3.57) x10^3/uL Absolute Monos (auto) 1.03 H (0.30-0.82) x10^3/uL Absolute Nucleated RBC 0.00 (0.00-0.012) x10^3u/L Lymphocytes % 23.3 (21.8-53.1) % Monocytes % 13.8 H (5.3-12.2) % Eosinophils % 8.7 H (0.8-7.0) % Basophils % 0.8 (0.2-1.2) % Absolute Granulocytes 3.97 (1.78-5.38) x10^3/uL Basophils # 0.06 (0.01-0.08) x10^3/uL Sodium 138 (135-145) mmol/L Potassium 4.1 (3.5-5.1) mmol/L Chloride 99 (98-107) mmol/L Carbon Dioxide 27 (22-30) mmol/L Anion Gap 16.2 H (5-15) MEQ/L BUN 21 H (9-20) mg/dL Creatinine 1.23 (0.66-1.25) mg/dL Estimated GFR 64.4 ML/MIN Glucose 91 (74-106) mg/dL Calcium 9.4 (8.4-10.2) mg/dL Total Bilirubin 0.30 (0.2-1.3) mg/dL AST 23 (17-59) U/L ALT 12 (0-50) U/L Alkaline Phosphatase 102 (38-126) U/L Serum Total Protein 7.6 (6.3-8.2) g/dL Albumin 4.2 (3.5-5.0) g/dL - Progress Progress: improved Progress Note: Case discussed with sales order administrator who performed the vascular catheterization procedure 5 days ago. He advised obtaining a duplex scan to assess for aneurysm. I spoke to the sales order administrator at 7:51 PM. We consulted with our radiology services. They will get back to us and let us know if this study is an option this evening. Otherwise patient will be transferred to [facility] for further evaluation per 08/01/24 19:[address] Sosa ER physician who accepts transfer at 8:24 PM 08/01/24 20:24 69-year-old male presents to our ED with worsening pain in his left proximal femur near groin area. IV placed. Patient received 4 mg of IV morphine upon arrival. Pain improved. The involved extremity is neurovascular tact distally. I consulted with patient's sales order administrator who performed the procedure 5 days ago. He advised performing a duplex scan however we are unable to do that at this time. Patient will be transferred to patient's sales order administrator institution for further evaluation and treatment. Plan of care discussed with patient. He agrees to transfer to [facility] for further evaluation and treatment. Patient voices no other complaints or concerns at this time. Laboratory workup shows no significant abnormalities. Hemoglobin 13.6. Portions of this note were created with voice recognition technology. There may be grammatical, spelling, punctuation or sound alike errors 08/01/24 22:19 Complexity of problem addressed is moderate acute complicated. No critical care time. Complexity of data reviewed and analyzed is extensive. Test ordered test reviewed results analyzed and correlated clinically with history and physical exam. Management discussed with patient's sales order administrator and ER physician at [facility] who accepts transfer. Risk of complication and or risk of morbidity/mortality of patient management is high. Patient requires transfer to higher level of care. Vital stable. Time spent to transfer patient is approximately 15 minutes. Plan of care established for shared decision making. No social determinants of health present to impede follow-up. Portions of this note were created with voice recognition technology. There may be grammatical, spelling, punctuation or sound alike errors 08/01/24 22:20 Counseled pt/family regarding: lab results, diagnosis, need for follow-up - Departure Departure Disposition: Transfer Clinical Impression: Other acute postprocedural pain Condition: Stable Critical Care Time: No Referrals: DOCTOR,NO FAMILY [Primary Care Provider, UNKNOWN] - Follow up/PCP as directed
[2024-08-01 20:10] LABS: ALBUMIN 4.2 g/dL (3.5-5.0); ANION GAP 16.2 MEQ/L (5-15); BILIRUBIN,TOTAL 0.3 mg/dL (0.2-1.3); Calcium 9.4 mg/dL (8.4-10.2); Creatinine 1 1.23 mg/dL (0.66-1.25); EST GLOMERULAR FILTRATION RATE 64.4 ML/MIN; Potassium 4.1 mmol/L (3.5-5.1); Total Protein 7.6 g/dL (6.3-8.2)
[2024-08-01 23:01] VITALS: BP 149/97; PULSE 82; RESP 16; O2SAT 94
== END 2024-08-01 23:00 | disposition short-term general hospital (02) ==
LOC: ED 17:51
DX: G89.18 Other acute postprocedural pain (principal); R06.02 Shortness of breath; R07.9 Chest pain, unspecified; J44.9 Chronic obstructive pulmonary disease, unspecified; I25.10 Atherosclerotic heart disease of native coronary artery without angina pectoris; E78.5 Hyperlipidemia, unspecified; I10 Essential (primary) hypertension; I25.2 Old myocardial infarction; E78.00 Pure hypercholesterolemia, unspecified
CPT/HCPCS: 36415; 80053; 85025; 96374; 96375; 96376; 99284; 99285; J2270; J2405

== ENCOUNTER 2025-01-15 06:40 | Emergency (ER) | payer MEDICARE, OTHER ==
[2025-01-15 06:45] VITALS: TEMP 98.2
--- NOTE | 2025-01-15 06:50 | ERPHSYRPT ---
- History of Present Illness Physician History: Chest pain, onset of symptoms about 1/2-hour prior to evaluation, he has a longstanding history of coronary disease, CABG(4 vessel 2010), coronary but numerous stents since having bypass, He states taking 2 sublingual nitroglycerin prior to coming to the emergency department, he also states taking blood thinners, used "crystal meth" this morning, continues to smoke Timing/Duration: hour(s) (1) Activities at Onset: rest Quality: pressure, tightness Location: substernal Chest Pain Radiation: arm Severity of Pain-Max: severe Severity of Pain-Current: severe Prior Chest Pain/Cardiac Workup: cardiac cath, heart attack Nitro Today/Relief: 0.4 mg x 2 Aspirin Treatment Today: no aspirin today Allergies/Adverse Reactions: No Known Drug Allergies Allergy (Verified 08/01/24 18:23) Home Medications: Metoprolol Tartrate 25 mg [Lopressor 25MG Tab] 50 mg PO DAILY 12/27/13 [History] Albuterol Common Canister [Ventolin Common Canister] 2 puffs IH Q4H PRN PRN 09/07/18 [History] Nitroglycerin 0.4 mg PO Q5MIN PRN MR X 3 PRN 05/14/19 [History] Atorvastatin Calcium 80 mg PO DAILY 05/20/22 [History] Aspirin 81 mg PO DAILY 03/08/23 [History] Budesonide/Formoterol Fumarate [Budesonide-Formoterol 160-4.5] 1 puff IH DAILY 05/10/23 [History] Ezetimibe 10 mg [Zetia 10 MG] 10 mg PO HS 05/10/23 [History] Gabapentin [Neurontin] 600 mg PO QID 05/10/23 [History] Amlodipine Besylate 10 mg PO DAILY 07/01/23 [History] Bupropion HCl Xl 150 mg [Wellbutrin XL 150 MG] 150 mg PO DAILY 07/01/23 [History] Clopidogrel Bisulfate [Clopidogrel] 75 mg PO DAILY 07/01/23 [History] Hydrocodone/Acetaminophen [Hydrocodone-Acetamin 10-325 mg] 1 each PO Q6H PRN PRN 07/01/23 [History] Isosorbide Mononitrate [Isosorbide Mononitrate ER] 30 mg PO DAILY 07/01/23 [History] Losartan Potassium 50 mg [Cozaar 50 MG] 50 mg PO DAILY 07/01/23 [History] Pentoxifylline 400 mg PO TID 07/01/23 [History] Ranolazine [Ranolazine ER] 500 mg PO BID 07/01/23 [History] Hx Tetanus, Diphtheria Vaccination/Date Given: Yes Hx Influenza Vaccination/Date Given: Yes Hx Pneumococcal Vaccination/Date Given: Yes Travel Risk - Emerging Infectious Disease Are you exhibiting symptoms associated with any current EIDs: No Symptoms: Shortness of Breath, Other (Please Comment) Comment: chest pain - Past Medical History Pertinent Past Medical History: Yes Neurological History: No Pertinent History ENT History: No Pertinent History Cardiac History: Arrhythmia, Coronary Artery Disease, High Cholesterol, Hyper tension, Myocardial Infarction ([place]) Respiratory History: COPD, Emphysema, Pneumonia Endocrine Medical History: No Pertinent History Musculoskeletal History: Degenerative Disk Disease GI Medical History: No Pertinent History History: No Pertinent History Psycho-Social History: No Pertinent History Male Reproductive Disorders: No Pertinent History 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 cardiac stents (2023) Life vest - Social History Smoking Status: Current every day smoker How long have you smoked: 54 yrs Exposure to second hand smoke: Yes Drug Use: none - Social Determinants of Health Will the patient participate in the screening: Yes Do you worry about a steady place to live?: No In the past 12 months,have you had to go without utilities?: No Transportation Issues: No Has anyone in your support network made you feel unsafe?: No Have you or anyone in your house had to go w/o enough food: No - Nursing Vital Signs Nursing Vital Signs: Initial Vital Signs Temperature 98.2 F 01/15/25 06:44 Pulse Rate 70 01/15/25 06:44 Respiratory Rate 18 01/15/25 06:44 Blood Pressure 124/79 01/15/25 06:44 O2 Sat by Pulse Oximetry 99 01/15/25 06:44 Pain Scale Pain Intensity 10 - Physical Exam General Appearance: no apparent distress, alert, thin Eye Exam: PERRL/EOMI, eyes nml inspection Ears, Nose, Throat Exam: normal ENT inspection, moist mucous membranes Neck Exam: normal inspection, non-tender, supple, full range of motion Respiratory Exam: normal breath sounds, lungs clear, No respiratory distress Cardiovascular Exam: regular rate/rhythm, normal heart sounds Gastrointestinal/Abdomen Exam: soft, No tenderness, No mass Back Exam: normal inspection, No CVA tenderness, No vertebral tenderness Extremity Exam: normal inspection, normal range of motion Neurologic Exam: alert, oriented x 3, cooperative, normal mood/affect, sensation nml, No motor deficits Skin Exam: normal color, warm, dry SpO2 Interpretation: normal SpO2: 99 Ordered Tests: Active Orders 24 hr Category Date Time Status Roll Former STAT Care 01/15/25 06:45 Ordered EKG-ER Only STAT Care 01/15/25 06:44 Ordered IV Insertion STAT Care 01/15/25 06:44 Ordered CHEST 1 VIEW (PORTABLE) Stat Exams 01/15/25 06:44 Ordered CBC W DIFF Stat Lab 01/15/25 06:44 Ordered CMP Stat Lab 01/15/25 06:44 Ordered NT PRO BNPII Stat Lab 01/15/25 Ordered PROTIME WITH INR Stat Lab 01/15/25 06:44 Ordered PTT Stat Lab 01/15/25 06:44 Ordered TROPONIN Q2H Lab 01/15/25 06:45 Ordered TROPONIN Q2H Lab 01/15/25 08:45 Ordered TROPONIN Q2H Lab 01/15/25 10:45 Ordered TROPONIN Q2H Lab 01/15/25 12:45 Ordered TROPONIN Q2H Lab 01/15/25 14:45 Ordered TROPONIN Q2H Lab 01/15/25 16:45 Ordered TROPONIN Q2H Lab 01/15/25 18:45 Ordered TROPONIN Q2H Lab 01/15/25 20:45 Ordered TROPONIN Q2H Lab 01/15/25 22:45 Ordered Medication Summary Generic Name Dose Route Start Last Admin Trade Name Freq PRN Reason Stop Dose Admin Nitroglycerin/Dextrose 250 mls @ 1.5 mls/hr 01/15/25 06:44 Ntg 0.2mg/Ml In D5w Glass IV 02/14/25 06:43 .Q24H PRN CHEST PAIN Protocol 5 MCG/MIN Discontinued Medications Generic Name Dose Route Start Last Admin Trade Name Freq PRN Reason Stop Dose Admin Morphine Sulfate 4 mg 01/15/25 06:44 Morphine Sulfate 4 Mg/Ml Injection IV 01/15/25 06:45 STAT ONE Ondansetron HCl 4 mg 01/15/25 06:44 Ondansetron Hcl 4 Mg/2 Ml Vial IV 01/15/25 06:45 STAT ONE - Progress Progress Note: 01/15/25 06:[address] Chiu - Departure Clinical Impression: Chest pain Qualifiers: Chest pain type: unspecified Qualified Code(s): R07.9 - Chest pain, unspecified Condition: Stable Critical Care Time: No Referrals: JOHN NICE [Primary Care Provider, PULMONARY MEDICINE] - Follow up/PCP as directed
[2025-01-15 06:58] LABS: BASOPHIL % 0.4 % (0.2-1.2); Basophil (Absolute #) 0.06 x10^3/uL (0.01-0.08); Eosinophil (Absolute #) 0.70 x10^3/uL (0.04-0.54); Hematocrit 46.0 % (40.1-51.0); Hemoglobin 15.1 g/dL (13.7-17.5); IMMATURE GRAN # 0.05 x10^3u/L (0.001-0.031); IMMATURE GRAN % 0.4 % (0.001-0.429); Lymphocyte (Absolute #) 2.73 x10^3/uL (1.32-3.57); Mean Corpuscular Hemoglobin 29.2 pg (25.7-32.2); Mean Corpuscular Hgb Concent. 32.8 g/dL (32.3-36.5); Monocyte (Absolute #) 1.26 x10^3/uL (0.30-0.82); NUCLEATED RBC # 0.00 x10^3u/L (0.00-0.012); NUCLEATED RBC % 0.0 % (0.00-0.2); Platelet Count 366 x10^3/uL (163-337); Red Blood Count 5.18 x10^6/uL (4.63-6.08); White Blood Count 13.5 x10^3/uL (4.23-9.07)
[2025-01-15] MEDS ORDERED: MORPHINE SULFATE 4 MG INJ ONE ×3 (07:09→08:38)
[2025-01-15] MEDS ORDERED: Zofran 4 MG/2 ML VIAL ONE (07:09)
[2025-01-15] MEDS: MORPHINE SULFATE 4 MG INJ IV ONE ×3 (07:10→08:43)
[2025-01-15] MEDS: Zofran 4 MG/2 ML VIAL IV ONE (07:11)
[2025-01-15 07:13] LABS: INR 0.91 (0.8-3.0); PROTIME 10.2 SECONDS (9.4-12.5); PTT 26.9 SECONDS (25.1-36.5)
[2025-01-15 07:21] LABS: Calcium 9.3 mg/dL (8.4-10.2); Carbon Dioxide 23.0 mmol/L (22-30); Creatinine 1 1.19 mg/dL (0.66-1.25); EST GLOMERULAR FILTRATION RATE 67.0 ML/MIN; Glucose 98.0 mg/dL (74-106); NT PRO BNPII 2570.0 pg/mL (<300); Potassium 3.6 mmol/L (3.5-5.1); SGOT/AST 28.0 U/L (17-59); SGPT/ALT 15.0 U/L (0-50); Total Protein 7.8 g/dL (6.3-8.2)
[2025-01-15] MEDS: Nitrostat 0.4 MG Tablet SL STA ×2 (07:40→08:42)
[2025-01-15] MEDS ORDERED: Nitrostat 0.4 MG Tablet SL PRN (07:40)
[2025-01-15] MEDS ORDERED: Heparin 25,000 units/D5W: USE ORDER SET PROTO 25,000 UNITS/250 ML BAG IV ONE (08:03)
[2025-01-15] MEDS ORDERED: Nitrostat 0.4 MG (ED) SL ONE ×2 (08:03→08:34)
[2025-01-15] MEDS ORDERED: HEPARIN 5000 UNITS/0.5 ML (HIGH RISK MED) ONE (08:08)
[2025-01-15] MEDS ORDERED: BABY ASPIRIN 81 MG CHEW ONE (08:10)
[2025-01-15] MEDS: BABY ASPIRIN 81 MG CHEW PO ONE (08:32)
[2025-01-15] MEDS ORDERED: Ntg 0.2MG/Ml in D5W GLASS*** 250 ML IV ONE (08:34)
--- NOTE | 2025-01-15 08:36 | XRAY ---
Indication: Chest pain. Comparison: June 03, 2024 Portable chest again demonstrates COPD and minimal left midlung subsegmental atelectasis/scarring. No focal infiltrate, consolidation, or large effusion. Heart not enlarged again with CABG. Bony thorax intact again with osteopenia and mild degenerative changes. Impression: Continued nonacute chest with chronic features.
[2025-01-15 08:43] VITALS: BP 131/87; PULSE 66; RESP 18; O2SAT 98
[2025-01-15] MEDS: Ntg 0.2MG/Ml in D5W GLASS*** 250 ML IV PRN (08:43)
== END 2025-01-15 08:20 | disposition short-term general hospital (02) ==
LOC: ED 06:40
DX: I21.3 ST elevation (STEMI) myocardial infarction of unspecified site (principal); R07.9 Chest pain, unspecified; R77.8 Other specified abnormalities of plasma proteins; I10 Essential (primary) hypertension; Z79.02 Long term (current) use of antithrombotics/antiplatelets; Z79.899 Other long term (current) drug therapy; Z72.0 Tobacco use

== ENCOUNTER 2025-01-25 09:13 | Emergency (ER) | payer MEDICARE, OTHER ==
[2025-01-25] MEDS ORDERED: BABY ASPIRIN 81 MG CHEW ONE (09:18)
--- NOTE | 2025-01-25 09:30 | ERPHSYRPT ---
- History of Present Illness Time Seen by Provider: 01/25/25 09:18 Historian: patient, family Physician History: CC: " I'm having a heart attack" HPI: history from nursing triage notes, patient, and He notes that he thinks he is having another heart attack. He notes that he started having pain about 2 hours ago this was shortly before he went to go take his dog for a walk. He thought taking the dog for the walk might help. He describes the pain as being in his mid chest it is a burning sensation but also heavy. He notes this is similar to when he has had his 5 prior myocardial infarctions. He describes his last [facility] it was within the past 1 to 2 weeks he did have a cardiac cath at [facility] in [place]. 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 He notes he did take his home medications as usual this morning including his aspirin. He did take 2 nitroglycerin tablet sublingual at home did not have relief of the pain and he did present to ER for further evaluation. No particular trigger for this event He does have some minor nausea but no vomiting He has not had any fainting He did have some dizziness earlier but none now He had his initial 81 mg of aspirin but then an additional 243 mg of aspirin He notes that he has had bypass surgery three-vessel in addition to the myocardial infarctions He does have COPD and has a chronic cough _ lives at home with family 1/2 pack/day cigarette smoker, down from 2 packs/day in the past Pulseox: 93% on RA normal for COPD ROS Const: No fever, chills, sweats. No weakness, but with symptom related malaise. HEENT: No sore throat, runny nose, congestion, ear ache. CV: No palpitations. No unusual shortness of breath, cough. No edema to the ankles / legs. Abdom: No vomiting, diarrhea, or constipation. No abdominal pain. : No dysuria, frequency, or odor. Skin: no unusual rashes. Heme: No unusual bruising or bleeding. He does note that he does bruise easily because he is on Plavix and the aspirin Lymph: No swelling to glands. Neuro: No headache, numbness. No hemoptysis, hematemesis, hematochezia, hematuria. Aspirin Treatment Today: 81 mg x 1, provided at home, provided by ED Allergies/Adverse Reactions: No Known Drug Allergies Allergy (Verified 01/15/25 07:34) Home Medications: Metoprolol Tartrate 25 mg [Lopressor 25MG Tab] 50 mg PO DAILY 12/27/13 [History] Albuterol Common Canister [Ventolin Common Canister] 2 puffs IH Q4H PRN PRN 09/07/18 [History] Nitroglycerin 0.4 mg PO Q5MIN PRN MR X 3 PRN 05/14/19 [History] Atorvastatin Calcium 80 mg PO DAILY 05/20/22 [History] Aspirin 81 mg PO DAILY 03/08/23 [History] Budesonide/Formoterol Fumarate [Budesonide-Formoterol 160-4.5] 1 puff IH DAILY 05/10/23 [History] Ezetimibe 10 mg [Zetia 10 MG] 10 mg PO HS 05/10/23 [History] Amlodipine Besylate 10 mg PO DAILY 07/01/23 [History] Clopidogrel Bisulfate [Clopidogrel] 75 mg PO DAILY 07/01/23 [History] Isosorbide Mononitrate [Isosorbide Mononitrate ER] 30 mg PO DAILY 07/01/23 [History] Losartan Potassium 50 mg [Cozaar 50 MG] 50 mg PO DAILY 07/01/23 [History] Ranolazine [Ranolazine ER] 500 mg PO BID 07/01/23 [History] Hx Tetanus, Diphtheria Vaccination/Date Given: Yes Hx Influenza Vaccination/Date Given: Yes Hx Pneumococcal Vaccination/Date Given: Yes Travel Risk - Emerging Infectious Disease Are you exhibiting symptoms associated with any current EIDs: No Symptoms: Shortness of Breath, Other (Please Comment) Comment: chest pain - Past Medical History Pertinent Past Medical History: Yes Neurological History: No Pertinent History ENT History: No Pertinent History Cardiac History: Arrhythmia, Coronary Artery Disease, High Cholesterol, Hypertension, Myocardial Infarction ([facility]) Respiratory History: COPD, Emphysema, Pneumonia Endocrine Medical History: No Pertinent History Musculoskeletal History: Degenerative Disk Disease GI Medical History: No Pertinent History History: No Pertinent History Psycho-Social History: No Pertinent History Male Reproductive Disorders: No Pertinent History Other Medical History: packaging tech: Dr. Herrera - Past Surgical History Past Surgical History: Yes Neuro Surgical History: No Pertinent History Cardiac: CABG, Cardiac Catheterization, Cardiac Stent, Vascular Surgery Respiratory: No Pertinent History Gastrointestinal: No Pertinent History Genitourinary: No Pertinent History Musculoskeletal: Orthopedic Surgery Male Surgical History: No Pertinent History Other Surgical History: bilateral ELBOW SURGERY-"nerves and tendons", rt wrist surgery plate and pins after fx., back surgery, 2 josseline in back, triple bypass 2010; angioplasty left leg x3, stents to rt leg. cardiac stents (2023) Life vest - Social History Smoking Status: Current every day smoker How long have you smoked: 54 yrs Exposure to second hand smoke: Yes Drug Use: none - Social Determinants of Health Will the patient participate in the screening: Yes Do you worry about a steady place to live?: No In the past 12 months,have you had to go without utilities?: No Transportation Issues: No Has anyone in your support network made you feel unsafe?: No Have you or anyone in your house had to go w/o enough food: No - Nursing Vital Signs Nursing Vital Signs: Initial Vital Signs Pulse Rate 93 H 01/25/25 09:14 Respiratory Rate 16 01/25/25 09:14 Blood Pressure 123/77 01/25/25 09:14 O2 Sat by Pulse Oximetry 93 L 01/25/25 09:14 Pain Scale Pain Intensity 10 - Physical Exam SpO2 Interpretation: normal (Normal for COPD) SpO2: 93 O2 Delivery: Room Air Comments: Oertli distressed, A&O, nontoxic. Pleasant. Moderate pain distress. No gross physiologic distress. Appears to be adult with multiple medical problems and in moderate distress related to their process He is thin but not emaciated. Eyes: EOMI, nonicteric, conjunctiva clear Throat: Moist mucous membranes. Symmetric rise of palate. No pharynx erythema. Tonsils atrophic size and without erythema or exudate. Neck: supple, spontaneous ROM, nontender. trachea midline. No cervical or supraclavicular lymphadopathy. Thyroid nontender and normal size. Back: No pain on percussion. No muscle spasm. Nontender palpation. No kyphosis. Lungs: CTA, nl effort, no rales, crackles, rhonchi, wheezes. Normal resonance on percussion. Cough mildly harsh at the bases. Cardiac: RRR S1, S2, without murmur or rub. Posterior tibial, Pedal pulses 2/4 bilaterally. No ankle or pretibial edema. Skin: warm, dry, normal turgor. no gross rash. Abdom: Bowel sounds present and active x 4 Quadrants. Normal tympany to percussion. Soft. Non-distended. Nontender, no masses or organomegaly. No rebound, rigidity, or guarding. No pulsatile masses. Nonsurgical. Negative Millicent's signs bilaterally Good muscle tone and moves all extremities. - Course Nursing assessment & vital signs reviewed: Yes EKG Interpreted by Me: Other (0 918 EKG with normal sinus rhythm rate 89, NH 0.16, QRS 0.08, normal axis and R wave progression, cannot exclude partial right block. Cannot exclude old inferior infarct. Nonspecific ST changes V3 through V6.. No STEMI. Comparison 01/15/2025 stable. Abnormal but stable ECG. -- Deni Brooks) Ordered Tests: Active Orders 24 hr Category Date Time Status Milled Rubber Tender STAT Care 01/25/25 10:01 Completed EKG-ER Only STAT Care 01/25/25 10:01 Completed IV Insertion STAT Care 01/25/25 10:01 Completed Pulse Oximetry (ED) STAT Care 01/25/25 10:01 Completed Re-Check Vital Signs STAT Care 01/25/25 10:01 Completed CHEST 1 VIEW (PORTABLE) Stat Exams 01/25/25 10:01 Completed CBC Stat Lab 01/25/25 10:10 Completed CMP Stat Lab 01/25/25 10:10 Completed PROTIME WITH INR Stat Lab 01/25/25 10:10 Completed PTT Stat Lab 01/25/25 10:10 Completed TROPONIN Q4H Lab 01/25/25 10:10 Completed TROPONIN Q4H Lab 01/25/25 12:41 Completed TROPONIN Q4H Lab 01/25/25 18:15 Ordered TROPONIN Q4H Lab 01/25/25 22:15 Ordered Medication Summary Discontinued Medications Generic Name Dose Route Start Last Admin Trade Name Freq PRN Reason Stop Dose Admin Aspirin Confirm 01/25/25 09:18 Aspirin 81 Mg Tab.Chew Administered 01/25/25 09:19 Dose 243 mg .ROUTE .STK-MED ONE Famotidine 20 mg 01/25/25 10:01 01/25/25 10:10 Famotidine 20 Mg/1 Vial IV 01/25/25 10:02 20 mg STAT ONE Administration Famotidine Confirm 01/25/25 10:08 Famotidine 20 Mg/1 Vial Administered 01/25/25 10:09 Dose 20 mg IV .STK-MED ONE Heparin Sodium (Beef Lung) 5,000 unit 01/25/25 10:07 01/25/25 10:10 Heparin 5000 Units/0.5 Ml 5,000 Unit/0.5 Ml Syr IV 01/25/25 10:08 5,000 unit STAT ONE Administration Heparin Sodium (Beef Lung) Confirm 01/25/25 10:08 Heparin 5000 Units/0.5 Ml 5,000 Unit/0.5 Ml Syr Administered 01/25/25 10:09 Dose 5,000 unit .ROUTE .STK-MED ONE Heparin Sodium/Dextrose Confirm 01/25/25 13:47 Heparin 25,000 Units/D5w: Use Order Set Mike Administered 01/25/25 13:48 Dose 25,000 units in 250 mls @ ud IV .STK-MED ONE Heparin Sodium/Dextrose 25,000 units in 250 mls @ 7.836 mls/hr 01/25/25 14:00 01/25/25 13:53 Heparin 25,000 Units/D5w: Use Order Set Mike IV 02/24/25 13:59 12 units/kg/hr .Q24H DOLLY 7.836 mls/hr Administration Protocol 12 UNITS/KG/HR Morphine Sulfate Confirm 01/25/25 10:18 Morphine Sulfate 4 Mg/Ml Injection Administered 01/25/25 10:19 Dose 4 mg .ROUTE .STK-MED ONE Morphine Sulfate 2 mg 01/25/25 10:18 Morphine Sulfate 2 Mg/Ml Inj IV 01/30/25 10:17 Q2H PRN PRN SEVERE PAIN Morphine Sulfate 2 mg 01/25/25 10:19 Morphine Sulfate 2 Mg/Ml Inj IV 01/30/25 10:18 Q1H/PRN PRN SEVERE PAIN Morphine Sulfate 2 mg 01/25/25 10:24 01/25/25 10:25 Morphine Sulfate 4 Mg/Ml Injection IV 01/25/25 10:25 2 mg STAT ONE Administration Morphine Sulfate 2 mg 01/25/25 10:25 01/25/25 13:02 Morphine Sulfate 4 Mg/Ml Injection IV 01/30/25 10:24 2 mg Q1H/PRN PRN Administration MODERATE TO SEVERE PAIN Morphine Sulfate Confirm 01/25/25 11:45 Morphine Sulfate 4 Mg/Ml Injection Administered 01/25/25 11:46 Dose 4 mg .ROUTE .STK-MED ONE Morphine Sulfate Confirm 01/25/25 13:01 Morphine Sulfate 4 Mg/Ml Injection Administered 01/25/25 13:02 Dose 4 mg .ROUTE .STK-MED ONE Nitroglycerin Confirm 01/25/25 13:47 Nitroglycerin 1 Gm Packet Administered 01/25/25 13:48 Dose 1 gm .ROUTE .STK-MED ONE Nitroglycerin 1 gm 01/25/25 13:48 01/25/25 13:53 Nitroglycerin 1 Gm Packet TOP 01/25/25 13:49 1 gm STAT ONE Administration Ondansetron HCl 4 mg 01/25/25 10:19 Ondansetron Hcl 4 Mg/2 Ml Vial IV 02/24/25 10:18 Q6H PRN PRN NAUSEA/VOMITING Lab/Rad Data: Laboratory Result Diagrams 01/25/25 10:10 01/25/25 10:10 Laboratory Results 01/25/25 01/25/25 01/25/25 Range/Units 12:41 10:10 10:10 WBC 10.4 H (4.23-9.07) x10^3/uL RBC 5.25 (4.63-6.08) x10^6/uL Hgb 15.6 (13.7-17.5) g/dL Hct 46.8 (40.1-51.0) % MCV 89.1 (79.0-92.2) fL MCH 29.7 (25.7-32.2) pg MCHC 33.3 (32.3-36.5) g/dL RDW 13.7 (11.6-14.4) % Plt Count 546 H (163-337) x10^3/uL MPV 9.1 L (9.4-12.4) fL PT (9.4-12.5) SECONDS INR (0.8-3.0) APTT (25.1-36.5) SECONDS Sodium (135-145) mmol/L Potassium (3.5-5.1) mmol/L Chloride (98-107) mmol/L Carbon Dioxide (22-30) mmol/L Anion Gap (5-15) MEQ/L BUN (9-20) mg/dL Creatinine (0.66-1.25) mg/dL Estimated GFR ML/MIN Glucose (74-106) mg/dL Calcium (8.4-10.2) mg/dL Total Bilirubin (0.2-1.3) mg/dL AST (17-59) U/L ALT (0-50) U/L Alkaline Phosphatase (38-126) U/L Troponin I 3.530 H* 2.000 H* (0.000-0.033) ng/mL Serum Total Protein (6.3-8.2) g/dL Albumin (3.5-5.0) g/dL 01/25/25 01/25/25 Range/Units 10:10 10:10 WBC (4.23-9.07) x10^3/uL RBC (4.63-6.08) x10^6/uL Hgb (13.7-17.5) g/dL Hct (40.1-51.0) % MCV (79.0-92.2) fL MCH (25.7-32.2) pg MCHC (32.3-36.5) g/dL RDW (11.6-14.4) % Plt Count (163-337) x10^3/uL MPV (9.4-12.4) fL PT 11.4 (9.4-12.5) SECONDS INR 1.02 (0.8-3.0) APTT > 139.0 H* (25.1-36.5) SECONDS Sodium 137 (135-145) mmol/L Potassium 3.8 (3.5-5.1) mmol/L Chloride 104 (98-107) mmol/L Carbon Dioxide 21 L (22-30) mmol/L Anion Gap 15.8 H (5-15) MEQ/L BUN 24 H (9-20) mg/dL Creatinine 1.39 H (0.66-1.25) mg/dL Estimated GFR 55.6 ML/MIN Glucose 105 (74-106) mg/dL Calcium 9.6 (8.4-10.2) mg/dL Total Bilirubin 1.10 (0.2-1.3) mg/dL AST 55 (17-59) U/L ALT 20 (0-50) U/L Alkaline Phosphatase 134 H (38-126) U/L Troponin I (0.000-0.033) ng/mL Serum Total Protein 8.5 H (6.3-8.2) g/dL Albumin 4.8 (3.5-5.0) g/dL - Progress Progress Note: 01/25/25 09:59 He does not have STEMI on EKG and his EKG is stable compared to last week. He notes he did have the myocardial infarction. At this time we will complete troponin, chemistries, Portable chest x-ray. I will treat his pain with morphine IV He already had his aspirin dosing and he is on Plavix. Single dose heparin 5000 units IV once at this time in combination with Protonix Make contact with cardiology at [facility] as he noted that he had cardiac catheterization last week. He is going to continue to try to quit smoking he is down from 2 packs a day to 1/2 pack/day. Critical Care Time :: 01/25/25 11:50 Had reviewed his chest x-ray report it is nonfocal I had received the telephone call of the critical troponin at 2.0 from lab and at that time nurses made contact with [facility] transfer center. I have received a telephone call back from [facility] at this time they have taken additional patient information and they will be contacting you [facility] as they are the cardiology group that had worked with him during this most recent myocardial infarction in December. 01/25/25 12:39 Have received word back from [facility] Call to [facility] in [place], to discuss presentation. Pt having active chest chest pain They recommend calling back to [facility] to verify if they have capacity or availability since he has had cardiology follow-up recently at [facility] and the studies are already up there so this would be continuity of care. Otherwise if he is having difficulty with acceptance call back. Will call back to Dr. Verdin --is the packaging tech who had completed the cardiac cath. We just have received the cardiac cath report from [facility] and this is the name 01/25/25 13:[address] Sosa cardiology on-call for Dr. Boogie LIMON and we reviewed case. We also review the basics of the cardiac cath patient having active chest pain with elevated troponin at 2.0 with history of prior stents and bypass surgery. He accepts patient but will consult on patient and he would like to have me speak with the hospitalist. [facility] notes they do have a cardiac bed available Dr. Sosa recommends using Nitropaste as well as starting heparin drip at this time. continue to control pain 01/25/[address] Osei Benitez hospitalist at [facility]. We reviewed the basics of the case. Plan is for admit to their cardiac unit. 01/25/25 13:53 Do recheck him. He appears to be more comfortable not in a distress but still with some level of discomfort. He notes "this is not my first rodeo." We have discussed that he is been accepted at [facility] for cardiology and he is appreciative. No questions. I have asked how often he has symptoms where he knows he is having the [facility] and he notes this is the first time he has had it within 2 weeks. Plan is for transfer. He agrees for the transfer of to [facility]. 01/25/25 14:36 Trans care is present at this time ready for transfer of patient to [facility]. Has been started with the Nitropaste and the heparin infusion - Departure Departure Disposition: Transfer Clinical Impression: History of coronary artery bypass graft x 3, Non-STEMI (non-ST elevated myocardial infarction), History of coronary angioplasty with insertion of stent, Chest pain Condition: Serious Critical Care Time: Yes Critical Care Time(excluding separately billable procedures): Critical 30-74 mins Referrals: JOHN NICE [Primary Care Provider, PULMONARY MEDICINE] - Follow up/PCP as directed
[2025-01-25] MEDS ORDERED: Pepcid 20 MG VIAL IV ONE (10:08)
[2025-01-25] MEDS ORDERED: HEPARIN 5000 UNITS/0.5 ML (HIGH RISK MED) ONE (10:08)
[2025-01-25] MEDS: HEPARIN 5000 UNITS/0.5 ML (HIGH RISK MED) IV ONE (10:10)
[2025-01-25] MEDS: Pepcid 20 MG VIAL IV ONE (10:10)
[2025-01-25] MEDS ORDERED: MORPHINE SULFATE 2 MG INJ IV PRN ×2 (10:18→10:19)
[2025-01-25] MEDS ORDERED: MORPHINE SULFATE 4 MG INJ ONE ×3 (10:18→13:01)
[2025-01-25] MEDS ORDERED: Zofran 4 MG/2 ML VIAL IV PRN (10:19)
[2025-01-25 10:24] LABS: Hematocrit 46.8 % (40.1-51.0); Hemoglobin 15.6 g/dL (13.7-17.5); Mean Corpuscular Hemoglobin 29.7 pg (25.7-32.2); Mean Corpuscular Hgb Concent. 33.3 g/dL (32.3-36.5); Platelet Count 546 x10^3/uL (163-337); Red Blood Count 5.25 x10^6/uL (4.63-6.08); White Blood Count 10.4 x10^3/uL (4.23-9.07)
[2025-01-25] MEDS: MORPHINE SULFATE 4 MG INJ IV ONE (10:25)
--- NOTE | 2025-01-25 10:28 | XRAY ---
Indication: Chest pain. Comparison: January 15, 2025 Portable chest unchanged again demonstrating COPD and minimal left midlung fibrosis/scarring. Heart not enlarged again with CABG and stent adjacent to aortic knob. Bony thorax intact again with osteopenia and degenerative changes. No new/acute findings.
[2025-01-25 10:33] LABS: Calcium 9.6 mg/dL (8.4-10.2); Carbon Dioxide 21.0 mmol/L (22-30); Creatinine 1 1.39 mg/dL (0.66-1.25); EST GLOMERULAR FILTRATION RATE 55.6 ML/MIN; Glucose 105.0 mg/dL (74-106); Potassium 3.8 mmol/L (3.5-5.1); SGOT/AST 55.0 U/L (17-59); SGPT/ALT 20.0 U/L (0-50); Total Protein 8.5 g/dL (6.3-8.2)
[2025-01-25 11:26] LABS: INR 1.02 (0.8-3.0); PROTIME 11.4 SECONDS (9.4-12.5)
[2025-01-25 11:31] LABS: PTT > 139.0 SECONDS (25.1-36.5)
[2025-01-25] MEDS: MORPHINE SULFATE 4 MG INJ IV PRN (11:46)
[2025-01-25 13:47] VITALS: O2SAT 93
[2025-01-25] MEDS ORDERED: Heparin 25,000 units/D5W: USE ORDER SET PROTO 25,000 UNITS/250 ML BAG IV ONE (13:47)
[2025-01-25] MEDS ORDERED: NITRO-BID 2% UD PACKETS ONE (13:47)
[2025-01-25] MEDS: Heparin 25,000 units/D5W: USE ORDER SET PROTO 25,000 UNITS/250 ML BAG IV SCH (13:53)
[2025-01-25] MEDS: NITRO-BID 2% UD PACKETS TOP ONE (13:53)
[2025-01-25 14:19] VITALS: BP 115/78; PULSE 81; RESP 19
== END 2025-01-25 14:38 | disposition short-term general hospital (02) ==
LOC: ED 09:13
DX: I21.4 Non-ST elevation (NSTEMI) myocardial infarction (principal); R07.9 Chest pain, unspecified; Z95.1 Presence of aortocoronary bypass graft; Z95.5 Presence of coronary angioplasty implant and graft; I10 Essential (primary) hypertension; Z79.02 Long term (current) use of antithrombotics/antiplatelets; Z79.899 Other long term (current) drug therapy; Z72.0 Tobacco use